=== PATIENT | female | born 1955 | race Caucasian/White ===

== ENCOUNTER 2020-06-27 08:40 | Outpatient (REF) | payer OTHER, SELFPAY ==
[2020-06-27 10:06] LABS: MANUAL DIFF FLAG NO
[2020-06-27 10:19] LABS: Basophils Percent Auto 0.7 % (0-2); Eosinophils Absolute Auto 0.1 X10*3/uL (0.0-0.4); Eosinophils Percent Auto 1.3 % (0-4); Hematocrit 42.9 % (37-47); Hemoglobin 13.5 g/dl (12.0-16.0); Imm Gran Abs Auto 0.01 X10*3/uL (0.00-0.03); Imm Gran Pct Auto 0.2 % (0.0-0.4); Lymphocytes Absolute Auto 1.6 X10*3/uL (1.2-4.9); Lymphocytes Percent Auto 28.9 % (20-40); Mean Corpuscular HGB Conc 31.5 g/dl (31.0-35.0); Mean Corpuscular Hemoglobin 28.2 pg (27.0-33.0); Mean Corpuscular Volume 89.6 fL (80-98); Mean Platelet Volume 11.3 fL (9.4-12.3); Monocytes Absolute Auto 0.5 X10*3/uL (0.1-1.2); Monocytes Percent Auto 8.6 % (2-11); Neutrophils Absolute Auto 3.2 X10*3/uL (2.0-8.3); Neutrophils Percent Auto 60.3 % (45-73); Platelet Count 282 X10*3/uL (160-400); Red Blood Count 4.79 X10*6/uL (4.20-5.50); Red Cell Distribution Width 13.3 % (11.0-16.0); White Blood Count 5.4 X10*3/uL (4.8-10.8)
[2020-06-27 11:03] LABS: Alanine Aminotransferase 21 U/L (0-31); Albumin Level 4.3 g/dL (3.5-5.0); Alkaline Phosphatase 86 U/L (39-117); Anion Gap 15 (12-20); Aspartate Amino Transferase 26 U/L (5-31); Bilirubin Total 0.5 mg/dL (0.0-1.0); Blood Urea Nitrogen 17 mg/dL (9-16); Calcium 8.8 mg/dL (8.4-10.2); Carbon Dioxide 27 mmol/L (22-29); Chloride 105 mmol/L (96-108); Cholesterol 196 mg/dL; Estimated Glomerular Filt Rate > 60; Glucose Fasting 89 mg/dL (60-99); HDL Cholesterol 81 mg/dL; LDL Cholesterol Calculated 103 mg/dl; Potassium 4.6 mmol/l (3.3-5.1); Sodium 142 mmol/L (135-145); Total Protein 6.6 g/dL (6.5-8.0); Triglycerides 62 mg/dL
[2020-06-27 11:07] LABS: ~HepC Num1 0.07 S/CO (0.00-0.79); ~Hepatitis C Antibody Nonreactive (Nonreactive)
[2020-06-27 11:12] LABS: Vitamin D 25-OH Total 76.7 ng/mL (>30)
== END 2020-06-27 08:41 | disposition home or self-care (01) ==
LOC: HO.10HDL 08:40
PROVIDERS: PCP Internal Medicine; Visit Provider Internal Medicine
DX: Z00.00 Encounter for general adult medical examination without abnormal findings (principal); M06.9 Rheumatoid arthritis, unspecified
CPT/HCPCS: 36415; 80053; 80061; 82306; 85025; 86140; 86803

== ENCOUNTER 2020-12-23 10:10 | Inpatient (IN) | payer OTHER, SELFPAY ==
[2020-12-23] VITALS (8 sets, daily range): BP systolic 111–156; BP diastolic 63–81; PULSE 68–84; RESP 15–20; TEMP 36.1–36.9; O2SAT 95–98; BMI 36.6
--- NOTE | ~2020-12-23 | CT_ITS ---
EXAMINATION: CT ABDOMEN AND PELVIS WITH CONTRAST CLINICAL INFORMATION: Epigastric and right upper quadrant pain. COMPARISON: None TECHNIQUE: Multidetector volumetric images were obtained from the superior aspect of the liver through the pubic symphysis following administration 85 mL of Omnipaque 350 intravenous contrast. Sagittal and coronal reformatted images were obtained on the technologist's workstation. Oral contrast: Yes This CT examination was performed using dose optimization techniques as appropriate, variously including the following: *Automated exposure control *Adjustment of mA and/or kV according to patient size (this includes techniques or standardized protocols for targeted exams where dose is matched to indication/reason for exam; i.e. extremities or head) *Use of iterative reconstruction technique DLP: 841 mGy-cm FINDINGS: LUNG BASES: The visualized lung bases are unremarkable. LIVER, GALLBLADDER, AND BILIARY TREE: The liver is normal in size, shape, and attenuation. No focal hepatic lesion or biliary ductal dilatation is present. There is a gallstone in the gallbladder. The gallbladder is normal in size. No gallbladder wall thickening or pericholecystic fluid is seen. PANCREAS: There is a small 8 mm cyst exophytic to the inferior tail of the pancreas (axial image 28, series 15 and coronal reconstructed image 36). There is fatty infiltration of the head of the pancreas. The pancreas is otherwise unremarkable. SPLEEN: Unremarkable. ADRENAL GLANDS: Unremarkable. KIDNEYS AND URETERS: Evaluation for a small stone is limited due to excreted contrast in the collecting systems. No stone is seen. There are bilateral peripelvic cysts. No renal mass or hydronephrosis is seen. BLADDER: Not well evaluated due to artifact from bilateral hip replacements. GASTROINTESTINAL TRACT: The small and large bowel is unremarkable. The appendix is not seen. The stomach is unremarkable. ABDOMINAL WALL: No significant hernia is appreciated. LYMPH NODES: Normal. VASCULAR: Unremarkable. PELVIC VISCERA: There is a small amount of ascites in the pelvis. The uterus and adnexa are unremarkable. OSSEOUS STRUCTURES: There are bilateral hip replacements. There are degenerative changes of the spine. CT/CT abdomen pelvis w con IMPRESSION: Gallstone. 8 mm cyst exophytic to the tail of pancreas. Follow up MR of the pancreas with MRCP should be considered. Bilateral renal peripelvic cysts.
--- NOTE | ~2020-12-23 | CT_ITS ---
EXAMINATION: CT ANGIOGRAM OF THE CHEST WITH AND WITHOUT CONTRAST (CT PULMONARY ANGIOGRAM FOR PE) CLINICAL INFORMATION: Reason for Exam elevated ddimer pleuritic pain r/o PE COMPARISON: None TECHNIQUE: Prior to contrast administration, noncontrast localization images were obtained. Subsequently, multidetector volumetric imaging was performed from the thoracic inlet to below the diaphragms following the administration of 85 mL Omnipaque 350 intravenous contrast. No contrast reaction reported Sagittal, coronal, and MIP oblique sagittal reformatted images were obtained on the CT workstation, uploaded to PACS, and reviewed. This CT examination was performed using dose optimization techniques as appropriate, variously including the following: *Automated exposure control *Adjustment of mA and/or kV according to patient size (this includes techniques or standardized protocols for targeted exams where dose is matched to indication/reason for exam; i.e. extremities or head) *Use of iterative reconstruction technique Total exam dose-length product 423 mGy-cm FINDINGS: QUALITY OF STUDY/CONTRAST BOLUS: Satisfactory. PULMONARY ARTERIES: No central or segmental pulmonary emboli. THORACIC AORTA: No aneurysm or dissection. LUNG: No focal consolidation, nodules or masses. PLEURA: No pleural effusion or pneumothorax. MEDIASTINUM: Upper normal heart size. No pericardial effusion. No hilar or mediastinal lymphadenopathy. No evidence of septal bowing or right heart strain. CHEST WALL/AXILLA: No axillary or internal mammary lymphadenopathy. OSSEOUS STRUCTURES: No acute or suspicious osseous abnormality. There are degenerative changes of the spine and mild scoliosis. There are degenerative changes at the shoulder joints. UPPER ABDOMEN: Unremarkable. No reflux of contrast into the hepatic veins to suggest elevated right heart pressures. CT/CT angio chest PE protocol IMPRESSION: No evidence of pulmonary embolism. VTE: negative
--- NOTE | 2020-12-23 11:16 | ED_ITS ---
HPI - Abdominal Pain General Chief Complaint: Abdominal Pain Stated Complaint: UPPER GASTIC PAIN Time Seen by Provider: 12/23/20 11:16 Source: patient Mode of arrival: ambulatory Limitations: no limitations History of Present Illness MD elicited complaint: abdominal pain Pertinent past history: none Onset (ago): day(s) (yesterday at noon) Pain Consistency: constant Location: chest, epigastric, LUQ and RUQ Severity: moderate Quality: sharp Radiation: chest Migration to: no migration Exacerbating factors: other (inspiration) Relieving factors: nothing Associated symptoms: nausea and other (shortness of breath) Related Data Allergies Allergy/AdvReac Type Severity Reaction Status Date / Time No Known Allergies Allergy Verified 12/23/20 11:07 Review of Systems Review of Systems Constitutional : No Weight loss, No Fever, No Chills ENT/Mouth : No sore throat, No Rhinorrhea Eyes: No Eye Pain, No Swelling Cardiovascular : pos Chest Pain, pos SOB, no Dyspnea on Exertion, No Orthopnea, No Edema, No Palpitations Respiratory : No Cough, No Sputum Gastrointestinal : pos Nausea, No Vomiting, No Diarrhea, pos abdominal Pain, No Hematochezia, No Melena Genitourinary : No Dysuria, No Urinary Frequency Musculoskeletal : No joint pain, No Myalgias, No Joint Swelling Skin : No Skin Lesions, No rash Neuro : No Weakness, No Numbness, No Dizziness, No Headache Psych : No Anxiety/Panic, No Depression Heme/Lymph: No Bruising, No Lymphadenopathy Endocrine : No Polyuria, No Polydipsia All other systems reviewed and are negative Physical Exam Vital Signs: Vital Signs: Last Vital Signs Temp 98.5 F 12/23/20 16:00 Pulse 71 12/23/20 16:00 Resp 18 12/23/20 16:00 BP 128/70 12/23/20 16:00 Pulse Ox 95 12/23/20 16:00 Body Mass Index 36.6 Appearance: Alert. Oriented X3. No acute distress. Eyes: Pupils equal, round and reactive to light. ENT: Pharynx normal. Neck: Normal inspection. Neck supple. CVS: Normal heart rate and rhythm. Pulses normal. Respiratory: No respiratory distress. Breath sounds normal. Abdomen: Soft and moderate ttp in epigastric area with + damon's sign Skin: Skin warm and dry. Normal skin color. Normal skin turgor. Extremities: No lower extremity edema. No calf ttp Neuro: Oriented X 3. No motor deficit. No sensory deficit. Course Course Course Narrative: elevated ddimer CTA PE ordered at this time message sent to Dr. Florentino given peristent pain but some GB wall thickening ?fluid and stone seen on CT abdomen MDM - Abdominal Pain MDM Narrative Medical decision making narrative: 65 yo female with HTN, RA here with epigastric pain RUQ pain pleuritic chest pain started at noon yesterday, will need labs, CT scan for pancreas/GB, EKG, troponin, ddimer, IV morphine for pain dispo per results and findings. Differential Diagnosis Differential diagnosis: Likely abdominal pain and peptic ulcer disease Lab Data Result diagrams: 12/23/20 12:07 12/23/20 12:07 Labs: Lab Results 12/23/20 12/23/20 12/23/20 Range/Units 12:07 12:07 12:07 WBC 7.9 (4.8-10.8) X10*3/uL RBC 4.72 (4.20-5.50) X10*6/uL Hgb 13.3 (12.0-16.0) g/dl Hct 42.2 (37-47) % MCV 89.4 (80-98) fL MCH 28.2 (27.0-33.0) pg MCHC 31.5 (31.0-35.0) g/dl RDW 13.6 (11.0-16.0) % Plt Count 248 (160-400) X10*3/uL MPV 10.3 (9.4-12.3) fL Immature Gran % (Auto) 0.5 H (0.0-0.4) % Neut % (Auto) 69.9 (45-73) % Lymph % (Auto) 17.6 L (20-40) % [place] % (Auto) 10.6 (2-11) % Eos % (Auto) 1.0 (0-4) % Baso % (Auto) 0.4 (0-2) % Lymph # (Auto) 1.4 (1.2-4.9) X10*3/uL [place] # (Auto) 0.8 (0.1-1.2) X10*3/uL Eos # (Auto) 0.1 (0.0-0.4) X10*3/uL Baso # (Auto) 0.0 (0.0-0.2) X10*3/uL Abs Immat Gran (auto) 0.04 H (0.00-0.03) X10*3/uL Absolute Neuts (auto) 5.5 (2.0-8.3) X10*3/uL Absolute Nucleated RBC 0.000 (0.0-0.012) X10*3/uL Nucleated RBC % (auto) 0.0 (0.0-0.2) /100WBC D-Dimer 1550 NG/ML Sodium 143 (135-145) mmol/L Potassium 4.9 (3.3-5.1) mmol/L Chloride 105 (96-108) mmol/L Carbon Dioxide 31 H (22-29) mmol/L Anion Gap 12 (12-20) BUN 14 (9-16) mg/dL Creatinine 0.87 (0.5-1.4) mg/dL Estim Creat Clear Calc 77.4 Estimated GFR > 60 Random Glucose 88 (60-115) mg/dL Calcium 9.2 (8.4-10.2) mg/dL Magnesium 2.0 (1.6-2.6) mg/dL Total Bilirubin 0.4 (0.0-1.0) mg/dL Direct Bilirubin 0.2 (0.0-0.5) mg/dL AST 27 (5-31) U/L ALT 15 (0-31) U/L Alkaline Phosphatase 96 (39-117) U/L Troponin I High Sens (<3.5-17.0) ng/L Total Protein 6.6 (6.5-8.0) g/dL Albumin 4.1 (3.5-5.0) g/dL Lipase 36 (8-78) U/L COVID-19 (GENET) (Negative) COVID-19 Clin Com 12/23/20 12/23/20 Range/Units 12:07 14:56 WBC (4.8-10.8) X10*3/uL RBC (4.20-5.50) X10*6/uL Hgb (12.0-16.0) g/dl Hct (37-47) % MCV (80-98) fL MCH (27.0-33.0) pg MCHC (31.0-35.0) g/dl RDW (11.0-16.0) % Plt Count (160-400) X10*3/uL MPV (9.4-12.3) fL Immature Gran % (Auto) (0.0-0.4) % Neut % (Auto) (45-73) % Lymph % (Auto) (20-40) % [place] % (Auto) (2-11) % Eos % (Auto) (0-4) % Baso % (Auto) (0-2) % Lymph # (Auto) (1.2-4.9) X10*3/uL [place] # (Auto) (0.1-1.2) X10*3/uL Eos # (Auto) (0.0-0.4) X10*3/uL Baso # (Auto) (0.0-0.2) X10*3/uL Abs Immat Gran (auto) (0.00-0.03) X10*3/uL Absolute Neuts (auto) (2.0-8.3) X10*3/uL Absolute Nucleated RBC (0.0-0.012) X10*3/uL Nucleated RBC % (auto) (0.0-0.2) /100WBC D-Dimer NG/ML Sodium (135-145) mmol/L Potassium (3.3-5.1) mmol/L Chloride (96-108) mmol/L Carbon Dioxide (22-29) mmol/L Anion Gap (12-20) BUN (9-16) mg/dL Creatinine (0.5-1.4) mg/dL Estim Creat Clear Calc Estimated GFR Random Glucose (60-115) mg/dL Calcium (8.4-10.2) mg/dL Magnesium (1.6-2.6) mg/dL Total Bilirubin (0.0-1.0) mg/dL Direct Bilirubin (0.0-0.5) mg/dL AST (5-31) U/L ALT (0-31) U/L Alkaline Phosphatase (39-117) U/L Troponin I High Sens < 3.5 (<3.5-17.0) ng/L Total Protein (6.5-8.0) g/dL Albumin (3.5-5.0) g/dL Lipase (8-78) U/L COVID-19 (GENET) Negative (Negative) COVID-19 Clin Com See Note ECG Data Attestation: I personally reviewed and interpreted this ECG as follows: ECG interpretation date: 12/23/20 ECG interpretation time: 11:51 Interpretation: Rate: 77 Rhythm: NSR with 1st degree AVB [place]: normal Normal P waves. Normal JULIANE. Normal QRS complex. ST T wave : inverted III t wave, no TRENA qTC: normal prior studies: no acute ischemia The study has been interpreted contemporaneously by me. . Discharge Plan Discharge Clinical Impression: Abdominal pain, Biliary colic [facility] Past Medical History Attestation statement: The following information was validated with the patient. Medical History (Updated 12/23/20 @ 16:25 by Esther Alva DO) HTN (hypertension) Rheumatoid arthritis Social History Social History (Updated 12/23/20 @ 11:36 by Esther Alva DO) Alcohol intake: never Patient Tobacco Use Status: Never used Tobacco Advance Directives: No Advance Directives Information Provided: Yes
--- NOTE | 2020-12-23 11:26 | ECG_ITS ---
Test Reason : ABD PAIN Blood Pressure : / mmHG Vent. Rate : 077 BPM Atrial Rate : 077 BPM P-R Int : 220 ms QRS Dur : 082 ms QT Int : 394 ms P-R-T Axes : 047 034 032 degrees QTc Int : 445 ms Sinus rhythm with 1st degree A-V block Low voltage QRS Borderline ECG When compared with ECG of 13-NOV-2002 12:14, DC interval has increased Referred By: Esther Alva Electronically Signed By:GRUPO BRADLEY MD
[2020-12-23] MEDS: 0.9 % Sodium Chloride 1,000 ML 999 ML IVCONT (12:19)
[2020-12-23] MEDS: Morphine Sulfate 4 MG/ML CARTRIDGE IVPUSH (12:19)
[2020-12-23] MEDS: ondansetron HCL 4 MG/2 ML VIAL IVPUSH (12:19)
[2020-12-23 12:24] LABS: MANUAL DIFF FLAG NO
[2020-12-23 12:29] LABS: Basophils Percent Auto 0.4 % (0-2); Eosinophils Absolute Auto 0.1 X10*3/uL (0.0-0.4); Hematocrit 42.2 % (37-47); Hemoglobin 13.3 g/dl (12.0-16.0); Imm Gran Abs Auto 0.04 X10*3/uL (0.00-0.03); Imm Gran Pct Auto 0.5 % (0.0-0.4); Lymphocytes Absolute Auto 1.4 X10*3/uL (1.2-4.9); Lymphocytes Percent Auto 17.6 % (20-40); Mean Corpuscular HGB Conc 31.5 g/dl (31.0-35.0); Mean Corpuscular Hemoglobin 28.2 pg (27.0-33.0); Mean Corpuscular Volume 89.4 fL (80-98); Mean Platelet Volume 10.3 fL (9.4-12.3); Monocytes Absolute Auto 0.8 X10*3/uL (0.1-1.2); Monocytes Percent Auto 10.6 % (2-11); Neutrophils Absolute Auto 5.5 X10*3/uL (2.0-8.3); Neutrophils Percent Auto 69.9 % (45-73); Platelet Count 248 X10*3/uL (160-400); Red Blood Count 4.72 X10*6/uL (4.20-5.50); Red Cell Distribution Width 13.6 % (11.0-16.0); White Blood Count 7.9 X10*3/uL (4.8-10.8)
[2020-12-23 12:47] LABS: D Dimer 1550 NG/ML
[2020-12-23 12:55] LABS: Troponin-I High Sensitivity < 3.5 ng/L (<3.5-17.0)
[2020-12-23 12:57] LABS: Alanine Aminotransferase 15 U/L (0-31); Albumin Level 4.1 g/dL (3.5-5.0); Alkaline Phosphatase 96 U/L (39-117); Anion Gap 12 (12-20); Aspartate Amino Transferase 27 U/L (5-31); Bilirubin Direct 0.2 mg/dL (0.0-0.5); Bilirubin Total 0.4 mg/dL (0.0-1.0); Blood Urea Nitrogen 14 mg/dL (9-16); Calcium 9.2 mg/dL (8.4-10.2); Carbon Dioxide 31 mmol/L (22-29); Chloride 105 mmol/L (96-108); Creatinine Clr Calc Pharmacy 77.4; Estimated Glomerular Filt Rate > 60; Glucose Random 88 mg/dL (60-115); Lipase 36 U/L (8-78); Potassium 4.9 mmol/L (3.3-5.1); Sodium 143 mmol/L (135-145); Total Protein 6.6 g/dL (6.5-8.0)
[2020-12-23] MEDS: HYDROmorphone HCl 1 MG/ML SYRINGE IVPUSH (14:31)
[2020-12-23 15:19] LABS: COVID-19 Test Negative (Negative)
--- NOTE | 2020-12-23 16:31 | PC.NURSE ---
Late entry: 1545-Md contreras at bedside for eval
--- NOTE | 2020-12-23 16:44 | PM.HPGS ---
History of Present Illness History of Present Illness Date of Service: 12/23/20 Chief complaint: UPPER GASTIC PAIN Narrative: Olivia Whipple is a 65 year old female had acute onset of epigastric pain radiating into the substernal area around mid day yesterday. The pain was persistent and was more severe when she awoke this morning, about 7/10. She did not experience nausea, vomiting, fever or chills. She reports that she had an episode loose stool yesterday. Stools were soft but formed today. She has not had similar pain in the past. In the emergency department, pain was not relieved by morphine. She had improvement with Dilaudid, but reports significant persistent tenderness. Laboratory studies did not reveal any significant abnormalities except for an elevation of D-dimer. She also reported some mild shortness of breath. CT a was performed and did not reveal any evidence of pulmonary embolus. CT scan of the abdomen and pelvis revealed a gallstone without evidence of thickening of the gallbladder wall or pericholecystic fluid. A cyst was noted in the tail of her pancreas. Follow-up MRI was recommended. Review of Systems Constitutional: Constitutional: Denies chills, Denies fatigue and Denies fever(s) ENT: Denies vertigo and Denies dizziness Cardiovascular: Cardiovascular: Reports chest pain (Substernal, Associated with the current epigastric pain), Reports Epigastric Pain and Reports dyspnea (Mild) Respiratory: Respiratory: Denies cough, Reports dyspnea (Mild) and Denies wheezing Gastrointestinal: Gastrointestinal: Reports as per HPI Genitourinary: Genitourinary: Reports no additional female genitourinary complaints Musculoskeletal: Musculoskeletal: Reports arthralgias Neurologic: Denies vertigo and Denies dizziness Endocrine: Endocrine: Denies fatigue Allergic/Immunologic: Allergic/Immunologic: Denies wheezing [facility] Past Medical History Medical History (Updated 12/23/20 @ 17:04 by Geneva Florentino MD) HTN (hypertension) Hypercholesterolemia Rheumatoid arthritis Family History Family History (Updated 12/23/20 @ 16:57 by Geneva Florentino MD) Father History of partial gastrectomy Mother Heart disease Surgical History Surgical History History of appendectomy History of bunionectomy Status post total hip replacement, bilateral Total knee replacement status Social History Social History Alcohol intake: never Patient Tobacco Use Status: Never used Tobacco Use of substances other than those prescribed or required for medical reasons: No Advance Directives: No Advance Directives Information Provided: Yes Meds Allergies Allergy/AdvReac Type Severity Reaction Status Date / Time No Known Allergies Allergy Verified 12/23/20 11:07 Active Medications: Current Medications Generic Name Dose Route Start Last Admin Trade Name Freq PRN Reason Stop Dose Admin Pharmacy Consult 1 each 12/23/20 16:36 Consult Rx Perform Med Rec MISCELLANE ONCE PRN Consult order Home Medications Medication Instructions Recorded Confirmed Last Taken Type amlodipine 1 tab PO DAILY@18 12/23/20 12/23/20 12/22/20 History cetirizine [Zyrtec] 10 mg PO DAILY PRN 12/23/20 12/23/20 Unknown History cholecalciferol (vitamin D3) 25 mcg PO DAILY 12/23/20 12/23/20 12/23/20 History estradiol 1 tab VAGINAL TUTH@12/23/20 12/23/20 12/22/20 History lisinopril 1 tab PO DAILY 12/23/20 12/23/20 12/23/20 History multivitamin 1 tab PO DAILY 12/23/20 12/23/20 12/23/20 History sulfasalazine 1 tab PO QPM 12/23/20 12/23/20 12/22/20 History sulfasalazine 2 tab PO DAILY 12/23/20 12/23/20 12/23/20 History Physical Exam Vital Signs: Vital Signs: Last Vital Signs Temp 98.5 F 12/23/20 16:00 Pulse 71 12/23/20 16:00 Resp 18 12/23/20 16:00 BP 128/70 12/23/20 16:00 Pulse Ox 95 12/23/20 16:00 Body Mass Index 36.6 Const: General: cooperative, no acute distress and anxious HENMT: Head: Yes normocephalic and Yes atraumatic Eyes: EOM: EOMs intact bilaterally Neck: Neck: Yes trachea midline Resp: Effort & Inspection: normal respiratory effort Auscultation: clear to auscultation bilaterally Cardio: Rate: regular rate Rhythm: regular rhythm Peripheral pulses: dorsalis pedis present (2+ bilaterally) GI: Other: Soft, nondistended, no palpable masses, moderate epigastric tenderness, negative Sullivan sign, well-healed right lower quadrant and low transverse scars Skin: Other: Normal color, warm and dry Extrem: Other: No edema Results Results Labs: Short CBC 12/23/20 Range/Units 12:07 WBC 7.9 (4.8-10.8) X10*3/uL Hgb 13.3 (12.0-16.0) g/dl Hct 42.2 (37-47) % Plt Count 248 (160-400) X10*3/uL BMP 12/23/20 12:07 Sodium 143 Potassium 4.9 Chloride 105 Carbon Dioxide 31 H BUN 14 Creatinine 0.87 Calcium 9.2 Liver Function 12/23/20 Range/Units 12:07 Total Bilirubin 0.4 (0.0-1.0) mg/dL Direct Bilirubin 0.2 (0.0-0.5) mg/dL AST 27 (5-31) U/L ALT 15 (0-31) U/L Alkaline Phosphatase 96 (39-117) U/L Albumin 4.1 (3.5-5.0) g/dL Assessment and Plan (1) Abdominal pain: Qualifiers: Abdominal location: right upper quadrant Qualified Code(s): R10.11 - Right upper quadrant pain Status: Acute (2) Biliary colic: Status: Acute 65-year-old female with acute onset of epigastric pain and persistent tenderness, CT findings of cholelithiasis without clear evidence of acute cholecystitis; however, the possibility of early acute cholecystitis cannot be completely ruled out. Treatment options reviewed including discharge home with office follow-up and elective scheduling and admission for observation and cholecystectomy. She prefers admission. We reviewed the technique of laparoscopic cholecystectomy and potential need for open cholecystectomy. We discussed risks including but not limited to infection, bleeding, DVT and PE, chronic diarrhea, injuries to adjacent structures including bile ducts, bile leak, retained stones. Surgery will be scheduled for tomorrow. We have reviewed the anticipated postoperative course following both laparoscopic and open cholecystectomy. Note is made of pancreatic cyst. Further workup can be pursued on an outpatient basis. (3) Pancreatic cyst: Status: Acute Procedures Date of Service Date of Service: 12/23/20
--- NOTE | 2020-12-23 17:03 | PHA.MEDREC ---
Pharmacy Consult ? Medication Reconciliation Pharmacy has completed the medication reconciliation.
[2020-12-23] MEDS: Dextrose 5 % and Lactated Ring 1,000 ML 100 ML IVCONT (18:00)
--- NOTE | 2020-12-23 18:16 | PC.NURSE ---
per md contreras, hold antibitoic until tomorrow. NPO at this time except for clear liquids.
--- NOTE | 2020-12-23 18:49 | PC.NURSE ---
attempted to give report. Oncoming shift rn-blake to take report.
[2020-12-23] MEDS: amLODIPine Besylate 2.5 MG TABLET PO (19:36)
[2020-12-23] MEDS: HYDROmorphone HCl 0.5 MG/0.5 ML SYRINGE IV ×2 (19:37→23:29)
[2020-12-24] VITALS (22 sets, daily range): BP systolic 92–156; BP diastolic 45–78; PULSE 54–71; RESP 13–20; TEMP 36.1–36.9; O2SAT 94–99
[2020-12-24] MEDS: Acetaminophen 325 MG TABLET 650 MG PO ×3 (03:39→19:48)
[2020-12-24] MEDS: Dextrose 5 % and Lactated Ring 1,000 ML 100 ML IVCONT ×2 (03:41→19:38)
[2020-12-24 07:02] LABS: Hematocrit 39.5 % (37-47); Hemoglobin 12.5 g/dl (12.0-16.0); Mean Corpuscular HGB Conc 31.6 g/dl (31.0-35.0); Mean Corpuscular Hemoglobin 28.5 pg (27.0-33.0); Mean Platelet Volume 10.7 fL (9.4-12.3); Platelet Count 225 X10*3/uL (160-400); Red Blood Count 4.39 X10*6/uL (4.20-5.50); Red Cell Distribution Width 13.5 % (11.0-16.0); White Blood Count 6.9 X10*3/uL (4.8-10.8)
[2020-12-24] MEDS: HYDROmorphone HCl 0.5 MG/0.5 ML SYRINGE IV ×2 (07:23→22:33)
[2020-12-24 07:29] LABS: Alanine Aminotransferase 17 U/L (0-31); Albumin Level 3.8 g/dL (3.5-5.0); Alkaline Phosphatase 81 U/L (39-117); Anion Gap 13 (12-20); Aspartate Amino Transferase 20 U/L (5-31); Bilirubin Direct 0.3 mg/dL (0.0-0.5); Bilirubin Total 0.5 mg/dL (0.0-1.0); Blood Urea Nitrogen 10 mg/dL (9-16); Calcium 8.9 mg/dL (8.4-10.2); Carbon Dioxide 28 mmol/L (22-29); Chloride 103 mmol/L (96-108); Creatinine Clr Calc Pharmacy 86.4; Estimated Glomerular Filt Rate > 60; Glucose Fasting 117 mg/dL (60-99); Potassium 4.2 mmol/L (3.3-5.1); Sodium 140 mmol/L (135-145)
[2020-12-24] MEDS: lisinopriL 10 MG TABLET PO (08:41)
--- NOTE | 2020-12-24 09:25 | MHC.CM.PN ---
PATIENT IS INDEPENDENT WITH HER ADLS. SHE IS CURRENTLY DISCUSSING SURGICAL PROCEDURE WITH SURGEON. CASE MANAGEMENT NAMES ON WHITE BOARD. PCP VERIFIED. CASE MANAGEMENT FOLLOWING FOR ANY DISCHARGE PLANS
--- NOTE | 2020-12-24 09:30 | MHC.CM.PN ---
Addendum entered by Angelic Waldrop 12/24/20 10:18: CORRECTION; PLAN IS GALLBLADDER REMOVAL TODAY (12/24/20). Original Note: PER REVIEW OF NOTES, SURGICAL INTERVENTION SCHEDULED FOR Saturday12/25/20
--- NOTE | 2020-12-24 10:19 | MHC.CM.PN ---
PATIENT'S SPOUSE, ANNMARIE, IS HCP AND A COPY IS REQUESTED TO BE BROUGHT IN FOR MEDICAL CHART
--- NOTE | 2020-12-24 15:21 | MHC.SHP ---
Pre-Procedural Eval Section A The patient is an INPATIENT: Yes The History & Physical has been completed within 30 days and I have reviewed it.: Yes Section B Chief Complaint: UPPER GASTIC PAIN Allergies: Allergies Allergy/AdvReac Type Severity Reaction Status Date / Time No Known Allergies Allergy Verified 12/23/20 11:07 Plan Diagnosis/Plan: Unchanged I have reviewed the history and physical and performed a pertinent physical examination on my patient. No changes have occurred unless specified.
--- NOTE | 2020-12-24 15:23 | HO.ANESPROP2 ---
[facility] Active Problems Active Problems: All Active Problems (Updated 12/24/20 @ 06:55 by Geneva Florentino MD) Pancreatic cyst (Acute) Abdominal pain (Acute) Biliary colic (Acute) Past Medical History Medical History (Updated 12/24/20 @ 06:55 by Geneva Florentino MD) HTN (hypertension) Hypercholesterolemia Rheumatoid arthritis Sleep apnea Family History Family History (Updated 12/23/20 @ 16:58 by Geneva Florentino MD) Father History of partial gastrectomy Mother Heart disease Surgical History Surgical History (Updated 12/24/20 @ 14:49 by Geneva Florentino MD) History of appendectomy History of bunionectomy History of carpal tunnel release of both wrists History of pelvic surgery Status post total hip replacement, bilateral Total knee replacement status Social History Social History Household Members: Spouse Housing: House Do you presently have visiting nurse or other home services: No Alcohol intake: never Patient Tobacco Use Status: Never used Tobacco Use of substances other than those prescribed or required for medical reasons: No Currently Displaying Signs/Symptoms of Drug Intoxication Withdrawal: No Have you been hit, kicked, punched, or otherwise hurt by someone within the past year? If so, by whom?: No Do you feel safe in your current relationship?: Yes Is there a partner from a previous relationship who is making you feel unsafe now?: No Are you made to feel afraid or neglected: No Are you DNR?: No Advance Directives: No Advance Directives Information Provided: Yes Do you have thoughts of harming others: None Do you have a plan to hurt others: No Plan Recently lost weight without trying: No Nutrition Risks: No Nutritional Risk Patient : No service: No Current occupational status: employed Meds Allergies Allergy/AdvReac Type Severity Reaction Status Date / Time No Known Allergies Allergy Verified 12/23/20 11:07 Active Medications: Current Medications Generic Name Dose Route Start Last Admin Trade Name Freq PRN Reason Stop Dose Admin Acetaminophen 650 mg 12/23/20 17:50 12/24/20 12:18 Acetaminophen 325 Mg Tablet PO 650 mg Q6H PRN Administration Fever Amlodipine Besylate 2.5 mg 12/23/20 18:00 12/23/20 19:36 Amlodipine Besylate 2.5 Mg Tablet PO 2.5 mg DAILY@1800 [facility] Administration Protocol Hydromorphone HCl 0.5 mg 12/23/20 17:12 12/24/20 07:23 Hydromorphone Hcl 0.5 Mg/0.5 Ml Syringe IV 0.5 mg Q3H PRN Administration Pain, Severe (Pain Scale 7-10) Dextrose/Lactated Ringer's 1,000 mls @ 100 mls/hr 12/23/20 17:50 12/24/20 14:37 D5lr IVCONT Infused .Q10H PAN Infusion Lisinopril 10 mg 12/24/20 09:00 12/24/20 08:41 Lisinopril 10 Mg Tablet PO 10 mg DAILY [facility] Administration Protocol Loratadine 10 mg 12/23/20 17:50 Loratadine 10 Mg Tablet PO DAILY PRN Allergy Symptoms Ondansetron HCl 4 mg 12/23/20 17:50 Ondansetron Hcl 4 Mg/2 Ml Vial IVPUSH Q8H PRN Nausea Pharmacy Consult 1 each 12/23/20 16:36 Consult Rx Perform Med Rec MISCELLANE ONCE PRN Consult order Home Medications Medication Instructions Recorded Confirmed Last Taken Type amlodipine 1 tab PO DAILY@18 12/23/20 12/23/20 12/22/20 History cetirizine [Zyrtec] 10 mg PO DAILY PRN 12/23/20 12/23/20 Unknown History cholecalciferol (vitamin D3) 25 mcg PO DAILY 12/23/20 12/23/20 12/23/20 History estradiol 1 tab VAGINAL TUTH@21 12/23/20 12/23/20 12/22/20 History lisinopril 1 tab PO DAILY 12/23/20 12/23/20 12/23/20 History multivitamin 1 tab PO DAILY 12/23/20 12/23/20 12/23/20 History sulfasalazine 1 tab PO QPM 12/23/20 12/23/20 12/22/20 History sulfasalazine 2 tab PO DAILY 12/23/20 12/23/20 12/23/20 History Exam Exam Date and Time: December 24, 2020 1523 Height,Weight and Vital Signs: Height 5 ft 5 in Weight 99.79 kg Last Vital Signs Temp 98.1 F 12/24/20 14:39 Pulse 68 12/24/20 14:39 Resp 18 12/24/20 14:39 BP 156/75 H 12/24/20 14:39 Pulse Ox 97 12/24/20 14:39 Pertinent Lab Results Pertinent Lab Results: Laboratory Tests 12/23/20 12/23/20 12/23/20 12:07 12:07 12:07 WBC 7.9 RBC 4.72 Hgb 13.3 Hct 42.2 MCV 89.4 MCH 28.2 MCHC 31.5 RDW 13.6 Plt Count 248 MPV 10.3 Immature Gran % (Auto) 0.5 H Neut % (Auto) 69.9 Lymph % (Auto) 17.6 L Lucas % (Auto) 10.6 Eos % (Auto) 1.0 Baso % (Auto) 0.4 Lymph # (Auto) 1.4 Lucas # (Auto) 0.8 Eos # (Auto) 0.1 Baso # (Auto) 0.0 Abs Immat Gran (auto) 0.04 H Absolute Neuts (auto) 5.5 Absolute Nucleated RBC 0.000 Nucleated RBC % (auto) 0.0 D-Dimer 1550 Sodium 143 Potassium 4.9 Chloride 105 Carbon Dioxide 31 H Anion Gap 12 BUN 14 Creatinine 0.87 Estim Creat Clear Calc 77.4 Estimated GFR > 60 Random Glucose 88 Fasting Glucose Calcium 9.2 Magnesium 2.0 Total Bilirubin 0.4 Direct Bilirubin 0.2 AST 27 ALT 15 Alkaline Phosphatase 96 Troponin I High Sens Total Protein 6.6 Albumin 4.1 Lipase 36 COVID-19 (GENET) COVID-19 Clin [facility] 12/23/20 12/23/20 12/24/20 12:07 14:56 06:17 WBC 6.9 RBC 4.39 Hgb 12.5 Hct 39.5 MCV 90.0 MCH 28.5 MCHC 31.6 RDW 13.5 Plt Count 225 MPV 10.7 Immature Gran % (Auto) Neut % (Auto) Lymph % (Auto) Lucas % (Auto) Eos % (Auto) Baso % (Auto) Lymph # (Auto) Lucas # (Auto) Eos # (Auto) Baso # (Auto) Abs Immat Gran (auto) Absolute Neuts (auto) Absolute Nucleated RBC 0.000 Nucleated RBC % (auto) 0.0 D-Dimer Sodium Potassium Chloride Carbon Dioxide Anion Gap BUN Creatinine Estim Creat Clear Calc Estimated GFR Random Glucose Fasting Glucose Calcium Magnesium Total Bilirubin Direct Bilirubin AST ALT Alkaline Phosphatase Troponin I High Sens < 3.5 Total Protein Albumin Lipase COVID-19 (GENET) Negative COVID-19 Clin Com See Note 12/24/20 06:17 WBC RBC Hgb Hct MCV MCH MCHC RDW Plt Count MPV Immature Gran % (Auto) Neut % (Auto) Lymph % (Auto) Lucas % (Auto) Eos % (Auto) Baso % (Auto) Lymph # (Auto) Lucas # (Auto) Eos # (Auto) Baso # (Auto) Abs Immat Gran (auto) Absolute Neuts (auto) Absolute Nucleated RBC Nucleated RBC % (auto) D-Dimer Sodium 140 Potassium 4.2 Chloride 103 Carbon Dioxide 28 Anion Gap 13 BUN 10 Creatinine 0.78 Estim Creat Clear Calc 86.4 Estimated GFR > 60 Random Glucose Fasting Glucose 117 H Calcium 8.9 Magnesium Total Bilirubin 0.5 Direct Bilirubin 0.3 AST 20 ALT 17 Alkaline Phosphatase 81 Troponin I High Sens Total Protein 6.0 L Albumin 3.8 Lipase COVID-19 (GENET) COVID-19 Clin Com Airway Mallampati Class: II TM Dist: >3cm Neck ROM: Full Loose/Missing/Broken Teeth: No Heart: RRR Lungs: CTA Assessment and Plan Assessment Anesthesia Assessment: Anesthesia Plan Discussed and Chart Reviewed Final Anesthetic Review NPO: Yes ASA Class: III and Emergency Final Preanesthetic Review: No Changes in Pt Med Stat, Meds/Allgs Chart Reviewed, Consent Obtained/Reviewed and Anes Risks/Benef Reviewed Patient Risk: Intermediate Procedure Risk: Intermediate Anesthetic Plan Anesthetic Plan: GA Disposition: Standard PACU
[2020-12-24] MEDS: ondansetron HCL 4 MG/2 ML VIAL IVPUSH (17:29)
--- NOTE | 2020-12-24 17:35 | P.OP_ITS ---
Operative Note Operative Note Date of Service: 12/24/20 Narrative: Preoperative diagnosis: Cholelithiasis and cholecystitis Postoperative diagnosis: Same Operative procedure: Laparoscopic cholecystectomy Senior Business Development Manager: None Anesthesia: General endotracheal Specimen: Gallbladder Estimated blood loss: 10 cc Immediate complications: None Urine output: None Indications: This is a 65-year-old female who presented to the emergency department yesterday with a 1 day history of persistent severe epigastric pain. Workup revealed a gallstone in the neck of the gallbladder. She had persistent pain and tenderness. Laparoscopic cholecystectomy was planned. Procedure in detail: With the patient in the supine position following induction of adequate general anesthesia, time-out procedure was performed. The abdomen was prepped with ChloraPrep and was draped sterilely. Each trocar site was infiltrated with local anesthetic prior to making incisions. 2 g of cefotetan were infused for antibiotic prophylaxis. An infraumbilical incision was made and was carried down to level of fascia. The fascia was elevated in the midline with Laverne clamp and holding sutures of 0 Polysorb were placed on either side. The fascia was released and was then incised in the midline. The peritoneal cavity was entered. The Villeda trocar was inserted and stabilized with the fascial sutures. The abdomen was then insufflated with carbon dioxide to a pressure of 15 mm of mercury and the 0 degree 30 mm laparoscoped was inserted. The peritoneal cavity was visualized. No acute abnormalities were identified. The gallbladder appeared thickened but not acutely inflamed. Patient was placed in reverse Trendelenburg position and rotated left side down. 5 mm trocars were inserted just to the right of the midline about a quarter of the way between the xiphoid and umbilicus, in the midclavicular line just below the costal margin and in approximately the anterior axillary line below the costal margin. Blunt graspers were inserted and the gallbladder was grasped along the fundus at the anterior liver margin was retracted cephalad. Adhesions were present between the gallbladder and omentum. These were taken down using careful blunt dissection. Minimal bleeding was encountered. The gallbladder was then grasped along the infundibulum and was retracted laterally. Dissection was then initiated along the infundibulum and was carried medially to expose the cystic duct gallbladder junction. This was dissected free circumferentially. Dissection was then carried along the superomedial aspect of the gallbladder to identify the cystic artery. This structure also was dissected free circumferentially and dissection continued along the gallbladder liver margin to obtain the critical view. The cystic artery was noted to be branching just medial to junction with the gallbladder to provide anterior and posterior branches. The cystic duct was doubly clipped just proximal to the junction with the gallbladder, singly clipped at the junction with the gallbladder and divided . The anterior and posterior branches of the cystic artery were then doubly clipped along the patient's side and singly clipped along the gallbladder side and divided. The gallbladder was then dissected free from the liver bed using the cautery hook. An additional vascular structure was divided between clips along the fundus. Once the gallbladder was completely dissected free, the laparoscopic was removed and reinserted through the upper medial trocar site. The specimen pouch was inserted through the Johnnie trocar. The gallbladder was placed into the pouch and the pouch was closed and withdrawn along with the son. The Johnnie was then reinserted and the laparoscopic was placed back through it. The operative field was visualized. Clips were noted to be intact on the cystic duct and cystic artery stumps. No bleeding was present. The right upper quadrant was irrigated with saline solution and again inspected. Clips remained intact. Upper abdominal trocars were then removed under direct vision. There was no bleeding from trocar sites. Insufflation was discontinued and gas was let is given the peritoneal cavity. The laparoscopic open and has on were then removed. Fascia at the Johnnie site was closed with [id number] suture of 0 Polysorb and holding sutures were tied to 1 another. Additional local anesthetic infiltration was carried out into the fascia at the Johnnie site. Skin incisions were closed with subcuticular sutures of 4-0 Polysorb. Steri-Strips and adhesive dressings were applied. She tolerated the procedure well and was transported to the recovery room in stable condition. There were no immediate complications.
[2020-12-24] MEDS: fentaNYL citrate/PF 100 MCG/2 ML VIAL 50 MCG IVPUSH ×2 (18:20→18:39)
[2020-12-24] MEDS: amLODIPine Besylate 2.5 MG TABLET PO (19:48)
[2020-12-25 00:18] VITALS: BP 115/63; PULSE 67; RESP 18; TEMP 36.9; O2SAT 95
[2020-12-25] MEDS: Acetaminophen 325 MG TABLET 650 MG PO ×2 (02:32→08:48)
[2020-12-25 03:13] VITALS: BP 121/67; PULSE 67; RESP 18; TEMP 36.5; O2SAT 95
[2020-12-25] MEDS: Dextrose 5 % and Lactated Ring 1,000 ML 100 ML IVCONT (04:31)
--- NOTE | 2020-12-25 07:27 | HO.POSTANES ---
Post Anesthesia Evaluation Post Anesthesia Evaluation Vital Signs: Vital Signs Temp Pulse Resp BP Pulse Ox 12/25/20 03:13 97.7 F 67 18 121/67 95 12/25/20 00:18 98.4 F 67 18 115/63 95 12/24/20 20:18 97.7 F 63 14 132/73 97 12/24/20 19:48 63 132/73 Anesthesia: General Endotracheal-GETA Mental Status: Awake Pain Control: Satisfactory Nausea/Vomiting: None Hydration: Adequate Anesthesia-Related Issues: No Anes. Related Issues
[2020-12-25 08:00] VITALS: BP 135/62; PULSE 58; RESP 17; TEMP 36.6; O2SAT 96
[2020-12-25] MEDS: lisinopriL 10 MG TABLET PO (08:49)
[2020-12-25] MEDS: oxyCODONE HCl Immed Release 5 MG TABLET PO (08:52)
--- NOTE | 2020-12-25 09:08 | MHC.CM.PN ---
PATIENT IS DISCHARGED HOME - SELF CARE. SPOUSE/HCP TO PROVIDE TRANSPORTATION. RN AWARE OF PLAN.
--- NOTE | 2020-12-25 12:24 | PM.PNGS ---
Subjective Subjective Date of Service: 12/25/20 Interval history: Feels much better this morning. No epigastric pain. Some discomfort around umbilical incision. Tolerating regular diet. Physical Exam Vital Signs: Vital Signs: Last Vital Signs Temp 97.8 F 12/25/20 08:00 Pulse 58 12/25/20 08:00 Resp 17 12/25/20 08:00 BP 135/62 12/25/20 08:00 Pulse Ox 96 12/25/20 08:00 Body Mass Index 36.6 Const: Other: Alert, appears comfortable Resp: Effort & Inspection: normal respiratory effort Auscultation: clear to auscultation bilaterally Cardio: Rate: regular rate Rhythm: regular rhythm GI: Other: Soft, nondistended, normal bowel sounds, no significant tenderness, dressings clean dry and intact Progress Note: A&P Assessment and plan (1) Pancreatic cyst: Status: Acute (2) Abdominal pain: Status: Acute (3) Biliary colic: Status: Acute Assessment and Plan: 65-year-old female admitted with cholelithiasis and cholecystitis. Laparoscopic cholecystectomy performed yesterday. She is doing well and is ready for discharge home today. A 1 cm cyst was noted in the tail of her pancreas on CT scan. Further evaluation with MRI was recommended. This can be done as an outpatient. She will follow up with Dr. Baugh. Time Spent With Patient Time: Total time spent is greater than 50% in coordination of care (as documented) at patient's floor/unit and/or counseling patient: Time with patient: less than 15 minutes Procedures Date of Service Date of Service: 12/25/20
--- NOTE | 2020-12-25 12:27 | PM.DS ---
DS: Providers Provider Date of Service: 12/25/20 Date of admission: 12/23/20 17:10 Primary care physician: Tray Baugh MD Consults: 12/23/20 19:55 Consult Respiratory Therapy Routine Reason for consultation: sleep apnea DS: Diagnosis Discharge Diagnosis (1) Pancreatic cyst: Status: Acute (2) Abdominal pain: Status: Acute (3) Biliary colic: Status: Acute DS: Medications Discharge Medications Home Medications: Home Medications Medication Instructions Recorded Confirmed amlodipine 1 tab PO DAILY@18 12/23/20 12/23/20 cetirizine [Zyrtec] 10 mg PO DAILY PRN 12/23/20 12/23/20 cholecalciferol (vitamin D3) 25 mcg PO DAILY 12/23/20 12/23/20 estradiol 1 tab VAGINAL TUTH@21 12/23/20 12/23/20 lisinopril 1 tab PO DAILY 12/23/20 12/23/20 multivitamin 1 tab PO DAILY 12/23/20 12/23/20 sulfasalazine 1 tab PO QPM 12/23/20 12/23/20 sulfasalazine 2 tab PO DAILY 12/23/20 12/23/20 Previous Rx's Medication Instructions Recorded oxycodone 5 mg PO Q4H PRN #10 tab 12/25/20 DS: Summary Hospital Course Hospital Course: This is a 65-year-old female who presented to the emergency department on the day of admission for evaluation of severe epigastric pain that began the day prior to admission. She did not identify any aggravating or relieving factors. She did not describe nausea or vomiting. Laboratory studies were unremarkable in the emergency department. CT scan of the abdomen and pelvis revealed a stone in her proximal gallbladder. There is no evidence of gallbladder wall thickening or pericholecystic fluid. Past history was significant for rheumatoid arthritis, obstructive sleep apnea, hypertension and hypercholesterolemia On examination, she was alert and in no acute distress. Lungs- Clear to auscultation Heart - regular rate and rhythm Abdomen-soft, nondistended, no palpable masses, no organomegaly, moderate epigastric tenderness exam findings were consistent with cholecystitis, possibly early acute. Options for observation and surgery were reviewed. She elected to proceed with surgical therapy. On the day following admission, she was taken to the operating room where laparoscopic cholecystectomy was performed. She tolerated this well and was ready for discharge on the following day. Time Spent with Patient Time attestation: Total time spent providing and/or coordinating discharge services: Discharge coordination time: Less than 30 minutes Quality: Stroke Does the patient have a stroke diagnosis?: No Physical Exam Vital Signs: Vital Signs: Last Vital Signs Temp 97.8 F 12/25/20 08:00 Pulse 58 12/25/20 08:00 Resp 17 12/25/20 08:00 BP 135/62 12/25/20 08:00 Pulse Ox 96 12/25/20 08:00 Body Mass Index 36.6 Const: General: cooperative, comfortable and alert Resp: Effort & Inspection: normal respiratory effort Auscultation: clear to auscultation bilaterally Cardio: Rate: regular rate Rhythm: regular rhythm GI: Other: Soft, nondistended, no significant tenderness, dressings clean dry and intact DS: Data Data Completed and Pending Pending studies at discharge: Pending at discharge 12/24/20 16:49 Surgical [PTH] Routine Discharge Plan Discharge Patient Disposition: Home, Self-Care Discharge Diagnosis: cholecystitis, cholelithiasis, pancreatic cyst Referrals: Tray Baugh MD [Primary Care Provider] - 2 Weeks (incidental finding of pancreatic cyst on CT scan) Jerrod Hennessy MD [Physician] - 2 Weeks Discharge Medications: New oxycodone 5 mg tablet 5 mg PO Q4H PRN (Reason: pain) Qty: 10 RF: 0 Continued multivitamin Tablet 1 tab PO DAILY RF: 0 cetirizine [Zyrtec] 10 mg Tablet 10 mg PO DAILY PRN (Reason: Allergy Symptoms) RF: 0 sulfasalazine 500 mg tablet,delayed release (DR/EC) 2 tab PO DAILY RF: 0 sulfasalazine 500 mg tablet,delayed release (DR/EC) 1 tab PO QPM RF: 0 amlodipine 2.5 mg tablet 1 tab PO DAILY@18 RF: 0 lisinopril 10 mg tablet 1 tab PO DAILY RF: 0 cholecalciferol (vitamin D3) 25 mcg (1,000 unit) Tablet 25 mcg PO DAILY RF: 0 estradiol 10 mcg tablet 1 tab vaginal TUTH@21 RF: 0 Discharge Orders: Discharge Order (Routine); Ordered 12/25/20 Ordered By: Geneva Florentino Diet: advance to usual diet Activity on Discharge: No heavy lifting Stand Alone Forms: Patient Portal Discharge page Activity Restrictions/Additional Instructions: Avoid lifting over 10-15 lb for 2 weeks. Avoid strenuous activity for 2 weeks. You may remove your bandages on 12/25/2020. Try to leave the small white tapes on the incisions but do not be concerned if they fall off. There are dissolving stitches in place under the skin. You may shower after removing her bandages. Pat the incision areas dry. Take acetaminophen 650 mg every 6 hours for the 1st 2 days after discharge, then take it as needed for pain. Care Plan Goals: Return to usual activities and work Health Concerns: Recovery following laparoscopic cholecystectomy. Rheumatoid arthritis. Further evaluation of pancreatic cyst noted on CT scan. Plan of Treatment: Follow-up with Dr. Baugh to arrange evaluation of pancreatic cyst. Resume usual activities gradually. Resume usual medications. Assessment: Recovering following laparoscopic cholecystectomy. Follow-up for newly identified pancreatic cyst needed. Discharge Date/Time: 12/25/20 10:15
== END 2020-12-25 10:15 | disposition home or self-care (01) ==
LOC: HO.ED 16:35 → HO.EDOVER 17:36 → HO.S3 18:33
PROVIDERS: Admitting Provider Surgery; Emergency Provider Emergency Medicine; PCP Internal Medicine; Visit Provider Surgery
PROC: 0FT44ZZ Resection of Gallbladder, Percutaneous Endoscopic Approach (ICD-10-PCS; CPT 47562; principal; 2020-12-24 13:30)
DX: K80.00 Calculus of gallbladder with acute cholecystitis without obstruction (principal); K86.2 Cyst of pancreas; I10 Essential (primary) hypertension; M06.9 Rheumatoid arthritis, unspecified; Z20.822 Contact with and (suspected) exposure to COVID-19; Z79.899 Other long term (current) drug therapy
CPT/HCPCS: 47562; 36415; 71275; 74177; 80048; 80076; 83690; 83735; 84484; 85025; 85027; 85379; 87635; 88304; 93005; 99024; 99285; J1100; J1170; J2270; J2370; J2405; J2550; J3010

== ENCOUNTER → 2021-01-05 11:10 | Outpatient (BNVA) | payer OTHER, SELFPAY | PROVIDERS: PCP Internal Medicine; Visit Provider Surgery ==

== ENCOUNTER 2021-06-23 10:52 | Outpatient (REF) | payer OTHER, SELFPAY ==
[2021-06-23 13:53] LABS: MANUAL DIFF FLAG NO
[2021-06-23 14:01] LABS: Basophils Absolute Auto 0.1 X10*3/uL (0.0-0.2); Basophils Percent Auto 1.1 % (0-2); Eosinophils Absolute Auto 0.1 X10*3/uL (0.0-0.4); Eosinophils Percent Auto 1.7 % (0-4); Hematocrit 42.2 % (37.0-47.0); Hemoglobin 13.4 g/dl (12.0-16.0); Imm Gran Abs Auto 0.02 X10*3/uL (0.00-0.03); Imm Gran Pct Auto 0.4 % (0.0-0.4); Lymphocytes Absolute Auto 1.8 X10*3/uL (1.2-4.9); Lymphocytes Percent Auto 32.7 % (20-40); Mean Corpuscular HGB Conc 31.8 g/dl (31.0-35.0); Mean Corpuscular Hemoglobin 28.3 pg (27.0-33.0); Mean Platelet Volume 11.7 fL (9.4-12.3); Monocytes Absolute Auto 0.5 X10*3/uL (0.1-1.2); Monocytes Percent Auto 9.2 % (2-11); Neutrophils Percent Auto 54.9 % (45-73); Platelet Count 273 X10*3/uL (160-400); Red Blood Count 4.74 X10*6/uL (4.20-5.50); Red Cell Distribution Width 14.2 % (11.0-16.0); White Blood Count 5.4 X10*3/uL (4.8-10.8)
[2021-06-23 14:17] LABS: Alanine Aminotransferase 21 U/L (0-31); Albumin Level 4.3 g/dL (3.5-5.0); Alkaline Phosphatase 111 U/L (39-117); Anion Gap 12 (12-20); Aspartate Amino Transferase 26 U/L (5-31); Bilirubin Total 0.4 mg/dL (0.0-1.0); Blood Urea Nitrogen 15 mg/dL (9-16); Calcium 9.7 mg/dL (8.4-10.2); Carbon Dioxide 30 mmol/L (22-29); Chloride 105 mmol/L (96-108); Estimated Glomerular Filt Rate > 60; Glucose Random 79 mg/dL (60-115); Lipase 44 U/L (8-78); Potassium 4.6 mmol/L (3.3-5.1); Sodium 142 mmol/L (135-145); Total Protein 6.8 g/dL (6.5-8.0)
== END 2021-06-23 10:53 | disposition home or self-care (01) ==
LOC: HO.10HDL 10:52
PROVIDERS: Visit Provider Internal Medicine
DX: I10 Essential (primary) hypertension (principal); K86.2 Cyst of pancreas
CPT/HCPCS: 36415; 80053; 83690; 85025

== ENCOUNTER 2022-03-15 14:16 | Outpatient (REF) | payer MEDICARE, OTHER, SELFPAY ==
[2022-03-15 15:39] LABS: Alanine Aminotransferase 22 U/L (0-31); Albumin Level 4.4 g/dL (3.5-5.0); Alkaline Phosphatase 99 U/L (39-117); Amylase 81 U/L (28-100); Aspartate Amino Transferase 27 U/L (5-31); Bilirubin Direct 0.2 mg/dL (0.0-0.5); Bilirubin Total 0.2 mg/dL (0.0-1.0); Blood Urea Nitrogen 21 mg/dL (9-16); Estimated Glomerular Filt Rate > 60; Lipase 45 U/L (8-78)
[2022-03-17 08:56] LABS: Carbohydrate Antigen 19-9 13 U/mL (<34)
== END 2022-03-15 14:17 | disposition home or self-care (01) ==
LOC: HO.LAB 14:16
PROVIDERS: PCP Internal Medicine; Visit Provider Internal Medicine
DX: D49.0 Neoplasm of unspecified behavior of digestive system (principal)
CPT/HCPCS: 36415; 80076; 82150; 82565; 83690; 84520; 86301

== ENCOUNTER 2023-02-18 08:10 | Outpatient (REF) | payer MEDICARE, OTHER, SELFPAY ==
[2023-02-18 10:33] LABS: MANUAL DIFF FLAG NO
[2023-02-18 10:36] LABS: Basophils Percent Auto 0.7 % (0-2); Eosinophils Absolute Auto 0.1 X10*3/uL (0.0-0.4); Eosinophils Percent Auto 1.5 % (0-4); Hematocrit 39.2 % (37.0-47.0); Hemoglobin 12.5 g/dl (12.0-16.0); Imm Gran Abs Auto 0.03 X10*3/uL (0.00-0.03); Imm Gran Pct Auto 0.5 % (0.0-0.4); Lymphocytes Absolute Auto 1.7 X10*3/uL (1.2-4.9); Lymphocytes Percent Auto 27.8 % (20-40); Mean Corpuscular HGB Conc 31.9 g/dl (31.0-35.0); Mean Corpuscular Hemoglobin 28.3 pg (27.0-33.0); Mean Corpuscular Volume 88.7 fL (80.0-98.0); Mean Platelet Volume 10.9 fL (9.4-12.3); Monocytes Absolute Auto 0.5 X10*3/uL (0.1-1.2); Monocytes Percent Auto 8.2 % (2-11); Neutrophils Absolute Auto 3.7 x10*3/uL (2.0-8.3); Neutrophils Percent Auto 61.3 % (45-73); Platelet Count 236 X10*3/uL (160-400); Red Blood Count 4.42 X10*6/uL (4.20-5.50); Red Cell Distribution Width 13.7 % (11.0-16.0); White Blood Count 6.1 X10*3/uL (4.8-10.8)
[2023-02-18 11:11] LABS: Alanine Aminotransferase 21 U/L (0-31); Alkaline Phosphatase 84 U/L (39-117); Anion Gap 12 (12-20); Aspartate Amino Transferase 24 U/L (5-31); Bilirubin Total 0.5 mg/dL (0.0-1.0); Blood Urea Nitrogen 15 mg/dL (9-16); Calcium 9.3 mg/dL (8.4-10.2); Carbon Dioxide 26 mmol/L (22-29); Chloride 107 mmol/L (96-108); Cholesterol 186 mg/dL; Estimated Glomerular Filt Rate > 60; Glucose Fasting 109 mg/dL (60-99); HDL Cholesterol 67 mg/dL; LDL Cholesterol Calculated 105 mg/dl; Potassium 4.3 mmol/L (3.3-5.1); Sodium 141 mmol/L (135-145); Total Protein 6.7 g/dL (6.5-8.0); Triglycerides 71 mg/dL
== END 2023-02-18 08:11 | disposition home or self-care (01) ==
LOC: HO.10HDL 08:10
PROVIDERS: Visit Provider Internal Medicine
DX: Z00.00 Encounter for general adult medical examination without abnormal findings (principal)
CPT/HCPCS: 36415; 80053; 80061; 85025

== ENCOUNTER 2024-01-03 09:04 | Outpatient (REF) | payer MEDICARE, OTHER, SELFPAY ==
[2024-01-03 11:07] LABS: Anion Gap 11 (12-20); Blood Urea Nitrogen 15 mg/dL (9-16); C Reactive Protein 0.67 mg/dL (< or = 0.50); Calcium 9.7 mg/dL (8.4-10.2); Carbon Dioxide 30 mmol/L (22-29); Chloride 106 mmol/L (96-108); Estimated Glomerular Filt Rate > 60; Glucose Fasting 105 mg/dL (60-99); Potassium 4.4 mmol/L (3.3-5.1); Sodium 143 mmol/L (135-145)
[2024-01-03 11:29] LABS: Vitamin B12 1340 pg/mL (200-900)
== END 2024-01-03 09:05 | disposition home or self-care (01) ==
LOC: HO.10HDL 09:04
PROVIDERS: Visit Provider Internal Medicine
DX: R25.2 Cramp and spasm (principal); L40.9 Psoriasis, unspecified; M06.9 Rheumatoid arthritis, unspecified
CPT/HCPCS: 36415; 80048; 82550; 82607; 86140

== ENCOUNTER 2024-04-06 09:19 | Outpatient (REF) | payer MEDICARE, OTHER, SELFPAY ==
[2024-04-06 10:34] LABS: MANUAL DIFF FLAG NO
[2024-04-06 10:42] LABS: Basophils Absolute Auto 0.1 X10*3/uL (0.0-0.2); Basophils Percent Auto 0.9 % (0-2); Eosinophils Absolute Auto 0.1 X10*3/uL (0.0-0.4); Eosinophils Percent Auto 1.6 % (0-4); Hematocrit 41.5 % (37.0-47.0); Hemoglobin 13.4 g/dl (12.0-16.0); Imm Gran Abs Auto 0.03 X10*3/uL (0.00-0.03); Imm Gran Pct Auto 0.5 % (0.0-0.4); Lymphocytes Absolute Auto 1.6 X10*3/uL (1.2-4.9); Lymphocytes Percent Auto 26.9 % (20-40); Mean Corpuscular HGB Conc 32.3 g/dl (31.0-35.0); Mean Corpuscular Hemoglobin 28.6 pg (27.0-33.0); Mean Corpuscular Volume 88.7 fL (80.0-98.0); Mean Platelet Volume 10.9 fL (9.4-12.3); Monocytes Absolute Auto 0.5 X10*3/uL (0.1-1.2); Monocytes Percent Auto 8.1 % (2-11); Neutrophils Absolute Auto 3.6 x10*3/uL (2.0-8.3); Platelet Count 228 X10*3/uL (160-400); Red Blood Count 4.68 X10*6/uL (4.20-5.50); Red Cell Distribution Width 13.1 % (11.0-16.0); White Blood Count 5.8 X10*3/uL (4.8-10.8)
[2024-04-06 11:36] LABS: Alanine Aminotransferase 20 U/L (0-31); Albumin Level 4.2 g/dL (3.5-5.0); Alkaline Phosphatase 93 U/L (39-117); Anion Gap 12 (12-20); Aspartate Amino Transferase 23 U/L (5-31); Bilirubin Total 0.6 mg/dL (0.0-1.0); Blood Urea Nitrogen 13 mg/dL (9-16); Calcium 9.6 mg/dL (8.4-10.2); Carbon Dioxide 27 mmol/L (22-29); Chloride 109 mmol/L (96-108); Cholesterol 173 mg/dL (<200); Estimated Glomerular Filt Rate > 60; Glucose Fasting 98 mg/dL (60-99); HDL Cholesterol 74 mg/dL (>40); LDL Cholesterol Calculated 90 mg/dL (<100); Potassium 4.2 mmol/L (3.3-5.1); Sodium 144 mmol/L (135-145); Total Protein 6.9 g/dL (6.5-8.0); Triglycerides 48 mg/dL (<150); Vitamin D 25-OH Total 72.5 ng/mL (>30)
[2024-04-10 09:04] LABS: Carbohydrate Antigen 19-9 21 U/mL (<34)
== END 2024-04-06 09:20 | disposition home or self-care (01) ==
LOC: HO.10HDL 09:19
PROVIDERS: Referring Provider Internal Medicine; Visit Provider Internal Medicine
DX: E78.00 Pure hypercholesterolemia, unspecified (principal); G47.33 Obstructive sleep apnea (adult) (pediatric); I10 Essential (primary) hypertension; M06.9 Rheumatoid arthritis, unspecified; L40.9 Psoriasis, unspecified
CPT/HCPCS: 36415; 80053; 80061; 82306; 85025; 86301

== ENCOUNTER 2024-04-10 17:34 | Emergency (ER) | payer MEDICARE, OTHER, SELFPAY ==
--- NOTE | 2024-04-10 17:44 | ED.HA ---
HPI - Headache General Chief Complaint: Headache Stated Complaint: headaches - sent from Urgent Care Related Data Home Medications ?Medication ?Instructions ?Recorded ?Confirmed amlodipine 2.5 mg tablet 1 tab PO DAILY@18 12/23/20 04/23/24 cholecalciferol (vitamin D3) 25 25 mcg PO DAILY 12/23/20 04/23/24 mcg (1,000 unit) tablet lisinopril 10 mg tablet 1 tab PO DAILY 12/23/20 04/23/24 multivitamin 1 tab PO DAILY 12/23/20 04/23/24 sulfasalazine 500 mg 2 tab PO DAILY 12/23/20 04/23/24 tablet,delayed release estradiol 0.01% (0.1 mg/gram) vaginal 04/23/24 04/23/24 vaginal cream gabapentin 800 mg tablet 800 mg PO BEDTIME 04/23/24 04/23/24 trazodone 150 mg tablet 150 mg PO DAILY 04/23/24 04/23/24 Allergies Allergy/AdvReac Type Severity Reaction Status Date / Time No Known Allergies Allergy Verified 04/23/24 15:37 [facility] Past Medical History Medical History (Updated 04/27/24 @ 16:35 by EMANI Farias) Sleep apnea Rheumatoid arthritis HTN (hypertension) Surgical History History of carpal tunnel release of both wrists History of pelvic surgery History of appendectomy History of bunionectomy Total knee replacement status Status post total hip replacement, bilateral Family History Family History Father History of partial gastrectomy Mother Heart disease Social History Social History Household Members: Spouse Housing: House Do you presently have visiting nurse or other home services: No Alcohol intake: never Patient Tobacco Use Status: Never used Tobacco service: No Current occupational status: employed Cognitive needs: No Hearing needs: No Vision needs: No Physical Exam Vital Signs: Vital Signs: Last Vital Signs Temp 98.3 F 04/10/24 17:45 Pulse 64 04/10/24 17:45 Resp 20 04/10/24 17:45 BP 179/81 H 04/10/24 17:45 Pulse Ox 98 04/10/24 17:45 O2 Del Method Room Air 04/10/24 17:45 BMI result Body Mass Index 38.2 Course Course Course Narrative: This is a Rapid Medical Exam performed in triage by Essie Vaz PA-C. Full HPI, ROS and PE to be performed by primary ED provider. 69 yo F w/PMHx sleep apnea, HLD, HTN, RA presenting to the ED c/o JUAREZ x3 days > right side. reports R side of face is sensitive w/mild R ear pain. Admits to slight dizziness. denies visual changes, N/V. denies AC use. Took Tylenol w/o relief. PE: PERRLA, no focal deficits, TMs WNL, mastoid WNL, +ttp to R temporal region Plan: ?early Zoster, Labs, Viral testing Medical Decision Making Lab Data 04/10/24 18:01 04/10/24 18:01 Labs: Lab Results 04/10/24 Range/Units 18:01 WBC 7.4 (4.8-10.8) X10*3/uL RBC 4.66 (4.20-5.50) X10*6/uL Hgb 13.4 (12.0-16.0) g/dl Hct 41.0 (37.0-47.0) % MCV 88.0 (80.0-98.0) fL MCH 28.8 (27.0-33.0) pg MCHC 32.7 (31.0-35.0) g/dl RDW 13.1 (11.0-16.0) % Plt Count 248 (160-400) X10*3/uL MPV 10.3 (9.4-12.3) fL Immature Gran % (Auto) 0.3 (0.0-0.4) % Neut % (Auto) 62.2 (45-73) % Lymph % (Auto) 26.5 (20-40) % [place] % (Auto) 9.2 (2-11) % Eos % (Auto) 1.1 (0-4) % Baso % (Auto) 0.7 (0-2) % Lymph # (Auto) 2.0 (1.2-4.9) X10*3/uL [place] # (Auto) 0.7 (0.1-1.2) X10*3/uL Eos # (Auto) 0.1 (0.0-0.4) X10*3/uL Baso # (Auto) 0.1 (0.0-0.2) X10*3/uL Abs Immat Gran (auto) 0.02 (0.00-0.03) X10*3/uL Absolute Neuts (auto) 4.6 (2.0-8.3) x10*3/uL Absolute Nucleated RBC 0.000 (0.0-0.012) X10*3/uL Nucleated RBC % (auto) 0.0 (0.0-0.2) /100WBC ESR 7 (0-20) MM/HR Sodium 142 (135-145) mmol/L Potassium 4.2 (3.3-5.1) mmol/L Chloride 105 (96-108) mmol/L Carbon Dioxide 30 H (22-29) mmol/L Anion Gap 11 L (12-20) BUN 16 (9-16) mg/dL Creatinine 0.82 (0.5-1.4) mg/dL Estim Creat Clear Calc 76.8 Estimated GFR > 60 Random Glucose 100 (60-115) mg/dL Calcium 9.9 (8.4-10.2) mg/dL C-Reactive Protein 0.72 H (< or = 0.50) mg/dL Discharge Plan Discharge Clinical Impression: Headache Patient Disposition: Left W/O Completing Treatment Prescriptions: No Action multivitamin Tablet 1 tab PO DAILY sulfasalazine 500 mg tablet,delayed release (DR/EC) 2 tab PO DAILY amlodipine 2.5 mg tablet 1 tab PO DAILY@18 lisinopril 10 mg tablet 1 tab PO DAILY cholecalciferol (vitamin D3) 25 mcg (1,000 unit) Tablet 25 mcg PO DAILY gabapentin 800 mg tablet 800 mg PO BEDTIME trazodone 150 mg tablet 150 mg PO DAILY estradiol 0.01 % (0.1 mg/gram) cream vaginal Discharge Date/Time: 04/10/24 22:53
[2024-04-10 17:45] VITALS: BP 179/81; PULSE 64; RESP 20; TEMP 36.8; O2SAT 98; BMI 38.2
[2024-04-10 18:07] LABS: MANUAL DIFF FLAG NO
[2024-04-10 18:22] LABS: Anion Gap 11 (12-20); Basophils Absolute Auto 0.1 X10*3/uL (0.0-0.2); Basophils Percent Auto 0.7 % (0-2); Blood Urea Nitrogen 16 mg/dL (9-16); C Reactive Protein 0.72 mg/dL (< or = 0.50); Calcium 9.9 mg/dL (8.4-10.2); Carbon Dioxide 30 mmol/L (22-29); Chloride 105 mmol/L (96-108); Creatinine Clr Calc Pharmacy 76.8; Eosinophils Absolute Auto 0.1 X10*3/uL (0.0-0.4); Eosinophils Percent Auto 1.1 % (0-4); Estimated Glomerular Filt Rate > 60; Glucose Random 100 mg/dL (60-115); Hemoglobin 13.4 g/dl (12.0-16.0); Imm Gran Abs Auto 0.02 X10*3/uL (0.00-0.03); Imm Gran Pct Auto 0.3 % (0.0-0.4); Lymphocytes Percent Auto 26.5 % (20-40); Mean Corpuscular HGB Conc 32.7 g/dl (31.0-35.0); Mean Corpuscular Hemoglobin 28.8 pg (27.0-33.0); Mean Platelet Volume 10.3 fL (9.4-12.3); Monocytes Absolute Auto 0.7 X10*3/uL (0.1-1.2); Monocytes Percent Auto 9.2 % (2-11); Neutrophils Absolute Auto 4.6 x10*3/uL (2.0-8.3); Neutrophils Percent Auto 62.2 % (45-73); Platelet Count 248 X10*3/uL (160-400); Potassium 4.2 mmol/L (3.3-5.1); Red Blood Count 4.66 X10*6/uL (4.20-5.50); Red Cell Distribution Width 13.1 % (11.0-16.0); Sodium 142 mmol/L (135-145); White Blood Count 7.4 X10*3/uL (4.8-10.8)
[2024-04-10 19:01] LABS: Erythrocyte Sedimentation Rate 7 MM/HR (0-20)
--- OUTSIDE RECORDS SUMMARY | 2024-04-10 22:52 | XMS_ITS ---
Author Organization [facility] Address [address] [place] [address] Care Team Providers Care Senior Hadoop Developer Name Role Phone Tray Baugh MD Primary Care Provider Ubaldo Castelan [phone] REASON FOR VISIT Claustrophobic MEDICATIONS Medication SIG (Take, Route, Frequency, Duration) Notes Start Date End Date Status Ativan 0.5 MG Take 1 tablet 30 to 60 minutes before the MRI as needed for anxiety, and then repeat the one tablet right before the MRI as needed for anxiety Orally Once a day for 1 days 03/31/2024 Act ann-marie Encounters Encounter Location Date Provider Diagnosis [facility] [address] [place] [phone] 03/27/2024 Ubaldo Alcantara PLAN OF TREATMENT Medication Medication Name Sig Start Date Stop Date Notes Ativan 0.5 MG Take 1 tablet 30 to 60 minutes before the MRI as needed for anxiety, and then repeat the one tablet right before the MRI as needed for anxiety Orally Once a day for 1 days 03/31/2024 Next Appt Details Provider Name:Ubaldo Alcantara , 07/27/2024 09:20:00 AM, [address] [place] [address] , [place], [place], [phone],
--- OUTSIDE RECORDS SUMMARY | 2024-04-10 22:52 | XMS_ITS ---
Author Organization [facility] Address [address] [place] [address] Care Team Providers Care Manager Hi Name Role Phone Tray Baugh MD Primary Care Provider Ubaldo Castelan [phone] ALLERGIES Allergen (clinical drug ingredient) Drug/Non Drug Allergy documented on EMR Reaction Allergy Type Onset Date Status surgical tape (uncoded) rash Allergy Active REASON FOR VISIT Patient presents today for IPMN MEDICATIONS Medication SIG (Take, Route, Frequency, Duration) Notes Start Date End Date Status amLODIPine Besy-Benazepril HCl 2.5-10 MG as directed Orally Active Lisinopril 10 MG 1 tablet Orally Once a day Active sulfaSALAzine 500 MG as directed Orally BID Active Vitamin D-3 2000units 1 capsule Orally O nce a day Active Multivitamin - 1 tablet Orally Once a day for 30 day(s) Active VITAL SIGNS BMI 38.20 kg/m2 03/27/2024 Blood pressure systolic 000 mm Hg 03/27/20 24 Blood pressure diastolic 00 mm Hg 024 Height 63.5 in 03/27/2024 Temperature 98.7 degrees Fahrenheit 03/27/20 24 Weight 219 lb 2 oz lbs 03/27/2024 Encounters Encounter Location Date Provider Diagnosis [facility] [address] [place] [address] 03/27/2024 Ubaldo Alcantara History of adenomato us polyp of colon Z86.010 ; Encounter for screening for malignant neoplasm of colon Z12.11 and IPMN (intraductal papillary mucinous neoplasm) D49.0 ASSESSMENTS Encounter Date Diagnosis Assessment Notes Treatment Notes Treatment Clinical Notes 03/27/2024 History of adenomatous polyp of colon (ICD-10 - Z86.010) 03/27/2024 Encounter for screening for malignant neoplasm of colon (ICD-10 - Z12.11) 03/27/2024 IPMN (intraductal papillary mucinous neoplasm) (ICD-10 - D49.0) PLAN OF TREATMENT Pending Test Test Name Order Date BUN 03/27/2024 CA 19-9 03/27/2024 MRI ABD W&WO CONTRAST 03/27/2024 Creatinine 03/27/2024 Future Test Test Name Order Date COLONOSCOPY 03/27/2024 Next Appt Details Provider Name:Ubaldo Alcantara , 07/27/2024 09:20:00 AM, [address] [place] [address] , [place], [place], [phone], Progress Notes * Examination Category Sub-Category Detail Notes General Examination GENERAL APPEARANCE: pleasant , well nourished, well developed, in no acute distress EYES: sclera non-icteric NECK/THYROID: no cervical lymphade nopathy, neck supple HEART: S1, S2 normal LUNGS: clear to auscultatio n bilaterally ABDOMEN: normal bowel sounds, no guarding or rigidity, no hepatosplenomegaly, no masses palpable, soft, nontender, nondistended. NEUROLOGIC: alert and oriented SKIN: nonjaundiced, no spi mike angiomata. EXTREMITIES: no edema ORAL CAVITY: mucosa moist
--- OUTSIDE RECORDS SUMMARY | 2024-04-10 22:53 | XMS_ITS | Patient Health Record ---
Author Organization [facility] Address [address] [place] [address] Care Team Providers Care Milk Truck Driver Name Role Phone Tray Baugh MD Primary Care Provider Ubaldo Castelan [phone] ALLERGIES Allergen (clinical drug ingredient) Drug/Non Drug Allergy documented on EMR Reaction Allergy Type Onset Date Status surgical tape (uncoded) rash Allergy Active RESULTS Component Value Reference Range Notes Carbohydrate Antigen 19-9 (N ot yet reviewed by provider) Interpretation: Performing Lab:[facility], [address] [place] [phone] Notes/Report: Carbohydrate Antigen 19-9 21 <34 U/mL This test was performed using the Siemens chemiluminescent method. Values obtained from different assay methods cannot be used interchangeably. CA 19-9 levels, regardless of value, should not be interpreted as absolute evidence of the presence or absence of disease. THIS TEST WAS PERFORMED AT: [facility] [address] [place] [phone] DHARA COATS MD Complete Blood Count Auto Di ff Reviewed date:04/06/2024 11:26:27 PM Interpretation: Performing Lab:[facility], [address] [place] [phone] Notes/Report: White Blood Count 5.8 4.8-10.8 X10*3/uL Red Blood Count 4.68 4.20-5.50 X10*6/uL Hemoglobin 13.4 12.0-16.0 g/dl Hematocrit 41.5 37.0-47.0 % Mean Corpuscular Volume 88.7 80.0-98.0 fL Mean Corpuscular Hemoglobin 28.6 27.0-33.0 pg Mean Corpuscular HGB Conc 32.3 31.0-35.0 g/dl Red Cell Distribution Width 13.1 11.0-16.0 % Platelet Count 228 160-400 X10*3/uL Mean Platelet Volume 10.9 9.4-12.3 fL Neutrophils Percent Auto 62.0 45-73 % Imm Gran Pct Auto 0.5 0.0-0.4 % Lymphocytes Percent Auto 26.9 20-40 % Monocytes Percent Auto 8.1 2-11 % Eosinophils Percent Auto 1.6 0-4 % Basophils Percent Auto 0.9 0-2 % NRBC Pct Auto 0.0 0.0-0.2 /100WBC Neutrophils Absolute Auto 3.6 2.0-8.3 x10*3/u L Imm Gran Abs Auto 0.03 0.00-0.03 X10*3/uL Lymphocytes Absolute Auto 1.6 1.2-4.9 X10*3/u L Monocytes Absolute Auto 0.5 0.1-1.2 X10*3/uL Eosinophils Absolute Auto 0.1 0.0-0.4 X10*3/u L Basophils Absolute Auto 0.1 0.0-0.2 X10*3/uL NRBC Abs Auto 0.000 0.0-0.012 X10*3/uL Comprehensive [place]. Panel Fa st Reviewed date:04/06/2024 11:19:37 PM Interpretation: Performing Lab:[facility], [address] [place] [phone] Notes/Report: Sodium 144 135-145 mmol/L Potassium 4.2 3.3-5.1 mmol/L Chloride 109 96-108 mmol/L Carbon Dioxide 27 22-29 mmol/L Anion Gap 12 12-20 Blood Urea Nitrogen 13 9-16 mg/dL Creatinine 0.79 0.5-1.4 mg/dL Estimated Glomerular Filt Rate > 60 NOTE: For -[place] individuals, multiply the result by 1.210. Chronic Kidney Disease: Estimated GFR < 60 mL/min/1.73m2 Severe Kidney Disease: Estimated GFR < 15 mL/min/1.73m2 Glucose Fasting 98 60-99 mg/dL Calcium 9.6 8.4-10.2 mg/dL Bilirubin Total 0.6 0.0-1.0 mg/dL Aspartate Amino Transferase 23 5-31 U/L Alanine Aminotransferase 20 0-31 U/L Total Protein 6.9 6.5-8.0 g/dL Albumin Level 4.2 3.5-5.0 g/dL Alkaline Phosphatase 93 39-117 U/L Lipid Panel Reviewed date:04/06/2024 11:19:50 PM Interpretation: Performing Lab:[address] [phone] Notes/Report: Triglycerides 48 <150 mg/dL Desirable Triglyceride: less than 150 mg/dL Borderline High Triglyceride 150-199 mg/dL High Triglyceride: 200-499 mg/dL Very High Triglyceride: greater than or equal to 5OO mg/dL Cholesterol 173 <200 mg/dL Desirable Cholesterol: less than 200 mg/dL Borderline High Cholesterol: 200-239 mg/dL High Cholesterol: greater than 239 mg/dL LDL Cholesterol Calculated 90 <100 mg/dL Desirable LDL: less than 100 mg/dL Near Optimal/Above Optimal LDL: 110-129 mg/dL Borderline High LDL: 130-159 mg/dL High LDL: 160-189 mg/dL Very High LDL: greater than or equal to 190 mg/dL HDL Cholesterol 74 >40 mg/dL Desirable HDL: greater than 40 mg/dL Note: This HDL assay may give artificially low results in patients with liver disease. Vitamin D 25-OH Total Reviewed date:04/06/2024 11:19:59 PM Interpretation: Performing Lab:[address] [phone] Notes/Report: Vitamin D 25-OH Total 72.5 >30 ng/mL Health Based Reference Values* < 20 ng/mL Deficient 20-30 ng/mL Insufficient > 30 ng/mL Sufficient *Sawyer JAIN. N Engl J Med. 2007;357:266-280 Care must be taken in interpreting Vitamin D results from different laboratories and methodologies. Published data demonstrated that results from patients undergoing hemodialysis may show a negative bias when tested with various automated 25-OH vitamin D assays when compared to LC-MS/MS. When testing samples from patients whose predominant form of Vitamin D is Vitamin D2, such as patients receiving Vitamin D2 supplementation, results that are subtherapeutic should be confirmed with another method such as LC-MS/MS. REASON FOR REFERRAL No Information MEDICATIONS Medication SIG (Take, Route, Frequency, Duration) Notes Start Date End Date Status Ativan 0.5 MG Take 1 tablet 30 to 60 minutes before the MRI as needed for anxiety, and then repeat the one tablet right before the MRI as needed for anxiety Orally Once a day for 1 days 03/31/2024 Active Multivitamin - 1 tablet Orally Once a day for 30 day(s) Active amLODIPine Besy-Benazepril HCl 2.5-10 MG as directed Orally Active Lisinopril 10 MG 1 tablet Orally Once a day Active sulfaSALAzine 500 MG as directed Orally BID Active Vitamin D-3 2000units 1 capsule Orally O nce a day Active IMMUNIZATIONS Vaccine Route Administration Date Status Comme nts Influenza Unknown 03/19/2018 Administered Influenza Unknown 06/06/2021 Administered Influenza Unknown 05/01/2022 Administered Influenza Unknown 06/04/2023 Administered SOCIAL HISTORY Sex Assigned At : Social History Observation Description Sex Assigned At Unknown PROBLEMS Problem Type ICD Code Onset Dates Problem Status W/U Status Risk SNOMED Code Notes Problem Encounter for screening for malignant neoplasm of colon (Z12.11) Active confirmed 485076858 Problem History of adenomatous polyp of colon (Z86.010) Active confirmed 703706484 Problem Preprocedural examination (Z01.818) Active confirmed [id number] Problem IPMN (intraductal papillary mucinous neoplasm) (D49.0) Active confirmed Neoplasm of digestive system (205896318) VITAL SIGNS Temperature 98.7 degrees Fahrenheit 03/27/2024 Blood pressure diastolic 00 mm Hg 03/27/2024 Height 63.5 in 03/27/2024 Blood pressure systolic 000 mm Hg 03/27/2024 Weight 219 lb 2 oz lbs 03/27/2024 BMI 38.20 kg/m2 03/27/2024 Encounters Encounter Location Date Provider Diagnosis [facility] [address] [place] [address] 03/27/2024 Ubaldo Alcantara History of adenomato us polyp of colon Z86.010 ; Encounter for screening for malignant neoplasm of colon Z12.11 and IPMN (intraductal papillary mucinous neoplasm) D49.0 [facility] [address] [place] [address] 04/14/2023 Ubaldo Alcantara [facility] [address] [place] [address] 03/27/2024 Ubaldo Alcantara ASSESSMENTS Encounter Date Diagnosis Assessment Notes Treatment Notes Treatment Clinical Notes 03/27/2024 History of adenomatous polyp of colon (ICD-10 - Z86.010) 03/27/2024 Encounter for screening for malignant neoplasm of colon (ICD-10 - Z12.11) 03/27/2024 IPMN (intraductal papillary mucinous neoplasm) (ICD-10 - D49.0) PLAN OF TREATMENT Pending Test Test Name Order Date BUN 03/15/2022 BUN 03/27/2024 BUN 03/22/2023 CREATININE 03/15/2022 LIVER PROFILE 03/15/2022 AMYLASE 03/15/2022 LIPASE 03/15/2022 CA 19-9 03/27/2024 CA 19-9 03/22/2023 CA 19-9 03/15/2022 MRI ABD NO CONTRAST (MRCP) 03/22/2023 MRI ABD W&WO CONTRAST 03/27/2024 MRI ABD W&WO CONTRAST 03/22/2023 MRI ABD W&WO CONTRAST 03/15/2022 Creatinine 03/27/2024 Creatinine 03/22/2023 Carbohydrate Antigen 19-9 04/06/2024 Future Test Test Name Order Date COLONOSCOPY 09/16/2013 COLONOSCOPY 03/05/2019 COLONOSCOPY 03/27/2024 Next Appt Details Provider Name:Ubaldo Alcantara , 07/27/2024 09:20:00 AM, [address] [facility] , [place], [place], [phone], Insurance Providers Payer Name Payer Address Payer Phone Subscriber Number Group Number Insured Name Patient Relationship to Insured Coverage Start Date Coverage End Date MEDICARE OF [place] [address] [place] [address] [id number] CATHERINE LARA Self - patient is the insured [facility] [address] [place] [phone] [id number] CATHERINE LARA Self - patient is the insured MEDICAL (GENERAL) HISTORY Medical History History ICD Code Colonoscopy 06-21-2008- smal l tubular adenoma removed--diverticulosis, internal hemorrhoids; F/U colonoscopy 11/2013 with a small tubular adenoma HTN Rheumatoid arthritis Sleep apnea--uses a CPAP Denies MN,DM,CVA,Lung disease,renal dise ase Nerve pain in right foor from surgery--t akes Gabapentin Negative colonoscopy in 05/2019 IPMN seen on 12/2020 CT and 07/2021 MRI--M RI in 03/2022 was unchanged Surgical History Surgery Date(Month/Year) Right hip replacement in 2006 x 2 Appendectomy Tonsillectomy Carpal tunnel on right Left knee replacement 2008 Right knee replacement in 2010 Foot surgery Left hip replacement 2015 [facility] 12/2020 Dr. Florentino Cataract surgery bilaterally
--- OUTSIDE RECORDS SUMMARY | 2024-04-10 22:53 | XMS_ITS | Continuity of Care Document ---
Author Organization [facility] Address [address] [place] [address] Care Team Providers Care Landing Man Name Role Phone Tray Baugh MD Primary Care Physician Encounter [facility] [place] Date(s): 08/19/19 - 08/19/[address] [address]- [facility] Attending Physician: Rhonda Escudero MD Allergies, Adverse Reactions, Alerts Substance Reaction Severity Status Adhesive Bandage Active Medications Black Cohosh = 544 mg, By Mouth, 2 times a day, 0 Refills, Maintenance, 11/13/16 14:36:07 Start Date: 11/13/16 Status: Ordered Evening [place] = 1,300 mg, By Mouth, 2 times a day, 0 Refills, Maintenance, 11/13/16 14:36:33 Start Date: 11/13/16 Status: Ordered lisinopril 2.5 mg oral tablet 1 tablet = 2.5 mg, By Mouth, Daily, 0 Refills, Maintenance, 03/14/15 1:08:49 Start Date: 03/14/15 Status: Ordered multivitamin Multiple Vitamins oral tablet 1 tablet, By Mouth, Daily, # 30 tablet, 0 Refills, Maintenance, 11/13/16 14:37:56, Tablet Start Date: 11/13/16 Status: Ordered [place]-3 oral capsule = 200 mg, By Mouth, Daily, 0 Refills, Maintenance, 11/13/16 14:37:14 Start Date: 11/13/16 Status: Ordered Sulfazine 500 mg oral tablet 1 tablet = 500 mg, By Mouth, 2 times a day, 0 Refills, Maintenance, 03/14/15 1:07:35 Start Date: 03/14/15 Status: Ordered Vitamin D3 1000 intl units oral capsule 1, By Mouth, 0 Refills, Maintenance Start Date: 02/19/11 Status: Ordered Problem List Condition Effective Dates Status Health Status Inform ant H/O rheumatoid arthritis(Confirmed) Active Chronic hypertension(Confirmed) Active Iliopsoas bursitis(Confirmed) Active Social History Social History Type Response Smoking Status Never smoker entered on: 03/14/15 Sex
--- OUTSIDE RECORDS SUMMARY | 2024-04-10 22:53 | XMS_ITS ---
Author Organization [facility] Address [address] [place] [address] Care Team Providers Care Cnc Applications Engineer Name Role Phone Tray Baugh MD Primary Care Provider Ubaldo Castelan [phone] Encounters Encounter Location Date Provider Diagnosis [facility] [address] [place] [address] 04/14/2023 Ubaldo Alcantara PLAN OF TREATMENT Next Appt Details Provider Name:Ubaldo Alcantara , 07/27/2024 09:20:00 AM, [address] [place] [address] , [place], [place], [phone],
== END 2024-04-10 22:53 | disposition left against medical advice (07) ==
LOC: HO.ED 22:51
PROVIDERS: Physician Assistant; Emergency Provider Emergency Medicine; PCP Internal Medicine
DX: R51.9 Headache, unspecified (principal); I10 Essential (primary) hypertension; E78.00 Pure hypercholesterolemia, unspecified; Z79.899 Other long term (current) drug therapy
CPT/HCPCS: 36415; 80048; 85025; 85652; 86140; 99281

== ENCOUNTER 2024-04-23 15:12 | Outpatient (AMB) | payer MEDICARE, OTHER, SELFPAY ==
[2024-04-23 15:15] VITALS: BP 158/74; PULSE 63; O2SAT 97; BMI 37.9
--- NOTE | 2024-04-23 15:15 | A.OFFPC_ITS ---
Vital Signs 04/23/24 15:15 Height 5 ft 4 in Weight 221 lb BMI 37.9 BP 158/74 H Blood Pressure Location Lt brachial Position Sitting Pulse 63 Pulse Source Pulse Oximeter Pulse Oximetry (%) 97 Oxygen Delivery Method Room Air Intake Visit Reasons: establish care/ Arthritis condition Director State Pharmacy Required: No Allergies No Known Allergies Allergy (Verified 04/23/24 15:37) Medication List - Last Reconciled 04/23/24 by Alva Whiting PA-C amlodipine 1 tab PO DAILY@18 cholecalciferol (vitamin D3) 25 mcg PO DAILY estradiol 0.01%(0.1mg/gram) vaginal gabapentin 800 mg PO BEDTIME lisinopril 1 tab PO DAILY multivitamin 1 tab PO DAILY sulfasalazine 2 tabs PO DAILY trazodone 150 mg PO DAILY Tobacco use date assessed: 04/23/24 Fall risk assessment: No Falls in past year Last assessed Fall Risk: 04/23/24 Dental Screening Dental Screen Date: 04/23/24 Did you have a dental visit in the last 12 months?: Yes Did you have a dental problem in the last 6 months where you did not have access to dental care?: No Was dental information given to patient?: Patient has dentist HPI establish care/ Arthritis condition HPI Details 69-year-old female with past medical his tory of sleep apnea, hyperchole sterolemia, hypertension, rheumatoid arthritis coming to the office for the 1st time. In review of the notes, patient was seen in [facility] 04/10/2024 for headache. Patient was previously being seen by Dr. Baugh has colonoscopy due 08/03/2024, up-to-date on mammogram and sees Gynecology regularly. She has a history of sleep apnea and is being seen by sleep medicine and [place] and regularly uses a CPAP. She does have 1 concern frequent headaches and has seen many eye doctors for this concern. One eye doctor believed it to be related to her cataracts and is seeing the surgeon tomorrow. Also mentioned she is having eyelid surgery May 22. [facility] Medical History (Updated 04/24/24 @ 07:50 by Alva Whiting PA-C) Sleep apnea Rheumatoid arthritis HTN (hypertension) Surgical History History of carpal tunnel release of both wrists History of pelvic surgery History of appendectomy History of bunionectomy Total knee replacement status Status post total hip replacement, bilateral Family History Father History of partial gastrectomy Mother Heart disease Social History Household Members: Spouse Housing: House Do you presently have visiting nurse or other home services: No Alcohol intake: never Patient Tobacco Use Status: Never used Tobacco service: No Current occupational status: employed Cognitive needs: No Hearing needs: No Vision needs: No Questionnaire PHQ-9 Over the last 2 weeks, how often have you been bothered by any of the following problems? 1. Little interest or pleasure in doing things: not at all 2. Feeling down, depressed, or hopeless: not at all 3. Trouble falling or staying asleep, or sleeping too much: not at all 4. Feeling tired or having little energy: not at all 5. Poor appetite or overeating: not at all 6. Feeling bad about yourself - or that you are a failure or have let yourself or your family down: not at all 7. Trouble concentrating on things, such as reading the newspaper or watching television: not at all 8. Moving or speaking so slowly that other people could have noticed. Or the opposite - being so fidgety or restless that you have been moving around a lot more than usual: not at all 9. Thoughts that you would be better off or of hurting yourself in some way: not at all Total score: 0 Depression Screening Interpretation: Negative Depression Screening Done: Yes 16998 - PHQ-9 Billing: Yes Source: Developed by Drs. Ubaldo Goldstein, Tami Monae, David Bradshaw and colleagues, with an educational karen from [employer]. Thrive Questionnaire Date Thrive assessed: 04/17/24 I am a: Patient What is your living situation today?: I have a steady place to live Within the past 12 months, did the food you bought not last and you didn't have the money to get more?: Never true Within the past 12 months, did you worry whether your food would run out before you got money to buy more?: Never true Do you have trouble paying for medicines?: No Do you have trouble getting transportation to medical appointments?: No Do you have trouble paying your heating and electricity bill?: No Do you have trouble taking care of your child, family member or friend?: No Do you have trouble with day-to-day activities such as bathing, preparing meals, shopping, managing finances, etc.?: No Are you currently unemployed and looking for a job?: No Are you interested in more education?: No Please select the resources that you would like help with: None Currently or been in a relationship where the following occur: No concerns reported THRIVE Score: 0 AUDIT C Alcohol Use Questionnaire (AUDIT-C) 1. How often do you have a drink containing alcohol?: Never 2. How many drinks containing alcohol do you have on a typical day when you are drinking?: 1 or 2 3. How often do you have six or more drinks on one occasion?: Never Total Score: 0 NAYAN-7 AMB Questionnaire NAYAN-7 Date NAYAN - 7 assessed: 04/23/24 Feeling nervous, anxious, or on edge: 0 = Not at all Not being able to stop or control worryin = Not at all Worrying too much about different things: 0 = Not at all Trouble relaxin = Not at all Being so restless that it is hard to sit still: 0 = Not at all Becoming easily annoyed or irritable: 0 = Not at all Feeling afraid as if something awful might happen: 0 = Not at all Total NAYAN-7 score (0-4 normal; 5-9 mild; 10-14 moderate; 15-21 severe): 0 Source: Developed by Drs. Ubaldo Goldstein, Tami Monae, David Bradshaw and colleagues, with an educational karen from [employer]. Review of Systems Const Denies body aches, Denies fatigue, Denies fever(s), Denies frequent falls, Reports headache(s) and Denies weakness Eyes Reports no additional complaints and Denies change in vision ENT Denies dizziness, Denies facial pain, Reports headache(s) and Denies nasal congestion Card Denies chest pain, Denies syncope, Denies leg edema, Denies lightheadedness and Denies dyspnea Resp Denies dyspnea GI Denies constipation, Denies dyspepsia, Denies diarrhea, Denies nausea and Denies vomiting Denies urinary frequency and Denies dysuria Musc Denies back pain and Denies myalgias Skin/Breast Reports system reviewed and no additional complaints, except as documented Neuro Denies dizziness, Denies syncope, Denies frequent falls, Reports headache(s) and Denies weakness Psych Reports no additional complaints Endo Denies fatigue Physical exam (Primary Care) Vital Signs: Last Vital Signs Pulse 63 04/23/24 15:15 BP 158/74 H 04/23/24 15:15 Pulse Ox 97 04/23/24 15:15 Oxygen Delivery Method Room Air 04/23/24 15:15 BMI result Body Mass Index 37.9 Tobacco/Smoking Status: Tobacco use Status Tobacco use date assessed 04/23/24 04/23/24 15:16 Patient Tobacco Use Status Never used Tobacco 04/23/24 15:16 PHQ-9: PHQ-9 Score PHQ-9: Total score 0 04/23/24 15:31 Depression Screening Interpretation: Negative Thrive Assessment: Date of Thrive Assessment Date Thrive assessed 04/17/24 04/23/24 15:16 Currently or been in a relationship where the following occur: No concerns reported Const General: cooperative, healthy appearing, comfortable and no acute distress Orientation/consciousness: patient oriented x3 HENMT Head: Yes normocephalic Ears: hearing grossly normal bilaterally General nose exam: Normal external nose present Eyes General: appearance normal, both eyes and all related structures Conjunctivae: conjunctivae normal Neck Neck: Yes full ROM and Yes no lymphadenopathy Resp Effort & Inspection: normal respiratory effort Auscultation: clear to auscultation bilaterally, no crackles, no rales, no rhonchi and no wheezes Cardio Rate: regular rate Rhythm: regular rhythm Skin General skin exam: no rashes or lesions noted Neuro General: patient oriented x3 Gait exam (Neuro): Normal gait present Extrem General: Yes normal to inspection, Yes full ROM and No edema Psych Affect: normal affect Attitude: cooperative Insight: Good insight present (Psych) Judgement: Good judgement present (Psych) Coding Level of Care Code New Pt Level 4 (05697) Diagnoses HTN (hypertension) I10 Rheumatoid arthritis M06.9 Sleep apnea G47.30 Headache R51.9 Assessment & Plan Assessment & Plan (1) HTN (hypertension): Code(s): I10 - Essential (primary) hypertension Category: Medical Plan: Blood pressure elevated on today's exam 150/74. Patient states she has never had a problem with elevated blood pressure on her current medication regimen. Advised to take blood pressures at home and follow up in 2 months for annual exam and follow up on blood pressure. Continue on lisinopril and amlodipine. (2) Rheumatoid arthritis: Comment: Dr. Tye PURVIS Rheum Code(s): M06.9 - Rheumatoid arthritis, unspecified Category: Medical Plan: Follows with [place] [facility]. (3) Sleep apnea: Code(s): G47.30 - Sleep apnea, unspecified Category: Medical Plan: Uses CPAP faithfully at least 4 hours a night and benefits from this therapy. Uses gabapentin and trazodone for sleep prescribed by sleep medicine. (4) Headache: Code(s): R51.9 - Headache, unspecified Category: Medical Plan: Patient has been having frequent headaches with no known trigger was seen in urgent care and given Fioricet for her headaches which she has not tried yet. Advised she can also use [id number] pain relievers as needed for the headache. Evaluated by several eye doctors and believed to be related to her cataract and has follow up with surgeon tomorrow. Advised patient to keep headache journal and follow up at next appointment. Plan This note was constructed using voice recognition software. While every effort has been made to ensure accuracy and power shovel engineer, still areas may have been included sometimes these areas may affect the content or meeting of the given symptoms. Total time spent caring for the patient today was 30 minutes. This includes time spent before the visit reviewing the chart, time spent during the visit, and time spent after the visit and documentation. Orders: Orders XR DEXA axial skeleton 04/23/24 Z78.0 - Asymptomatic menopausal state
== END 2024-04-23 16:07 | disposition home or self-care (01) ==
PROVIDERS: PCP Internal Medicine
DX: I10 Essential (primary) hypertension (principal); M06.9 Rheumatoid arthritis, unspecified; G47.30 Sleep apnea, unspecified; R51.9 Headache, unspecified

== ENCOUNTER → 2024-04-23 15:12 | Outpatient (BNVA) | payer MEDICARE, OTHER, SELFPAY | PROVIDERS: PCP Internal Medicine | DX: I10 Essential (primary) hypertension (principal); M06.9 Rheumatoid arthritis, unspecified; R51.9 Headache, unspecified; G47.30 Sleep apnea, unspecified | CPT/HCPCS: 99202 ==

== ENCOUNTER 2024-05-13 13:46 | Outpatient (AMB) | payer MEDICARE, OTHER, SELFPAY ==
[2024-05-13 13:20] VITALS: BP 136/78; PULSE 73; O2SAT 98; BMI 38.1
--- NOTE | 2024-05-13 13:20 | MHC.PC.OV ---
Vital Signs 05/13/24 13:20 05/13/24 14:24 Height 5 ft 4 in Weight 222 lb BMI 38.1 BP 136/78 130/78 Blood Pressure Location Lt brachial Lt brachial Position Sitting Sitting Pulse 73 Pulse Source Pulse Oximeter Pulse Oximetry (%) 98 Oxygen Delivery Method Room Air Intake Visit Reasons: 05/22 bilateral eyelid surgery-see com Intake Note: Patient is here for a Pre-op for BL eyelid surgery scheduled with Dr. Esdras Hood on 05/22/24 Electricians Top Helper Required: No Allergies No Known Allergies Allergy (Verified 05/13/24 14:17) Medication List - Last Reconciled 05/13/24 by Alva Whiting PA-C amlodipine 1 tab PO DAILY@18 amlodipine 5 mg PO DAILY cholecalciferol (vitamin D3) 25 mcg PO DAILY estradiol 0.01%(0.1mg/gram) vaginal lisinopril 1 tab PO DAILY multivitamin 1 tab PO DAILY pregabalin mg PO sulfasalazine 2 tabs PO DAILY trazodone 150 mg PO DAILY Tobacco use date assessed: 04/23/24 Fall risk assessment: No Falls in past year Last assessed Fall Risk: 05/13/24 Dental Screening Dental Screen Date: 04/23/24 HPI 05/22 bilateral eyelid surgery-see com HPI Details 69-year-old female with past medical history of sleep apnea, hypercholesterolemia, hypertension, rheumatoid arthritis last seen April 2024 coming in her preoperative visit. Patient is scheduled to have eyelid surgery 05/22/2024 with [facility]. Hypertension: blood pressure at goal in the office presently on lisinopril and amlodipine. No history of CVA, PA, CHF or diabetes mellitus. Has has surgery in the past without complication. [facility] Medical History Sleep apnea Rheumatoid arthritis HTN (hypertension) Surgical History History of carpal tunnel release of both wrists History of pelvic surgery History of appendectomy History of bunionectomy Total knee replacement status Status post total hip replacement, bilateral Family History Father History of partial gastrectomy Mother Heart disease Social History Household Members: Spouse Housing: House Do you presently have visiting nurse or other home services: No Alcohol intake: never Patient Tobacco Use Status: Never used Tobacco service: No Current occupational status: employed Cognitive needs: No Hearing needs: No Vision needs: No Questionnaire Thrive Questionnaire Date Thrive assessed: 04/17/24 I am a: Patient What is your living situation today?: I have a steady place to live Within the past 12 months, did the food you bought not last and you didn't have the money to get more?: Never true Within the past 12 months, did you worry whether your food would run out before you got money to buy more?: Never true Do you have trouble paying for medicines?: No Do you have trouble getting transportation to medical appointments?: No Do you have trouble paying your heating and electricity bill?: No Do you have trouble taking care of your child, family member or friend?: No Do you have trouble with day-to-day activities such as bathing, preparing meals, shopping, managing finances, etc.?: No Are you currently unemployed and looking for a job?: No Are you interested in more education?: No Please select the resources that you would like help with: None Currently or been in a relationship where the following occur: No concerns reported THRIVE Score: 0 AUDIT C Alcohol Use Questionnaire (AUDIT-C) 1. How often do you have a drink containing alcohol?: Never 2. How many drinks containing alcohol do you have on a typical day when you are drinking?: 1 or 2 3. How often do you have six or more drinks on one occasion?: Never Total Score: 0 NAYAN-7 AMB Questionnaire NAYAN-7 Date NAYAN - 7 assessed: 04/23/24 Source: Developed by Drs. Ubaldo Goldstein, Tami Monae, David Bradshaw and colleagues, with an educational karen from [employer]. Review of Systems Const Denies body aches, Denies fatigue, Denies fever(s), Denies frequent falls, Denies headache(s) and Denies weakness Eyes Reports no additional complaints and Denies change in vision ENT Denies dizziness, Denies facial pain, Denies headache(s) and Denies nasal congestion Card Denies chest pain, Denies syncope, Denies irregular heart rhythm, Denies leg edema, Denies lightheadedness and Denies dyspnea Resp Denies cough and Denies dyspnea GI Denies abdominal pain, Denies constipation, Denies dyspepsia, Denies diarrhea, Denies nausea and Denies vomiting Denies urinary frequency, Denies dysuria, Denies urinary hesitancy and Denies urinary urgency Musc Details: left knee pain Denies back pain and Denies myalgias Skin/Breast Reports system reviewed and no additional complaints, except as documented Neuro Denies dizziness, Denies syncope, Denies frequent falls, Denies headache(s) and Denies weakness Psych Reports no additional complaints Endo Denies fatigue Physical exam (Primary Care) Vital Signs: Last Vital Signs Pulse 73 05/13/24 13:20 BP 130/78 05/13/24 14:24 Pulse Ox 98 05/13/24 13:20 Oxygen Delivery Method Room Air 05/13/24 13:20 BMI result Body Mass Index 38.1 Tobacco/Smoking Status: Tobacco use Status Tobacco use date assessed 04/23/24 05/13/24 13:21 Patient Tobacco Use Status Never used Tobacco 05/13/24 13:21 Thrive Assessment: Date of Thrive Assessment Date Thrive assessed 04/17/24 05/13/24 13:21 Currently or been in a relationship where the following occur: No concerns reported Const General: cooperative, healthy appearing, comfortable and no acute distress Orientation/consciousness: patient oriented x3 [facility] Head: Yes normocephalic Ears: hearing grossly normal bilaterally General nose exam: Normal external nose present Eyes General: appearance normal, both eyes and all related structures Conjunctivae: conjunctivae normal Neck Neck: Yes full ROM and Yes no lymphadenopathy Resp Effort & Inspection: normal respiratory effort Auscultation: clear to auscultation bilaterally, no crackles, no rales, no rhonchi and no wheezes Cardio Rate: regular rate Rhythm: regular rhythm Skin General skin exam: no rashes or lesions noted Neuro General: patient oriented x3 Gait exam (Neuro): Normal gait present Extrem General: Yes normal to inspection, Yes full ROM and No edema Psych Affect: normal affect Attitude: cooperative Insight: Good insight present (Psych) Judgement: Good judgement present (Psych) Coding Level of Care Code Est Pt Level 4 (18297) Diagnoses Pre-op exam Z01.818 Assessment & Plan Assessment & Plan (1) Pre-op exam: Code(s): Z01.818 - Encounter for other preprocedural examination Category: Medical Plan: Regarding preop clearance, the patient is at moderate risk for proposed surgery due to age however comorbidities are well managed at this time. Reviewed with the patient that no surgery is completely free of risk and that this examination is to assist the surgeon in reviewing informed consent. Advised patient to avoid the use of NSAIDs one week prior to surgery. All medications may be taken up until the day prior to surgery. The morning of the procedure blood pressure medications should be taken. As always please follow the surgeon's guidelines for pre-operative planning. EKG and blood work ordered once reviewed addendum will be added regarding clearance. Plan This note was constructed using voice recognition software. While every effort has been made to ensure accuracy and senior software project manager, still areas may have been included sometimes these areas may affect the content or meeting of the given symptoms. Total time spent caring for the patient today was 30 minutes. This includes time spent before the visit reviewing the chart, time spent during the visit, and time spent after the visit and documentation. Orders: Orders ECG 12 lead EKG Today I10 - Essential (primary) hypertension, Z01.818 - Encounter for other preprocedural examination Comprehensive Met. Panel Today Z00.00 - Encounter for general adult medical examination without abnormal findings Complete Blood Count Auto Diff Today Z00.00 - Encounter for general adult medical examination without abnormal findings
[2024-05-13 14:24] VITALS: BP 130/78
== END 2024-05-13 14:37 | disposition home or self-care (01) ==
LOC: HO.HMCH 13:47
DX: Z01.818 Encounter for other preprocedural examination (principal)

== ENCOUNTER → 2024-05-13 13:46 | Outpatient (REF) | payer MEDICARE, OTHER, SELFPAY ==
--- NOTE | 2024-05-13 14:54 | ECG_ITS ---
Test Reason : HTN Blood Pressure : / mmHG Vent. Rate : 061 BPM Atrial Rate : 061 BPM P-R Int : 210 ms QRS Dur : 084 ms QT Int : 434 ms P-R-T Axes : 050 027 038 degrees QTc Int : 436 ms Sinus rhythm with 1st degree A-V block Otherwise normal ECG When compared with ECG of 23-DEC-2020 11:46, No significant change was found Referred By: Alva Whiting Electronically Signed By:JUAN SALINAS
[2024-05-13 15:06] LABS: MANUAL DIFF FLAG NO
[2024-05-13 15:35] LABS: Basophils Absolute Auto 0.1 X10*3/uL (0.0-0.2); Basophils Percent Auto 0.9 % (0-2); Eosinophils Absolute Auto 0.1 X10*3/uL (0.0-0.4); Eosinophils Percent Auto 1.8 % (0-4); Hematocrit 40.2 % (37.0-47.0); Imm Gran Abs Auto 0.02 X10*3/uL (0.00-0.03); Imm Gran Pct Auto 0.3 % (0.0-0.4); Lymphocytes Absolute Auto 1.9 X10*3/uL (1.2-4.9); Lymphocytes Percent Auto 27.7 % (20-40); Mean Corpuscular HGB Conc 32.3 g/dl (31.0-35.0); Mean Corpuscular Hemoglobin 28.7 pg (27.0-33.0); Mean Corpuscular Volume 88.7 fL (80.0-98.0); Mean Platelet Volume 10.4 fL (9.4-12.3); Monocytes Absolute Auto 0.7 X10*3/uL (0.1-1.2); Monocytes Percent Auto 10.7 % (2-11); Neutrophils Absolute Auto 3.9 x10*3/uL (2.0-8.3); Neutrophils Percent Auto 58.6 % (45-73); Platelet Count 263 X10*3/uL (160-400); Red Blood Count 4.53 X10*6/uL (4.20-5.50); Red Cell Distribution Width 13.5 % (11.0-16.0); White Blood Count 6.7 X10*3/uL (4.8-10.8)
[2024-05-13 16:55] LABS: Alanine Aminotransferase 29 U/L (0-31); Albumin Level 4.3 g/dL (3.5-5.0); Alkaline Phosphatase 105 U/L (39-117); Anion Gap 13 (12-20); Aspartate Amino Transferase 34 U/L (5-31); Bilirubin Total 0.4 mg/dL (0.0-1.0); Blood Urea Nitrogen 15 mg/dL (9-16); Calcium 9.1 mg/dL (8.4-10.2); Carbon Dioxide 29 mmol/L (22-29); Chloride 104 mmol/L (96-108); Estimated Glomerular Filt Rate > 60; Glucose Random 90 mg/dL (60-115); Potassium 4.3 mmol/L (3.3-5.1); Sodium 142 mmol/L (135-145); Total Protein 7.1 g/dL (6.5-8.0)
== END ==
LOC: HO.CARD 13:46
DX: Z01.818 Encounter for other preprocedural examination (principal); I10 Essential (primary) hypertension
CPT/HCPCS: 36415; 80053; 85025; 93005; 99212

== ENCOUNTER → 2024-05-13 14:54 | Outpatient (BNV) | payer MEDICARE, OTHER, SELFPAY | PROVIDERS: Visit Provider Internal Medicine | DX: I10 Essential (primary) hypertension (principal) | CPT/HCPCS: 93010 ==

== ENCOUNTER 2024-06-29 11:34 | Outpatient (AMB) | payer MEDICARE, OTHER, SELFPAY ==
--- OUTSIDE RECORDS SUMMARY | 2024-06-29 11:36 | XMS_ITS | Patient Health Record ---
Author Organization [facility] Address [address] [place] [address] Care Team Providers Care Criminal Intelligence Analyst Name Role Phone Tray Baugh MD Primary Care Provider Ubaldo Castelan [phone] ALLERGIES Allergen (clinical drug ingredient) Drug/Non Drug Allergy documented on EMR Reaction Allergy Type Onset Date Status surgical tape (uncoded) rash Allergy Active RESULTS Component Value Reference Range Notes Complete Blood Count Auto Di ff Reviewed date:04/06/2024 11:26:27 PM Interpretation: Performing Lab:[facility], [address] [place] [phone] Notes/Report: White Blood Count 5.8 4.8-10.8 X10*3/uL [...] NRBC Abs Auto 0.000 0.0-0.012 X10*3/uL Comprehensive [place]. Panel Fa Reviewed date:04/06/2024 11:19:37 PM Interpretation: Performing Lab:[facility], [address] [place] [phone] Notes/Report: Sodium 144 135-145 mmol/L Potassium 4.2 3.3-5.1 mmol/L Chloride 109 96-108 mmol/L Carbon Dioxide 27 22-29 mmol/L Anion Gap 12 12-20 Blood Urea Nitrogen 13 9-16 mg/dL Creatinine 0.79 0.5-1.4 mg/dL Estimated Glomerular Filt Rate > 60 NOTE: For -German individuals, multiply the result by 1.210. Chronic [...] Panel Reviewed date:04/06/2024 11:19:50 PM Interpretation: Performing Lab:[facility], [address] [place] [phone] Notes/Report: Triglycerides 48 <150 mg/dL Desirable Triglyceride: [...] Total Reviewed date:04/06/2024 11:19:59 PM Interpretation: Performing Lab:[facility], [address] [place] [phone] Notes/Report: Vitamin D 25-OH Total 72.5 >30 [...] confirmed with another method such as LC-MS/MS. Carbohydrate Antigen 19-9 Reviewed date:04/11/2024 08:17:41 PM Interpretation: Performing Lab:[facility], [address] [place] [phone] Notes/Report: Carbohydrate Antigen 19-9 21 <34 U/mL This test was performed using the Siemens chemiluminescent method. Values obtained from different assay methods cannot be used interchangeably. CA 19-9 levels, regardless of value, should not be interpreted as absolute evidence of the presence or absence of disease. THIS TEST WAS PERFORMED AT: [facility] [address] [place] [phone] DHARA COATS MD REASON FOR REFERRAL No Information MEDICATIONS Medication [...] malignant neoplasm of colon (Z12.11) Active confirmed [id number] Problem History of adenomatous polyp of colon (Z86.010) Active confirmed [id number] Problem Preprocedural examination (Z01.818) Active confirmed [id number] Problem IPMN (intraductal papillary mucinous neoplasm) (D49.0) Active confirmed Neoplasm of digestive system (066479988) VITAL SIGNS Temperature 98.7 degrees Fahrenheit 03/27/2024 Blood pressure diastolic 00 mm Hg 03/27/2024 Height 63.5 in 03/27/2024 Blood pressure systolic 000 mm Hg 03/27/2024 Weight 219 lb 2 oz lbs 03/27/2024 BMI 38.20 kg/m2 03/27/2024 Encounters Encounter Location Date Provider Diagnosis [facility] [address] [place] [phone] 03/27/2024 Ubaldo Alcantara History of adenomato us polyp of colon Z86.010 ; IPMN (intraductal papillary mucinous neoplasm) D49.0 and Encounter for screening for malignant neoplasm of colon Z12.11 [facility] [address] [place] [phone] 03/27/2024 Ubaldo Alcantara ASSESSMENTS Encounter Date Diagnosis Assessment Notes Treatment Notes Treatment Clinical Notes 03/27/2024 History of adenomatous polyp of colon (ICD-10 - Z86.010) 03/27/2024 IPMN (intraductal papillary mucinous neoplasm) (ICD-10 - D49.0) 03/27/2024 Encounter for screening for malignant neoplasm of colon (ICD-10 - Z12.11) PLAN OF TREATMENT Pending Test Test Name Order Date BUN 03/15/2022 BUN 03/27/2024 BUN 03/22/2023 CREATININE 03/15/2022 LIVER PROFILE 03/15/2022 AMYLASE 03/15/2022 LIPASE 03/15/2022 CA 19-9 03/15/2022 CA 19-9 03/27/2024 CA 19-9 03/22/2023 MRI ABD NO CONTRAST (MRCP) 03/22/2023 MRI ABD W&WO CONTRAST 03/27/2024 MRI ABD W&WO CONTRAST 03/22/2023 MRI ABD W&WO CONTRAST 03/15/2022 Creatinine 03/27/2024 Creatinine 03/22/2023 Future Test Test Name Order Date COLONOSCOPY 09/16/2013 COLONOSCOPY 03/05/2019 COLONOSCOPY 03/27/2024 Next Appt Details Provider Name:Ubaldo Alcantara , 07/27/2024 08:30:00 AM, [address] , [place], [id number], Provider Name:Ubaldo Alcantara , 03/26/2025 01:00:00 PM, [address] [place] [address], [address], [place], [phone], Insurance Providers Payer Name Payer Address Payer Phone Subscriber Number Group Number Insured Name Patient Relationship to Insured Coverage Start Date Coverage End Date MEDICARE OF [employer] [address] [place] [id number] [phone] [id number] CATHERINE LARA Self - patient is the insured [facility] [address] [place] [phone] [id number] CATHERINE LARA Self - patient is the insured MEDICAL (GENERAL) HISTORY Medical History History ICD Code Colonoscopy 06-21-2008 smal l tubular adenoma removed--diverticulosis, internal hemorrhoids; F/U colonoscopy 11/2013 with a small tubular adenoma HTN Rheumatoid arthritis Sleep apnea--uses a CPAP Denies VT,DM,CVA,Lung disease,renal dise ase Nerve pain in right [...]
--- OUTSIDE RECORDS SUMMARY | 2024-06-29 11:36 | XMS_ITS ---
Author Organization [facility] Address [address] [place] [address] Care Team Providers Care Mandrel Press Hand Name Role Phone Tray Baugh MD Primary Care Provider Ubaldo Castelan [phone] Encounters Encounter Location Date Provider Diagnosis [facility] [address] [place] [address] 04/14/2023 Ubaldo Alcantara PLAN OF TREATMENT Next Appt Details Provider Name:Ubaldo Alcantara , 07/27/2024 08:30:00 AM, [address] [place] [address] , [place], [place], [phone], Provider Name:Ubaldo Alcantara , 03/26/2025 01:00:00 PM, [address] [facility], [address], [place], [address],
--- OUTSIDE RECORDS SUMMARY | 2024-06-29 11:36 | XMS_ITS ---
Author Organization [facility] Address [address] [place] [address] Care Team Providers Care Generator Repairer Name Role Phone Tray Baugh MD Primary Care Provider Ubaldo Castelan [phone] REASON FOR VISIT Claustrophobic MEDICATIONS Medication SIG [...] ann-marie Encounters Encounter Location Date Provider Diagnosis [facility] [address] [place] [address] 03/27/2024 Ubaldo Alcantara PLAN OF TREATMENT Medication [...] Provider Name:Ubaldo Alcantara , 07/27/2024 08:30:00 AM, [address] [place] [address] , [place], [place], [phone], Provider Name:Ubaldo Alcantara , 03/26/2025 01:00:00 PM, [address] [place] [address], [address], [place], [address],
--- OUTSIDE RECORDS SUMMARY | 2024-06-29 11:36 | XMS_ITS ---
Author Organization [facility] Address [address] [place] [address] Care Team Providers Care Speed Operator Name Role Phone Tray Baugh MD Primary Care Provider Ubaldo Castelan [phone] ALLERGIES Allergen (clinical drug ingredient) Drug/Non Drug [...] 03/27/2024 Encounters Encounter Location Date Provider Diagnosis [facility] [address] [place] [address] 03/27/2024 Ubaldo Alcantara History of adenomato us polyp of colon Z86.010 ; IPMN (intraductal papillary mucinous neoplasm) D49.0 and Encounter for screening for malignant neoplasm of colon Z12.11 ASSESSMENTS Encounter Date Diagnosis Assessment Notes Treatment [...] Order Date COLONOSCOPY 03/27/2024 Next Appt Details Follow Up: prn, Reason: Provider Name:Ubaldo Alcantara , 07/27/2024 08:30:00 AM, [address] [place] [address], [phone], Provider Name:Ubaldo Alcantara , 03/26/2025 01:00:00 PM, [address] [facility], [address], [place], [address], Progress Notes * Examination Category Sub-Category Detail [...]
--- NOTE | 2024-06-29 11:37 | MHC.PC.OV ---
Vital Signs 06/29/24 11:38 06/29/24 11:59 Height 5 ft 4 in Weight 222 lb 6 oz BMI 38.2 BP 140/76 H 150/80 H Blood Pressure Location Lt brachial Lt brachial Position Sitting Sitting Pulse 74 Pulse Source Pulse Oximeter Pulse Oximetry (%) 98 Oxygen Delivery Method Room Air Intake Visit Reasons: 2 month f/u Intake Note: Patient is here to follow up on HTN, RA, Sleep [place]. People Manager Required: No Outreach Representative: Not Required per policy Accompanied by: Self / Same As Patient Allergies No Known Allergies Allergy (Verified 06/29/24 11:38) Medication List - Last Reconciled 06/29/24 by Alva Whiting PA-C amlodipine 5 mg PO DAILY cholecalciferol (vitamin D3) 25 mcg PO DAILY estradiol 0.01%(0.1mg/gram) vaginal lisinopril 1 tab PO DAILY multivitamin 1 tab PO DAILY pregabalin mg PO sulfasalazine 2 tabs PO DAILY Tobacco use date assessed: 06/29/24 Fall risk assessment: No Falls in past year Last assessed Fall Risk: 06/29/24 Dental Screening Dental Screen Date: 04/23/24 HPI 2 month f/u HPI Details 69-year-old female with past medical history of sleep apnea, hypercholesterolemia, hypertension, rheumatoid arthritis last seen April 2024 coming in for follow up. At her last visit was advised to take blood pressures at home and follow up in 2 months for recheck. Blood pressures at home have been in the higher ranges typically in the 150s systolic and 80-90 diastolic. She continue to have facial pain around the right eye and right side of the maxilla. She was seen by her dentist and referred to her athletic field custodian. 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, bilateral Family History (Updated 06/29/24 @ 11:37 by KIMBERLY Han) Father History of partial gastrectomy Mother Heart disease Social History Household Members: Spouse Housing: House Do you presently have visiting nurse or other home services: No Alcohol intake: never Patient Tobacco Use Status: Never used Tobacco e-Cigarette/Vaping Use: Never Used Second Hand Smoke Exposure: No service: No Current occupational status: employed Cognitive needs: No Hearing needs: No Vision needs: No Questionnaire Thrive Questionnaire Date Thrive assessed: 04/17/24 I am a: Patient What is your living situation today?: I have a steady place to live Within the past 12 months, did the food you bought not last and you didn't have the money to get more?: Never true Within the past 12 months, did you worry whether your food would run out before you got money to buy more?: Never true Do you have trouble paying for medicines?: No Do you have trouble getting transportation to medical appointments?: No Do you have trouble paying your heating and electricity bill?: No Do you have trouble taking care of your child, family member or friend?: No Do you have trouble with day-to-day activities such as bathing, preparing meals, shopping, managing finances, etc.?: No Are you currently unemployed and looking for a job?: No Are you interested in more education?: No Please select the resources that you would like help with: None Currently or been in a relationship where the following occur: No concerns reported THRIVE Score: 0 NAYAN-7 AMB Questionnaire NAYAN-7 Date NAYAN - 7 assessed: 04/23/24 Source: Developed by Drs. Ubaldo Goldstein, Tami Monae, David Bradshaw and colleagues, with an educational karen from [employer]. Review of Systems Const Denies body aches, Denies chills, Denies fever(s), Denies headache(s) and Denies poor appetite Eyes Reports no additional complaints ENT Denies dizziness and Denies headache(s) Card Denies chest pain, Denies syncope, Denies lightheadedness and Denies dyspnea Resp Denies cough and Denies dyspnea GI Denies abdominal pain, Denies constipation, Denies diarrhea, Denies nausea and Denies vomiting Reports no additional complaints Musc Reports no additional complaints and Denies abnormal gait Skin/Breast Reports system reviewed and no additional complaints, except as documented Neuro Denies abnormal gait, Denies dizziness, Denies syncope and Denies headache(s) Psych Reports no additional complaints Physical exam (Primary Care) Vital Signs: Last Vital Signs Pulse 74 06/29/24 11:38 BP 150/80 H 06/29/24 11:59 Pulse Ox 98 06/29/24 11:38 Oxygen Delivery Method Room Air 06/29/24 11:38 BMI result Body Mass Index 38.2 Tobacco/Smoking Status: Tobacco use Status Tobacco use date assessed 06/29/24 06/29/24 11:46 Patient Tobacco Use Status Never used Tobacco 06/29/24 11:46 e-Cigarette/Vaping Use Never Used 06/29/24 11:46 Thrive Assessment: Date of Thrive Assessment Date Thrive assessed 04/17/24 06/29/24 11:46 Currently or been in a relationship where the following occur: No concerns reported Const General: cooperative, healthy appearing, comfortable and no acute distress Orientation/consciousness: patient oriented x3 HENMT Head: Yes normocephalic Ears: hearing grossly normal bilaterally General nose exam: Normal external nose present Eyes General: appearance normal, both eyes and all related structures Conjunctivae: conjunctivae normal Neck Neck: Yes full ROM and Yes no lymphadenopathy Resp Effort & Inspection: normal respiratory effort Auscultation: clear to auscultation bilaterally, no crackles, no rales, no rhonchi and no wheezes Cardio Rate: regular rate Rhythm: regular rhythm Skin General skin exam: no rashes or lesions noted Neuro General: patient oriented x3 Gait exam (Neuro): Normal gait present Extrem General: Yes normal to inspection, Yes full ROM and No edema Psych Affect: normal affect Attitude: cooperative Insight: Good insight present (Psych) Judgement: Good judgement present (Psych) Immunizations pneumoc 20-magdalena conj-dip cr(PF) 0.5 mL IM syringe Performing Provider: Alva Whiting PA-C [facility] Administered by: KIMBERLY Kennedy on 06/29/24 12:10 Dose Route Admin Location Dispensed Lot Number Expiration Date [facility] Director Of Financial Planning 0.5 mL IM Left Deltoid 0.5 mL [id number] 10/13/25 5537-2754-77 Boundary/Flexion VIS Given Date VIS Provided VIS Publication Date 06/29/24 Single Vaccine 21 Eligibility Eligibility Date Funding Source Not [facility] Eligible 06/29/24 Private Coding Level of Care Code Est Pt Level 4 (15104) Diagnoses Headache R51.9 HTN (hypertension) I10 Assessment & Plan Assessment & Plan (1) Headache: Code(s): R51.9 - Headache, unspecified Category: Medical Plan: Patient complaining of headache around the right eye eas referred to see her athletic field custodian after seeing her Dentist. She has seen the eye doctor for this concern and pain was deemed unrelated to eye pain. Continue to monitor symptoms. (2) HTN (hypertension): Code(s): I10 - Essential (primary) hypertension Category: Medical Plan: Continue on current blood pressure medication. Avoid salt intake and encourage healthy diet and regular exercise. Blood pressure elevated today in the office and has been elevated at home. Will increase Lisinopril to 20 mg and continue on Amlodipine 10mg. Continue to monitor blood pressures at home and follow up in 2 months. Plan This note was constructed using voice recognition software. While every effort has been made to ensure accuracy and admission nurse, still areas may have been included sometimes these areas may affect the content or meeting of the given symptoms. Total time spent caring for the patient today was 20 minutes. This includes time spent before the visit reviewing the chart, time spent during the visit, and time spent after the visit and documentation. Orders: Orders Pneumococcal 20 Immunization Today Z23 - Encounter for immunization Medications: New lisinopril 20 mg PO DAILY 90 tabs 3RF
[2024-06-29 11:38] VITALS: BP 140/76; PULSE 74; O2SAT 98; BMI 38.2
[2024-06-29 11:59] VITALS: BP 150/80
== END 2024-06-29 12:10 | disposition home or self-care (01) ==
PROVIDERS: PCP Internal Medicine
DX: R51.9 Headache, unspecified (principal); I10 Essential (primary) hypertension; Z23 Encounter for immunization

== ENCOUNTER → 2024-06-29 11:34 | Outpatient (BNVA) | payer MEDICARE, OTHER, SELFPAY | PROVIDERS: PCP Internal Medicine | DX: Z23 Encounter for immunization (principal); R51.9 Headache, unspecified; I10 Essential (primary) hypertension | CPT/HCPCS: 90471; 90677; 99212 ==

== ENCOUNTER 2024-07-20 09:31 | Outpatient (REF) | payer MEDICARE, OTHER, SELFPAY ==
--- NOTE | ~2024-07-20 | XR_ITS ---
EXAMINATION: XR SINUSES CLINICAL INFORMATION: I10 - Essential (primary) hypertension COMPARISON: None available. TECHNIQUE: 3 views of the sinuses were obtained. FINDINGS: Paranasal sinuses appear clear without air-fluid levels. No fractures are identified. No radiodense foreign bodies. XR/XR sinus min 3V IMPRESSION: Unremarkable sinus examination. Electronically signed by: Mj Martin MD 07/20/2024 10:33 AM FELIC[facility]AS
--- OUTSIDE RECORDS SUMMARY | 2024-07-20 09:59 | XMS_ITS ---
Author Organization [facility] Address [address] [place] [address] Care Team Providers Care Machinist Supervisor Name Role Phone Tray Baugh MD Primary Care Provider Ubaldo Castelan [phone] ALLERGIES Allergen (clinical drug ingredient) Drug/Non Drug [...] 03/27/2024 Encounters Encounter Location Date Provider Diagnosis [facility] [address] [place] [address] 03/27/2024 Ubaldo Alcantara History of adenomato us [...] Provider Name:Ubaldo Alcantara , 07/27/2024 08:30:00 AM, [address] [place] [address], [phone], Provider Name:Ubaldo Alcantara , 03/26/2025 01:00:00 PM, [address] [facility], [address], [place], [address], Progress Notes * Examination Category Sub-Category Detail [...]
--- OUTSIDE RECORDS SUMMARY | 2024-07-20 09:59 | XMS_ITS ---
Author Organization [facility] Address [address] [place] [address] Care Team Providers Care Third Steel Pourer Name Role Phone Tray Baugh MD Primary Care Provider Ubaldo Castelan [phone] REASON FOR VISIT Claustrophobic MEDICATIONS Medication SIG [...] ann-marie Encounters Encounter Location Date Provider Diagnosis [facility] [address] [place] [address] 03/27/2024 Ubaldo Alcantara PLAN OF TREATMENT Medication [...] Provider Name:Ubaldo Alcantara , 07/27/2024 08:30:00 AM, [address] [place] [address] , [place], [place], [phone], Provider Name:Ubaldo Alcantara , 03/26/2025 01:00:00 PM, [address] [place] [address], [address], [place], [address],
--- OUTSIDE RECORDS SUMMARY | 2024-07-20 10:00 | XMS_ITS ---
Author Organization [facility] Address [address] [place] [address] Care Team Providers Care Saturation Equipment Operator Name Role Phone Tary Baugh MD Primary Care Provider Ubaldo Castelan [phone] Encounters Encounter Location Date Provider Diagnosis [facility] [address] [place] [address] 04/14/2023 Ubaldo Alcantara PLAN OF TREATMENT Next Appt Details Provider Name:Ubaldo Alcantara , 07/27/2024 08:30:00 AM, [address] [place] [address] , [place], [place], [phone], Provider Name:Ubaldo Alcantara , 03/26/2025 01:00:00 PM, [address] [facility], [address], [place], [address],
--- OUTSIDE RECORDS SUMMARY | 2024-07-20 10:00 | XMS_ITS | Patient Health Record ---
Author Organization [facility] Address [address] [place] [address] Care Team Providers Care Degreasing Solution Reclaimer Name Role Phone Tray Baugh MD Primary Care Provider Ubaldo Castelan [phone] ALLERGIES Allergen (clinical drug ingredient) Drug/Non Drug Allergy documented on EMR Reaction Allergy Type Onset Date Status surgical tape (uncoded) rash Allergy Active RESULTS Component Value Reference Range Notes Complete Blood Count Auto Di ff Reviewed date:04/06/2024 11:26:27 PM Interpretation: Performing Lab:[facility], [address] [place] [phone] Notes/Report: White Blood Count 5.8 4.8-10.8 X10*3/uL [...] NRBC Abs Auto 0.000 0.0-0.012 X10*3/uL Comprehensive [place]. Panel Fa Reviewed date:04/06/2024 11:19:37 PM Interpretation: Performing Lab:[facility], [address] [place] [phone] Notes/Report: Sodium 144 135-145 mmol/L Potassium 4.2 3.3-5.1 mmol/L Chloride 109 96-108 mmol/L Carbon Dioxide 27 22-29 mmol/L Anion Gap 12 12-20 Blood Urea Nitrogen 13 9-16 mg/dL Creatinine 0.79 0.5-1.4 mg/dL Estimated Glomerular Filt Rate > 60 NOTE: For -Iranian individuals, multiply the result by 1.210. Chronic [...] Panel Reviewed date:04/06/2024 11:19:50 PM Interpretation: Performing Lab:[facility], [address] [place] [phone] Notes/Report: Triglycerides 48 <150 mg/dL Desirable Triglyceride: [...] Total Reviewed date:04/06/2024 11:19:59 PM Interpretation: Performing Lab:[facility], [address] [place] [id number] Notes/Report: Vitamin D 25-OH Total 72.5 >30 [...] 19-9 Reviewed date:04/11/2024 08:17:41 PM Interpretation: Performing Lab:[facility], [address] [place] [phone] Notes/Report: Carbohydrate Antigen 19-9 21 <34 U/mL This test was performed using the Siemens chemiluminescent method. Values obtained from different assay methods cannot be used interchangeably. CA 19-9 levels, regardless of value, should not be interpreted as absolute evidence of the presence or absence of disease. THIS TEST WAS PERFORMED AT: [facility] [address] [place] [phone] DHARA COATS MD REASON FOR REFERRAL No [...] malignant neoplasm of colon (Z12.11) Active confirmed 124758500 Problem History of adenomatous polyp of colon (Z86.010) Active confirmed 902787091 Problem Preprocedural examination (Z01.818) Active confirmed [id number] Problem IPMN (intraductal papillary mucinous neoplasm) (D49.0) Active confirmed Neoplasm of digestive system (391785253) VITAL SIGNS Temperature 98.7 degrees Fahrenheit 03/27/2024 Blood pressure diastolic 00 mm Hg 03/27/2024 Height 63.5 in 03/27/2024 Blood pressure systolic 000 mm Hg 03/27/2024 Weight 219 lb 2 oz lbs 03/27/2024 BMI 38.20 kg/m2 03/27/2024 Encounters Encounter Location Date Provider Diagnosis [facility] [address] [place] [phone] 03/27/2024 Ubaldo Alcantara History of adenomato us polyp of colon Z86.010 ; IPMN (intraductal papillary mucinous neoplasm) D49.0 and Encounter for screening for malignant neoplasm of colon Z12.11 [facility] [address] [place] [phone] 03/27/2024 Ubaldo Alcantara ASSESSMENTS Encounter Date Diagnosis [...] Name:Ubaldo Alcantara , 07/27/2024 08:30:00 AM, [address] [facility] , [place], [place], [id number], Provider Name:Ubaldo Alcantara , 03/26/2025 01:00:00 PM, [address] [place] [address], [address], [place], [address], Insurance Providers Payer Name Payer Address Payer Phone Subscriber Number Group Number Insured Name Patient Relationship to Insured Coverage Start Date Coverage End Date [employer] [address] [place] [phone] [id number] CATHERINE LARA Self - patient is the insured [facility] [address] [place] [phone] [id number] CATHERINE LARA Self - patient is the insured MEDICAL (GENERAL) HISTORY Medical History History ICD Code Colonoscopy 06-21-2008 smal l tubular adenoma removed--diverticulosis, internal hemorrhoids; F/U colonoscopy 11/2013 with a small tubular adenoma HTN Rheumatoid arthritis Sleep apnea--uses a CPAP Denies UT,DM,CVA,Lung disease,renal dise ase Nerve pain in right [...]
== END 2024-07-20 09:32 | disposition home or self-care (01) ==
LOC: HO.XRAY 09:31
DX: J34.89 Other specified disorders of nose and nasal sinuses (principal); I10 Essential (primary) hypertension
CPT/HCPCS: 70220

== ENCOUNTER → 2024-07-20 09:39 | Outpatient (BNV) | payer MEDICARE, OTHER, SELFPAY | PROVIDERS: Visit Provider Radiology Diagnostic Radiology | DX: I10 Essential (primary) hypertension (principal) | CPT/HCPCS: 70220 ==

== ENCOUNTER 2024-07-27 07:13 | Day surgery (SDC) | payer MEDICARE, OTHER, SELFPAY ==
--- OUTSIDE RECORDS SUMMARY | 2024-07-13 10:50 | XMS_ITS ---
Author Organization [facility] Address [address] [place] [address] Care Team Providers Care Lavender Farm Worker Name Role Phone Tray Baugh MD Primary Care Provider Ubaldo Castelan [phone] ALLERGIES Allergen (clinical drug ingredient) Drug/Non Drug [...] 03/27/2024 Encounters Encounter Location Date Provider Diagnosis [facility] [address] [place] [address] 03/27/2024 Ubaldo Alcantara History of adenomato us [...] Provider Name:Ubaldo Alcantara , 07/27/2024 08:30:00 AM, [address] [place] [address], [phone], Provider Name:Ubaldo Alcantara , 03/26/2025 01:00:00 PM, [address] [facility], [address], [place], [address], Progress Notes * Examination Category Sub-Category Detail [...]
--- OUTSIDE RECORDS SUMMARY | 2024-07-13 10:50 | XMS_ITS | Patient Health Record ---
Author Organization [facility] Address [address] [place] [address] Care Team Providers Care Pegger Name Role Phone Tray Baugh MD Primary Care Provider Ubaldo Castelan [phone] ALLERGIES Allergen (clinical drug ingredient) Drug/Non Drug Allergy documented on EMR Reaction Allergy Type Onset Date Status surgical tape (uncoded) rash Allergy Active RESULTS Component Value Reference Range Notes Complete Blood Count Auto Di ff Reviewed date:04/06/2024 11:26:27 PM Interpretation: Performing Lab:[facility], [address] [place] [phone] Notes/Report: White Blood Count 5.8 4.8-10.8 X10*3/uL [...] NRBC Abs Auto 0.000 0.0-0.012 X10*3/uL Comprehensive Beverly. Panel Fa Reviewed date:04/06/2024 11:19:37 PM Interpretation: Performing Lab:[facility], [address] [place] [phone] Notes/Report: Sodium 144 135-145 mmol/L Potassium 4.2 3.3-5.1 mmol/L Chloride 109 96-108 mmol/L Carbon Dioxide 27 22-29 mmol/L Anion Gap 12 12-20 Blood Urea Nitrogen 13 9-16 mg/dL Creatinine 0.79 0.5-1.4 mg/dL Estimated Glomerular Filt Rate > 60 NOTE: For -[place] individuals, multiply the result by 1.210. Chronic [...] Panel Reviewed date:04/06/2024 11:19:50 PM Interpretation: Performing Lab:[facility], [address] [place] [phone] Notes/Report: Triglycerides 48 <150 mg/dL Desirable Triglyceride: [...] Total Reviewed date:04/06/2024 11:19:59 PM Interpretation: Performing Lab:[facility], [address] [place] [phone] Notes/Report: Vitamin D 25-OH Total 72.5 >30 [...] 19-9 Reviewed date:04/11/2024 08:17:41 PM Interpretation: Performing Lab:[facility], [address] [place] [phone] Notes/Report: Carbohydrate Antigen 19-9 21 <34 U/mL This test was performed using the Siemens chemiluminescent method. Values obtained from different assay methods cannot be used interchangeably. CA 19-9 levels, regardless of value, should not be interpreted as absolute evidence of the presence or absence of disease. THIS TEST WAS PERFORMED AT: [facility] [address] [place] [phone] DHARA COATS MD REASON FOR REFERRAL No [...] malignant neoplasm of colon (Z12.11) Active confirmed 875116655 Problem History of adenomatous polyp of colon (Z86.010) Active confirmed 292398559 Problem Preprocedural examination (Z01.818) Active confirmed [id number] Problem IPMN (intraductal papillary mucinous neoplasm) (D49.0) Active confirmed Neoplasm of digestive system (247455506) VITAL SIGNS Temperature 98.7 degrees Fahrenheit 03/27/2024 Blood pressure diastolic 00 mm Hg 03/27/2024 Height 63.5 in 03/27/2024 Blood pressure systolic 000 mm Hg 03/27/2024 Weight 219 lb 2 oz lbs 03/27/2024 BMI 38.20 kg/m2 03/27/2024 Encounters Encounter Location Date Provider Diagnosis [facility] [address] [place] [address] 03/27/2024 Ubaldo Alcantara History of adenomato us polyp of colon Z86.010 ; IPMN (intraductal papillary mucinous neoplasm) D49.0 and Encounter for screening for malignant neoplasm of colon Z12.11 [facility] [address] [place] [address] 03/27/2024 Ubaldo Alcantara ASSESSMENTS Encounter Date Diagnosis [...] Name:Ubaldo Alcantara , 07/27/2024 08:30:00 AM, [address] [facility] , [place], [place], [phone], Provider Name:Ubaldo Alcantara , 03/26/2025 01:00:00 PM, [address] [place] [address], [address], [place], [address], Insurance Providers Payer Name Payer Address Payer Phone Subscriber Number Group Number Insured Name Patient Relationship to Insured Coverage Start Date Coverage End Date MEDICARE OF [employer] [address] [place] [id number] CATHERINE LARA Self - patient is the insured [facility] [address] [place] [phone] [id number] CATHERINE LARA Self - patient is the insured MEDICAL (GENERAL) HISTORY Medical History History ICD Code Colonoscopy 06-21-2008 smal l tubular adenoma removed--diverticulosis, internal hemorrhoids; F/U colonoscopy 11/2013 with a small tubular adenoma HTN Rheumatoid arthritis Sleep apnea--uses a CPAP Denies MO,DM,CVA,Lung disease,renal dise ase Nerve pain in right [...]
--- OUTSIDE RECORDS SUMMARY | 2024-07-13 10:50 | XMS_ITS ---
Author Organization [facility] Address [address] [place] [address] Care Team Providers Care Cook Fishing Vessel Name Role Phone Tray Baugh MD Primary Care Provider Ubaldo Castelan [phone] REASON FOR VISIT Claustrophobic MEDICATIONS Medication SIG [...] ann-marie Encounters Encounter Location Date Provider Diagnosis [facility] [address] [place] [address] 03/27/2024 Ubaldo Alcantara PLAN OF TREATMENT Medication [...] Provider Name:Ubaldo Alcantara , 07/27/2024 08:30:00 AM, [address] [place] [address] , [place], [place], [phone], Provider Name:Ubaldo Alcantara , 03/26/2025 01:00:00 PM, [address] [place] [address], [address], [place], [address],
--- OUTSIDE RECORDS SUMMARY | 2024-07-13 10:50 | XMS_ITS ---
Author Organization [facility] Address [address] [place] [address] Care Team Providers Care Mend Worker Name Role Phone Tray Baugh MD Primary Care Provider Ubaldo Castelan [phone] Encounters Encounter Location Date Provider Diagnosis [facility] [address] [place] [address] 04/14/2023 Ubaldo Alcantara PLAN OF TREATMENT Next Appt Details Provider Name:Ubaldo Alcantara , 07/27/2024 08:30:00 AM, [address] [place] [address] , [place], [place], [phone], Provider Name:Ubaldo Alcantara , 03/26/2025 01:00:00 PM, [address] [facility], [address], [place], [address],
[2024-07-23 13:05] VITALS: BMI 38.2
--- NOTE | 2024-07-24 09:50 | HO.ANESPROP2 ---
Documented by User: Brigitte Shipley NP 07/24/24 09:50 HPI - Anesthesia Eval Consult details Narrative: 69yo F for Colonoscopy PMFSH Active Problems Active Problems: All Active Problems Sinus pain (Acute) Pre-op exam (Acute) Headache (Acute) Pancreatic cyst (Acute) HTN (hypertension) (Acute) Rheumatoid arthritis (Acute) Sleep apnea (Acute) Past Medical History Medical History Right foot pain Sleep apnea Rheumatoid arthritis HTN (hypertension) Family History Family History Father History of partial gastrectomy Mother Heart disease Surgical History Surgical History Hx of bilateral cataract extraction History of tonsillectomy H/O colonoscopy History of cataract surgery History of eye surgery History of carpal tunnel release of both wrists History of pelvic surgery History of appendectomy History of bunionectomy Total knee replacement status Status post total hip replacement, bilateral Social History Social History Household Members: Spouse Housing: House Do you presently have visiting nurse or other home services: No Alcohol intake: never Patient Tobacco Use Status: Never used Tobacco e-Cigarette/Vaping Use: Never Used Second Hand Smoke Exposure: No Have you been hit, kicked, punched, or otherwise hurt by someone within the past year? If so, by whom?: No Are you DNR?: No Advance Directives: No Advance Directives Information Provided: Yes Nutrition Risks: No Nutritional Risk service: No Current occupational status: employed Cognitive needs: No Hearing needs: No Vision needs: No Meds Allergies Allergy/AdvReac Type Severity Reaction Status Date / Time No Known Allergies Allergy Verified 06/29/24 11:38 Home Medications ?Medication ?Instructions ?Recorded ?Confirmed ?Last Taken ?Type multivitamin 1 tab PO DAILY 12/23/20 07/23/24 12/23/20 History sulfasalazine 500 mg 1 tab PO BID 12/23/20 07/23/24 12/23/20 History tablet,delayed release estradiol 0.01% (0.1 mg/gram) vaginal 04/23/24 06/29/24 Unknown History vaginal cream amlodipine 2.5 mg-benazepril 10 mg 1 cap PO DAILY 07/23/24 07/23/24 Unknown History capsule cholecalciferol (vitamin D3) 50 50 mcg PO DAILY 07/23/24 07/23/24 Unknown History mcg (2,000 unit) capsule (Vitamin D3) lisinopril 10 mg tablet 10 mg PO DAILY 07/23/24 07/23/24 Unknown History Exam Height,Weight and Vital Signs: Height 5 ft 3.5 in Weight 99.337 kg Assessment and Plan Assessment Anesthesia Assessment: Chart Reviewed Documented by User: Lena Fraga MD 07/27/24 08:58 PMFSH Past Medical History Medical History Right foot pain Sleep apnea Rheumatoid arthritis HTN (hypertension) Family History Family History Father History of partial gastrectomy Mother Heart disease Surgical History Surgical History Hx of bilateral cataract extraction History of tonsillectomy H/O colonoscopy History of cataract surgery History of eye surgery History of carpal tunnel release of both wrists History of pelvic surgery History of appendectomy History of bunionectomy Total knee replacement status Status post total hip replacement, bilateral History of Problems with Anesthesia: No Social History Social History Household Members: Spouse Housing: House Do you presently have visiting nurse or other home services: No Alcohol intake: never Patient Tobacco Use Status: Never used Tobacco e-Cigarette/Vaping Use: Never Used Second Hand Smoke Exposure: No Have you been hit, kicked, punched, or otherwise hurt by someone within the past year? If so, by whom?: No Are you DNR?: No Advance Directives: No Advance Directives Information Provided: Yes Nutrition Risks: No Nutritional Risk service: No Current occupational status: employed Cognitive needs: No Hearing needs: No Vision needs: No Meds Allergies Allergy/AdvReac Type Severity Reaction Status Date / Time No Known Allergies Allergy Verified 06/29/24 11:38 Home Medications ?Medication ?Instructions ?Recorded ?Confirmed ?Last Taken ?Type multivitamin 1 tab PO DAILY 12/23/20 07/23/24 12/23/20 History sulfasalazine 500 mg 1 tab PO BID 12/23/20 07/23/24 12/23/20 History tablet,delayed release estradiol 0.01% (0.1 mg/gram) vaginal 04/23/24 06/29/24 Unknown History vaginal cream amlodipine 2.5 mg-benazepril 10 mg 1 cap PO DAILY 07/23/24 07/23/24 Unknown History capsule cholecalciferol (vitamin D3) 50 50 mcg PO DAILY 07/23/24 07/23/24 Unknown History mcg (2,000 unit) capsule (Vitamin D3) lisinopril 10 mg tablet 10 mg PO DAILY 07/23/24 07/23/24 Unknown History Exam Airway Mallampati Class: III TM Dist: >3cm Neck ROM: Full Loose/Missing/Broken Teeth: No Heart: RRR Lungs: CTA Assessment and Plan Assessment Anesthesia Assessment: Anesthesia Plan Discussed Final Anesthetic Review History of Problems with Anesthesia: No NPO: Yes ASA Class: III Final Preanesthetic Review: Meds/Allgs Chart Reviewed, Consent Obtained/Reviewed and Anes Risks/Benef Reviewed Patient Risk: Intermediate Procedure Risk: Low Anesthetic Plan Anesthetic Plan: MAC: Disposition: Standard PACU
[2024-07-27 07:45] VITALS: BP 168/78; PULSE 65; RESP 19; TEMP 36.1; O2SAT 98
[2024-07-27] MEDS: Lactated Ringers 1,000 ML 100 ML IVCONT (08:09)
[2024-07-27 09:41] VITALS: BP 95/63; PULSE 70; RESP 18; TEMP 36.2; O2SAT 97
--- NOTE | 2024-07-27 09:45 | P.BOP_ITS ---
Brief Operative Note Date of Service: 07/27/24 Pre-op diagnosis: Screening Post-op diagnosis: other (Diverticulosis) Procedure: Colonoscopy to the cecum and TI Surgeon: Ubaldo Alcantara MD Anesthesia: MAC Was an Environmental Monitoring Technician used for this Procedure?: No Estimated blood loss (mL): 0 Pathology: none sent Condition: stable Disposition: PACU
[2024-07-27 09:55] VITALS: BP 107/65; PULSE 67; RESP 16; TEMP 36.2; O2SAT 99
--- NOTE | 2024-07-27 09:56 | OP_ITS ---
DATE OF SERVICE: 07/27/2024 SURGEON: Ubaldo Alcantara MD INDICATIONS: The patient presents for evaluation of colorectal cancer screening. Full consent has been obtained from her for this, including risks of bleeding and perforation. PREOPERATIVE DIAGNOSIS: POSTOPERATIVE DIAGNOSIS: PROCEDURE PERFORMED: Colonoscopy to cecum and terminal ileum. ESTIMATED BLOOD LOSS: COMPLICATIONS: ANESTHESIA: Monitored anesthesia care. ASSISTANTS: SPECIMENS: PREOPERATIVE DIAGNOSES: Colorectal cancer screening and personal history of tubular adenoma of the colon. POSTOPERATIVE DIAGNOSES: Colorectal cancer screening, personal history of tubular adenoma of the colon, diverticulosis, and internal hemorrhoids. DESCRIPTION OF PROCEDURE: The patient was placed in the left lateral decubitus position. The digital rectal exam revealed no abnormalities. The Olympus video pediatric colonoscope was then entered into the rectum and advanced easily to the cecum. Once in the cecum, I did identify a normal-appearing cecal pouch with appendiceal orifice and a normal-appearing ileocecal valve. The terminal ileum was cannulated and appeared normal. Scope was withdrawn back in the colon. The entire cecum and ileocecal valve appeared normal. The scope was slowly withdrawn assessing all mucosal surfaces carefully. Preparation was excellent. I did not visualize any sign of polyps, colitis, nor angiodysplasias. There was a mild amount of sigmoid diverticulosis. In the rectum, scope was retroflexed, visualizing internal hemorrhoids, but no other pathology. The rectal mucosa appeared normal. The scope was straightened and withdrawn from the patient. She tolerated the procedure well and was returned to the recovery area in stable condition. IMPRESSION: 1. Diverticulosis. 2. Internal hemorrhoids. PLAN: Given her previous history of colon polyps and some family history of colon polyps and GI malignancy, I would recommend a repeat colonoscopy in 5 years for further screening. She will, otherwise, see me on a p.r.n. basis. She will see me in the fall for a followup visit in regard to her underlying history of pancreatic cysts. This has been discussed with her . MD JOSE Melgar/HENRIQUE / [id number]
== END 2024-07-27 10:21 | disposition home or self-care (01) ==
PROVIDERS: Visit Provider Internal Medicine
PROC: 0DJD8ZZ Inspection of Lower Intestinal Tract, Via Natural or Artificial Opening Endoscopic (ICD-10-PCS; CPT 45378; principal; 2024-07-27 08:30)
DX: Z12.11 Encounter for screening for malignant neoplasm of colon (principal); Z86.0101 Personal history of adenomatous and serrated colon polyps; K57.30 Diverticulosis of large intestine without perforation or abscess without bleeding; K64.8 Other hemorrhoids; D49.0 Neoplasm of unspecified behavior of digestive system; I10 Essential (primary) hypertension; M06.9 Rheumatoid arthritis, unspecified; G47.30 Sleep apnea, unspecified; Z99.89 Dependence on other enabling machines and devices; Z79.899 Other long term (current) drug therapy; Z98.890 Other specified postprocedural states
CPT/HCPCS: G0105; J2003; J2704

== ENCOUNTER 2024-08-31 10:10 | Outpatient (AMB) | payer MEDICARE, OTHER, SELFPAY ==
--- OUTSIDE RECORDS SUMMARY | 2024-08-31 10:13 | XMS_ITS | Continuity of Care Document ---
Author Organization [facility] [place] Address [address] [place] [address] Care Team Providers Care Aerial Advertiser Name Role Phone BRANDON JALLOH Primary Care Provider Assessment No assessment recorded. Plan of Treatment Reminders Order Date Submit Date Provider Last Modified By Organization Details Last Modified Time Details Appointments RECHEC K 15 2024 09:30A M Chandu Henao MD Not available Not available Not available Lab None record ed. Referral physic al therap ist referr al - Evalua te & RxLumb ar Stabil izatio n Progra m 2024 025 [facility] ([facility]uan Sarah), [address], [place], [address], 08/24/2024 12:43:18 Procedures None record ed. Surgeries None record ed. Imaging XR, lumbar spine, 2 view - uc room 1 lumbar spine 2024 025 [facility], [address], [facility] [address], [place], [address], 08/24/2024 10:58:37 Medication Orders Medrol (Chepe) 4 mg tablet s in a dose pack 2024 025 [id number], [address] [facility], [place], [address], 08/24/2024 11:04:44 Patient TargetsNo targets recorded. Patient InstructionsNo instructions recorded. Reason for Referral Physical Therapist Referral for Pain in lumbar spine Evaluate & RxLumbar Stabilization Program Referring Physician: Gigi Muñiz, Orthopedic Surgery, Encounter Date: 08/24/2024 Results Created Date Observation Date Name Description Value Unit Range Abnormal Flag Note LastModifiedBy Organization Detail LastModifiedTime 08/24/19 25 08/24/2024 XR, lumba r spine , 2 view [email or web address] ?Encry pted=s hAaTro YD8dLq bEUv6g %2BXZw aYqtaq 0bqfl% 2Fg9IQ a4ajBk vP9nXo QUaueC m3YtLR FvZlgJ JJ8mAn HZtai3 [id number] AC0Kqb HuAVqa jKiQtr MwF INTERFACE [facility] [address], [place], [address], 08/24/2024 10:58:37 08/24/19 25 08/24/2024 XR, lumba r spine , 2 view [email or web address] ?Encry pted=s hAaTro YD8dLq bEUv6g %2BXZw aYqtaq 0bqfl% 2Fg9IQ a4ajBk vP9nXo QUaueC m3YtLR FvZlgJ JJ8mAn HZtai3 [id number] AC0Kqb HuAVqa jKiQtr MwF INTERFACE [facility] [address] [facility] [address], [place], [address], 08/24/2024 10:58:39 Result Notes None recorded. Problems Name Problem SNOMED Code Status Onset Date Resolution Date Notes Provider Name and Address Organization Details Recorded Time Pain in lumbar spine 761436727 Active 2024 Gigi Muñiz PA-C [address], [facility] [place], [address] , [facility] 10:50:39 Trigger thumb of left hand 119978104087 107 Active 2018 Problem Code: M65.312; Problem Code Type: ICD-10; Status: 'A'; Not Available [facility] 4 10:58:15 Carpal tunnel syndrome of left wrist 359444278363 102 Active 2018 Problem Code: G56.02; Problem Code Type: ICD-10; Status: 'A'; Not Available [facility] 4 10:58:15 Hip joint prosthesi s present 957199988 Active 2014 Problem Code: Z96.642; Problem Code Type: ICD-10; Status: 'A'; Not Available [facility] 4 10:58:15 Lumbar spondylol isthesis 671984174037 102 Active 2023 Chandu Henao MD [address], [place], [address] , [facility] 4 13:44:40 Low back pain 527439322 Active 2023 Chandu Henao MD [address], [place], [address] , [facility] 4 13:45:08 Problem Notes None recorded. Medical Equipment None Reported. Allergies Allergen ID Allergen Name Allergen Category Reaction Reaction Severity Criticality Documentation Date Start Date Code Code System Note Provider Name and Address Organization Details Recorded Time 68904 adhesive tape environme nt,medica tion Not available Not available Not available 09/16/20232010 17831 UNK Not Available [facility] 4 11:24:31 Medications Name Sig Start Date Stop Date Status Note LastModified by Organization Details LastModified Time celecoxib 200 mg capsule TAKE ONE CAPSULE BY MOUTH EVERY DAY active Not Available Not Available No t Available cyclobenzap rine 10 mg tablet PLEASE SEE ATTACHED FOR DETAILED DIRECTION S active Not Available Not Available No t Available amoxicillin 500 mg capsule TAKE 1 CAPSULE BY MOUTH EVERY 8 HOURS active Not Available Not Available No t Available neomycin-po lymyxin-hyd rocort 3.5 mg/mL-10,00 0 unit/mL-1 % ear solution TAKE 2 DROPS (OTIC (EAR)) 3 TIMES PER DAY FOR 10 DAYS active Not Available Not Available No t Available sulfasalazi ne 500 mg tablet TAKE TWO TABLETS BY MOUTH TWICE A DAY WITH FOOD active Not Available Not Available No t Available clindamycin HCl 300 mg capsule TAKE ONE CAPSULE BY MOUTH EVERY 12 HOURS UNTIL FINISHED active Not Available Not Available No t Available azithromyci n 250 mg tablet TAKE 2 TABLETS BY MOUTH ON THE FIRST DAY , THEN TAKE 1 TABLET DAILY FOR 4 DAYS active Not Available Not Available No t Available valacyclovi r 1 gram tablet TAKE ONE TABLET BY MOUTH THREE TIMES A DAY FOR 7 DAYS active Not Available Not Available No t Available hydrocodone 5 mg-acetamin ophen 325 mg tablet TAKE ONE TO TWO TABLETS BY MOUTH EVERY 4 TO 6 HOURS NEEDED FOR PAIN active Not Available Not Available No t Available lisinopril 20 mg tablet TAKE ONE TABLET BY MOUTH EVERY DAY active Not Available Not Available No t Available Medrol (Chepe) 4 mg tablets in a dose pack take as directed 2024 active Not Available Not Available Not Avai labdoris betamethaso ne, augmented 0.05 % topical cream APPLY ONE APPLICATI ON EXTERNAL TWICE A DAY TO SPOTS OF PSORIASIS ON THICK SKIN FOR UP TO 2 WEEKS ON, THEN 1 WEEK OFF active Not Available Not Available No t Available amlodipine 2.5 mg tablet TAKE ONE TABLET BY MOUTH EVERY DAY active Not Available Not Available No t Available amlodipine 5 mg tablet TAKE ONE TABLET BY MOUTH EVERY DAY active Not Available Not Available No t Available tramadol 50 mg tablet TAKE 1 TABLET BY MOUTH EVERY 6 HOURS NEEDED FOR PAIN active Not Available Not Available No t Available butalbital- acetaminoph en-caffeine 50 mg-325 mg-40 mg tablet TAKE ONE TABLET BY MOUTH TWO TIMES A DAY NEEDED FOR PAIN active Not Available Not Available No t Available amoxicillin 500 mg tablet TAKE ONE TABLET BY MOUTH EVERY 8 HOURS UNTIL GONE active Not Available Not Available No t Available ketorolac 0.5 % eye drops INSTILL ONE DROP IN THE RIGHT EYE FOUR TIMES A DAY active Not Available Not Available No t Available amoxicillin 875 mg tablet TAKE 1 TABLET BY MOUTH TWICE A DAY FOR 7 DAYS active Not Available Not Available No t Available prednisolon e acetate 1 % eye drops,suspe nsion INSTILL ONE DROP IN THE RIGHT EYE FOUR TIMES A DAY; SHAKE WELL BEFORE USING active Not Available Not Available No t Available lorazepam 0.5 mg tablet TAKE 1 TABLET BY MOUTH 30 TO 60 MINUTES BEFORE THE MRI NEEDED FOR ANXIETY, AND THEN REPEAT THE ONE TABLET RIGHT BEFORE THE MRI NEEDED active Not Available Not Available No t Available doxycycline monohydrate 50 mg tablet Doxycycli ne Monohydra te 100MG Capsule twice a day 2010 active Statu s: 'Curr ent'; Not Available Not Available Not Available IBU 600 mg tablet TAKE ONE TABLET BY MOUTH EVERY 8 HOURS NEEDED FOR PAIN active Not Available Not Available No t Available gabapentin 800 mg tablet TAKE ONE TABLET BY MOUTH AT BEDTIME 08/24 completed Not Available Not Available Not Available trazodone 100 mg tablet TAKE ONE-HALF TO ONE TABLET BY MOUTH AT BEDTIME active Not Available Not Available No t Available lorazepam 2 mg tablet TAKE 1 TABLET HALF HOUR PRIOR TO EXAM, MUST HAVE RIDE . DO NOT DRIVE WHILE TAKING THIS MEDICATIO N. 11/24 completed Not Available Not Available Not Available erythromyci n 5 mg/gram (0.5 %) eye ointment APPLY A SMALL AMOUNT TO INCISION SITE ON EYELID FOUR TIMES A DAY FOR 7 DAYS active Not Available Not Available No t Available trazodone 150 mg tablet TAKE ONE TABLET BY MOUTH EVERY EVENING AT BEDTIME active Not Available Not Available No t Available pseudoephed rine-guaife nesin ER 80-700 mg tablet,exte nded release twice a day 2020 active Statu s: 'Curr ent'; Not Available Not Available Not Available lisinopril 10 mg tablet TAKE 1 TABLET BY MOUTH DAILY active Not Available Not Available No t Available gabapentin 300 mg capsule TAKE 1-3 CAPSULES BY MOUTH DAILY AT BEDTIME active Not Available Not Available No t Available lorazepam 1 mg tablet TAKE 1 TABLET BY MOUTH AT BEDTIME NEEDED. 11/24 completed Not Available Not Available Not Available estradiol 0.01% (0.1 mg/gram) vaginal cream INSERT 1 GRAM VAGINALLY ONCE A WEEK AT BEDTIME active Not Available Not Available No t Available amoxicillin 875 mg-potassiu m clavulanate 125 mg tablet TAKE ONE TABLET BY MOUTH TWICE A DAY active Not Available Not Available No t Available tobramycin 0.3 %-dexametha sone 0.1 % eye drops,suspe nsion INSTILL ONE DROP IN THE RIGHT EYE FOUR TIMES A DAY active Not Available Not Available No t Available cyclobenzap rine 5 mg tablet TAKE ONE TABLET BY MOUTH THREE TIMES A DAY IF NEEDED FOR MUSCLE SPASM active Not Available Not Available No t Available moxifloxaci n 0.5 % eye drops INSTILL ONE DROP IN EACH EYE FOUR TIMES A DAY FOR 7 DAYS STARTING AFTER SURGERY active Not Available Not Available No t Available pregabalin 75 mg capsule TAKE TWO CAPSULES BY MOUTH EVERY MORNING AND TAKE ONE CAPSULE BY MOUTH DAILY AT BEDTIME active Not Available Not Available No t Available pregabalin 150 mg capsule TAKE ONE CAPSULE BY MOUTH TWICE A DAY active Not Available Not Available No t Available sulfasalazi ne sulfaSALA zine 500MG Tablet 2019 active Statu s: 'Curr ent'; Not Available Not Available Not Available Ativan Take 1 tablet half hour prior to exam. Must have ride.DO NOT DRIVE WHILE TAKING THIS MEDICATIO N 2023 active Statu s: 'Curr ent'; Not Available Not Available Not Available diclofenac 1 % topical gel APPLY 2 GRAMS TOPICALLY 4 TIMES A DAY FOR 10 DAYS active Not Available Not Available No t Available oxycodone HCl-oxycodo ne-ASA as directed 1 TABLET Q 4 HOURS PRN PAIN DO NOT DIRVE WHILE ON THIS MED 2020 active Statu s: 'Curr ent'; Not Available Not Available Not Available Vitals Date Recorded Body height Body mass index (BMI) Body weight Provider Name and Address Organization Details Last Updated DateTime 08/24/2024 162.56 cm 39.5 kg/m2 316334.25 g Gigi Muñiz PA-C [address] [place] [address] [address], [place], [address], [place] [facility] 08/24/2024 10:49:14 Social History None recorded. Functional Status None recorded. Mental Status None recorded. Family History Nothing Reported. Medical History Condition Response Allergies/Hayfever N Coronary Artery Disease N Anxiety/Depression N Emphysema N Thyroid Problems N COPD N Pacemaker N Anemia N Kidney/Bladder Problems N Vascular Disease N Heart Attack (MT) N Gastrointestinal Disease N Diabetes N Autoimmune disease N Bleeding Disorder N Orthotics N Arthritis Y Seizures/Epilepsy N Blood Clot N AIDS/HIV N Congestive Heart Failure (CHF) N Acid Reflux (GERD) N Cancer N Stroke N Asthma N Peripheral Vascular Disease N Sleep Apnea Y Hepatitis N Heart Disease N Rheumatoid Arthritis N Arrhythmia N Pulmonary Embolism N Fibromyalgia N Hypertension Y Osteoporosis N Gynecological HistoryNo gynecological history recorded. Obstetrics History GPAL:G 0 P 0 0 0 0 Past Encounters Encounter ID Performer Location Encounter Start Date Encounter Closed Date Diagnosis/Indication Diagnosis SNOMED-CT Code Diagnosis ICD10 Code Diagnosis Note [id number] Gigi Muñiz PA-C [facility] [place] [address] [place] [address] 08/24/2024 10:16:05 08/24/2024 11:08:55 Pain in lumbar spine 014544721 M54.50 Health Concerns Section Related Observation LastModified by Organization Detai ls LastModified Time None Recorded Concern Status LastModified by Organization Details LastModified Time None Recorded Payers Encounter Date Sequence Insurance Name Policy Number Policy Schmidt Covered Member ID Schmidt Member ID Guarantor Name 08/24/2024 1 [place]: [employer] Olivia Whipple [id number] Olivia Montalba 08/24/2024 2 [employer] [facility] - PLAN 1 (MEDICARE SUPPLEMENT) [id number] Olivia Whipple [id number] Olivia Montalba Notes Date Note Type Note Provider Name and Address Organization Details Recorded Time 08/24/2024 text/html I am seeing the patient today under the supervision of Dr. Lazo who was available but who did not see the patient for today's Urgent Care walk in visit. HPI: Patient is a 69-year-old female who presents today with exacerbation of her low back pain. She is an established treating patient of Dr. Henao, she was evaluated a year ago had x-rays MRI scans and has been referred to physical therapy but recently with the last 2 weeks seem to reexacerbate some of her low back symptoms. She went to local urgent care facility they gave her a muscle relaxant which has not helped her and she comes in today for orthopedic evaluation. She denies any radicular symptoms symptoms are predominantly in the lower back region denies any change in bowel or bladder habits. Past family, medical, social history and review of systems has been reviewed, updated and signed by me and is located in the patient? ? ?s chart. PHYSICAL EXAMINATION: The patient is well appearing and in no apparent distress. Alert and oriented x3. Gait is symmetric. Examination of the lumbar spine findings include restriction range of motion about 50% normal, positive straight leg raise test both left and right, sensation intact all dermatomes, normal strength involving quadriceps hamstring, normal plantarflexion dorsiflexion strength inversion eversion strength, EHL function 5/5. Peripheral, vascular, lymphatic examination, skin, neurological, coordination, reflexes, sensation are within normal limits. X-RAY REPORT: X-rays were ordered, obtained and independently reviewed today at [facility] 2 views of the lumbar spine show multilevel degenerative disc disease with mild grade 1 spondylosis at L4-5. IMPRESSION: Exacerbation of low back pain PLAN: After brief conversation ultimately decision was made to go forward with a course of conservative care, reinitiation of physical therapy, recommended a short 6-day Medrol Dosepak. In the would not dissipate need for surgical intervention in this setting and I would anticipate her symptoms to continue to improve over the next 6 weeks. If she is not noticing improvement then I would recommend follow-up with Dr. Henao. Gigi Muñiz PA-C [address] [facility] [address], [place], [address], [facility] 08/24/2024 11:08:52 OBGyn Episode No OBEpisode recorded.
--- OUTSIDE RECORDS SUMMARY | 2024-08-31 10:13 | XMS_ITS ---
Author Organization [facility] Address [address] [place] [address] Care Team Providers Care Cloth Shader Name Role Phone Tray Baugh MD Primary Care Provider Ubaldo Castelan [phone] ALLERGIES Allergen (clinical drug ingredient) Drug/Non Drug [...] 03/27/2024 Encounters Encounter Location Date Provider Diagnosis [facility] [address] [place] [address] 03/27/2024 Ubaldo Alcantara History of adenomato us [...] Up: prn, Reason: Provider Name:Ubaldo Alcantara , 04/23/2025 01:20:00 PM, [address], [address], [place], [address], Progress Notes * Examination Category Sub-Category Detail [...]
--- OUTSIDE RECORDS SUMMARY | 2024-08-31 10:13 | XMS_ITS ---
Author Organization [facility] Address [address] [place] [address] Care Team Providers Care Plastic Fabricator Name Role Phone Tray Baugh MD Primary Care Provider Ubaldo Castelan [phone] REASON FOR VISIT Claustrophobic MEDICATIONS Medication SIG [...] ann-marie Encounters Encounter Location Date Provider Diagnosis [facility] [address] [place] [address] [address] [place] [address] 03/27/2024 Ubaldo Alcantara PLAN OF TREATMENT Medication [...] Provider Name:Ubaldo Alcantara , 04/23/2025 01:20:00 PM, [address] [place] [address], [address], [place], [address],
--- OUTSIDE RECORDS SUMMARY | 2024-08-31 10:13 | XMS_ITS ---
Author Organization [facility] Address [address] [place] [address] Care Team Providers Care Mold Yard Worker Name Role Phone Tray Baugh MD Primary Care Provider Ubaldo Castelan [phone] REASON FOR VISIT screening,hx polyps PROBLEMS Problem Type ICD Code Onset Dates Problem Status W/U Status Risk SNOMED Code Notes Problem Diverticulosis of large intestine without perforation or abscess without bleeding (K57.30) Active confirmed Diverticul ar disease of colon (077854940) Encounters Encounter Location Date Provider Diagnosis [facility] Outpatient [address] [place] [phone] 07/27/2024 Ubaldo Alcantara Colon cancer scree ivana Z12.11 ; Family history of colon cancer Z80.0 ; Diverticulosis of large intestine without perforation or abscess without bleeding K57.30 and Other hemorrhoids K64.8 ASSESSMENTS Encounter Date Diagnosis Assessment Notes Treatment Notes Treatment Clinical Notes 07/27/2024 Colon cancer screening (ICD-10 - Z12.11) 07/27/2024 Family history of colon cancer (ICD-10 - Z80.0) 07/27/2024 Diverticulosis of large intestine without perforation or abscess without bleeding (ICD-10 - K57.30) 07/27/2024 Other hemorrhoids (ICD-10 - K64.8) PLAN OF TREATMENT Next Appt Details Provider Name:Ubaldo Alcantara , 04/23/2025 01:20:00 PM, [address], [address], [place], [address],
--- OUTSIDE RECORDS SUMMARY | 2024-08-31 10:13 | XMS_ITS | Patient Health Record ---
Author Organization [facility] Address [address] [place] [address] Care Team Providers Care Invasive Manager Name Role Phone Tray Baugh MD Primary Care Provider Ubaldo Castelan [phone] ALLERGIES Allergen (clinical drug ingredient) Drug/Non Drug Allergy documented on EMR Reaction Allergy Type Onset Date Status surgical tape (uncoded) rash Allergy Active RESULTS Component Value Reference Range Notes Complete Blood Count Auto Di ff Reviewed date:04/06/2024 11:26:27 PM Interpretation: Performing Lab:[facility], [address] [place] [phone] Notes/Report: White Blood Count 5.8 4.8-10.8 X10*3/uL [...] NRBC Abs Auto 0.000 0.0-0.012 X10*3/uL Comprehensive Maize. Panel Fa Reviewed date:04/06/2024 11:19:37 PM Interpretation: Performing Lab:[facility], [address] [place] [address] Notes/Report: Sodium 144 135-145 mmol/L Potassium 4.2 3.3-5.1 mmol/L Chloride 109 96-108 mmol/L Carbon Dioxide 27 22-29 mmol/L Anion Gap 12 12-20 Blood Urea Nitrogen 13 9-16 mg/dL Creatinine 0.79 0.5-1.4 mg/dL Estimated Glomerular Filt Rate > 60 NOTE: For -Tajik individuals, multiply the result by 1.210. Chronic [...] Panel Reviewed date:04/06/2024 11:19:50 PM Interpretation: Performing Lab:[facility], [address] [place] [phone] Notes/Report: Triglycerides 48 <150 mg/dL Desirable Triglyceride: [...] Total Reviewed date:04/06/2024 11:19:59 PM Interpretation: Performing Lab:[facility], [address] [place] [phone] Notes/Report: Vitamin D 25-OH Total 72.5 >30 [...] 19-9 Reviewed date:04/11/2024 08:17:41 PM Interpretation: Performing Lab:[facility], [address] [place] [phone] Notes/Report: Carbohydrate Antigen 19-9 21 <34 U/mL This test was performed using the Siemens chemiluminescent method. Values obtained from different assay methods cannot be used interchangeably. CA 19-9 levels, regardless of value, should not be interpreted as absolute evidence of the presence or absence of disease. THIS TEST WAS PERFORMED AT: [facility] [address] [place] [phone] DHARA COATS MD REASON FOR REFERRAL No [...] malignant neoplasm of colon (Z12.11) Active confirmed 433208056 Problem History of adenomatous polyp of colon (Z86.010) Active confirmed 995707641 Problem Diverticulosis of large intestine without perforation or abscess without bleeding (K57.30) Active confirmed Diverticul ar disease of colon (244743121) Problem Preprocedural examination (Z01.818) Active confirmed 531150535515140 Problem IPMN (intraductal papillary mucinous neoplasm) (D49.0) Active confirmed Neoplasm o f digestive system (242907372) VITAL SIGNS Temperature 98.7 degrees Fahrenheit 03/27/2024 Blood pressure diastolic 00 mm Hg 03/27/2024 Height 63.5 in 03/27/2024 Blood pressure systolic 000 mm Hg 03/27/2024 Weight 219 lb 2 oz lbs 03/27/2024 BMI 38.20 kg/m2 03/27/2024 Encounters Encounter Location Date Provider Diagnosis [facility] Outpatient [address] [place] [phone] 07/27/2024 Ubaldo Alcantara Colon cancer screeni ng Z12.11 ; Family history of colon cancer Z80.0 ; Diverticulosis of large intestine without perforation or abscess without bleeding K57.30 and Other hemorrhoids K64.8 [facility] [address] [place] [address] 03/27/2024 Ubaldo Alcantara History of adenomato us polyp of colon Z86.010 ; IPMN (intraductal papillary mucinous neoplasm) D49.0 and Encounter for screening for malignant neoplasm of colon Z12.11 [facility] [address] [place] [address] 03/27/2024 Ubaldo Alcantara ASSESSMENTS Encounter Date Diagnosis Assessment Notes Treatment Notes Treatment Clinical Notes 07/27/2024 Colon cancer screening (ICD-10 - Z12.11) 07/27/2024 Family history of colon cancer (ICD-10 - Z80.0) 03/27/2024 History of adenomatous polyp of colon (ICD-10 - Z86.010) 03/27/2024 IPMN (intraductal papillary mucinous neoplasm) (ICD-10 - D49.0) 07/27/2024 Diverticulosis of large intestine without perforation or abscess without bleeding (ICD-10 - K57.30) 03/27/2024 Encounter for screening for malignant neoplasm of colon (ICD-10 - Z12.11) 07/27/2024 Other hemorrhoids (ICD-10 - K64.8) PLAN OF TREATMENT Pending Test Test Name [...] Name:Ubaldo Alcantara , 04/23/2025 01:20:00 PM, [address], [address], [place], [address], Insurance Providers Payer Name Payer Address Payer Phone Subscriber Number Group Number Insured Name Patient Relationship to Insured Coverage Start Date Coverage End Date MEDICARE OF [employer] [address] [place] [address] [phone] [id number] JANE CATHERINE Self - patient is the insured [facility] [address] [facility] [phone] [id number] CATHERINE LARA Self - patient is the insured MEDICAL (GENERAL) HISTORY Medical History History ICD Code Colonoscopy 06-21-2008 smal l tubular adenoma removed--diverticulosis, internal hemorrhoids; F/U colonoscopy 11/2013 with a small tubular adenoma HTN Rheumatoid arthritis Sleep apnea--uses a CPAP Denies [place],DM,CVA,Lung disease,renal dise ase Nerve pain in right [...]
--- NOTE | 2024-08-31 10:19 | A.OFFPC_ITS ---
Vital Signs 08/31/24 10:26 Height 5 ft 3.5 in Weight 230 lb BMI 40.1 BP 136/82 Blood Pressure Location Lt brachial Position Sitting Pulse 70 Pulse Source Pulse Oximeter Pulse Oximetry (%) 97 Oxygen Delivery Method Room Air Intake Visit Reasons: 2 month f/u Intake Note: Patient here for a 2 month follow up Barrel Ribs Solderer Required: No Accompanied by: Self / Same As Patient Allergies No Known Allergies Allergy (Verified 08/31/24 10:20) Medication List - Last Reconciled 08/31/24 by Alva Whiting PA-C amlodipine-benazepril 2.5-10 mg 1 cap PO DAILY cholecalciferol (vitamin D3) (Vitamin D3) 50 mcg PO DAILY estradiol 0.01%(0.1mg/gram) vaginal lisinopril 10 mg PO DAILY multivitamin 1 tab PO DAILY pregabalin 150 mg PO BID sulfasalazine 1 tab PO BID Tobacco use date assessed: 08/31/24 Fall risk assessment: No Falls in past year Last assessed Fall Risk: 08/31/24 Dental Screening Dental Screen Date: 08/31/24 Did you have a dental visit in the last 12 months?: No Did you have a dental problem in the last 6 months where you did not have access to dental care?: No Was dental information given to patient?: Patient has dentist HPI 2 month f/u HPI Details 69-year-old female with past medical his tory of sleep apnea, hypercholesterolemia, hypertension, rheumatoid arthritis last seen 06/2024 coming in for follow up. At last visit her lisinopril was increased to 20 mg and continued on amlodipine 10 mg advised to monitor blood pressure at home. She was referred to an access service representative for her headache. Patient completed her colonoscopy 07/31/2024 advised to repeat in 5 years. Patient tells us today she continues to have intermittent headache despite being seen by the fuel tank sealer and tester, access service representative and dentist. She experiences this primarily behind the eye, with occasional unclear auditory sensations. Evaluations thus far, including a sinus scan, dental x-rays, and an eye examination, all returned normal findings. Concerns about medication confusion, particularly discrepancies involving amlodipine and lisinopril dosages. During a colonoscopy, her medication list was incorrectly reconciled, causing potential issues in her current treatment. She is uncertain if she is taking the appropriate doses of lisinopril (whether 10 mg or 20 mg) and amlodipine (5 mg or 10 mg). She believes at home she is taking lisinopril 20 mg and amlodipine 5 mg and her pharmacy requisition supports this. FORMERLY [facility] Medical History Right foot pain Sleep apnea Rheumatoid arthritis HTN (hypertension) Surgical History Hx of bilateral cataract extraction History of tonsillectomy H/O colonoscopy History of cataract surgery History of eye surgery History of carpal tunnel release of both wrists History of pelvic surgery History of appendectomy History of bunionectomy Total knee replacement status Status post total hip replacement, bilateral Family History Father History of partial gastrectomy Mother Heart disease Social History Household Members: Spouse Housing: House Do you presently have visiting nurse or other home services: No Alcohol intake: never Patient Tobacco Use Status: Never used Tobacco e-Cigarette/Vaping Use: Never Used Second Hand Smoke Exposure: No service: No Current occupational status: employed Cognitive needs: No Hearing needs: No Vision needs: No Questionnaire PHQ-9 Over the last 2 weeks, how often have you been bothered by any of the following problems? 1. Little interest or pleasure in doing things: not at all 2. Feeling down, depressed, or hopeless: not at all 3. Trouble falling or staying asleep, or sleeping too much: not at all 4. Feeling tired or having little energy: not at all 5. Poor appetite or overeating: not at all 6. Feeling bad about yourself - or that you are a failure or have let yourself or your family down: not at all 7. Trouble concentrating on things, such as reading the newspaper or watching television: not at all 8. Moving or speaking so slowly that other people could have noticed. Or the opposite - being so fidgety or restless that you have been moving around a lot more than usual: not at all 9. Thoughts that you would be better off or of hurting yourself in some way: not at all Total score: 0 Depression Screening Interpretation: Negative Depression Screening Done: Yes Source: Developed by Drs. Ubaldo Goldstein, David Smith and colleagues, with an educational karen from [employer]. Thrive Questionnaire Date Thrive assessed: 08/31/24 I am a: Patient What is your living situation today?: I have a steady place to live Within the past 12 months, did the food you bought not last and you didn't have the money to get more?: Never true Within the past 12 months, did you worry whether your food would run out before you got money to buy more?: Never true Do you have trouble paying for medicines?: No Do you have trouble getting transportation to medical appointments?: No Do you have trouble paying your heating and electricity bill?: No Do you have trouble taking care of your child, family member or friend?: No Do you have trouble with day-to-day activities such as bathing, preparing meals, shopping, managing finances, etc.?: No Are you currently unemployed and looking for a job?: No Are you interested in more education?: No Please select the resources that you would like help with: None Currently or been in a relationship where the following occur: No concerns reported THRIVE Score: 0 AUDIT C Alcohol Use Questionnaire (AUDIT-C) 1. How often do you have a drink containing alcohol?: Never Total Score: 0 NAYAN-7 AMB Questionnaire NAYAN-7 Date NAYAN - 7 assessed: 08/31/24 Feeling nervous, anxious, or on edge: 0 = Not at all Not being able to stop or control worryin = Not at all Worrying too much about different things: 0 = Not at all Trouble relaxin = Not at all Being so restless that it is hard to sit still: 0 = Not at all Becoming easily annoyed or irritable: 0 = Not at all Feeling afraid as if something awful might happen: 0 = Not at all Total NAYAN-7 score (0-4 normal; 5-9 mild; 10-14 moderate; 15-21 severe): 0 Source: Developed by Tami Kinsey Kurt Kroenke and colleagues, with an educational karen from [employer]. Review of Systems Const Denies body aches, Denies chills, Denies fever(s), Denies headache(s) and Denies poor appetite Eyes Reports no additional complaints ENT Denies dysphagia, Denies dizziness, Denies headache(s) and Denies odynophagia Card Denies chest pain, Denies syncope, Denies edema, Denies irregular heart rhythm, Denies lightheadedness and Denies dyspnea Resp Denies cough and Denies dyspnea GI Denies abdominal pain, Denies constipation, Denies dysphagia, Denies diarrhea, Denies nausea, Denies odynophagia and Denies vomiting Reports no additional complaints Musc Reports no additional complaints and Denies abnormal gait Skin/Breast Reports system reviewed and no additional complaints, except as documented Neuro Denies abnormal gait, Denies dizziness, Denies syncope and Denies headache(s) Psych Reports no additional complaints Physical exam (Primary Care) Vital Signs: Last Vital Signs Pulse 70 08/31/24 10:26 BP 136/82 08/31/24 10:26 Pulse Ox 97 08/31/24 10:26 Oxygen Delivery Method Room Air 08/31/24 10:26 BMI result Body Mass Index 40.1 Tobacco/Smoking Status: Tobacco use Status Tobacco use date assessed 08/31/24 08/31/24 10:22 Patient Tobacco Use Status Never used Tobacco 08/31/24 10:22 e-Cigarette/Vaping Use Never Used 08/31/24 10:22 PHQ-9: PHQ-9 Score PHQ-9: Total score 0 08/31/24 10:33 Depression Screening Interpretation: Negative Thrive Assessment: Date of Thrive Assessment Date Thrive assessed 08/31/24 08/31/24 10:22 Currently or been in a relationship where the following occur: No concerns reported Const General: cooperative, healthy appearing, comfortable and no acute distress Orientation/consciousness: patient oriented x3 HENMT Head: Yes normocephalic Ears: hearing grossly normal bilaterally General nose exam: Normal external nose present Eyes General: appearance normal, both eyes and all related structures Conjunctivae: conjunctivae normal Neck Neck: Yes full ROM and Yes no lymphadenopathy Resp Effort & Inspection: normal respiratory effort Auscultation: clear to auscultation bilaterally, no crackles, no rales, no rhonchi and no wheezes Cardio Rate: regular rate Rhythm: regular rhythm Skin General skin exam: no rashes or lesions noted Neuro Other: No neurological deficits noted or observed General: patient oriented x3 Cranial nerves: Yes Facial sensation intact/muscles of mastication intact, Yes Bilaterally intact EOM present, Yes Normal facial strength present, Yes Ability to bilaterally rotate head present and Yes Ability to bilaterally elevate shoulders present Gait exam (Neuro): Normal gait present Extrem General: Yes normal to inspection, Yes full ROM and No edema Psych Affect: normal affect Attitude: cooperative Insight: Good insight present (Psych) Judgement: Good judgement present (Psych) Coding Level of Care Code Est Pt Level 3 (25603) Diagnoses Headache R51.9 HTN (hypertension) I10 Sleep apnea G47.30 Assessment & Plan Assessment & Plan (1) Headache: Code(s): R51.9 - Headache, unspecified Category: Medical Plan: Despite extensive workup with other specialties patient continues to have headache behind the right eye that is intermittent in nature. Workup thus far has been negative. A neurology referral has been made for further assessment of the patient's persistent headache, following normal findings from ENT and dental investigations. (2) HTN (hypertension): Code(s): I10 - Essential (primary) hypertension Category: Medical Plan: Due to communication errors related to medication records, efforts were made to correct the discrepancies found in the pharmacy dispensation of lisinopril and amlodipine, ensuring proper alignment with the intended prescription strength. Plan to continue on lisinopril 20 mg and amlodipine 5 mg monitor blood pressure at home and follow up in 3 months. Blood pressure today under good control. (3) Sleep apnea: Comment: uses cpap Code(s): G47.30 - Sleep apnea, unspecified Category: Medical Plan: Uses CPAP faithfully at least 4 hours a night and benefits from this therapy. Plan Blood tests, including a thyroid panel, are scheduled to investigate the potential underlying causes of symptoms like hair loss. The patient is educated on monitoring her blood pressure at home and advised to start and maintain a log of her readings to track consistency and seek care if required. Further annual check-ups are scheduled for continued comprehensive care. This note was constructed using voice recognition software. While every effort has been made to ensure accuracy and sour bleaching pleater, still areas may have been included sometimes these areas may affect the content or meeting of the given symptoms. Total time spent caring for the patient today was 20 minutes. This includes time spent before the visit reviewing the chart, time spent during the visit, and time spent after the visit and documentation. Orders: Orders Lipid Panel Today I10 - Essential (primary) hypertension, Z00.00 - Encounter for general adult medical examination without abnormal findings Vitamin D 25-OH Total Today I10 - Essential (primary) hypertension, Z00.00 - Encounter for general adult medical examination without abnormal findings UA CC w/rflx Micro + Cult Today I10 - Essential (primary) hypertension Comprehensive Met. Panel Today I10 - Essential (primary) hypertension, Z00.00 - Encounter for general adult medical examination without abnormal findings Complete Blood Count Auto Diff Today I10 - Essential (primary) hypertension, Z00.00 - Encounter for general adult medical examination without abnormal findings TSH reflex Free T4 Today I10 - Essential (primary) hypertension, Z00.00 - Encounter for general adult medical examination without abnormal findings Free T4 (Free Thyroxine) Today I10 - Essential (primary) hypertension, Z00.00 - Encounter for general adult medical examination without abnormal findings Vitamin B12 and Folate Today I10 - Essential (primary) hypertension, Z00.00 - Encounter for general adult medical examination without abnormal findings IRON PROFILE Today I10 - Essential (primary) hypertension Hemoglobin A1c Today E11.65 - Type 2 diabetes mellitus with hyperglycemia, I10 - Essential (primary) hypertension Referrals Neurology Referral R51.9 - Headache, unspecified Medications: New amlodipine 5 mg PO DAILY 90 tabs 2RF lisinopril 20 mg PO DAILY 90 tabs 2RF Discontinued lisinopril Discontinued Reason: Patient no longer taking 10 mg PO DAILY 90 tabs 3RF
[2024-08-31 10:26] VITALS: BP 136/82; PULSE 70; O2SAT 97; BMI 40.1
== END 2024-08-31 10:57 | disposition home or self-care (01) ==
PROVIDERS: PCP Internal Medicine
DX: R51.9 Headache, unspecified (principal); I10 Essential (primary) hypertension; G47.30 Sleep apnea, unspecified

== ENCOUNTER → 2024-08-31 10:10 | Outpatient (BNVA) | payer MEDICARE, OTHER, SELFPAY | PROVIDERS: PCP Internal Medicine | DX: R51.9 Headache, unspecified (principal); I10 Essential (primary) hypertension; G47.30 Sleep apnea, unspecified | CPT/HCPCS: 99212 ==

== ENCOUNTER 2024-09-09 09:13 | Outpatient (AMB) | payer MEDICARE, OTHER, SELFPAY ==
[2024-09-09 09:14] VITALS: BP 132/88; PULSE 71; O2SAT 97; BMI 40.7
--- NOTE | 2024-09-09 09:14 | A.OFFVIS_ITS ---
Vital Signs 09/09/24 09:14 Height 5 ft 3.5 in Weight 233 lb 4 oz BMI 40.7 BP 132/88 Blood Pressure Location Lt brachial Position Sitting Pulse 71 Pulse Source Pulse Oximeter Pulse Oximetry (%) 97 Oxygen Delivery Method Room Air Intake Visit Reasons: 09/07 LVM+Let INP-Headaches Intake Note: Patient presents to the office today referred in-house by Alva Whiting for headaches. Allergies No Known Allergies Allergy (Verified 09/09/24 09:17) Medication List - Last Reconciled 09/09/24 by Trini Deras MD amlodipine 5 mg PO DAILY carbamazepine ER (Tegretol XR) 100 mg PO BID cholecalciferol (vitamin D3) (Vitamin D3) 50 mcg PO DAILY estradiol 0.01%(0.1mg/gram) vaginal lisinopril 20 mg PO DAILY multivitamin 1 tab PO DAILY pregabalin 150 mg PO BID sulfasalazine 1 tab PO BID HPI Comments Details: 69y/o female comes for evaluation of pain in her right eye, cheek , gums and ears. she had a root canal done in October 2023, had right cataract surgery November 14 . left cataract in October 2023. The pain started few weeks after that. she was seen sales and customer relations rep - everything was normal and she was on antibiotic drop for over 1 month.she saw the cardiac catheterization technician - who said the pain was not from her teeth or gums. The pain is persistent with intermittent worsening.The pain is 5-7/10 . sometimes she takes tylenol.she describes the pain as a bad headache and like a tooth pain. she denies numbness or tingling. she is sensitive when she touche she right cheek. She denies double vision, vertigo, speech or swallowing issues. she is unable to describe any triggers. FOR[facility]LY [facility] Medical History (Updated 09/09/24 @ 10:03 by Trini Deras MD) Trigeminal neuralgia of right side of face Right foot pain Sleep apnea Rheumatoid arthritis HTN (hypertension) Surgical History Hx of bilateral cataract extraction History of tonsillectomy H/O colonoscopy History of cataract surgery History of eye surgery History of carpal tunnel release of both wrists History of pelvic surgery History of appendectomy History of bunionectomy Total knee replacement status Status post total hip replacement, bilateral Family History Father History of partial gastrectomy Mother Heart disease Social History Household Members: Spouse Housing: House Do you presently have visiting nurse or other home services: No Alcohol intake: never Patient Tobacco Use Status: Never used Tobacco e-Cigarette/Vaping Use: Never Used Second Hand Smoke Exposure: No service: No Current occupational status: employed Cognitive needs: No Hearing needs: No Vision needs: No Physical Exam Vital Signs: Last Vital Signs Pulse 71 09/09/24 09:14 BP 132/88 09/09/24 09:14 Pulse Ox 97 09/09/24 09:14 Oxygen Delivery Method Room Air 09/09/24 09:14 BMI result Body Mass Index 40.7 Const General: cooperative, healthy appearing and comfortable Nutritional Appearance: obese Orientation/consciousness: patient oriented x3 HEENT Head: Yes normal to inspection Eyes Pupils: Equal, round and reactive pupils present Neuro General: patient oriented x3, gait normal, tone normal, moves all extremities and no focal motor deficits Cranial nerves: Yes Facial sensation intact/muscles of mastication intact, Yes Equal, round and reactive pupils present, Yes Bilaterally intact EOM present, Yes Nystagmus not present, Yes Normal facial strength present, Yes Midline tongue present, Yes Symmetric palate elevation present and Yes Ability to bilaterally elevate shoulders present Cognition (Neuro): normal cognition Gait exam (Neuro): Normal gait present Motor exam (neuro): 5/5 motor strength present throughout and Normal motor muscle tone present throughout Deep tendon reflexes (DTR's): Right triceps reflex intensity grade: 1+, Left triceps reflex intensity grade: 1+, Rt Biceps (C5, C6): 1+, Left biceps reflex intensity grade: 1+, Right brachioradialis reflex intensity grade: 1+, Left brachioradialis reflex intensity grade: 1+, Right patellar reflex intensity grade: 1+ and Left patellar reflex intensity grade: 1+ Coordination: [id number] test normal Assessment & Plan Assessment & Plan (1) Trigeminal neuralgia of right side of face: Code(s): G50.0 - Trigeminal neuralgia Category: Medical Plan Atypical trigeminal neuralgia MRI brain with jonathon to evaluate she is already on pregabalin 150mg bid for her back which is helping I will trial her on tegretol XR 1oomg bid , monitor CBC Sodium levels Orders: Orders MR head/brain wo/w con Today S04.30XA - Injury of trigeminal nerve, unspecified side, initial encounter Medications: New carbamazepine ER (Tegretol XR) 100 mg PO BID 60 tabs 0RF Coding Level of Care Code New Pt Level 4 (31347) Complex EM visit Add On G2211 Diagnoses Trigeminal neuralgia of right side of face G50.0
--- OUTSIDE RECORDS SUMMARY | 2024-09-09 10:14 | XMS_ITS ---
Author Organization [facility] Address [address] [place] [address] Care Team Providers Care Elementary Assistant Principal Name Role Phone Tray Baugh MD Primary Care Provider Ubaldo Castelan [phone] REASON FOR VISIT Claustrophobic MEDICATIONS Medication SIG [...] Encounters Encounter Location Date Provider Diagnosis [facility] [address] [place] [address] [address] [place] [address] 03/27/2024 Ubaldo Alcantara PLAN OF TREATMENT Medication [...] Provider Name:Ubaldo Alcantara , 04/23/2025 01:20:00 PM, [address] [place] [address], [address], [place], [address],
--- OUTSIDE RECORDS SUMMARY | 2024-09-09 10:14 | XMS_ITS ---
Author Organization [facility] Address [address] [place] [address] Care Team Providers Care Automotive Electrical Helper Name Role Phone Tray Buagh MD Primary Care Provider Ubaldo Castelan [phone] REASON FOR VISIT screening,hx polyps PROBLEMS Problem Type ICD Code Onset Dates Problem Status W/U Status Risk SNOMED Code Notes Problem Diverticulosis of large intestine without perforation or abscess without bleeding (K57.30) Active confirmed Diverticul ar disease of colon ([id number]) Encounters Encounter Location Date Provider Diagnosis [facility] [address] [place] [id number] 07/27/2024 Ubaldo Alcantara Colon cancer scree ivana [...] 01:20:00 PM, [address], [address], [place], [address],
--- OUTSIDE RECORDS SUMMARY | 2024-09-09 10:14 | XMS_ITS ---
Author Organization [facility] Address [address] [place] [address] Care Team Providers Care Diagnostics Sales Developer Name Role Phone Tray Baugh MD Primary Care Provider Ubaldo Castelan [phone] ALLERGIES Allergen (clinical drug ingredient) Drug/Non Drug [...] day for 30 day(s) Active VITAL SIGNS Temperature 98.7 degrees Fahrenheit 03/27/20 24 Blood pressure systolic 000 mm Hg 03/27/20 24 Blood pressure diastolic 00 mm Hg 024 Height 63.5 in 03/27/2024 Weight 219 lb 2 oz lbs 03/27/2024 BMI 38.20 kg/m2 03/27/2024 Encounters Encounter Location Date Provider Diagnosis [facility] [address] [place] [address] 03/27/2024 Ubaldo Alcantara History of adenomato us [...] Name:Ubaldo Alcantara , 04/23/2025 01:20:00 PM, [address], [address], [place], [address], Progress Notes * Examination Category Sub-Category Detail [...]
--- OUTSIDE RECORDS SUMMARY | 2024-09-09 10:14 | XMS_ITS | Patient Health Record ---
Author Organization [facility] Address [address] [place] [address] Care Team Providers Care Quarantine Inspector Name Role Phone Tray Baugh MD Primary Care Provider Ubaldo Castelan [phone] ALLERGIES Allergen (clinical drug ingredient) Drug/Non Drug Allergy documented on EMR Reaction Allergy Type Onset Date Status surgical tape (uncoded) rash Allergy Active RESULTS Component Value Reference Range Notes Complete Blood Count Auto Di ff Reviewed date:04/06/2024 11:26:27 PM Interpretation: Performing Lab:[facility], [address] [place] [phone] Notes/Report: White Blood Count 5.8 4.8-10.8 X10*3/uL [...] NRBC Abs Auto 0.000 0.0-0.012 X10*3/uL Comprehensive [place]. Panel Fa Reviewed date:04/06/2024 11:19:37 PM Interpretation: Performing Lab:[facility], [address] [place] [phone] Notes/Report: Sodium 144 135-145 mmol/L Potassium 4.2 3.3-5.1 mmol/L Chloride 109 96-108 mmol/L Carbon Dioxide 27 22-29 mmol/L Anion Gap 12 12-20 Blood Urea Nitrogen 13 9-16 mg/dL Creatinine 0.79 0.5-1.4 mg/dL Estimated Glomerular Filt Rate > 60 NOTE: For -Citizen Of [place] individuals, multiply the result by 1.210. Chronic [...] Reviewed date:04/06/2024 11:19:50 PM Interpretation: Performing Lab:[facility], [address] [place] [phone] Notes/Report: Triglycerides 48 <150 mg/dL Desirable Triglyceride: [...] Reviewed date:04/06/2024 11:19:59 PM Interpretation: Performing Lab:[facility], [address] [place] [phone] Notes/Report: Vitamin D 25-OH Total 72.5 >30 [...] Reviewed date:04/11/2024 08:17:41 PM Interpretation: Performing Lab:[facility], [address] [place] [phone] Notes/Report: Carbohydrate Antigen 19-9 21 <34 U/mL This test was performed using the Siemens chemiluminescent method. Values obtained from different assay methods cannot be used interchangeably. CA 19-9 levels, regardless of value, should not be interpreted as absolute evidence of the presence or absence of disease. THIS TEST WAS PERFORMED AT: [facility] [address] [place] [phone] DHARA COATS MD REASON FOR REFERRAL No [...] malignant neoplasm of colon (Z12.11) Active confirmed 753246882 Problem History of adenomatous polyp of colon (Z86.010) Active confirmed 593888281 Problem Diverticulosis of large intestine without perforation or abscess without bleeding (K57.30) Active confirmed Diverticul ar disease of colon (551745424) Problem Preprocedural examination (Z01.818) Active confirmed 950945395617934 Problem IPMN (intraductal papillary mucinous neoplasm) (D49.0) Active confirmed Neoplasm o f digestive system (485410224) VITAL SIGNS Temperature 98.7 degrees Fahrenheit 03/27/2024 Blood pressure diastolic 00 mm Hg 03/27/2024 Height 63.5 in 03/27/2024 Blood pressure systolic 000 mm Hg 03/27/2024 Weight 219 lb 2 oz lbs 03/27/2024 BMI 38.20 kg/m2 03/27/2024 Encounters Encounter Location Date Provider Diagnosis [facility] Outpatient [address] [place] [id number] 07/27/2024 Ubaldo Alcantara Colon cancer screeni ng Z12.11 ; Family history of colon cancer Z80.0 ; Diverticulosis of large intestine without perforation or abscess without bleeding K57.30 and Other hemorrhoids K64.8 [facility] [address] [place] [address] 03/27/2024 Ubaldo Alcantara History of adenomato us polyp of colon Z86.010 ; IPMN (intraductal papillary mucinous neoplasm) D49.0 and Encounter for screening for malignant neoplasm of colon Z12.11 [facility] [address] [place] [address] 03/27/2024 Ubaldo Alcantara ASSESSMENTS Encounter Date Diagnosis [...] Name:Ubaldo Alcantara , 04/23/2025 01:20:00 PM, [address], [address], [place], [address], Insurance Providers Payer Name Payer Address Payer Phone Subscriber Number Group Number Insured Name Patient Relationship to Insured Coverage Start Date Coverage End Date MEDICARE OF [employer] [address] [place] [address] [id number] JANE CATHERINE Self - patient is the insured [facility] [address] [facility] [phone] [id number] CATHERINE LARA Self - patient is the insured MEDICAL (GENERAL) HISTORY Medical History History ICD Code Colonoscopy 06-21-2008 smal l tubular adenoma removed--diverticulosis, internal hemorrhoids; F/U colonoscopy 11/2013 with a small tubular adenoma HTN Rheumatoid arthritis Sleep apnea--uses a CPAP Denies [place],DM,CVA,Lung disease,renal dise ase Nerve pain in right [...]
== END 2024-09-09 09:53 | disposition home or self-care (01) ==
PROVIDERS: Absent Provider Psychiatry & Neurology Neurology; Visit Provider Psychiatry & Neurology Neurology
DX: G50.0 Trigeminal neuralgia (principal)
CPT/HCPCS: 99204; G2211

== ENCOUNTER → 2024-09-09 09:13 | Outpatient (BNVA) | payer MEDICARE, OTHER, SELFPAY | PROVIDERS: Absent Provider Psychiatry & Neurology Neurology; Visit Provider Psychiatry & Neurology Neurology | DX: G50.0 Trigeminal neuralgia (principal) | CPT/HCPCS: 99202 ==

== ENCOUNTER 2024-10-19 09:41 | Outpatient (REF) | payer MEDICARE, OTHER, SELFPAY ==
[2024-10-19 10:00] LABS: MANUAL DIFF FLAG NO
[2024-10-19 10:34] LABS: Basophils Percent Auto 0.7 % (0-2); Eosinophils Absolute Auto 0.1 X10*3/uL (0.0-0.4); Eosinophils Percent Auto 1.7 % (0-4); Hematocrit 41.6 % (37.0-47.0); Hemoglobin 13.6 g/dl (12.0-16.0); Imm Gran Abs Auto 0.05 X10*3/uL (0.00-0.03); Imm Gran Pct Auto 0.9 % (0.0-0.4); Lymphocytes Percent Auto 34.8 % (20-40); Mean Corpuscular HGB Conc 32.7 g/dl (31.0-35.0); Mean Corpuscular Hemoglobin 28.6 pg (27.0-33.0); Mean Corpuscular Volume 87.4 fL (80.0-98.0); Mean Platelet Volume 10.4 fL (9.4-12.3); Monocytes Absolute Auto 0.4 X10*3/uL (0.1-1.2); Monocytes Percent Auto 7.5 % (2-11); Neutrophils Absolute Auto 3.1 x10*3/uL (2.0-8.3); Neutrophils Percent Auto 54.4 % (45-73); Platelet Count 264 X10*3/uL (160-400); Red Blood Count 4.76 X10*6/uL (4.20-5.50); Red Cell Distribution Width 13.9 % (11.0-16.0); White Blood Count 5.8 X10*3/uL (4.8-10.8)
[2024-10-19 10:41] LABS: Estimated Average Glucose 108 mg/dL; Hemoglobin A1c % 5.4 % (<6.0); Total Hemoglobin (HGBA1C) 3567.6038 umol/L
--- OUTSIDE RECORDS SUMMARY | 2024-10-19 11:05 | XMS_ITS | Patient Health Record ---
Author Organization [facility] Address [address] [place] [address] Care Team Providers Care Water Sponger Name Role Phone Tray Baugh MD Primary Care Provider Ubaldo Castelan [phone] Allergies Allergen (clinical drug ingredient) Drug/Non Drug Allergy documented on EMR Reaction Allergy Type Onset Date Status surgical tape (uncoded) rash Allergy Active Results Component Value Reference Range Notes Complete Blood Count Auto Di ff Reviewed date:04/06/2024 11:26:27 PM Interpretation: Performing Lab:[facility], [address] [place] [phone] Notes/Report: White Blood Count 5.8 4.8-10.8 X10*3/uL [...] NRBC Abs Auto 0.000 0.0-0.012 X10*3/uL Comprehensive [place]. Panel Fa Reviewed date:04/06/2024 11:19:37 PM Interpretation: Performing Lab:[facility], [address] [place] [phone] Notes/Report: Sodium 144 135-145 mmol/L Potassium 4.2 3.3-5.1 mmol/L Chloride 109 96-108 mmol/L Carbon Dioxide 27 22-29 mmol/L Anion Gap 12 12-20 Blood Urea Nitrogen 13 9-16 mg/dL Creatinine 0.79 0.5-1.4 mg/dL Estimated Glomerular Filt Rate > 60 NOTE: For -[place] individuals, multiply the result by 1.210. Chronic [...] Panel Reviewed date:04/06/2024 11:19:50 PM Interpretation: Performing Lab:[facility], [address] [place] [phone] Notes/Report: Triglycerides 48 <150 mg/dL Desirable Triglyceride: [...] Total Reviewed date:04/06/2024 11:19:59 PM Interpretation: Performing Lab:[facility], [address] [place] [phone] Notes/Report: Vitamin D 25-OH Total 72.5 >30 [...] 19-9 Reviewed date:04/11/2024 08:17:41 PM Interpretation: Performing Lab:[facility], [address] [place] [phone] Notes/Report: Carbohydrate Antigen 19-9 21 <34 U/mL This test was performed using the Siemens chemiluminescent method. Values obtained from different assay methods cannot be used interchangeably. CA 19-9 levels, regardless of value, should not be interpreted as absolute evidence of the presence or absence of disease. THIS TEST WAS PERFORMED AT: [facility] [address] [place] [phone] DHARA COATS MD Reason For Referral No Information Medications Medication SIG (Take, Route, Frequency, Duration) Notes [...] capsule Orally O nce a day Active Immunizations Vaccine Route Administration Date Status Comme nts Influenza Unknown 03/19/2018 Administered Influenza Unknown 06/06/2021 Administered Influenza Unknown 05/01/2022 Administered Influenza Unknown 06/04/2023 Administered Problems Problem Type SNOMED Code ICD Code Onset Dates Problem Status W/U Status Risk Notes Problem [id number] Encounter for screening for malignant neoplasm of colon (Z12.11) Active confirmed Problem 032932944 History of adenomatous polyp of colon (Z86.010) Active confirmed Problem Diverticular disease of colon (229499844) Diverticulosis of large intestine without perforation or abscess without bleeding (K57.30) Active confirmed Problem [id number] Preprocedural examination (Z01.818) Active confirmed Problem Neoplasm of digestive system (634708102) IPMN (intraductal papillary mucinous neoplasm) (D49.0) Active confirmed Vital Signs Temperature 98.7 degrees Fahrenheit 03/27/2024 Blood pressure diastolic 00 mm Hg 03/27/2024 Height 63.5 in 03/27/2024 Blood pressure systolic 000 mm Hg 03/27/2024 Weight 219 lb 2 oz lbs 03/27/2024 BMI 38.20 kg/m2 03/27/2024 Encounters Encounter Location Date Provider Diagnosis [facility] Outpatient [address] [place], [place] [id number] 07/27/2024 Ubaldo Alcantara Colon cancer screeni ng Z12.11 ; Family history of colon cancer Z80.0 ; Diverticulosis of large intestine without perforation or abscess without bleeding K57.30 and Other hemorrhoids K64.8 [facility] [address] [place] [address] 03/27/2024 Ubaldo Alcantara History of adenomato us polyp of colon Z86.010 ; IPMN (intraductal papillary mucinous neoplasm) D49.0 and Encounter for screening for malignant neoplasm of colon Z12.11 [facility] [address] [place] [address] 03/27/2024 Ubaldo Alcantara Assessments Encounter Date Diagnosis (ICD Code) Assessment Notes Treatment Notes Treatment Clinical Notes Section Notes 07/27/2024 Colon cancer screening (ICD-10 - Z12.11) 07/27/2024 Family history of colon cancer (ICD-10 - Z80.0) 03/27/2024 History of adenomatous polyp of colon (ICD-10 - Z86.010) Overall, Arin appears quite well. She is not having any new or worrisome GI complaints. Her imaging studies in regard to the pancreas all been quite stable and reassuring in regard to the underlying IPMN. I shall schedule her for a followup MRI of the pancreas and a CA 19-9 level given that her last study was just about one year ago. I did recommend a followup colonoscopy for screening given her history of tubular adenomas and her last colonoscopy being just about 5 years ago. We did review the rationale for that in regard to colon cancer prevention. Full consent is obtained for this, including risks of bleeding and perforation. The procedure will be done with monitored anesthesia care. Arin was comfortable with this plan. Thank you again for allowing me to participate in Arin's care. I shall continue to keep you advised of her progress. 03/27/2024 IPMN (intraductal papillary mucinous neoplasm) (ICD-10 - D49.0) Overall, Arin appears quite well. She is not having any new or worrisome GI complaints. Her imaging studies in regard to the pancreas all been quite stable and reassuring in regard to the underlying IPMN. I shall schedule her for a followup MRI of the pancreas and a CA 19-9 level given that her last study was just about one year ago. I did recommend a followup colonoscopy for screening given her history of tubular adenomas and her last colonoscopy being just about 5 years ago. We did review the rationale for that in regard to colon cancer prevention. Full consent is obtained for this, including risks of bleeding and perforation. The procedure will be done with monitored anesthesia care. Arin was comfortable with this plan. Thank you again for allowing me to participate in Arin's care. I shall continue to keep you advised of her progress. 07/27/2024 Diverticulosis of large intestine without perforation or abscess without bleeding (ICD-10 - K57.30) 03/27/2024 Encounter for screening for malignant neoplasm of colon (ICD-10 - Z12.11) Overall, Arin appears quite well. She is not having any new or worrisome GI complaints. Her imaging studies in regard to the pancreas all been quite stable and reassuring in regard to the underlying IPMN. I shall schedule her for a followup MRI of the pancreas and a CA 19-9 level given that her last study was just about one year ago. I did recommend a followup colonoscopy for screening given her history of tubular adenomas and her last colonoscopy being just about 5 years ago. We did review the rationale for that in regard to colon cancer prevention. Full consent is obtained for this, including risks of bleeding and perforation. The procedure will be done with monitored anesthesia care. Arin was comfortable with this plan. Thank you again for allowing me to participate in Arin's care. I shall continue to keep you advised of her progress. 07/27/2024 Other hemorrhoids (ICD-10 - K64.8) Plan Of Treatment Pending Test Test Name Order Date BUN 03/15/2022 BUN 03/22/2023 BUN 03/27/2024 CREATININE 03/15/2022 LIVER PROFILE 03/15/2022 AMYLASE 03/15/2022 LIPASE 03/15/2022 CA 19-9 03/22/2023 CA 19-9 03/27/2024 CA 19-9 03/15/2022 MRI ABD NO CONTRAST (MRCP) 03/22/2023 MRI ABD W&WO CONTRAST 03/27/2024 MRI ABD W&WO CONTRAST 03/22/2023 MRI ABD W&WO CONTRAST 03/15/2022 Creatinine 03/27/2024 Creatinine 03/22/2023 Future Test Test Name Order Date COLONOSCOPY 09/16/2013 COLONOSCOPY 03/05/2019 COLONOSCOPY 03/27/2024 Next Appt Details Provider Name:Ubaldo Alcantara , 04/23/2025 01:20:00 PM, [address] [place] [address], [address], [place], [address], Insurance Providers Payer Name Payer Address Payer Phone Subscriber Number Group Number Insured Name Patient Relationship to Insured Coverage Start Date Coverage End Date MEDICARE OF [employer] [address] [place] [address] [phone] [id number] JANE CATHERINE Self - patient is the insured [facility] [address] [facility] [phone] [id number] JANE CATHERINE Self - patient is the insured Medical (General) History Medical History History ICD Code Colonoscopy 06-21-2008 smal l tubular adenoma removed--diverticulosis, internal hemorrhoids; F/U colonoscopy 11/2013 with a small tubular adenoma HTN Rheumatoid arthritis Sleep apnea--uses a CPAP Denies [place],DM,CVA,Lung disease,renal dise ase Nerve pain in right foor from surgery--t akes Gabapentin Negative colonoscopy in 05/2019 IPMN seen on 12/2020 CT and 07/2021 MRI--M RI in 03/2022 was unchanged Surgical History Surgery Date(Month/Year) Right hip replacement in 2006 x 2 Appendectomy Tonsillectomy Carpal tunnel on right Left knee replacement 2008 Right knee replacement in 2010 Foot surgery Left hip replacement 2014 [facility] 12/2020 Dr. Florentino Cataract surgery bilaterally
--- OUTSIDE RECORDS SUMMARY | 2024-10-19 11:05 | XMS_ITS ---
Author Organization [facility] Address [address] [place] [address] Care Team Providers Care Dispensing And Measuring Optician Name Role Phone Tray Baugh MD Primary Care Provider Ubaldo Castelan [phone] REASON FOR VISIT screening,hx polyps Problems Problem Type SNOMED Code ICD Code Onset Dates Problem Status W/U Status Risk Notes Problem Diverticular disease of colon (128775780) Diverticulosis of large intestine without perforation or abscess without bleeding (K57.30) Active confirmed Encounters Encounter Location Date Provider Diagnosis [facility] [place] [address] [place] [phone] 07/27/2024 Ubaldo Alcantara Colon cancer scree ivana [...] 01:20:00 PM, [address], [address], [place], [address], Progress Notes * CATHERINE LARADOB:1955 (69 yo F)Acc No.[id number]:07/27/2024 COLON WITH MAC Patient:CATHERINE HERRERA Provider:?Ubaldo Alcantara MD :1955???Age:69 Y???Sex:Female D ate:07/27/2024 Address:[address] [place] [address] , [facility] Pcp:Tray Baugh MD Subjective: * Chief Complaints: * ???1. Screening,hx polyps. * Medical History:? Objective: * Vitals:? Assessment: * Assessment: 1.?Colon cancer screening - Z12.11 (Primary)???2.?Family history of colon cancer - Z80.0???3.?Diverticulosis of large intestine without perforation or abscess without bleeding - K57.30???4.?Other hemorrhoids - K64.8??? Plan: * Treatment: * Procedure Codes:?G0105 COLOR EC CANCR SCR; COLNSCPY HI RISK, 0529F INTRVL 3+YRS PTS CLNSCP DOCD, 0528F RCMND FLW-UP 10 YRS DOCD, Modifiers: 1P * * The named appointment provid er may or may not be the originator of this progress note, and it is not deemed complete until electronically signed by the appointment provider. Sign off status: Pending * Provider:?Ubaldo Alcantara MD Date:? 025 Generated for Jamie perez/Iglesia/Fordsmitting on:?10/19/2024 11:05 AM EDT
--- OUTSIDE RECORDS SUMMARY | 2024-10-19 11:06 | XMS_ITS ---
Author Organization [facility] Address [address] [place] [address] Care Team Providers Care Auto Body Estimator Name Role Phone Tray Baugh MD Primary Care Provider Ubaldo Castelan [phone] REASON FOR VISIT Claustrophobic Medications Medication SIG (Take, Route, Frequency, Duration) Notes Start Date End Date Status Ativan 0.5 MG Take 1 tablet 30 to 60 minutes before the MRI as needed for anxiety, and then repeat the one tablet right before the MRI as needed for anxiety Orally Once a day for 1 days 03/31/2024 Act ann-marie Encounters Encounter Location Date Provider Diagnosis [facility] [address] [place] [address] 03/27/2024 Ubaldo Alcantara Plan Of Treatment Medication Medication Name Sig Start Date Stop Date Notes Ativan 0.5 MG Take 1 tablet 30 to 60 minutes before the MRI as needed for anxiety, and then repeat the one tablet right before the MRI as needed for anxiety Orally Once a day for 1 days 03/31/2024 Next Appt Details Provider Name:Ubaldo Alcantara , 04/23/2025 01:20:00 PM, [address], [address], [place], [address], Progress Notes * CATHERINE LARADOB:1955 (69 yo F)Acc No.[id number]:03/27/2024 Patient:?CATHERINE LARA :1955???Age:69 Y???Sex:Female Address: [address], [place] [address] * Refills? Refill Ativan Tablet, 0.5 MG, Orally, 2, Take 1 tablet 30 to 60 minutes before the MRI as needed for anxiety, and then repeat the one tablet right before the MRI as needed for anxiety, Once a day, 1 days, Refills=0 * true * Date:? Generated for Jamie perez/Iglesia/Florinaitting on:?10/19/2024 11:05 AM EDT
[2024-10-19 11:16] LABS: Appearance Urine Clear; Color Urine Yellow; Glucose Urine UA Negative (Negative); Leukocyte Esterase Urine Negative (Negative); Nitrite Urine Negative (Negative); PH 6.5 (5.0-9.0); Urine Blood Negative (Negative); Urine Ketones Negative (Negative); Urine Protein Negative (Neg-Trace)
[2024-10-19 11:50] LABS: Folate 13.1 ng/mL (> or = 4.0); Vitamin B12 959 pg/mL (200-900)
[2024-10-19 12:58] LABS: Alanine Aminotransferase 23 U/L (0-31); Albumin Level 4.2 g/dL (3.5-5.0); Anion Gap 13 (12-20); Aspartate Amino Transferase 30 U/L (5-31); Bilirubin Total 0.4 mg/dL (0.0-1.0); Blood Urea Nitrogen 13 mg/dL (9-16); Calcium 9.6 mg/dL (8.4-10.2); Carbon Dioxide 27 mmol/L (22-29); Chloride 108 mmol/L (96-108); Estimated Glomerular Filt Rate > 60; Glucose Random 100 mg/dL (60-115); Iron 85 mcg/dL (30-160); Percent Iron Saturation 33 % (15-50); Potassium 4.3 mmol/L (3.3-5.1); Sodium 144 mmol/L (135-145); Total Iron Binding Capacity 256 mcg/dL (228-428); Total Protein 7.2 g/dL (6.5-8.0); Unsaturated Iron Binding 171 ug/dL
[2024-10-19 12:59] LABS: Cholesterol 218 mg/dL (<200); Free T4 (Free Thyroxine) 1.14 ng/dL (0.71-1.85); HDL Cholesterol 71 mg/dL (>40); LDL Cholesterol Calculated 123 mg/dL (<100); Triglycerides 122 mg/dL (<150); Vitamin D 25-OH Total 70.5 ng/mL (>30)
[2024-10-19 13:09] LABS: Alkaline Phosphatase 104 U/L (39-117)
== END 2024-10-19 09:42 | disposition home or self-care (01) ==
LOC: HO.LAB 09:41
DX: Z00.00 Encounter for general adult medical examination without abnormal findings (principal); E11.65 Type 2 diabetes mellitus with hyperglycemia; I10 Essential (primary) hypertension
CPT/HCPCS: 36415; 80053; 80061; 81003; 82306; 82607; 82746; 83036; 83540; 84439; 84443; 85025

== ENCOUNTER 2024-12-04 10:50 | Outpatient (AMB) | payer MEDICARE, OTHER, SELFPAY ==
--- NOTE | 2024-12-04 10:55 | A.OFFVIS_ITS ---
Vital Signs 3 12/04/24 10:57 Height 5 ft 3.5 in Weight 240 lb BMI 41.8 BP 140/90 H Blood Pressure Location Lt brachial Position Sitting Pulse 62 Pulse Source Pulse Oximeter Pulse Oximetry (%) 99 Oxygen Delivery Method Room Air Intake Visit Reasons: Follow up Intake Note: Patient presents follow up for Trigeminal Neuralgia. Accompanied by: Self / Same As Patient Allergies No Known Allergies Allergy (Verified 12/04/24 11:02) Medication List - Last Reconciled 12/04/24 by CECIL Braxton amlodipine 5 mg PO DAILY cholecalciferol (vitamin D3) (Vitamin D3) 50 mcg PO DAILY estradiol 0.01%(0.1mg/gram) vaginal lisinopril 20 mg PO DAILY multivitamin 1 tab PO DAILY pregabalin 150 mg PO BID sulfasalazine 1 tab PO BID HPI Comments Details: 69-year-old female presents for follow-up of right-sided facial pain. Patient denies any significant interval medical history changes. Since last visit, patient underwent brain MRI with and without contrast, which showed a loop of the right superior cerebellar artery contacts and possibly indents the superior aspect of the right trigeminal nerve root entry zone. Thus, patient was referred to neurosurgery Dr. Hyatt, who did not feel that patient's facial pain would be amendable to a trigeminal nerve surgical intervention. However, she was advised to see an oral facial surgeon, however her insurance does not cover this so she was not able to pursue this. Patient, also tried carbamazepine, however did not tolerate it even at low dose. She continues to have right facial pain, which starts in her right trochlear notch region, and moves laterally through her right cheek, upper gums and Ear. Pain continues to be persistent with intermittent exacerbations. When the pain is more severe, it is sensitive to palpation. She does sleep with the CPAP, but does not use any mouth guard as she denies bruxism. 09/09/2024, previous HPI by Dr. Deras: 69y/o female comes for evaluation of pain in her right eye, cheek , gums and ears. she had a root canal done in October 2023, had right cataract surgery November 14 . left cataract in October 2023. The pain started few weeks after that. she was seen busgirl - everything was normal and she was on antibiotic drop for over 1 month.she saw the clinical application specialist - who said the pain was not from her teeth or gums. The pain is persistent with intermittent worsening.The pain is 5-7/10 . sometimes she takes tylenol.she describes the pain as a bad headache and like a tooth pain. she denies numbness or tingling. she is sensitive when she touche she right cheek. She denies double vision, vertigo, speech or swallowing issues. she is unable to describe any triggers. [facility] Medical History (Updated 12/04/24 @ 16:57 by CECIL Braxton) Trigeminal neuralgia of right side of face Right foot pain Sleep apnea Rheumatoid arthritis HTN (hypertension) Surgical History Hx of bilateral cataract extraction History of tonsillectomy H/O colonoscopy History of cataract surgery History of eye surgery History of carpal tunnel release of both wrists History of pelvic surgery History of appendectomy History of bunionectomy Total knee replacement status Status post total hip replacement, bilateral Family History Father History of partial gastrectomy Mother Heart disease Social History Household Members: Spouse Housing: House Do you presently have visiting nurse or other home services: No Alcohol intake: never Patient Tobacco Use Status: Never used Tobacco e-Cigarette/Vaping Use: Never Used Second Hand Smoke Exposure: No service: No Current occupational status: employed Cognitive needs: No Hearing needs: No Vision needs: No Physical Exam Vital Signs: Last Vital Signs Pulse 62 12/04/24 10:57 BP 140/90 H 12/04/24 10:57 Pulse Ox 99 12/04/24 10:57 Oxygen Delivery Method Room Air 12/04/24 10:57 BMI result Body Mass Index 41.8 Const General: cooperative and no acute distress Orientation/consciousness: patient oriented x3 Resp Effort & Inspection: normal respiratory effort and able to speak in complete sentences Neuro Other: Palpable right trochlear notch and supraorbital tenderness, more so in the trochlear notch. No palpable tenderness along right maxillary, upper mandibular, ear distribution. Mild palpable tenderness at right temporal tendon insertion site at the coronoid process of the right mandible. Bilateral TMJ crepitus and tightness. Very mild signs of lower teeth wearing. 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 In the meantime, trial home Sphenopalatine Ganglion Block with Intranasal Lidocaine??2% viscous solution. Trial using an OT low profile mouth guard to prevent bruxism. Future considerations: Referral to pain management for possible trochlear nerve block therapy. Home Instructions for Intranasal Lidocaine/Sphenopalatine Ganglion Block * Do not take this by mouth. * This is for intranasal administration only * Draw up 1 ml of 2% viscous lidocaine into a thin 1ml dosing syringe (the syringe should be thin enough to be inserted deep into the nose).Self administer 1 mL of 2% viscous lidocaine solution into nasal passage on the same side as the head pain.?? * Lidocaine??may be administered into bilateral nasal passages if the headache/??facial pain is on both sides of the head. * Dose may be repeated x1 in 15 minutes. Max of 4 mL per nasal passage per day. Technique: * Lie down on your side curled up like a baby sleeping on its side, with your shoulder on the back of a firm pillow, and your head tilted back and rotated so you are looking up ~30 degrees. * Put the syringe into the lower nostril on the same side as your headache/facial pain, as far as it will comfortably go, with the tip pointing towards the outer (lateral) wall of the nostril. * Inject the contents of the syringe, and then sniff the medicine so that you feel it goes to the back of the nostril, but not into the throat. * If you feel burning or numbness into the eye, or if the eye tears, you know you have gotten the medicine where it needs to be. * Stay lying down with your head turned for 2 ? 3 minutes. * If your headache/facial pain is on both sides, roll over and repeat the procedure on the other side. Stay lying down for 2-3 minutes on this side. After sitting up: * When you sit up, whatever medicine has not been absorbed into your nose will roll back into your throat. * It will taste bitter and may make your throat numb. * Don?t eat or drink until the numbness has gone away ? otherwise you might swallow food or liquid into your windpipe. For further information, please review the following: Please note that some of the information below comes from [employer], which is an organization specific cluster headache. However, their explanation and video is applicable to migraine, trigeminal neuralgia and other facial pain??disorders. * [employer] at home instruction link * https://[employer].org/resource/cyff-hipjzxnbwfrx-nqd-intranasal-lidoca ccn-jugyklwejkodal-rrbkaunz-block/ * instructional video * https://www.youtube.com/watch?v=q0O8e8c4B3V * alternate home instruction * chrome-extension://efaidnbmnnnibpcajpcglclefindmkaj/https://www.[facility].org/assets/[place]/headache-center/documents/nasal-lidocaine.pdf If your pharmacy can not provide you the syringe, you can buy this flve-qfb-kcayjfa at a medical supply store or online. ?Specifically, you would need a sterile, individually wrapped, 1 mL syringe without needle or luer lock. 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 Max 4ml per nasal passage per day. 1 mL mucous membrane QID 30 days PRN 100 mL 1RF pain oral dosing syringes 1 mL syringes without needle. To be used as directed with viscous lidocaine intranasal order. 100 ea 6RF Coding Level of Care Code Est Pt Level 4 (16390) Diagnoses Disorder of right trochlear nerve H49.11 Trigeminal neuralgia of right side of face G50.0 Bruxism F45.8
--- OUTSIDE RECORDS SUMMARY | 2024-12-04 10:56 | XMS_ITS | Patient Health Record ---
Author Organization [facility] [place] Address [address] [place] [address] Care Team Providers Care Financial Planner Name Role Phone Tray Baugh MD Primary Care Provider Ubaldo Castelan [phone] Allergies Allergen (clinical drug ingredient) Drug/Non Drug Allergy documented on EMR Reaction Allergy Type Onset Date Status surgical tape (uncoded) rash Allergy Active Results Component Value Reference Range Notes Complete Blood Count Auto Di ff Reviewed date:04/06/2024 11:26:27 PM Interpretation: Performing Lab:[facility], [address] [place] [phone] Notes/Report: White Blood Count 5.8 4.8-10.8 X10*3/uL [...] NRBC Abs Auto 0.000 0.0-0.012 X10*3/uL Comprehensive [place]. Panel Fa Reviewed date:04/06/2024 11:19:37 PM Interpretation: Performing Lab:[facility], [address] [place] [phone] Notes/Report: Sodium 144 135-145 mmol/L Potassium 4.2 3.3-5.1 mmol/L Chloride 109 96-108 mmol/L Carbon Dioxide 27 22-29 mmol/L Anion Gap 12 12-20 Blood Urea Nitrogen 13 9-16 mg/dL Creatinine 0.79 0.5-1.4 mg/dL Estimated Glomerular Filt Rate > 60 NOTE: For -[place] individuals, multiply the result by 1.210. Chronic [...] Panel Reviewed date:04/06/2024 11:19:50 PM Interpretation: Performing Lab:[facility], [address] [place] [phone] Notes/Report: Triglycerides 48 <150 mg/dL Desirable Triglyceride: [...] Total Reviewed date:04/06/2024 11:19:59 PM Interpretation: Performing Lab:[facility], [address] [place] [phone] Notes/Report: Vitamin D 25-OH Total 72.5 >30 [...] 19-9 Reviewed date:04/11/2024 08:17:41 PM Interpretation: Performing Lab:[facility], [address] [place] [phone] Notes/Report: Carbohydrate Antigen 19-9 21 <34 U/mL This test was performed using the Siemens chemiluminescent method. Values obtained from different assay methods cannot be used interchangeably. CA 19-9 levels, regardless of value, should not be interpreted as absolute evidence of the presence or absence of disease. THIS TEST WAS PERFORMED AT: [facility] [address] [place] [phone] DHARA COATS MD Reason For Referral No [...] Problem Status W/U Status Risk Notes Problem 777985089 Encounter for screening for malignant neoplasm of colon (Z12.11) Active confirmed Problem 240973262 History of adenomatous polyp of colon (Z86.010) Active confirmed Problem Diverticulosis o f large intestine without perforation or abscess without bleeding (K57.30) Active confirmed Problem 850731631401424 Preprocedural examination (Z01.818) Active confirmed Problem Neoplasm of digestive system (006819140) IPMN (intraductal papillary mucinous neoplasm) (D49.0) Active confirmed Vital Signs Temperature 98.7 degrees Fahrenheit 03/27/2024 Blood pressure diastolic 00 mm Hg 03/27/2024 Height 63.5 in 03/27/2024 Blood pressure systolic 000 mm Hg 03/27/2024 Weight 219 lb 2 oz lbs 03/27/2024 BMI 38.20 kg/m2 03/27/2024 Encounters Encounter Location Date Provider Diagnosis [facility] [address] [place], [place] [id number] 07/27/2024 Ubaldo Alcantara Colon cancer screeni ng Z12.11 ; Family history of colon cancer Z80.0 ; Diverticulosis of large intestine without perforation or abscess without bleeding K57.30 and Other hemorrhoids K64.8 [facility] [address] [place] [address] 03/27/2024 Ubaldo Alcantara History of adenomato us polyp of colon Z86.010 ; IPMN (intraductal papillary mucinous neoplasm) D49.0 and Encounter for screening for malignant neoplasm of colon Z12.11 [facility] [address] [place] [address] 03/27/2024 Ubaldo Alcantara Assessments Encounter Date Diagnosis [...] COLONOSCOPY 03/27/2024 Next Appt Details Provider Name:Ubaldo Tami Alcantara , 04/23/2025 01:20:00 PM, [address] [place] [address], [address], [place], [address], Insurance Providers Payer Name Payer Address Payer Phone Subscriber Number Group Number Insured Name Patient Relationship to Insured Coverage Start Date Coverage End Date [employer] [address] [place] [address] [phone] [id number] JANE CATHERINE Self - patient is the insured [facility] [address] [facility] [phone] [id number] CATHERINE LARA Self - patient is the insured Medical (General) History Medical History History ICD Code Colonoscopy 06-21-2008 smal l tubular adenoma removed--diverticulosis, internal hemorrhoids; F/U colonoscopy 11/2013 with a small tubular adenoma HTN Rheumatoid arthritis Sleep apnea--uses a CPAP Denies [place],DM,CVA,Lung disease,renal dise ase Nerve pain in right [...]
[2024-12-04 10:57] VITALS: BP 140/90; PULSE 62; O2SAT 99; BMI 41.8
== END 2024-12-04 11:47 | disposition home or self-care (01) ==
LOC: HO.HSMS 10:51
PROVIDERS: Visit Provider Nurse Practitioner Family
DX: H49.11 Fourth [trochlear] nerve palsy, right eye (principal); G50.0 Trigeminal neuralgia; F45.8 Other somatoform disorders
CPT/HCPCS: 99214

== ENCOUNTER → 2024-12-04 10:50 | Outpatient (BNVA) | payer MEDICARE, OTHER, SELFPAY | PROVIDERS: Visit Provider Nurse Practitioner Family | DX: H49.11 Fourth [trochlear] nerve palsy, right eye (principal); G50.0 Trigeminal neuralgia; F45.8 Other somatoform disorders | CPT/HCPCS: 99212 ==

== ENCOUNTER → 2024-12-21 14:53 | Outpatient (BNV) | payer MEDICARE, OTHER, SELFPAY | PROVIDERS: Visit Provider Radiology Diagnostic Radiology | DX: H49.11 Fourth [trochlear] nerve palsy, right eye (principal) | CPT/HCPCS: 70543 ==

== ENCOUNTER 2024-12-21 14:57 | Outpatient (REF) | payer MEDICARE, OTHER, SELFPAY ==
--- NOTE | ~2024-12-21 | MR_ITS ---
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 No acute infarction, hemorrhage, mass-effect or herniation. No abnormal enhancement. No hydrocephalus. Signal intensity is within normal limits for patient's age. No extra-axial fluid collection or mass. Upper limit of normal sized pituitary gland for the patient's gender and age, measuring 7.5 mm in craniocaudal dimension. No focal decreased enhancement. Midline infundibulum. Intact flow voids. Normal orbits. Clear paranasal sinuses and mastoid air cells. Unremarkable osseous structures. Impression: No findings to explain the patient's presentation. This document has been electronically signed by: Ana Montejo MD on 12/22/2024 17:03:07
[2024-12-21] MEDS: gadobutroL 10 ML VIAL IVPUSH (15:39)
--- OUTSIDE RECORDS SUMMARY | 2024-12-21 16:45 | XMS_ITS | Patient Health Record ---
Author Organization [facility] Address [address] [place] [address] Care Team Providers Care Jingle Writer Name Role Phone Tray Baugh MD Primary Care Provider Ubaldo Castelan [phone] Allergies Allergen (clinical drug ingredient) Drug/Non Drug Allergy documented on EMR Reaction Allergy Type Onset Date Status surgical tape (uncoded) rash Allergy Active Results Component Value Reference Range Notes Complete Blood Count Auto Di ff Reviewed date:04/06/2024 11:26:27 PM Interpretation: Performing Lab:[facility], [address] [place] [phone] Notes/Report: White Blood Count 5.8 4.8-10.8 X10*3/uL [...] NRBC Abs Auto 0.000 0.0-0.012 X10*3/uL Comprehensive [place]. Panel Fa Reviewed date:04/06/2024 11:19:37 PM Interpretation: Performing Lab:[facility], [address] [place] [phone] Notes/Report: Sodium 144 135-145 mmol/L Potassium 4.2 3.3-5.1 mmol/L Chloride 109 96-108 mmol/L Carbon Dioxide 27 22-29 mmol/L Anion Gap 12 12-20 Blood Urea Nitrogen 13 9-16 mg/dL Creatinine 0.79 0.5-1.4 mg/dL Estimated Glomerular Filt Rate > 60 NOTE: For -[place] individuals, multiply the result by 1.210. Chronic [...] Reviewed date:04/06/2024 11:19:50 PM Interpretation: Performing Lab:[facility], [address] [place] [phone] Notes/Report: Triglycerides 48 <150 mg/dL Desirable Triglyceride: [...] Reviewed date:04/06/2024 11:19:59 PM Interpretation: Performing Lab:[facility], [address] [place] [phone] Notes/Report: Vitamin D 25-OH Total 72.5 >30 [...] Reviewed date:04/11/2024 08:17:41 PM Interpretation: Performing Lab:[facility], [address] [place] [phone] Notes/Report: Carbohydrate Antigen 19-9 21 <34 U/mL This test was performed using the Siemens chemiluminescent method. Values obtained from different assay methods cannot be used interchangeably. CA 19-9 levels, regardless of value, should not be interpreted as absolute evidence of the presence or absence of disease. THIS TEST WAS PERFORMED AT: [facility] [address] [place] [phone] DHARA COATS MD Reason For Referral No [...] Problem Status W/U Status Risk Notes Problem 843112874 Encounter for screening for malignant neoplasm of colon (Z12.11) Active confirmed Problem 470472709 History of adenomatous polyp of colon (Z86.010) Active confirmed Problem Diverticular disease of colon (537079536) Diverticulosis of large intestine without perforation or abscess without bleeding (K57.30) Active confirmed Problem 999805235429172 Preprocedural examination (Z01.818) Active confirmed Problem Neoplasm of digestive system (630288184) IPMN (intraductal papillary mucinous neoplasm) (D49.0) Active confirmed Vital Signs Temperature 98.7 degrees Fahrenheit 03/27/2024 Blood pressure diastolic 00 mm Hg 03/27/2024 Height 63.5 in 03/27/2024 Blood pressure systolic 000 mm Hg 03/27/2024 Weight 219 lb 2 oz lbs 03/27/2024 BMI 38.20 kg/m2 03/27/2024 Encounters Encounter Location Date Provider Diagnosis [facility] [address] [place], [place] [phone] 07/27/2024 Ubaldo Alcantara Colon cancer screeni ng Z12.11 ; Family history of colon cancer Z80.0 ; Diverticulosis of large intestine without perforation or abscess without bleeding K57.30 and Other hemorrhoids K64.8 [facility] [address] [place] [address] 03/27/2024 Ubaldo Alcantara History of adenomato us polyp of colon Z86.010 ; IPMN (intraductal papillary mucinous neoplasm) D49.0 and Encounter for screening for malignant neoplasm of colon Z12.11 [facility] [address] [place] [address] 03/27/2024 Ubaldo Alcantara Assessments Encounter Date Diagnosis [...] Name:Ubaldo Alcantara , 04/23/2025 01:20:00 PM, [address] [place] [address], [address], [place], [address], Insurance Providers Payer Name Payer Address Payer Phone Subscriber Number Group Number Insured Name Patient Relationship to Insured Coverage Start Date Coverage End Date [employer] [address] [place] [address] [id number] JANE CATHERINE Self - patient is the insured [facility] [address] [facility] [phone] [id number] JANE CATHERINE Self - patient is the insured Medical (General) History Medical History History ICD Code Colonoscopy 06-21-2008 smal l tubular adenoma removed--diverticulosis, internal hemorrhoids; F/U colonoscopy 11/2013 with a small tubular adenoma HTN Rheumatoid arthritis Sleep apnea--uses a CPAP Denies [place],DM,CVA,Lung disease,renal dise ase Nerve pain in right [...]
== END 2024-12-21 14:58 | disposition home or self-care (01) ==
LOC: HO.MRI 14:57
PROVIDERS: Visit Provider Nurse Practitioner Family
DX: H49.11 Fourth [trochlear] nerve palsy, right eye (principal)
CPT/HCPCS: 70543; A9585

== ENCOUNTER 2025-01-14 08:10 | Outpatient (AMB) | payer MEDICARE, OTHER, SELFPAY ==
--- NOTE | 2025-01-14 08:05 | MHC.OFFVIS ---
Intake Visit Reasons: 6WK follow up Intake Note: Patient presents follow up for Trigeminal Neuralgia. Accompanied by: Self / Same As Patient Allergies No Known Allergies Allergy (Verified 12/04/24 11:02) HPI Comments Details: 69-year-old female presents for follow-up of right-sided facial pain via televideo. Patient denies any significant interval medical history changes. 12/22/2024, MRI of the orbits, face, neck with and without contrast: Unremarkable, with clear paranasal sinuses and mastoid air cells, unremarkable osseous structures, and normal orbits. Patient reports since the last visit, she has tried the home administration of intranasal Sphenopalatine Ganglion Block with Intranasal Lidocaine??2% viscous solution, which does help to decrease her right-sided facial pain some. She notes the pain continues to start in the right trochlear notch region and moves laterally through the right eye cheek gums and ear region. She does ask if she needs to use the intranasal lidocaine treatment when she does not have the facial pain. She is curious about the etiology of her right facial pain, as well as what the long-term treatment and trajectory we will be. 12/04/2024, previous HPI: Since last visit, patient underwent brain MRI with and without contrast, which showed a loop of the right superior cerebellar artery contacts and possibly indents the superior aspect of the right trigeminal nerve root entry zone. Thus, patient was referred to neurosurgery Dr. Hyatt, who did not feel that patient's facial pain would be amendable to a trigeminal nerve surgical intervention. However, she was advised to see an oral facial surgeon, however her insurance does not cover this so she was not able to pursue this. Patient, also tried carbamazepine, however did not tolerate it even at low dose. She continues to have right facial pain, which starts in her right trochlear notch region, and moves laterally through her right cheek, upper gums and Ear. Pain continues to be persistent with intermittent exacerbations. When the pain is more severe, it is sensitive to palpation. She does sleep with the CPAP, but does not use any mouth guard as she denies bruxism. 09/09/2024, previous HPI by Dr. Deras: 69y/o female comes for evaluation of pain in her right eye, cheek , gums and ears. she had a root canal done in October 2023, had right cataract surgery November 14 . left cataract in October 2023. The pain started few weeks after that. she was seen particle board supervisor - everything was normal and she was on antibiotic drop for over 1 month.she saw the shopper insights manager - who said the pain was not from her teeth or gums. The pain is persistent with intermittent worsening.The pain is 5-7/10 . sometimes she takes tylenol.she describes the pain as a bad headache and like a tooth pain. she denies numbness or tingling. she is sensitive when she touche she right cheek. She denies double vision, vertigo, speech or swallowing issues. she is unable to describe any triggers. [facility] Medical History (Updated 12/04/24 @ 16:57 by CECIL Braxton) Trigeminal neuralgia of right side of face Right foot pain Sleep apnea Rheumatoid arthritis HTN (hypertension) Surgical History Hx of bilateral cataract extraction History of tonsillectomy H/O colonoscopy History of cataract surgery History of eye surgery History of carpal tunnel release of both wrists History of pelvic surgery History of appendectomy History of bunionectomy Total knee replacement status Status post total hip replacement, bilateral Family History Father History of partial gastrectomy Mother Heart disease Social History Household Members: Spouse Housing: House Do you presently have visiting nurse or other home services: No Alcohol intake: never Patient Tobacco Use Status: Never used Tobacco e-Cigarette/Vaping Use: Never Used Second Hand Smoke Exposure: No service: No Current occupational status: employed Cognitive needs: No Hearing needs: No Vision needs: No Physical Exam Const General: cooperative and no acute distress Orientation/consciousness: patient oriented x3 Resp Effort & Inspection: normal respiratory effort and able to speak in complete sentences Neuro General: patient oriented x3 Cognition (Neuro): normal cognition Psych Appearance: grossly normal Mental Status: mental status grossly normal Speech and movement: Normal speech and movement present Affect: normal affect Attitude: cooperative Telehealth Telehealth Telehealth Platform: [facility] Location of provider rendering services: practice address Location of patient: address on file Patient Identification confirmed using: Name, : Yes Telehealth method: video Patient verbally consented to treatment: Yes Patient verbally consented to billing insurance company: Yes Patient informed of any privacy concerns related to visit: Yes Minutes spent on Phone/Video with Pt.: 30 Results Reviewed Results Reviewed: Assessment & Plan Assessment & Plan (1) Disorder of right trochlear nerve: Code(s): 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 10/19/2024, labs showed TSH 2, mildly elevated cholesterol levels with total cholesterol 218 and LDL 123 with normal HDL 71, CBC and CMP within normal limits. Discussed that trochlear and facial pain/neuralgia symptoms, can often be triggered by trauma ie dental work, secondary to an underlying systemic disorder, but may also be idiopathic. Thus, patient is advised to undergo additional lab work to elicit for underlying inflammatory process in setting of known rheumatoid arthritis. We will also request pain management consult for possible trochlear nerve block injection, which may help with clarifying diagnosis. Continue Sphenopalatine Ganglion Block with Intranasal Lidocaine??2% viscous solution. If she has not, trial OTC low profile mouth guard to prevent bruxism. Discussed additional treatment options: Such as increasing pregabalin, trying a TCA such as amitriptyline, and/or trial of headache neuromodulation device, such as external trigeminal nerve stimulator or a RENs device. Home Instructions for Intranasal Lidocaine/Sphenopalatine Ganglion Block Do not take this by mouth. This is for intranasal administration only Draw up 1 ml of 2% viscous lidocaine into a thin 1ml dosing syringe (the syringe should be thin enough to be inserted deep into the nose).Self administer 1 mL of 2% viscous lidocaine solution into nasal passage on the same side as the head pain.?? Lidocaine??may be administered into bilateral nasal passages if the headache/??facial pain is on both sides of the head. Dose may be repeated x1 in 15 minutes. Max of 4 mL per nasal passage per day. Technique: Lie down on your side curled up like a baby sleeping on its side, with your shoulder on the back of a firm pillow, and your head tilted back and rotated so you are looking up ~30 degrees. Put the syringe into the lower nostril on the same side as your headache/facial pain, as far as it will comfortably go, with the tip pointing towards the outer (lateral) wall of the nostril. Inject the contents of the syringe, and then sniff the medicine so that you feel it goes to the back of the nostril, but not into the throat. If you feel burning or numbness into the eye, or if the eye tears, you know you have gotten the medicine where it needs to be. Stay lying down with your head turned for 2 ? 3 minutes. If your headache/facial pain is on both sides, roll over and repeat the procedure on the other side. Stay lying down for 2-3 minutes on this side. After sitting up: When you sit up, whatever medicine has not been absorbed into your nose will roll back into your throat. It will taste bitter and may make your throat numb. Don?t eat or drink until the numbness has gone away ? otherwise you might swallow food or liquid into your windpipe. For further information, please review the following: Please note that some of the information below comes from [employer], which is an organization specific cluster headache. However, their explanation and video is applicable to migraine, trigeminal neuralgia and other facial pain??disorders. cluster busters at home instruction link https://[employer].org/resource/zbpc-zixftkfijqcs-qgr-nmybdktalu-qtttyzuuv-odrxjujcrctqtn-ganglion-block/ instructional video https://www.[employer].comube.com/watch?v=y4Y3h7o2E2O alternate home instruction chrome-extension://efaidnbmnnnibpcajpcglclefindmkaj/https://www.[facility]-mindedsfahealth[facility] riverer.org/assets/[place]/headache-center/documents/nasal-lidocaine.pdf If your pharmacy can not provide you the syringe, you can buy this slmf-jtr-omgesug at a medical supply store or online. ?Specifically, you would need a sterile, individually wrapped, 1 mL syringe without needle or luer lock. 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, right eye, M06.9 - Rheumatoid arthritis, unspecified, R51.9 - Headache, unspecified, I10 - Essential (primary) hypertension Erythrocyte Sedimentation Rate 01/18/25 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, right eye, M06.9 - Rheumatoid arthritis, unspecified, R51.9 - Headache, unspecified, I10 - Essential (primary) hypertension ECG 12 lead EKG 01/18/25 R51.9 - Headache, unspecified, 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, right eye, M06.9 - Rheumatoid arthritis, unspecified, I10 - Essential (primary) hypertension Sjogren's Antibodies 01/18/25 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, right eye, M06.9 - Rheumatoid arthritis, unspecified, R51.9 - Headache, unspecified, I10 - Essential (primary) hypertension Complement C3 01/18/25 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, right eye, M06.9 - Rheumatoid arthritis, unspecified, R51.9 - Headache, unspecified, I10 - Essential (primary) hypertension ANCA Vasculitides 01/18/25 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, right eye, M06.9 - Rheumatoid arthritis, unspecified, R51.9 - Headache, unspecified, I10 - Essential (primary) hypertension C Reactive Protein 01/18/25 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, right eye, M06.9 - Rheumatoid arthritis, unspecified, R51.9 - Headache, unspecified, I10 - Essential (primary) hypertension Lupus Anticoagulant Panel 01/18/25 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, right eye, M06.9 - Rheumatoid arthritis, unspecified, R51.9 - Headache, unspecified, I10 - Essential (primary) hypertension Angiotensin Converting Enzyme 01/18/25 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, right eye, M06.9 - Rheumatoid arthritis, unspecified, R51.9 - Headache, unspecified, I10 - Essential (primary) hypertension Thyroid Peroxidase Antibodies 01/18/25 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
--- OUTSIDE RECORDS SUMMARY | 2025-01-14 08:14 | XMS_ITS | Patient Health Record ---
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 Role Phone Tray Baugh MD Primary Care Provider Ubaldo Castelan [phone] Allergies Allergen (clinical drug ingredient) Drug/Non Drug Allergy documented on EMR Reaction Allergy Type Onset Date Status surgical tape (uncoded) rash Allergy Active Results Component Value Reference Range Notes Complete Blood Count Auto Di ff Reviewed date:04/06/2024 11:26:27 PM Interpretation: Performing Lab:[facility], [address] [place] [phone] Notes/Report: White Blood Count 5.8 4.8-10.8 X10*3/uL [...] NRBC Abs Auto 0.000 0.0-0.012 X10*3/uL Comprehensive Oran. Panel Fa Reviewed date:04/06/2024 11:19:37 PM Interpretation: Performing Lab:[facility], [address] [place] [phone] Notes/Report: Sodium 144 135-145 mmol/L Potassium 4.2 3.3-5.1 mmol/L Chloride 109 96-108 mmol/L Carbon Dioxide 27 22-29 mmol/L Anion Gap 12 12-20 Blood Urea Nitrogen 13 9-16 mg/dL Creatinine 0.79 0.5-1.4 mg/dL Estimated Glomerular Filt Rate > 60 NOTE: For -Surinamese individuals, multiply the result by 1.210. Chronic [...] Panel Reviewed date:04/06/2024 11:19:50 PM Interpretation: Performing Lab:[facility], [address] [place] [phone] Notes/Report: Triglycerides 48 <150 mg/dL Desirable Triglyceride: [...] Total Reviewed date:04/06/2024 11:19:59 PM Interpretation: Performing Lab:[facility], [address] [place] [phone] Notes/Report: Vitamin D 25-OH Total 72.5 >30 [...] 19-9 Reviewed date:04/11/2024 08:17:41 PM Interpretation: Performing Lab:[facility], [address] [place] [phone] Notes/Report: Carbohydrate Antigen 19-9 21 <34 U/mL This test was performed using the Siemens chemiluminescent method. Values obtained from different assay methods cannot be used interchangeably. CA 19-9 levels, regardless of value, should not be interpreted as absolute evidence of the presence or absence of disease. THIS TEST WAS PERFORMED AT: [facility] [address] [place] [phone] DHARA COATS MD Reason For Referral No [...] Problem Status W/U Status Risk Notes Problem 201245030 Encounter for screening for malignant neoplasm of colon (Z12.11) Active confirmed Problem 432153486 History of adenomatous polyp of colon (Z86.010) Active confirmed Problem Diverticular disease of colon (770867349) Diverticulosis of large intestine without perforation or abscess without bleeding (K57.30) Active confirmed Problem [id number] Preprocedural examination (Z01.818) Active confirmed Problem Neoplasm of digestive system (511109077) IPMN (intraductal papillary mucinous neoplasm) (D49.0) Active confirmed Vital Signs Temperature 98.7 degrees Fahrenheit 03/27/2024 Blood pressure diastolic 00 mm Hg 03/27/2024 Height 63.5 in 03/27/2024 Blood pressure systolic 000 mm Hg 03/27/2024 Weight 219 lb 2 oz lbs 03/27/2024 BMI 38.20 kg/m2 03/27/2024 Encounters Encounter Location Date Provider Diagnosis [facility] [place] [facility] [address] [place], [place] [id number] 07/27/2024 Ubaldo Alcantara Colon cancer screeni ng Z12.11 ; Family history of colon cancer Z80.0 ; Diverticulosis of large intestine without perforation or abscess without bleeding K57.30 and Other hemorrhoids K64.8 [facility] [address] [place] [address] 03/27/2024 Ubaldo Alcantara History of adenomato us polyp of colon Z86.010 ; IPMN (intraductal papillary mucinous neoplasm) D49.0 and Encounter for screening for malignant neoplasm of colon Z12.11 [facility] [address] [place] [address] 03/27/2024 Ubaldo Alcantara Assessments Encounter Date Diagnosis [...] Pending Test Test Name Order Date BUN 03/22/2023 BUN 03/27/2024 BUN 03/15/2022 CREATININE 03/15/2022 LIVER PROFILE 03/15/2022 AMYLASE 03/15/2022 LIPASE 03/15/2022 CA 19-9 03/22/2023 CA 19-9 03/27/2024 CA 19-9 03/15/2022 MRI ABD NO CONTRAST (MRCP) 03/22/2023 MRI ABD W&WO CONTRAST 03/22/2023 MRI ABD W&WO CONTRAST 03/15/2022 MRI ABD W&WO CONTRAST 03/27/2024 Creatinine 03/27/2024 Creatinine 03/22/2023 Future Test Test Name Order Date COLONOSCOPY 09/16/2013 COLONOSCOPY 03/05/2019 COLONOSCOPY 03/27/2024 Next Appt Details Provider Name:Ubaldo Alcantara , 04/23/2025 01:20:00 PM, [address] [place] [address], [address], [place], [address], Insurance Providers Payer Name Payer Address Payer Phone Subscriber Number Group Number Insured Name Patient Relationship to Insured Coverage Start Date Coverage End Date [employer] [address] [place] [address] [phone] [id number] JANE CATHERINE Self - patient is the insured [facility] [address] [facility] [id number] JANE CATHERINE Self - patient is the [...]
--- OUTSIDE RECORDS SUMMARY | 2025-01-14 08:14 | XMS_ITS | Data Portability ---
Author Organization [facility], [facility] Address [address] [place] [address] Care Team Providers Care Power Mule Operator Name Role Phone BRANDON JALLOH Primary Care Provider [phone] Assessment No assessment recorded. Plan of Treatment Reminders Order Date Submit Date Provider Last Modified By Organization Details Last Modified Time Details Appointments None record ed. Lab None record ed. Referral physic al therap ist referr al - Evalua te & Rx Lumbar Stabil izatio n Progra m 2024 025 [facility] (Juan Sarah), [address], [place], [address], 5 09:49:44 pain manage ment referr al 2023 024 [email or web address], [address] [place] [address], [address], 4 08:56:54 Procedures None record ed. Surgeries None record ed. Imaging XR, lumbar spine, 2 view - room 1 lumbar spine 2024 025 [facility], [address], [facility] [address], [place], [address], 5 09:49:44 XR, hip, unilat eral, 2 or 3 view - [address] alvarez annual f/u 2023 024 [facility], [address], [address], [place], [address], 4 08:06:12 XR, humeru s, 2 or more view - rm 110 r humeru s 2v 2023 024 [facility], [address], [address], [place], [address], 4 18:12:45 XR, elbow, 3 or more view - rm 3 r elbow little high up 3v new proble m 2023 024 [email or web address] [facility], [address], [address], [place], [address], 4 16:04:52 Medication Orders Medrol (Chepe) 4 mg tablet s in a dose pack 2024 025 [place] [address] [id number], [address] [place], [address], 5 09:42:46 Patient TargetsNo targets recorded. Patient Instructions Encounter Date Encounter Id Patient Instructions Last Modified By Organization Details Last Modified Time 10/07/2023 [id number] I independently reviewed an MRI of the lumbar spine from September 25, 2023 and note multilevel degenerative changes. L4-5 spondylolisthesis with moderate central stenosis. Left-sided L5-S1 foraminal stenosis. Varying other levels of mild to moderate degenerative changes and stenosis. Not available 10/07/2023 13:44:26 Reason for Referral Pain Management Referral for Lumbar spondylolisthesis Referring Physician: Chandu Henao, Orthopedic Surgery, [id number] Encounter Date: 10/07/2023 Physical Therapist Referral for Pain in lumbar spine Evaluate & RxLumbar Stabilization Program Referring Physician: Gigi Muñiz, Orthopedic Surgery, Encounter Date: 08/24/2024 Results Created Date Observation Date Name Description Value Unit Range Abnormal Flag Note LastModifiedBy Organization Detail LastModifiedTime 03/13/20 24 08/08/2020 imagi ng/di agnos tic resul t No observ ation record ed. [email or web address] Not Available 02/14 20:12:00 03/13/20 24 08/08/2020 imagi ng/di agnos tic resul t No observ ation record ed. [email or web address] Not Available 02/14 20:12:01 03/13/20 24 07/25/2020 imagi ng/di agnos tic resul t No observ ation record ed. [email or web address] Not Available 02/14 20:12:08 03/13/20 24 01/09/2020 imagi ng/di agnos tic resul t No observ ation record ed. [email or web address] Not Available 02/14 20:12:16 03/13/20 24 01/09/2020 imagi ng/di agnos tic resul t No observ ation record ed. [email or web address] Not Available 02/14 20:12:17 08/24/19 25 08/24/2024 XR, lumba r spine , 2 view http:/ [email or web address] ?Encry pted=s hAaTro YD8dLq bEUv6g %2BXZw aYqtaq 0bqfl% 2Fg9IQ a4ajBk vP9nXo QUaueC m3YtLR FvZlgJ JJ8mAn HZtai3 9z5655 AC0Kqb HuAVqa jKiQtr MwF INTERFACE [facility] [address] [facility] [address], [place], [address], 08/24/2024 10:58:37 08/24/19 25 08/24/2024 XR, lumba r spine , 2 view http:/ [email or web address] ?Encry pted=s hAaTro YD8dLq bEUv6g %2BXZw aYqtaq 0bqfl% 2Fg9IQ a4ajBk vP9nXo QUaueC m3YtLR FvZlgJ JJ8mAn HZtai3 2r5486 AC0Kqb HuAVqa jKiQtr MwF INTERFACE [facility] [address], [place], [address], 08/24/2024 10:58:39 Result Notes Documentation Provider Name and Address Organization Details Recorded Time Xr, Lumbar Spine, 2 View : [email or web address]? Encrypted=pgFaKmgAL0bUsnU Uv6g%3LINrqEqsge1xnng%2Fg 5EWs8abWtzL8uOlNDxbgEv2Po MANcYlpPYK9nKqLHatx75o945 2KU0XmkKpISfxrYgYzyXsN Not Available [facility] 08/24/2024 10:58: 38 Xr, Lumbar Spine, 2 View : [email or web address] Encrypted=bbBrHnnDY4rQczN Uv6g%5PYEkgEygfu2bjjw%2Fg 1PEx5mfBemL7zJeOGocyQp6Ao ALAfJvfQDG1dGeWAdkz44u234 4IM1MpvTvXEeldDoZqlRtU Not Available [facility] 08/24/2024 10:58: 40 Problems Name Problem SNOMED Code Status Onset Date Resolution Date Notes Provider Name and Address Organization Details Recorded Time Pain in lumbar spine 482658112 Active 2024 Gigi Muñiz PA-C [address], [place], [address] , [facility] 5 10:50:39 Lumbar spondylos is 078100550 Active 2024 Chandu Henao MD [address], [place], [address] , [facility] 5 10:55:52 Spinal stenosis of lumbar region 77862642 Active 2024 Chandu Henao MD [address], [place], [address] , [facility] 5 10:56:08 Trigger thumb of left hand 530130254723 107 Active 2018 Problem Code: M65.312; Problem Code Type: ICD-10; Status: 'A'; Not Available [facility] 4 10:58:15 Carpal tunnel syndrome of left wrist 610611195998 102 Active 2018 Problem Code: G56.02; Problem Code Type: ICD-10; Status: 'A'; Not Available [facility] 4 10:58:15 Hip joint prosthesi s present 374607836 Active 2014 Problem Code: Z96.642; Problem Code Type: ICD-10; Status: 'A'; Not Available [facility] 4 10:58:15 Lumbar spondylol isthesis 473692402552 102 Active 2023 Chandu Henao MD [address], [place], [address] , [facility] 4 13:44:40 Low back pain 487890982 Active 2023 Chandu Henao MD [address], [place], [address] , [facility] 4 13:45:08 Problem Notes None recorded. Medical Equipment None Reported. Allergies Allergen ID Allergen Name Allergen Category Reaction Reaction Severity Criticality Documentation Date Start Date Code Code System Note Provider Name and Address Organization Details Recorded Time 27600 adhesive tape environme nt,medica tion Not available Not available Not available 09/16/20232010 15349 UNK Not Available [facility] 4 11:24:31 Medications Name Sig Start Date Stop Date Status Note LastModified by Organization Details LastModified Time celecoxib 200 mg capsule active Not Available Not Available Not Available cyclobenzap rine 10 mg tablet PLEASE SEE ATTACHED FOR DETAILED DIRECTION S active Not Available Not Available No t Available amoxicillin 500 mg capsule TAKE FOUR CAPSULES BY MOUTH ONE HOUR PRIOR TO THE PROCEDURE 09/10 completed Not Available Not Available Not Available neomycin-po lymyxin-hyd rocort 3.5 mg/mL-10,00 0 unit/mL-1 % ear solution TAKE 2 DROPS (OTIC (EAR)) 3 TIMES PER DAY FOR 10 DAYS 09/10 completed Not Available Not Available Not Available sulfasalazi ne 500 mg tablet TAKE TWO TABLETS BY MOUTH TWICE A DAY WITH FOOD 09/10 completed Not Available Not Available Not Available clindamycin HCl 300 mg capsule TAKE ONE CAPSULE BY MOUTH EVERY 12 HOURS UNTIL FINISHED 12/07 completed Not Available Not Available Not Available azithromyci n 250 mg tablet TAKE 2 TABLETS BY MOUTH ON THE FIRST DAY , THEN TAKE 1 TABLET DAILY FOR 4 DAYS 12/07 completed Not Available Not Available Not Available valacyclovi r 1 gram tablet TAKE ONE TABLET BY MOUTH THREE TIMES A DAY FOR 7 DAYS 09/10 completed Not Available Not Available Not Available hydrocodone 5 mg-acetamin ophen 325 mg tablet TAKE ONE TO TWO TABLETS BY MOUTH EVERY 4 TO 6 HOURS NEEDED FOR PAIN 12/07 completed Not Available Not Available Not Available carbamazepi ne ER 100 mg tablet,exte nded release,12 hr TAKE ONE TABLET BY MOUTH TWICE A DAY active Not Available Not Available No t Available lisinopril 20 mg tablet TAKE ONE TABLET BY MOUTH EVERY DAY active Not Available Not Available No t Available betamethaso ne, augmented 0.05 % topical cream APPLY ONE APPLICATI ON EXTERNAL TWICE A DAY TO SPOTS OF PSORIASIS ON THICK SKIN FOR UP TO 2 WEEKS ON, THEN 1 WEEK OFF 12/07 completed Not Available Not Available Not Available amlodipine 2.5 mg tablet TAKE ONE TABLET BY MOUTH EVERY DAY 09/10 completed Not Available Not Available Not Available amlodipine 5 mg tablet TAKE ONE TABLET BY MOUTH EVERY DAY active Not Available Not Available No t Available tramadol 50 mg tablet TAKE ONE TABLET BY MOUTH EVERY 8 HOURS FOR MODERATE PAIN IF NEEDED active Not Available Not Available No t Available butalbital- acetaminoph en-caffeine 50 mg-325 mg-40 mg tablet TAKE ONE TABLET BY MOUTH TWO TIMES A DAY NEEDED FOR PAIN 09/10 completed Not Available Not Available Not Available amoxicillin 500 mg tablet TAKE ONE TABLET BY MOUTH EVERY 8 HOURS UNTIL GONE 12/07 completed Not Available Not Available Not Available ketorolac 0.5 % eye drops INSTILL ONE DROP IN THE RIGHT EYE FOUR TIMES A DAY 09/10 completed Not Available Not Available Not Available amoxicillin 875 mg tablet TAKE 1 TABLET BY MOUTH TWICE A DAY FOR 7 DAYS 09/10 completed Not Available Not Available Not Available prednisolon e acetate 1 % eye drops,suspe nsion INSTILL ONE DROP IN THE RIGHT EYE FOUR TIMES A DAY; SHAKE WELL BEFORE USING 09/10 completed Not Available Not Available Not Available lorazepam 0.5 mg tablet TAKE 1 TABLET BY MOUTH 30 TO 60 MINUTES BEFORE THE MRI NEEDED FOR ANXIETY, AND THEN REPEAT THE ONE TABLET RIGHT BEFORE THE MRI NEEDED 09/10 completed Not Available Not Available Not Available doxycycline monohydrate 50 mg tablet Doxycycli ne Monohydra te 100MG Capsule twice a day 12/07 completed Statu s: 'Curr ent'; Not Available Not Available Not Available IBU 600 mg tablet TAKE ONE TABLET BY MOUTH EVERY 8 HOURS NEEDED FOR PAIN 12/07 completed Not Available Not Available Not Available gabapentin 800 mg tablet active Not Available Not Available Not Available trazodone 100 mg tablet TAKE ONE-HALF TO ONE TABLET BY MOUTH AT BEDTIME 12/07 completed Not Available Not Available Not Available lorazepam 2 mg tablet TAKE 1 TABLET HALF HOUR PRIOR TO EXAM, MUST HAVE RIDE . DO NOT DRIVE WHILE TAKING THIS MEDICATIO N. 11/24 completed Not Available Not Available Not Available erythromyci n 5 mg/gram (0.5 %) eye ointment APPLY A SMALL AMOUNT TO INCISION SITE ON EYELID FOUR TIMES A DAY FOR 7 DAYS 09/10 completed Not Available Not Available Not Available trazodone 150 mg tablet TAKE ONE TABLET BY MOUTH EVERY EVENING AT BEDTIME 09/10 completed Not Available Not Available Not Available pseudoephed rine-guaife nesin ER 80-700 mg tablet,exte nded release twice a day 12/07 completed Statu s: 'Curr ent'; Not Available Not Available Not Available lisinopril 10 mg tablet TAKE 1 TABLET BY MOUTH DAILY 09/10 completed Not Available Not Available Not Available gabapentin 300 mg capsule TAKE 1-3 CAPSULES BY MOUTH DAILY AT BEDTIME 12/07 completed Not Available Not Available Not Available lorazepam 1 mg tablet TAKE 1 TABLET BY MOUTH AT BEDTIME NEEDED. 11/24 completed Not Available Not Available Not Available estradiol 0.01% (0.1 mg/gram) vaginal cream INSERT 1 GRAM VAGINALLY ONCE A WEEK AT BEDTIME active Not Available Not Available No t Available methylpredn isolone 4 mg tablets in a dose pack TAKE SIX TABLETS FOR 1 DAY, THEN FIVE TABLETS FOR 1 DAY, THEN FOUR TABLETS FOR 1 DAY,THEN THREE TABLETS FOR 1 DAY, THEN TWO TABLETS FOR 1 DA 09/10 completed Not Available Not Available Not Available amoxicillin 875 mg-potassiu m clavulanate 125 mg tablet TAKE ONE TABLET BY MOUTH TWICE A DAY 12/07 completed Not Available Not Available Not Available tobramycin 0.3 %-dexametha sone 0.1 % eye drops,suspe nsion INSTILL ONE DROP IN THE RIGHT EYE FOUR TIMES A DAY 09/10 completed Not Available Not Available Not Available cyclobenzap rine 5 mg tablet TAKE ONE TABLET BY MOUTH THREE TIMES A DAY IF NEEDED FOR MUSCLE SPASM 12/07 completed Not Available Not Available Not Available moxifloxaci n 0.5 % eye drops INSTILL ONE DROP IN EACH EYE FOUR TIMES A DAY FOR 7 DAYS STARTING AFTER SURGERY 09/10 completed Not Available Not Available Not Available pregabalin 75 mg capsule TAKE TWO CAPSULES BY MOUTH EVERY MORNING AND TAKE ONE CAPSULE BY MOUTH DAILY AT BEDTIME 09/10 completed Not Available Not Available Not Available pregabalin 150 mg capsule TAKE ONE CAPSULE BY MOUTH TWICE A DAY active Not Available Not Available No t Available sulfasalazi ne sulfaSALA zine 500MG Tablet 09/10 completed Statu s: 'Curr ent'; Not Available Not Available Not Available Ativan Take 1 tablet half hour prior to exam. Must have ride.DO NOT DRIVE WHILE TAKING THIS MEDICATIO N 09/10 completed Statu s: 'Curr ent'; Not Available Not Available Not Available diclofenac 1 % topical gel APPLY 2 GRAMS TOPICALLY 4 TIMES A DAY FOR 10 DAYS active Not Available Not Available No t Available oxycodone HCl-oxycodo ne-ASA as directed 1 TABLET Q 4 HOURS PRN PAIN DO NOT DIRVE WHILE ON THIS MED 12/07 completed Statu s: 'Curr ent'; Not Available Not Available Not Available Vitals Date Recorded Body height Body mass index (BMI) Body weight Provider Name and Address Organization Details Last Updated DateTime 08/24/2024 162.56 cm 39.5 kg/m2 779185.25 g Gigi Muñiz PA-C [address], [place], [address], [facility] 08/24/2024 10:49:14 Date Recorded Body height Body mass index (BMI) Body weight Provider Name and Address Organization Details Last Updated DateTime 09/10/2024 162.56 cm 39.5 kg/m2 448802.25 g Adelaida baez [facility] 09/10/2024 09:41:56 Date Recorded Body height Body mass index (BMI) Body weight Provider Name and Address Organization Details Last Updated DateTime 10/07/2023 162.56 cm 34.3 kg/m2 78934.47 g RAN RAGLAND [facility] 10/07/2023 13:10:03 Date Recorded Body height Body mass index (BMI) Body weight Provider Name and Address Organization Details Last Updated DateTime 11/25/2023 162.56 cm 37.1 kg/m2 36248.95 g ASHA GOULD [facility] 11/25/2023 09:36:59 Date Recorded Body height Provider Name an d Address Organization Details Last Updated DateTime 12/13/2023 162.56 cm Angelic Rogers CNP [address], [place], [address], [facility] 12/13/2023 12:27:19 Social History Question Answer Notes LastModified by Organizat ion Details LastModified Time Tobacco Smoking Status [facility] 09/10/2024 09:41:46 What Is Your Relationship Status? Information not available 09/10/2024 How Many Years Have You Smoked Tobacco? 0 Information not available 09/10/2024 Sex: Unknown Functional Status Question Answer Note LastModified by Organizat ion Details LastModified Time How many times per week do you consume alcohol? Less than 1 time per week Information not available 09/10/2024 Do you use any illicit or recreational drugs? No Information not available 09/10/2024 Do you or have you ever used any other forms of tobacco or nicotine? No Information not available 09/10/2024 Do you or have you ever used e-cigarettes or vape? Never used electronic cigarettes Information not available 09/10/2024 Mental Status None recorded. Family History Nothing Reported. Medical History Condition Response Allergies/Hayfever N Coronary Artery Disease N Anxiety/Depression N Emphysema N Thyroid Problems N COPD N Pacemaker N Anemia N Kidney/Bladder Problems N Vascular Disease N Heart Attack ([place]) N Gastrointestinal Disease N Diabetes N Autoimmune [...] SNOMED-CT Code Diagnosis ICD10 Code Diagnosis Note [id number] Chandu Henao MD [place] [address] [place] [address] 10/07/2023 12:57:56 10/21/2023 11:25:27 Lumbar spondylolisthesis 9996428111 42079 M43.16 68-year-ol d female with lumbar spondyloli sthesis and back pain. I reviewed her MRI and she does have moderate central stenosis at L4-5 and left-sided L5-S1 foraminal stenosis however seems to be asymptomat ic. She complains mostly of lower back and buttock pain that increases with extension based activities . We discussed targeted injection therapy. I will refer her to [facility] and she will follow-up with me after her treatment. Spinal kenneth nosis of lumbar region 33659858 M48.061 Low back pain 103543168 M54.50 [id number] Angelic Rogers C[place] [address] 11/25/2023 09:10:28 12/05/2023 16:04:52 Pain of right elbow joint 2403781740 5170620 M25.521 Injury of humerus 827215 009 S49.91XD [id number] [facility] [place] [address] [place] [address] 12/13/2023 09:28:36 12/24/2023 08:06:12 Pain of right shoulder joint 6936621866 1314457 M25.511 History of total hip arthroplasty 4671382693 06 Z96.756 [id number] Gigi Muñiz PA-C [facility] [place] [address] [place] [address] 08/24/2024 10:16:05 09/10/2024 09:49:44 Pain in lumbar spine 979487691 M54.50 [id number] Chandu Henao MD [facility] [place] [address] [place] [address] 09/10/2024 09:10:30 09/29/2024 12:20:47 Lumbar spondylolisthesis 5997531068 94114 M43.16 Assessment and Plan:1. Chronic Low Back Pain with Spinal Stenosis and Spondyloli sthesis:- Patient has failed multiple conservati ve treatments including PT and various spinal injections - I recommend proceeding with planned L4-5 and L5-S1 facet injections as scheduled- Patient to follow up at least after procedure 2 weeks if no improvemen t with injections - Need to obtain new flexion/ex tension X-rays at next visit to assess stability of spondyloli sthesis 2. Treatment Considerat ions:- Surgical interventi on may be considered if conservati ve measures fail, particular ly for stenosis and spondyloli sthesis if diagnostic ally determined to be pain generator- Response to injections will help determine if stenosis is primary pain generator- Will reassess treatment plan based on response to upcoming facet injections Billing Informatio n:ICD-10: M48.06 - Spinal stenosis, lumbar regionICD- 10: M43.16 - Spondyloli sthesis, lumbar regionICD- 10: M54.5 - Low back pain Lumbar spondylosis 11641 0009 M47.816 Spinal kenneth nosis of lumbar region 25482522 M48.061 Assessment and Plan:1. Chronic Low Back Pain with Spinal Stenosis and Spondyloli sthesis:- Patient has failed multiple conservati ve treatments including PT and various spinal injections - I recommend proceeding with planned L4-5 and L5-S1 facet injections as scheduled- Patient to follow up at least after procedure 2 weeks if no improvemen t with injections - Need to obtain new flexion/ex tension X-rays at next visit to assess stability of spondyloli sthesis 2. Treatment Considerat ions:- Surgical interventi on may be considered if conservati ve measures fail, particular ly for stenosis and spondyloli sthesis- Response to injections will help determine if stenosis is primary pain generator- Will reassess treatment plan based on response to upcoming facet injections Billing Informatio n:ICD-10: M48.06 - Spinal stenosis, lumbar regionICD- 10: M43.16 - Spondyloli sthesis, lumbar regionICD- 10: M54.5 - Low back pain Health Concerns Section Related Observation LastModified by Organization Detai ls LastModified Time None Recorded Concern Status LastModified by Organization Details LastModified Time None Recorded Advance Directives Directive None Recorded Payers Insurance Date Sequence Insurance Name Policy Number Policy Schmidt Covered Member ID Schmidt Member ID Guarantor Name 09/10/2024 1 [place]: [employer] Olivia Whipple [id number] Olivia Whipple 09/29/2024 2 [facility] - PLAN 1 (MEDICARE SUPPLEMENT) [id number] Olivia Whipple [id number] Olivia Whipple 11/14/2023 2 UNSPECIFIED REMIT PAYOR Olivia Whipple Notes Date Note Type Note Provider Name and Address Organization Details Recorded Time 10/07/2023 text/html 68-year-old fema le with lumbar spondylolisthesis and back and buttock pain follows up for reevaluation. She has been to physical therapy and taking medications without improvement. She has had a new lumbar MRI since her last encounter. She describes her pain as increasing with lying on her back and extension type activities. Chandu Henao MD [address], [place], [address], [facility] 10/07/2023 13:47:05 11/25/2023 text/html Arin is a 68-year-old female who is known to myself here today for evaluation of her right distal humerus. She reports she fell week and a half ago landing on her right side. She has had ongoing discomfort since then. She is seen today in urgent care. She describes the pain as an aching pain. No significant pain with range of motion of the shoulder or elbow. No neurovascular changes. Angelic Sue, DIRECTIONAL BORE OPERATOR [address], [place], [address], [facility] 11/25/2023 10:26:17 12/13/2023 text/html Arin is a 68-year-old female who is known to myself here today for evaluation of her right distal humerus. She she fell About a month ago landing on her right side. She has had ongoing discomfort since then. She was seen in urgent care. She continues to complain of aching pain over the distal humerus. She is also having some right hip pain. She had previous total hip arthroplasty done by Dr. Alvarez. Angelic Sue, DIRECTIONAL BORE OPERATOR [address], [place], [address], [facility] 12/13/2023 12:32:53 08/24/2024 text/html I am seeing the patient [...] by me and is located in the patient s chart. PHYSICAL EXAMINATION: The patient is well [...] ordered, obtained and independently reviewed today at [facility] 2 views of the lumbar spine show [...] follow-up with Dr. Henao. Gigi Muñiz PA-C [address] [place] [address] [address], [place], [address], [facility] 08/24/2024 11:08:52 09/10/2024 text/html Follow-up Visit for Chronic Low Back Pain Subjective:69-year-old female presents for follow-up evaluation of chronic low back pain, previously seen October 07, 2023. Patient reports persistent low back pain rated 8-9/10, which is exacerbated by both sitting and standing. Pain is localized to the lower back with some radiation around the hips, but denies radicular symptoms down the legs. Pain is affecting sleep quality. Patient has undergone extensive conservative treatment with minimal relief.Treatment history includes:- Multiple epidural steroid injections (Left transforaminal epidural on 12/25/23, interlaminar epidural on 11/28/23)- Medial branch blocks bilaterally on 11/05/23- Two courses of physical therapy- Oral steroids (6-7 day course)- Muscle relaxants for suspected muscle spasmsPatient is scheduled for L4-5 and L5-S1 facet injections next week and seeks second opinion regarding treatment plan. Objective:MRI of lumbar spine from 09/25/2023 demonstrates:- Multilevel degenerative changes- L4-5 spondylolisthesis- Moderate central stenosis- Left-sided L5-S1 foraminal stenosis- Significant disc degeneration at L5-S1 with motor changes- Multiple levels showing disc bulging I independently reviewed outside medical records from [facility] noting:- Multiple epidural steroid injections (Left transforaminal epidural on 12/25/23, interlaminar epidural on 11/28/23)- Medial branch blocks bilaterally on 11/05/23 Assessment and Plan:1. Chronic Low Back Pain with Spinal Stenosis and Spondylolisthesis:- Patient has failed multiple conservative treatments including PT and various spinal injections- I recommend proceeding with planned L4-5 and L5-S1 facet injections as scheduled- Patient to follow up at least after procedure 2 weeks if no improvement with injections- Need to obtain new flexion/extension X-rays at next visit to assess stability of spondylolisthesis 2. Treatment Considerations:- Surgical intervention may be considered if conservative measures fail, particularly for stenosis and spondylolisthesis- Response to injections will help determine if stenosis is primary pain generator- Will reassess treatment plan based on response to upcoming facet injections Billing Information:ICD-10: M48.06 - Spinal stenosis, lumbar regionICD-10: M43.16 - Spondylolisthesis, lumbar regionICD-10: M54.5 - Low back pain Chandu Henao MD [address] [place] [address] [address], [place], [address], [facility] 09/10/2024 10:56:47 OBGyn Episode No OBEpisode recorded.
== END 2025-01-14 09:14 | disposition home or self-care (01) ==
LOC: HO.HSMS 08:11
PROVIDERS: Visit Provider Nurse Practitioner Family
DX: H49.11 Fourth [trochlear] nerve palsy, right eye (principal); G50.0 Trigeminal neuralgia; F45.8 Other somatoform disorders
CPT/HCPCS: 99214

== ENCOUNTER 2025-01-18 08:27 | Outpatient (REF) | payer MEDICARE, OTHER, SELFPAY ==
--- NOTE | ~2025-01-18 | XR_ITS ---
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 Comparison: None Findings: No consolidation. Heart size normal. Mediastinal contour is normal. No acute fracture. There is moderate scoliosis. Impression: Lungs are clear. This document has been electronically signed by: Alan Kaur MD on 01/18/2025 22:04:20
--- NOTE | 2025-01-18 08:34 | ECG_ITS ---
Test Reason : r51.9 Blood Pressure : */* mmHG Vent. Rate : 61 BPM Atrial Rate : 61 BPM P-R Int : 202 ms QRS Dur : 82 ms QT Int : 440 ms P-R-T Axes : 57 20 47 degrees QTcB Int : 442 ms Sinus rhythm with occasional Premature ventricular complexes Otherwise normal ECG When compared with ECG of 13-May-2024 14:53, Premature ventricular complexes are now Present Referred By: Elissa Duron Electronically Signed By: Tono Polanco
--- OUTSIDE RECORDS SUMMARY | 2025-01-18 08:38 | XMS_ITS | Patient Health Record ---
Author Organization [facility] Address [address] [place] [address] Care Team Providers Care Special Events Coordinator Name Role Phone Tray Baugh MD Primary Care Provider Ubaldo Castelan [phone] Allergies Allergen (clinical drug ingredient) Drug/Non Drug Allergy documented on EMR Reaction Allergy Type Onset Date Status surgical tape (uncoded) rash Allergy Active Results Component Value Reference Range Notes Complete Blood Count Auto Di ff Reviewed date:04/06/2024 11:26:27 PM Interpretation: Performing Lab:[facility], [address] [place] [address] Notes/Report: White Blood Count 5.8 4.8-10.8 X10*3/uL [...] NRBC Abs Auto 0.000 0.0-0.012 X10*3/uL Comprehensive [place]. Panel Fa Reviewed date:04/06/2024 11:19:37 PM Interpretation: Performing Lab:[facility], [address] [place] [address] Notes/Report: Sodium 144 135-145 mmol/L Potassium 4.2 3.3-5.1 mmol/L Chloride 109 96-108 mmol/L Carbon Dioxide 27 22-29 mmol/L Anion Gap 12 12-20 Blood Urea Nitrogen 13 9-16 mg/dL Creatinine 0.79 0.5-1.4 mg/dL Estimated Glomerular Filt Rate > 60 NOTE: For -[place]i individuals, multiply the result by 1.210. Chronic [...] Panel Reviewed date:04/06/2024 11:19:50 PM Interpretation: Performing Lab:[facility], [address] [place] [address] Notes/Report: Triglycerides 48 <150 mg/dL Desirable Triglyceride: [...] Total Reviewed date:04/06/2024 11:19:59 PM Interpretation: Performing Lab:[facility], [address] [place] [address] Notes/Report: Vitamin D 25-OH Total 72.5 >30 [...] 19-9 Reviewed date:04/11/2024 08:17:41 PM Interpretation: Performing Lab:[facility], [address] [place] [address] Notes/Report: Carbohydrate Antigen 19-9 21 <34 U/mL This test was performed using the Siemens chemiluminescent method. Values obtained from different assay methods cannot be used interchangeably. CA 19-9 levels, regardless of value, should not be interpreted as absolute evidence of the presence or absence of disease. THIS TEST WAS PERFORMED AT: [facility] [address] [place] [phone] DHARA COATS MD Reason For Referral No [...] Problem Status W/U Status Risk Notes Problem 426545797 Encounter for screening for malignant neoplasm of colon (Z12.11) Active confirmed Problem 666191035 History of adenomatous polyp of colon (Z86.010) Active confirmed Problem Diverticular disease of colon (046905774) Diverticulosis of large intestine without perforation or abscess without bleeding (K57.30) Active confirmed Problem 003155963563210 Preprocedural examination (Z01.818) Active confirmed Problem Neoplasm of digestive system (485918669) IPMN (intraductal papillary mucinous neoplasm) (D49.0) Active confirmed Vital Signs Temperature 98.7 degrees Fahrenheit 03/27/2024 Blood pressure diastolic 00 mm Hg 03/27/2024 Height 63.5 in 03/27/2024 Blood pressure systolic 000 mm Hg 03/27/2024 Weight 219 lb 2 oz lbs 03/27/2024 BMI 38.20 kg/m2 03/27/2024 Encounters Encounter Location Date Provider Diagnosis [facility] Outpatient [address] [place], [place] [id number] 07/27/2024 Ubaldo Alcantara Colon cancer screeni ng Z12.11 ; Family history of colon cancer Z80.0 ; Diverticulosis of large intestine without perforation or abscess without bleeding K57.30 and Other hemorrhoids K64.8 [facility] [address] [place] [address] 03/27/2024 Ubaldo Alcantara History of adenomato us polyp of colon Z86.010 ; IPMN (intraductal papillary mucinous neoplasm) D49.0 and Encounter for screening for malignant neoplasm of colon Z12.11 [facility] [address] [place] [address] 03/27/2024 Ubaldo Alcantara Assessments Encounter Date Diagnosis [...] Provider Name:Ubaldo Alcantara , 04/23/2025 01:20:00 PM, [address] [place] [address], [address], [place], [address], Insurance Providers Payer Name Payer Address Payer Phone Subscriber Number Group Number Insured Name Patient Relationship to Insured Coverage Start Date Coverage End Date MEDICARE OF [place]ET [address] [place] [address] [id number] JANE CATHERINE Self - patient is the insured [facility] [address] [facility] [phone] [id number] JANE CATHERINE Self - patient is the insured Medical (General) History Medical History History ICD Code Colonoscopy 06-21-2008 smal l tubular adenoma removed--diverticulosis, internal hemorrhoids; F/U colonoscopy 11/2013 with a small tubular adenoma HTN Rheumatoid arthritis Sleep apnea--uses a CPAP Denies [place],DM,CVA,Lung disease,renal dise ase Nerve pain in right [...]
--- OUTSIDE RECORDS SUMMARY | 2025-01-18 08:39 | XMS_ITS | Data Portability ---
Author Organization [facility], [facility] Address [address] [place] [address] Care Team Providers Care Soil Analyst Name Role Phone BRANDON JALLOH Primary Care Provider Assessment No assessment recorded. Plan of Treatment Reminders Order Date Submit Date Provider Last Modified By Organization Details Last Modified Time Details Appointments None record ed. Lab None record ed. Referral physic al therap ist referr al - Evalua te & Rx Lumbar Stabil izatio n Progra m 2024 025 [facility] (Juan Sarah), [address], [place], [address], 5 09:49:44 pain manage ment referr al 2023 024 [email or web address] [facility], [address] [place] [address], [address], 4 08:56:54 Procedures None record ed. Surgeries None record ed. Imaging XR, lumbar spine, 2 view - room 1 lumbar spine 2024 025 [facility], [address], [facility] [address], [place], [address], 5 09:49:44 XR, hip, unilat eral, 2 or 3 view - [address] alvarez annual f/u 2023 024 [facility], [address], [address], [place], [address], 4 08:06:12 XR, humeru s, 2 or more view - rm 110 r humeru s 2v 2023 024 [email or web address] [facility], [address], [address], [place], [address], 4 18:12:45 XR, elbow, 3 or more view - rm 3 r elbow little high up 3v new proble m 2023 024 [email or web address] [facility], [address], [address], [place], [address], 4 16:04:52 Medication Orders Medrol (Chepe) 4 mg tablet s in a dose pack 2024 025 [place] [address] [facility], [address] [place], [address], 5 09:42:46 Patient TargetsNo targets recorded. Patient Instructions Encounter Date Encounter Id Patient Instructions Last Modified By Organization Details Last Modified Time 10/07/2023 [id number] I independently reviewed an MRI of the lumbar spine from September 25, 2023 and note multilevel degenerative changes. L4-5 spondylolisthesis with moderate central stenosis. Left-sided L5-S1 foraminal stenosis. Varying other levels of mild to moderate degenerative changes and stenosis. [email or web address] Not available 10/07/2023 13:44:26 Reason for Referral Pain Management Referral for Lumbar spondylolisthesis Referring Physician: Chandu Henao, Orthopedic Surgery, [id number] Encounter Date: 10/07/2023 Physical Therapist Referral for [...] a4ajBk vP9nXo QUaueC m3YtLR FvZlgJ JJ8mAn HZtai3 [id number] AC0Kqb HuAVqa jKiQtr MwF INTERFACE [facility] [address] [facility] [address], [place], [address], 08/24/2024 10:58:37 08/24/19 25 08/24/2024 XR, lumba r spine , 2 view http:/ [email or web address] ?Encry pted=s hAaTro YD8dLq bEUv6g %2BXZw aYqtaq 0bqfl% 2Fg9IQ a4ajBk vP9nXo QUaueC m3YtLR FvZlgJ JJ8mAn HZtai3 5w6827 AC0Kqb HuAVqa jKiQtr MwF INTERFACE [facility] [address], [place], [address], 08/24/2024 10:58:39 Result Notes Documentation Provider Name and Address Organization Details Recorded Time Xr, Lumbar Spine, 2 View : [email or web address]? Encrypted=xxDiGybYL9rCijT Uv6g%3IOZcrSkcpf6fvif%2Fg 7AWa1kjQokX7cHeAYodaYa7Ae OZIxNhwOQR8oHgAVidl74a384 5HH6YoxOaRGikbAsZqyHqF Not Available [facility] 08/24/2024 10:58: 38 Xr, Lumbar Spine, 2 View : [email or web address] Encrypted=beFwAxaDF4jKicF Uv6g%2ODObcSfjgf8owav%2Fg 4UNt1kqJrhM5bNaMKkdlZx3Zx TNDeOtsQTA7rEqLOwqt57d420 4XB4UmtHzGDjelNwAxdNdY Not Available [facility] 08/24/2024 10:58: 40 Problems Name Problem SNOMED Code Status Onset Date Resolution Date Notes Provider Name and Address Organization Details Recorded Time Pain in lumbar spine 389339128 Active 2024 Gigi Muñiz PA-C [address], [place], [address] , [facility] 5 10:50:39 Lumbar spondylos is 283237226 Active 2024 Chandu Henao MD [address], [place], [address] , [facility] 5 10:55:52 Spinal stenosis of lumbar region 51406077 Active 2024 Chandu Henao MD [address], [place], [address] , [facility] 5 10:56:08 Trigger thumb of left hand 129471720394 107 Active 2018 Problem Code: M65.312; Problem Code Type: ICD-10; Status: 'A'; Not Available [facility] 4 10:58:15 Carpal tunnel syndrome of left wrist 727567846686 102 Active 2018 Problem Code: G56.02; Problem Code Type: ICD-10; Status: 'A'; Not Available [facility] 4 10:58:15 Hip joint prosthesi s present 420881070 Active 2014 Problem Code: Z96.642; Problem Code Type: ICD-10; Status: 'A'; Not Available [facility] 4 10:58:15 Lumbar spondylol isthesis 150750199607 102 Active 2023 Chandu Henao MD [address], [place], [address] , [facility] 4 13:44:40 Low back pain 950992452 Active 2023 Chandu Henao MD [address], [place], [address] , [facility] 4 13:45:08 Problem Notes None recorded. Medical Equipment None Reported. Allergies Allergen ID Allergen Name Allergen Category Reaction Reaction Severity Criticality Documentation Date Start Date Code Code System Note Provider Name and Address Organization Details Recorded Time 69787 adhesive tape environme nt,medica tion Not available Not available Not available 09/16/20232010 52365 UNK Not Available [facility] 4 11:24:31 Medications Name Sig Start Date [...] Updated DateTime 08/24/2024 162.56 cm 39.5 kg/m2 756636.25 g Gigi Muñiz PA-C [address], [place], [address], [facility] 08/24/2024 10:49:14 Date Recorded Body height Body mass index (BMI) Body weight Provider Name and Address Organization Details Last Updated DateTime 09/10/2024 162.56 cm 39.5 kg/m2 604365.25 g Adelaida baez [facility] 09/10/2024 09:41:56 Date Recorded Body height Body mass index (BMI) Body weight Provider Name and Address Organization Details Last Updated DateTime 10/07/2023 162.56 cm 34.3 kg/m2 25562.47 g RAN RAGLAND [facility] 10/07/2023 13:10:03 Date Recorded Body height Body mass index (BMI) Body weight Provider Name and Address Organization Details Last Updated DateTime 11/25/2023 162.56 cm 37.1 kg/m2 80819.95 g ASHA GOULD [facility] 11/25/2023 09:36:59 Date Recorded Body height Provider Name an d Address Organization Details Last Updated DateTime 12/13/2023 162.56 cm Angelic Rogers CNP [address], [place], [address], [facility] 12/13/2023 12:27:19 Social History Question Answer Notes LastModified by Organizat ion Details LastModified Time Tobacco Smoking Status Never Smoker [facility] 09/10/2024 09:41:46 What Is Your Relationship [...] Problems N Vascular Disease N Heart Attack (HI) N Gastrointestinal Disease N Diabetes N Autoimmune [...] SNOMED-CT Code Diagnosis ICD10 Code Diagnosis Note [id number] Chandu Henao MD [facility] [address] [place] [address] 10/07/2023 12:57:56 10/21/2023 11:25:27 Lumbar spondylolisthesis 6244257612 20564 M43.16 68-year-ol d female with lumbar spondyloli sthesis and back pain. I reviewed her MRI and she does have moderate central stenosis at L4-5 and left-sided L5-S1 foraminal stenosis however seems to be asymptomat ic. She complains mostly of lower back and buttock pain that increases with extension based activities . We discussed targeted injection therapy. I will refer her to [facility] and she will follow-up with me after her treatment. Spinal kenneth nosis of lumbar region 22642985 M48.061 Low back pain 979123000 M54.50 [id number] Angelic Rogers C[place] [address] 11/25/2023 09:10:28 12/05/2023 16:04:52 Pain of right elbow joint 4338641155 1310114 M25.521 Injury of humerus 229814 009 S49.91XD [id number] [facility] [address] [place] [address] 12/13/2023 09:28:36 12/24/2023 08:06:12 Pain of right shoulder joint 5161175733 7989653 M25.511 History of total hip arthroplasty 1338751682 06 Z96.450 0514245 Gigi Muñiz PA-C [facility] [address] [place] [address] 08/24/2024 10:16:05 09/10/2024 09:49:44 Pain in lumbar spine 580734998 M54.50 [id number] Chandu Henao MD [facility] [address] [place] [address] 09/10/2024 09:10:30 09/29/2024 12:20:47 Lumbar spondylolisthesis 5235331198 70770 M43.16 Assessment and Plan:1. Chronic Low Back [...] M54.5 - Low back pain Lumbar spondylosis 74562 0009 M47.816 Spinal kenneth nosis of lumbar region 62990791 M48.061 Assessment and Plan:1. Chronic Low Back [...] ID Guarantor Name 09/10/2024 1 MEDICARE B-[place]: [employer] Olivia Whipple [id number] Olivia Whipple 09/29/2024 2 [facility] - PLAN 1 (MEDICARE SUPPLEMENT) [id number] Olivia Whipple [id number] Olivia Whipple 11/14/2023 2 UNSPECIFIED REMIT PAYOR [...] Henao MD [address], [place], [address], [facility] 10/07/2023 13:47:05 11/25/2023 text/html [...] or elbow. No neurovascular changes. Angelic Sue, SOUNDING DEVICE OPERATOR [address], [place], [address], [facility] 11/25/2023 10:26:17 12/13/2023 text/html Arin is a [...] arthroplasty done by Dr. Alvarez. Angelic Sue, SOUNDING DEVICE OPERATOR [address], [place], [address], [facility] 12/13/2023 12:32:53 08/24/2024 text/html I am seeing [...] ordered, obtained and independently reviewed today at [facility] 2 views of the lumbar spine [...] follow-up with Dr. Henao. Gigi Muñiz PA-C [address] [place] [address] [address], [place], [address], [facility] 08/24/2024 11:08:52 09/10/2024 text/html Follow-up Visit for [...] I independently reviewed outside medical records from [facility] noting:- Multiple epidural steroid [...] regionICD-10: M54.5 - Low back pain Chandu Heano MD [address] [place] [address] [address], [place], [address], [facility] 09/10/2024 10:56:47 OBGyn Episode No OBEpisode recorded.
[2025-01-18 09:42] LABS: INTERNATIONAL NORM RATIO 0.9 (0.9-1.1); Prothrombin Time 10.7 SEC (10.9-12.4)
[2025-01-19 20:18] LABS: Antibody to SS-A Antigen <1.0 NEG AI (<1.0 NEG); Antibody to SS-B Antigen <1.0 NEG AI (<1.0 NEG); Proteinase 3 PR3 Antibodies <1.0 AI
[2025-01-20 11:53] LABS: Anti Nuclear Antibody Screen NEGATIVE (NEGATIVE)
== END 2025-01-18 08:28 | disposition home or self-care (01) ==
LOC: HO.XRAY 08:27
PROVIDERS: Visit Provider Nurse Practitioner Family
DX: R51.9 Headache, unspecified (principal); H49.11 Fourth [trochlear] nerve palsy, right eye; M06.9 Rheumatoid arthritis, unspecified; I10 Essential (primary) hypertension
CPT/HCPCS: 36415; 71046; 82164; 85597; 85598; 85610; 85613; 85652; 85730; 86021; 86038; 86140; 86160; 86225; 86235; 86376; 93005

== ENCOUNTER → 2025-01-18 08:34 | Outpatient (BNV) | payer MEDICARE, OTHER, SELFPAY | PROVIDERS: Visit Provider Internal Medicine Cardiovascular Disease | DX: I49.3 Ventricular premature depolarization (principal) | CPT/HCPCS: 93010 ==

== ENCOUNTER → 2025-01-18 09:04 | Outpatient (BNV) | payer MEDICARE, OTHER, SELFPAY | PROVIDERS: Visit Provider Radiology Diagnostic Radiology | DX: R52 Pain, unspecified (principal); H49.11 Fourth [trochlear] nerve palsy, right eye | CPT/HCPCS: 71046 ==

== ENCOUNTER 2025-02-12 09:49 | Outpatient (AMB) | payer MEDICARE, OTHER, SELFPAY ==
--- OUTSIDE RECORDS SUMMARY | 2025-02-12 10:01 | XMS_ITS | Patient Health Record ---
Author Organization [facility] Address [address] [place] [address] Care Team Providers Care Endless Track Vehicle Supervisor Name Role Phone Lupis (RETIRED) Tray ANTON Primary Care Provide r Ubaldo Lim [phone] Allergies Allergen (clinical drug ingredient) Drug/Non Drug Allergy documented on EMR Reaction Allergy Type Onset Date Status surgical tape (uncoded) rash Allergy Active Results Component Value Reference Range Notes Complete Blood Count Auto Di ff Reviewed date:04/06/2024 11:26:27 PM Interpretation: Performing Lab:[facility], [address] [place] [address] Notes/Report: White Blood Count 5.8 4.8-10.8 X10*3/uL [...] NRBC Abs Auto 0.000 0.0-0.012 X10*3/uL Comprehensive [place]. Panel Fa Reviewed date:04/06/2024 11:19:37 PM Interpretation: Performing Lab:[address] [address] Notes/Report: Sodium 144 135-145 mmol/L Potassium 4.2 3.3-5.1 mmol/L Chloride 109 96-108 mmol/L Carbon Dioxide 27 22-29 mmol/L Anion Gap 12 12-20 Blood Urea Nitrogen 13 9-16 mg/dL Creatinine 0.79 0.5-1.4 mg/dL Estimated Glomerular Filt Rate > 60 NOTE: For -[place]az[place] individuals, multiply the result by 1.210. Chronic [...] Panel Reviewed date:04/06/2024 11:19:50 PM Interpretation: Performing Lab:[facility], [address] [place] [address] Notes/Report: Triglycerides 48 <150 mg/dL Desirable Triglyceride: [...] Total Reviewed date:04/06/2024 11:19:59 PM Interpretation: Performing Lab:[facility], [address] [place] [address] Notes/Report: Vitamin D 25-OH Total 72.5 >30 [...] 19-9 Reviewed date:04/11/2024 08:17:41 PM Interpretation: Performing Lab:[facility], [address] [place] [address] Notes/Report: Carbohydrate Antigen 19-9 21 <34 U/mL This test was performed using the Siemens chemiluminescent method. Values obtained from different assay methods cannot be used interchangeably. CA 19-9 levels, regardless of value, should not be interpreted as absolute evidence of the presence or absence of disease. THIS TEST WAS PERFORMED AT: [facility] [address] [place] [address] DHARA COATS MD Reason For Referral No [...] Problem Status W/U Status Risk Notes Problem 000996765 Encounter for screening for malignant neoplasm of colon (Z12.11) Active confirmed Problem 585465871 History of adenomatous polyp of colon (Z86.010) Active confirmed Problem Diverticulosis o f large intestine without perforation or abscess without bleeding (K57.30) Active confirmed Problem 459813656276319 Preprocedural examination (Z01.818) Active confirmed Problem Neoplasm of digestive system (952077237) IPMN (intraductal papillary mucinous neoplasm) (D49.0) Active confirmed Vital Signs Temperature 98.7 degrees Fahrenheit 03/27/2024 Blood pressure diastolic 00 mm Hg 03/27/2024 Height 63.5 in 03/27/2024 Blood pressure systolic 000 mm Hg 03/27/2024 Weight 219 lb 2 oz lbs 03/27/2024 BMI 38.20 kg/m2 03/27/2024 Encounters Encounter Location Date Provider Diagnosis [facility] [address] [place] [id number] 07/27/2024 Ubaldo Alcantara Colon cancer screeni ng Z12.11 ; Family history of colon cancer Z80.0 ; Diverticulosis of large intestine without perforation or abscess without bleeding K57.30 and Other hemorrhoids K64.8 [facility] [address] [place] [address] 03/27/2024 Ubaldo Alcantara History of adenomato us polyp of colon Z86.010 ; IPMN (intraductal papillary mucinous neoplasm) D49.0 and Encounter for screening for malignant neoplasm of colon Z12.11 [facility] [address] [place] [address] 03/27/2024 Ubaldo Alcantara Assessments Encounter Date Diagnosis [...] LIPASE 03/15/2022 CA 19-9 03/27/2024 CA 19-9 03/15/2022 CA 19-9 03/22/2023 MRI ABD NO CONTRAST (MRCP) 03/22/2023 MRI ABD W&WO CONTRAST 03/27/2024 MRI ABD W&WO CONTRAST 03/22/2023 MRI ABD W&WO CONTRAST 03/15/2022 Creatinine 03/27/2024 Creatinine 03/22/2023 Future Test Test Name Order Date COLONOSCOPY 09/16/2013 COLONOSCOPY 03/05/2019 COLONOSCOPY 03/27/2024 Next Appt Details Provider Name:Ubaldo Garrett Maricruz , 04/23/2025 01:20:00 PM, [address] [place] [address], [address], [place], [address], Insurance Providers Payer Name Payer Address Payer Phone Subscriber Number Group Number Insured Name Patient Relationship to Insured Coverage Start Date Coverage End Date MEDICARE OF [place]ET [address] [place] [address] [id number] JANE CATHERINE Self - patient is the insured [facility] [address] [place] [phone] [id number] JANE CATHERINE Self - patient is the insured Medical (General) History Medical History History ICD Code Colonoscopy 06-21-2008 smal l tubular adenoma removed--diverticulosis, internal hemorrhoids; F/U colonoscopy 11/2013 with a small tubular adenoma HTN Rheumatoid arthritis Sleep apnea--uses a CPAP Denies [place],DM,CVA,Lung disease,renal dise ase Nerve pain in right [...]
[2025-02-12 10:02] VITALS: BP 177/84; PULSE 70; RESP 18; O2SAT 97; BMI 41.3
--- NOTE | 2025-02-12 10:02 | MHC.OFFVIS ---
Vital Signs 02/12/25 10:02 Height 5 ft 5 in Weight 248 lb BMI 41.3 BP 177/84 H Blood Pressure Location Lt brachial Position Sitting Respiration 18 Pulse 70 Pulse Source Pulse Oximeter Pulse Oximetry (%) 97 Oxygen Delivery Method Room Air Intake Visit Reasons: evaluation for possible right trochlear nb Division Operations Specialist Required: No Allergies No Known Allergies Allergy (Verified 02/12/25 10:02) HPI HPI evaluation for possible right trochlear nb: Details: History of Present Illness The patient is a 70-year-old female presenting with right facial pain. The pain began one year ago, characterized as a pulsing, throbbing sensation with tingling, rated at 7/10 in intensity. It originates behind the eye, extends across the cheek, and into the ear. The patient has not been taking medications due to adverse effects experienced previously. An MRI indicated the trigeminal nerve leaning on a blood vessel, but surgery was not recommended. She has been referred for a trochlear nerve block to manage the pain. The patient also reports hypertension, which has been consistently high for a few weeks. She is considering adjusting her medication dosage and has been advised to consult her primary care provider. Pain Description - Onset: 1 year ago - Quality: Pulsing, throbbing, tingling - Intensity: 7/10 - Location: Behind the right eye, across the cheek, into the ear - Exacerbating factors: Not specified - Relieving factors: Not specified Physical Exam - Appears afebrile. - Alert and oriented. - Mood and affect appropriate. - Follows and participates in conversation appropriately. - Respiratory effort is unlabored. - Able to transition from sit to stand unassisted. - Ambulates with bilaterally normal heel strike and toe off. - Able to stand and walk on toes and heels. Results - MRI: Trigeminal nerve leaning on a blood vessel, no surgical intervention required Pain Management - Affect: Not discussed - Analgesia: No current medications due to side effects - Adverse Effects: Previous medications caused adverse effects - Activities of Daily Living: Not discussed - Aberrant Drug Related Behaviors: Not discussed Procedure - right Facial/Cranial nerve blocks: Informed consent obtained, right side of the face prepped with chloroprep, 27-gauge needle used to inject 0.5% bupivacaine 0.5 to 1mL at superorbital, infraobital, supratrochlear and articulotemporal nerves. Patient tolerated the procedure well with no blood loss. PFSH Medical History (Updated 12/04/24 @ 16:57 by CECIL Braxton) Trigeminal neuralgia of right side of face Right foot pain Sleep apnea Rheumatoid arthritis HTN (hypertension) Surgical History Hx of bilateral cataract extraction History of tonsillectomy H/O colonoscopy History of cataract surgery History of eye surgery History of carpal tunnel release of both wrists History of pelvic surgery History of appendectomy History of bunionectomy Total knee replacement status Status post total hip replacement, bilateral Family History Father History of partial gastrectomy Mother Heart disease Social History Household Members: Spouse Housing: House Do you presently have visiting nurse or other home services: No Alcohol intake: never Patient Tobacco Use Status: Never used Tobacco e-Cigarette/Vaping Use: Never Used Second Hand Smoke Exposure: No service: No Current occupational status: employed Cognitive needs: No Hearing needs: No Vision needs: No Physical Exam Vital Signs: Last Vital Signs Pulse 70 02/12/25 10:02 Resp 18 02/12/25 10:02 BP 177/84 H 02/12/25 10:02 Pulse Ox 97 02/12/25 10:02 Oxygen Delivery Method Room Air 02/12/25 10:02 BMI result Body Mass Index 41.3 Assessment & Plan Assessment & Plan (1) Trigeminal neuralgia of right side of face: Code(s): G50.0 - Trigeminal neuralgia Category: Medical Plan Plan - Performed nerve blocks to manage right facial pain. - Consider referral to Dr. Goodwin, trigeminal neuralgia specialist, for further evaluation for surgical options. - Monitor blood pressure and consult primary care provider for potential medication adjustment. Patient was informed and verbally consented to the use of an ambient scribe for clinic note documentation during this visit. Discussion Notes I discussed the option of pericranial nerve blocks with the patient, explaining that it involves infiltration of local anesthetic to manage the pain. The procedure is minimally invasive, and the patient was informed about the potential for temporary numbness and the need for repeated treatments if effective. We also discussed the possibility of referring the patient to Dr. Goodwin for further evaluation of her condition. Patient Instructions - Follow up with primary care provider regarding blood pressure management. - Monitor for any changes in pain or side effects from the procedure. - Consider scheduling a consultation with Dr. Goodwin for further evaluation. Orders: Referrals Neurosurgery Referral G50.0 - Trigeminal neuralgia Coding Level of Care Code New Pt Level 4 (20667) Diagnoses Trigeminal neuralgia of right side of face G50.0
== END 2025-02-12 11:06 | disposition home or self-care (01) ==
LOC: HO.PMC 09:50
PROVIDERS: Visit Provider Internal Medicine
DX: G50.0 Trigeminal neuralgia (principal)
CPT/HCPCS: 64400; 99204

== ENCOUNTER → 2025-02-12 09:49 | Outpatient (BNVA) | payer MEDICARE, OTHER, SELFPAY | PROVIDERS: Visit Provider Internal Medicine | DX: G50.0 Trigeminal neuralgia (principal) | CPT/HCPCS: 64400; 99202 ==

== ENCOUNTER 2025-02-21 18:28 | Emergency (ER) | payer MEDICARE, OTHER, SELFPAY ==
--- NOTE | ~2025-02-21 | CT_ITS ---
CLINICAL HISTORY: elevated blood pressure, dizziness, headache CT head without contrast Comparison: MR - MR BRAIN WO/W CON - 12/21/24 15:10 EDT Findings: No intra-axial mass, midline shift, hydrocephalus, or acute hemorrhage. No significant atrophy-like change or white matter disease. There is no sinus or mastoid fluid. The orbits are unremarkable. No skull fracture. IMPRESSION: 1. No acute intracranial findings. This document has been electronically signed by: Alondra Welch MD on 02/21/2025 20:55:44
--- NOTE | ~2025-02-21 | XR_ITS ---
CLINICAL HISTORY: hypertension, dizziness 2 view chest x-ray. Comparison: 01/18/2025 Findings: No consolidations. Heart size normal No acute fracture. Impression: The lungs are clear. This document has been electronically signed by: Alan Kaur MD on 02/21/2025 19:09:45
[2025-02-21 18:31] VITALS: BP 212/102; PULSE 70; RESP 16; TEMP 36.9; O2SAT 100; BMI 40.7
--- NOTE | 2025-02-21 18:31 | ED.GENADULT ---
HPI - General Adult General Chief complaint: Dizziness Stated complaint: UC sent over for high blood pressure Time Seen by Provider: 02/21/25 22:21 Source: patient and family ( ) Mode of arrival: ambulatory Limitations: no limitations History of Present Illness ED Provider: Dr. Rio Sprague HPI narrative: 70-year-old female with a past medical history of hypertension, trigeminal neuralgia, rheumatoid arthritis, bruxism who presents emergency department for evaluation of dizziness, fatigue, palpitations, elevated blood pressure. Patient states she has been having elevated blood pressures times weeks. 5 days prior to coming emergency department, she did talk to her PCP regarding her elevated blood pressures and was advised to increase her lisinopril from 20 mg a day to 30 mg a day. She states that despite this increase, she still had elevated blood pressures. She states that yesterday she was feeling dizzy and lightheaded. She states when she was having these symptoms, she took blood pressures and had elevated systolic blood pressures in the 180s range. She states today she continued to have symptoms , thereforeshe went to an urgent care clinic. When she got to the urgent care clinic her blood pressure was 213/112 and she was advised her to go to the emergency department for evaluation. At the time my evaluation the patient states that she is feeling better. She has no headache. She denied chest pain, palpitations, shortness of breath. Related Data Home Medications ?Medication ?Instructions ?Recorded ?Confirmed multivitamin 1 tab PO DAILY 12/23/20 12/04/24 sulfasalazine 500 mg 1 tab PO BID 12/23/20 12/04/24 tablet,delayed release estradiol 0.01% (0.1 mg/gram) vaginal 04/23/24 12/04/24 vaginal cream cholecalciferol (vitamin D3) 50 50 mcg PO DAILY 07/23/24 12/04/24 mcg (2,000 unit) capsule (Vitamin D3) pregabalin 150 mg capsule 150 mg PO BID 08/31/24 12/04/24 Previous Rx's ?Medication ?Instructions ?Recorded amlodipine 5 mg tablet 5 mg PO DAILY #90 tabs 08/31/24 lisinopril 20 mg tablet 20 mg PO DAILY #90 tabs 08/31/24 lidocaine HCl 2 % mucosal solution 1 ml mucous membrane QID PRN pain 12/04/24 (Lidocaine Viscous) 30 days #100 mL oral dosing syringes #100 ea 12/04/24 alprazolam 0.25 mg tablet (Xanax) 0.25 mg PO ONCE pre MRI #2 tabs 12/18/24 lisinopril 40 mg tablet (Zestril) 40 mg PO DAILY 90 days #90 tabs 02/21/25 Allergies Allergy/AdvReac Type Severity Reaction Status Date / Time No Known Allergies Allergy Verified 02/21/25 18:33 [facility] Past Medical History Medical History (Updated 02/22/25 @ 00:01 by Steven Joy) Trigeminal neuralgia of right side of face Right foot pain Sleep apnea Rheumatoid arthritis HTN (hypertension) Surgical History Hx of bilateral cataract extraction History of tonsillectomy H/O colonoscopy History of cataract surgery History of eye surgery History of carpal tunnel release of both wrists History of pelvic surgery History of appendectomy History of bunionectomy Total knee replacement status Status post total hip replacement, bilateral Family History Family History Father History of partial gastrectomy Mother Heart disease Social History Social History Household Members: Spouse Housing: House Do you presently have visiting nurse or other home services: No Alcohol intake: never Patient Tobacco Use Status: Never used Tobacco Smoked in Last 30 Days: No e-Cigarette/Vaping Use: Never Used Second Hand Smoke Exposure: No Use of substances other than those prescribed or required for medical reasons: No Advance Directives: No Advance Directives Information Provided: No service: No Current occupational status: employed Cognitive needs: No Hearing needs: No Vision needs: No Physical Exam ED Vital Signs: Vital Signs - 24 hr 02/21/25 18:31 02/21/25 19:43 02/21/25 20:49 Temperature 98.5 F 97.8 F 98.4 F Pulse Rate 70 67 62 Respiratory Rate 16 16 13 Blood Pressure 212/102 H 177/87 H 179/93 H Pulse Oximetry 100 97 97 Oxygen Delivery Method Room Air Room Air Room Air 02/21/25 21:57 02/21/25 23:14 02/21/25 23:15 Temperature 97.9 F 97.9 F Pulse Rate 69 71 71 Respiratory Rate 12 16 16 Blood Pressure 150/75 H 154/79 H 154/79 H Pulse Oximetry 97 98 98 Oxygen Delivery Method Room Air Room Air Room Air BMI result Body Mass Index 40.7 Course Course Course Narrative: Rapid medical examination performed in triage by Michelle Beltran PA-C. Patient is a 70 year old assigned female at presenting to the emergency department with an elevated blood pressure with dizziness. Detailed physical exam and review of systems are deferred to the wall cleaner. EKG, labs, imaging ordered. Patient placed back in the waiting room pending room availability and results. Medical Decision Making Medical Decision Making MDM Narrative: 70-year-old female witha past medical history of hypertension, trigeminal neuralgia, rheumatoid arthritis, bruxism who presents emergency department for evaluation of dizziness, fatigue, palpitations, elevated blood pressure. Patient states she has been having elevated blood pressures times weeks. 5 days prior to coming emergency department, she did talk to her PCP regarding her elevated blood pressures and was advised to increase her lisinopril from 20 mg a day to 30 mg a day. She states that despite this increase, she still had elevated blood pressures. She states that yesterday she was feeling dizzy and lightheaded. She states when she was having these symptoms, she took blood pressures and had elevated systolic blood pressures in the 180s range. She states today she continued to have symptoms , thereforeshe went to an urgent care clinic. When she got to the urgent care clinic her blood pressure was 213/112 and she was advised her to go to the emergency department for evaluation. At the time my evaluation the patient states that she is feeling better. She has no headache. She denied chest pain, palpitations, shortness of breath. her initial blood pressure was 212/102 vital signs were otherwise unremarkable. physical examination was unremarkable. Differential diagnosis: Includes but is not limited to Intracranial hemorrhage, stroke, myocardial infarction, myocardial ischemia, kidney failure, liver failure, anemia, electrolyte abnormalities Course: My independent interpretation of the patient's laboratory evaluation is as follows: CBC was normal. CMP was normal. COVID-19, influenza, RSV tests were negative. Patient's CT scan of the brain was unremarkable. Chest x-ray revealed no acute findings. EKG was unremarkable. Patient's presentation is consistent with primary hypertension with no acute complications. I did discuss the management and treatmentof primary hypertension with the patient and the patient's . given her elevated blood pressures recently, I advised the patient to increase her lisinopril from 30 mg once a day to 40 mg once a day. She was advised to check her blood pressures 3 times a week (Mondays, Wednesdays and Fridays) in the morning and to record any for pressures and not act on you for pressures. I advised her to follow up with her PCP in 2 weeks to discuss the blood pressure reading. I told her that increasing her blood pressure medication will sometimes take 2-6 weeks before it becomes effective and that it is okay to have high blood pressure is during this time. I told her that if her doctor is still concerned about her elevated blood pressures, then they may increase her amlodipine or consider starting her on other medications. Admission/Observation Consideration of admission/observation: Escalation of care including admission/observation considered ( yes) Lab Data MDM Lab Attestation statement: I reviewed the patient's lab results. 02/21/25 19:00 02/21/25 19:00 Labs: Lab Results 02/21/25 Range/Units 19:00 WBC 9.3 (4.8-10.8) X10*3/uL RBC 5.04 (4.20-5.50) X10*6/uL Hgb 14.3 (12.0-16.0) g/dl Hct 42.8 (37.0-47.0) % MCV 84.9 (80.0-98.0) fL MCH 28.4 (27.0-33.0) pg MCHC 33.4 (31.0-35.0) g/dl RDW 13.4 (11.0-16.0) % Plt Count 276 (160-400) X10*3/uL MPV 9.8 (9.4-12.3) fL Immature Gran % (Auto) 0.3 (0.0-0.4) % Neut % (Auto) 66.3 (45-73) % Lymph % (Auto) 22.6 (20-40) % Love % (Auto) 9.8 (2-11) % Eos % (Auto) 0.5 (0-4) % Baso % (Auto) 0.5 (0-2) % Lymph # (Auto) 2.1 (1.2-4.9) X10*3/uL Love # (Auto) 0.9 (0.1-1.2) X10*3/uL Eos # (Auto) 0.1 (0.0-0.4) X10*3/uL Baso # (Auto) 0.1 (0.0-0.2) X10*3/uL Abs Immat Gran (auto) 0.03 (0.00-0.03) X10*3/uL Absolute Neuts (auto) 6.1 (2.0-8.3) x10*3/uL Absolute Nucleated RBC 0.000 (0.0-0.012) X10*3/uL Nucleated RBC % (auto) 0.0 (0.0-0.2) /100WBC Sodium 142 (135-145) mmol/L Potassium 4.3 (3.3-5.1) mmol/L Chloride 106 (96-108) mmol/L Carbon Dioxide 26 (22-29) mmol/L Anion Gap 14 (12-20) BUN 12 (9-16) mg/dL Creatinine 0.77 (0.5-1.4) mg/dL Estim Creat Clear Calc 80.8 Estimated GFR > 60 Random Glucose 100 (60-115) mg/dL Calcium 9.8 (8.4-10.2) mg/dL Magnesium 2.1 (1.6-2.6) mg/dL Total Bilirubin 0.4 (0.0-1.0) mg/dL AST 35 H (5-31) U/L ALT 24 (0-31) U/L Alkaline Phosphatase 117 (39-117) U/L Troponin I High Sens 5.7 (<3.5-17.0) ng/L Total Protein 7.6 (6.5-8.0) g/dL Albumin 4.9 (3.5-5.0) g/dL Influenza Type A (PCR) NEGATIVE (Negative) Influenza Type B (PCR) NEGATIVE (Negative) RSV RNA Qual (PCR) NEGATIVE (Negative) SARS-CoV-2 RNA (RT-PCR) NEGATIVE (Negative) Independent Interpretation I performed an independent interpretation of an: EKG Interpretation: My independent interpretation patient's 12 EKG done on 02/21/2025 at 18:51 hours is as follows: Normal sinus rhythm rate of 63, normal [place] interval, QRS duration QTC interval, no ST segment elevation, no ST segment depression, inverted T-wave in lead 3 and V1, no PACs, no PVCs. Compared to an EKG dated 01/18/2025 at 08:42 hours, previous EKG had PVCs which were not present on today's EKG. Radiology Impression Discussion of test interpretation with radiology: I have reviewed the radiologist's reading. Radiologist Impression: 2 view chest x-ray. Comparison: 01/18/2025 Findings: No consolidations. Heart size normal No acute fracture. Impression: The lungs are clear. This document has been electronically signed by: Alan Kaur MD on 02/21/2025 19:09:45 CT head without contrast Comparison: MR - MR BRAIN WO/W CON - 12/21/24 15:10 EDT Findings: No intra-axial mass, midline shift, hydrocephalus, or acute hemorrhage. No significant atrophy-like change or white matter disease. There is no sinus or mastoid fluid. The orbits are unremarkable. No skull fracture. IMPRESSION: 1. No acute intracranial findings. This document has been electronically signed by: Alondra Welch MD on 02/21/2025 20:55:44 Independent Historian Clinical information obtained from an independent historian. History obtained from or confirmed by: Spouse Prescription Management I considered prescription management with: Other ( antihypertensive medication: Lisinopril 40 mg q.day) Discharge Plan Discharge Clinical Impression: Essential (primary) hypertension Patient Disposition: Home, Self-Care Additional Instructions: Your blood work today was unremarkable. The CT scan of brain was normal. Your EKG was normal. Your elevated blood pressure is most likely consistent with primary hypertension and the treatment is to increase your blood pressure medications to see if this improves your blood pressure. High blood pressure instructions: The reason to check your blood pressure at home is to give your doctor an idea of what your blood pressure does when you are not in the doctor's office. Take your blood pressure in the mornings, Mondays , Wednesdays and Fridays and then write down these readings to discuss them with your doctor at your next visit. Do this for 2 weeks. If your doctor thinks that your blood pressures are too high then they will either wait another 2 weeks to see if the higher dose of medication improves your blood pressure or increase your 2nd blood pressure medication to a higher dose. If your doctor changes your blood pressure medications it will take anywhere from 2-6 week before these medications work to reduce your blood pressure. Follow-up with your doctor to discuss your blood pressure readings in 2 weeks Please return to the emergency department if your symptoms get worse or if you develop any new symptoms that are concerning to you. Prescriptions: New lisinopril [Zestril] 40 mg tablet 40 mg PO DAILY 90 Days Qty: 90 0RF No Action alprazolam [Xanax] 0.25 mg tablet 0.25 mg PO ONCE Qty: 2 0RF Rx Instructions: take 1 tab 30 minutes before MRI multivitamin Tablet 1 tab PO DAILY sulfasalazine 500 mg tablet,delayed release (DR/EC) 1 tab PO BID cholecalciferol (vitamin D3) [Vitamin D3] 50 mcg (2,000 unit) Capsule 50 mcg PO DAILY (DME) oral dosing syringes Syringe See Rx Instructions .MEDSUPPLY Qty: 100 6RF Rx Instructions: 1 mL syringes without needle. To be used as directed with viscous lidocaine intranasal order. lidocaine HCl [Lidocaine Viscous] 2 % solution 1 ml mucous membrane QID PRN (Reason: pain) 30 Days Qty: 100 1RF Rx Instructions: 1ml applied to left and right intranasal passage, MR x's 1 in 15 minutes. Max 4ml per nasal passage per day. estradiol 0.01 % (0.1 mg/gram) cream vaginal pregabalin 150 mg capsule 150 mg PO BID amlodipine 5 mg tablet 5 mg PO DAILY Qty: 90 2RF lisinopril 20 mg tablet 20 mg PO DAILY Qty: 90 2RF Interventions: ED Discharge Assessment Last Done: 02/21/25 23:15 Discharge Date/Time: 02/21/25 23:15 Print Language: German
--- NOTE | 2025-02-21 18:32 | ECG_ITS ---
Test Reason : ELEVATED BP Blood Pressure : */* mmHG Vent. Rate : 63 BPM Atrial Rate : 63 BPM P-R Int : 184 ms QRS Dur : 82 ms QT Int : 422 ms P-R-T Axes : 36 -2 29 degrees QTcB Int : 431 ms Normal sinus rhythm Nonspecific ST abnormality Abnormal ECG When compared with ECG of 18-Jan-2025 08:42, Premature ventricular complexes are no longer Present Referred By: Michelle Beltran Electronically Signed By: Tono Polanco
[2025-02-21 19:08] LABS: MANUAL DIFF FLAG NO
[2025-02-21 19:09] LABS: Hematocrit 42.8 % (37.0-47.0); Hemoglobin 14.3 g/dl (12.0-16.0); Imm Gran Abs Auto 0.03 X10*3/uL (0.00-0.03); Imm Gran Pct Auto 0.3 % (0.0-0.4); Lymphocytes Absolute Auto 2.1 X10*3/uL (1.2-4.9); Mean Corpuscular HGB Conc 33.4 g/dl (31.0-35.0); Mean Corpuscular Hemoglobin 28.4 pg (27.0-33.0); Mean Corpuscular Volume 84.9 fL (80.0-98.0); NRBC Abs Auto 0.000 X10*3/uL (0.0-0.012); NRBC Pct Auto 0.0 /100WBC (0.0-0.2); Platelet Count 276 X10*3/uL (160-400); Red Blood Count 5.04 X10*6/uL (4.20-5.50); White Blood Count 9.3 X10*3/uL (4.8-10.8)
[2025-02-21 19:26] LABS: Alanine Aminotransferase 24 U/L (0-31); Albumin Level 4.9 g/dL (3.5-5.0); Alkaline Phosphatase 117 U/L (39-117); Anion Gap 14 (12-20); Aspartate Amino Transferase 35 U/L (5-31); Blood Urea Nitrogen 12 mg/dL (9-16); Calcium 9.8 mg/dL (8.4-10.2); Carbon Dioxide 26 mmol/L (22-29); Chloride 106 mmol/L (96-108); Creatinine Clr Calc Pharmacy 80.8; Estimated Glomerular Filt Rate > 60; Magnesium 2.1 mg/dL (1.6-2.6); Potassium 4.3 mmol/L (3.3-5.1); Sodium 142 mmol/L (135-145); Total Protein 7.6 g/dL (6.5-8.0)
[2025-02-21 19:33] LABS: Troponin-I High Sensitivity 5.7 ng/L (<3.5-17.0)
[2025-02-21 19:43] VITALS: BP 177/87; PULSE 67; RESP 16; TEMP 36.6; O2SAT 97
[2025-02-21 19:46] LABS: Resp Syncy Virus RNA Qual PCR NEGATIVE (Negative); SARS COV2 PCR INHOUSE NEGATIVE (Negative)
[2025-02-21 20:49] VITALS: BP 179/93; PULSE 62; RESP 13; TEMP 36.9; O2SAT 97
[2025-02-21 21:57] VITALS: BP 150/75; PULSE 69; RESP 12; O2SAT 97
--- NOTE | 2025-02-21 22:26 | ED.GENADULT ---
HPI - General Adult General Chief complaint: Dizziness Stated complaint: UC sent over for high blood pressure Time Seen by Provider: 02/21/25 22:21 Source: patient Mode of arrival: ambulatory Limitations: no limitations History of Present Illness ED Provider: Dr. Rio Sprague HPI narrative: Duplicate chart please see Acct:[id number] Related Data Home Medications ?Medication ?Instructions ?Recorded ?Confirmed multivitamin 1 tab PO DAILY 12/23/20 12/04/24 sulfasalazine 500 mg 1 tab PO BID 12/23/20 12/04/24 tablet,delayed release estradiol 0.01% (0.1 mg/gram) vaginal 04/23/24 12/04/24 vaginal cream cholecalciferol (vitamin D3) 50 50 mcg PO DAILY 07/23/24 12/04/24 mcg (2,000 unit) capsule (Vitamin D3) pregabalin 150 mg capsule 150 mg PO BID 08/31/24 12/04/24 Previous Rx's ?Medication ?Instructions ?Recorded amlodipine 5 mg tablet 5 mg PO DAILY #90 tabs 08/31/24 lisinopril 20 mg tablet 20 mg PO DAILY #90 tabs 08/31/24 lidocaine HCl 2 % mucosal solution 1 ml mucous membrane QID PRN pain 12/04/24 (Lidocaine Viscous) 30 days #100 mL oral dosing syringes #100 ea 12/04/24 alprazolam 0.25 mg tablet (Xanax) 0.25 mg PO ONCE pre MRI #2 tabs 12/18/24 lisinopril 40 mg tablet (Zestril) 40 mg PO DAILY 90 days #90 tabs 02/21/25 Allergies Allergy/AdvReac Type Severity Reaction Status Date / Time No Known Allergies Allergy Verified 02/21/25 18:33 [facility] Past Medical History Medical History (Updated 02/22/25 @ 00:01 by Steven Joy) Trigeminal neuralgia of right side of face Right foot pain Sleep apnea Rheumatoid arthritis HTN (hypertension) Surgical History Hx of bilateral cataract extraction History of tonsillectomy H/O colonoscopy History of cataract surgery History of eye surgery History of carpal tunnel release of both wrists History of pelvic surgery History of appendectomy History of bunionectomy Total knee replacement status Status post total hip replacement, bilateral Family History Family History Father History of partial gastrectomy Mother Heart disease Social History Social History Household Members: Spouse Housing: House Do you presently have visiting nurse or other home services: No Alcohol intake: never Patient Tobacco Use Status: Never used Tobacco Smoked in Last 30 Days: No e-Cigarette/Vaping Use: Never Used Second Hand Smoke Exposure: No Use of substances other than those prescribed or required for medical reasons: No Advance Directives: No Advance Directives Information Provided: No service: No Current occupational status: employed Cognitive needs: No Hearing needs: No Vision needs: No Physical Exam ED Vital Signs: Vital Signs - 24 hr 02/21/25 18:31 02/21/25 19:43 02/21/25 20:49 Temperature 98.5 F 97.8 F 98.4 F Pulse Rate 70 67 62 Respiratory Rate 16 16 13 Blood Pressure 212/102 H 177/87 H 179/93 H Pulse Oximetry 100 97 97 Oxygen Delivery Method Room Air Room Air Room Air 02/21/25 21:57 02/21/25 23:14 02/21/25 23:15 Temperature 97.9 F 97.9 F Pulse Rate 69 71 71 Respiratory Rate 12 16 16 Blood Pressure 150/75 H 154/79 H 154/79 H Pulse Oximetry 97 98 98 Oxygen Delivery Method Room Air Room Air Room Air BMI result Body Mass Index 40.7 Medical Decision Making Lab Data 02/21/25 19:00 02/21/25 19:00 Labs: Lab Results 02/21/25 Range/Units 19:00 WBC 9.3 (4.8-10.8) X10*3/uL RBC 5.04 (4.20-5.50) X10*6/uL Hgb 14.3 (12.0-16.0) g/dl Hct 42.8 (37.0-47.0) % MCV 84.9 (80.0-98.0) fL MCH 28.4 (27.0-33.0) pg MCHC 33.4 (31.0-35.0) g/dl RDW 13.4 (11.0-16.0) % Plt Count 276 (160-400) X10*3/uL MPV 9.8 (9.4-12.3) fL Immature Gran % (Auto) 0.3 (0.0-0.4) % Neut % (Auto) 66.3 (45-73) % Lymph % (Auto) 22.6 (20-40) % [place] % (Auto) 9.8 (2-11) % Eos % (Auto) 0.5 (0-4) % Baso % (Auto) 0.5 (0-2) % Lymph # (Auto) 2.1 (1.2-4.9) X10*3/uL [place] # (Auto) 0.9 (0.1-1.2) X10*3/uL Eos # (Auto) 0.1 (0.0-0.4) X10*3/uL Baso # (Auto) 0.1 (0.0-0.2) X10*3/uL Abs Immat Gran (auto) 0.03 (0.00-0.03) X10*3/uL Absolute Neuts (auto) 6.1 (2.0-8.3) x10*3/uL Absolute Nucleated RBC 0.000 (0.0-0.012) X10*3/uL Nucleated RBC % (auto) 0.0 (0.0-0.2) /100WBC Sodium 142 (135-145) mmol/L Potassium 4.3 (3.3-5.1) mmol/L Chloride 106 (96-108) mmol/L Carbon Dioxide 26 (22-29) mmol/L Anion Gap 14 (12-20) BUN 12 (9-16) mg/dL Creatinine 0.77 (0.5-1.4) mg/dL Estim Creat Clear Calc 80.8 Estimated GFR > 60 Random Glucose 100 (60-115) mg/dL Calcium 9.8 (8.4-10.2) mg/dL Magnesium 2.1 (1.6-2.6) mg/dL Total Bilirubin 0.4 (0.0-1.0) mg/dL AST 35 H (5-31) U/L ALT 24 (0-31) U/L Alkaline Phosphatase 117 (39-117) U/L Troponin I High Sens 5.7 (<3.5-17.0) ng/L Total Protein 7.6 (6.5-8.0) g/dL Albumin 4.9 (3.5-5.0) g/dL Influenza Type A (PCR) NEGATIVE (Negative) Influenza Type B (PCR) NEGATIVE (Negative) RSV RNA Qual (PCR) NEGATIVE (Negative) SARS-CoV-2 RNA (RT-PCR) NEGATIVE (Negative) Radiology Impression Discussion of test interpretation with radiology: I have reviewed the radiologist's reading. Radiologist Impression: CT head without contrast Comparison: MR - MR BRAIN WO/W CON - 12/21/24 15:10 EDT Findings: No intra-axial mass, midline shift, hydrocephalus, or acute hemorrhage. No significant atrophy-like change or white matter disease. There is no sinus or mastoid fluid. The orbits are unremarkable. No skull fracture. IMPRESSION: 1. No acute intracranial findings. This document has been electronically signed by: Alondra Welch MD on 02/21/2025 20:55:44 Discharge Plan Discharge Clinical Impression: Essential (primary) hypertension Patient Disposition: Home, Self-Care Additional Instructions: Your blood work today was unremarkable. The CT scan of brain was normal. Your EKG was normal. Your elevated blood pressure is most likely consistent with primary hypertension and the treatment is to increase your blood pressure medications to see if this improves your blood pressure. High blood pressure instructions: The reason to check your blood pressure at home is to give your doctor an idea of what your blood pressure does when you are not in the doctor's office. Take your blood pressure in the mornings, Mondays , Wednesdays and Fridays and then write down these readings to discuss them with your doctor at your next visit. Do this for 2 weeks. If your doctor thinks that your blood pressures are too high then they will either wait another 2 weeks to see if the higher dose of medication improves your blood pressure or increase your 2nd blood pressure medication to a higher dose. If your doctor changes your blood pressure medications it will take anywhere from 2-6 week before these medications work to reduce your blood pressure. Follow-up with your doctor to discuss your blood pressure readings in 2 weeks Please return to the emergency department if your symptoms get worse or if you develop any new symptoms that are concerning to you. Prescriptions: New lisinopril [Zestril] 40 mg tablet 40 mg PO DAILY 90 Days Qty: 90 0RF No Action alprazolam [Xanax] 0.25 mg tablet 0.25 mg PO ONCE Qty: 2 0RF Rx Instructions: take 1 tab 30 minutes before MRI multivitamin Tablet 1 tab PO DAILY sulfasalazine 500 mg tablet,delayed release (DR/EC) 1 tab PO BID cholecalciferol (vitamin D3) [Vitamin D3] 50 mcg (2,000 unit) Capsule 50 mcg PO DAILY (DME) oral dosing syringes Syringe See Rx Instructions .MEDSUPPLY Qty: 100 6RF Rx Instructions: 1 mL syringes without needle. To be used as directed with viscous lidocaine intranasal order. lidocaine HCl [Lidocaine Viscous] 2 % solution 1 ml mucous membrane QID PRN (Reason: pain) 30 Days Qty: 100 1RF Rx Instructions: 1ml applied to left and right intranasal passage, MR x's 1 in 15 minutes. Max 4ml per nasal passage per day. estradiol 0.01 % (0.1 mg/gram) cream vaginal pregabalin 150 mg capsule 150 mg PO BID amlodipine 5 mg tablet 5 mg PO DAILY Qty: 90 2RF lisinopril 20 mg tablet 20 mg PO DAILY Qty: 90 2RF Interventions: ED Discharge Assessment Last Done: 02/21/25 23:15 Discharge Date/Time: 02/21/25 23:15 Print Language: Chilean
[2025-02-21 23:14] VITALS: BP 154/79; PULSE 71; RESP 16; TEMP 36.6; O2SAT 98
[2025-02-21 23:15] VITALS: BP 154/79; PULSE 71; RESP 16; TEMP 36.6; O2SAT 98
== END 2025-02-21 23:15 | disposition home or self-care (01) ==
PROVIDERS: Physician Assistant Medical; Emergency Provider Emergency Medicine Emergency Medical Services
DX: R42 Dizziness and giddiness (principal); I10 Essential (primary) hypertension; R51.9 Headache, unspecified; R94.31 Abnormal electrocardiogram [ECG] [EKG]; Z03.818 Encounter for observation for suspected exposure to other biological agents ruled out; Z79.899 Other long term (current) drug therapy
CPT/HCPCS: 70450; 71046; 80053; 83735; 84484; 85025; 87637; 93005; 99284

== ENCOUNTER → 2025-02-21 18:32 | Outpatient (BNV) | payer MEDICARE, OTHER, SELFPAY | PROVIDERS: Visit Provider Radiology Diagnostic Radiology | DX: R42 Dizziness and giddiness (principal); I10 Essential (primary) hypertension | CPT/HCPCS: 70450; 71046 ==

== ENCOUNTER → 2025-02-21 18:32 | Outpatient (BNV) | payer MEDICARE, OTHER, SELFPAY | PROVIDERS: Emergency Provider Emergency Medicine Emergency Medical Services; Visit Provider Internal Medicine Cardiovascular Disease | DX: R94.31 Abnormal electrocardiogram [ECG] [EKG] (principal); R03.0 Elevated blood-pressure reading, without diagnosis of hypertension | CPT/HCPCS: 93010 ==

== ENCOUNTER 2025-02-26 09:16 | Outpatient (AMB) | payer MEDICARE, OTHER, SELFPAY ==
--- NOTE | 2025-02-26 09:18 | MHC.PC.OV ---
Vital Signs 02/26/25 09:20 02/26/25 10:02 Height 5 ft 3.5 in Weight 227 lb 6 oz BMI 39.6 BP 110/70 118/78 Blood Pressure Location Lt brachial Lt brachial Position Sitting Sitting Pulse 67 Pulse Source Pulse Oximeter Pulse Oximetry (%) 97 Oxygen Delivery Method Room Air Intake Visit Reasons: annual exam [employer] Consultant Required: No Accompanied by: Self / Same As Patient Allergies No Known Allergies Allergy (Verified 02/26/25 09:35) Medication List - Last Reconciled 02/26/25 by Alva Whiting PA-C alprazolam (Xanax) 0.25 mg PO ONCE amlodipine 5 mg PO DAILY cholecalciferol (vitamin D3) (Vitamin D3) 50 mcg PO DAILY estradiol 0.01%(0.1mg/gram) vaginal lidocaine HCl 2% (Lidocaine Viscous) 1 mL mucous membrane QID PRN 30 days lisinopril (Zestril) 40 mg PO DAILY 90 days lisinopril 20 mg PO DAILY multivitamin 1 tab PO DAILY oral dosing syringes 1 mL syringes without needle. To be used as directed with viscous lidocaine intranasal order. sulfasalazine 1 tab PO BID Tobacco use date assessed: 02/26/25 Fall risk assessment: No Falls in past year Last assessed Fall Risk: 02/26/25 Dental Screening Dental Screen Date: 02/26/25 Did you have a dental visit in the last 12 months?: No Did you have a dental problem in the last 6 months where you did not have access to dental care?: No Was dental information given to patient?: No HPI annual exam HPI Details 70 year old female with past medical history of sleep apnea, RA, hypertension, trigeminal neuralgia last seen 08/2024 coming in for annual exam. In review of the notes, patient was seen in [facility] 02/2025 for hypertension her Lisinopril was increased to 40mg and workup was otherwise negative. Seen by pain management 02/2025 nerve block was performed for trigeminal neuralgia. Seen by neurology 01/2025 who recommended pain management and blood work. Presenting with elevated blood pressure. The patient reports high blood pressure readings, with a recent emergency department visit where her blood pressure was 157 mmHg after treatment. She was prescribed an increased dose of lisinopril to 40 mg, with instructions to monitor her blood pressure three times a week. The patient experienced palpitations and was found to have PVCs on an EKG, which resolved in a subsequent test. She does experience intermittent palpitations without any other symptoms. The patient uses a CPAP machine regularly at night. mammogram: 01/2025 repeat imaging in Sept pap smears: [place] [facility] [place] 07/2024 repeat in 5 years [facility] Medical History Trigeminal neuralgia of right side of face Right foot pain Sleep apnea Rheumatoid arthritis HTN (hypertension) Surgical History Hx of bilateral cataract extraction History of tonsillectomy H/O colonoscopy History of cataract surgery History of eye surgery History of carpal tunnel release of both wrists History of pelvic surgery History of appendectomy History of bunionectomy Total knee replacement status Status post total hip replacement, bilateral Family History Father History of partial gastrectomy Mother Heart disease Social History Household Members: Spouse Housing: House Do you presently have visiting nurse or other home services: No Alcohol intake: never Patient Tobacco Use Status: Never used Tobacco e-Cigarette/Vaping Use: Never Used Second Hand Smoke Exposure: No service: No Current occupational status: employed Cognitive needs: No Hearing needs: No Vision needs: No Questionnaire PHQ-9 Over the last 2 weeks, how often have you been bothered by any of the following problems? 1. Little interest or pleasure in doing things: not at all 2. Feeling down, depressed, or hopeless: not at all 3. Trouble falling or staying asleep, or sleeping too much: not at all 4. Feeling tired or having little energy: not at all 5. Poor appetite or overeating: not at all 6. Feeling bad about yourself - or that you are a failure or have let yourself or your family down: not at all 7. Trouble concentrating on things, such as reading the newspaper or watching television: not at all 8. Moving or speaking so slowly that other people could have noticed. Or the opposite - being so fidgety or restless that you have been moving around a lot more than usual: not at all 9. Thoughts that you would be better off or of hurting yourself in some way: not at all Total score: 0 Depression Screening Interpretation: Negative Depression Screening Done: Yes 32714 - PHQ-9 Billing: Yes Source: Developed by Drs. Ubaldo Goldstein, David Smith and colleagues, with an educational karen from [employer]. Thrive Questionnaire Date Thrive assessed: 02/26/25 I am a: Patient What is your living situation today?: I have a steady place to live Within the past 12 months, did the food you bought not last and you didn't have the money to get more?: Never true Within the past 12 months, did you worry whether your food would run out before you got money to buy more?: Never true Do you have trouble paying for medicines?: No Do you have trouble getting transportation to medical appointments?: No Do you have trouble paying your heating and electricity bill?: No Do you have trouble taking care of your child, family member or friend?: No Do you have trouble with day-to-day activities such as bathing, preparing meals, shopping, managing finances, etc.?: No Are you currently unemployed and looking for a job?: No Are you interested in more education?: No Please select the resources that you would like help with: None Currently or been in a relationship where the following occur: No concerns reported THRIVE Score: 0 NAYAN-7 AMB Questionnaire NAYAN-7 Date NAYAN - 7 assessed: 02/26/25 Feeling nervous, anxious, or on edge: 0 = Not at all Not being able to stop or control worryin = Not at all Worrying too much about different things: 0 = Not at all Trouble relaxin = Not at all Being so restless that it is hard to sit still: 0 = Not at all Becoming easily annoyed or irritable: 0 = Not at all Feeling afraid as if something awful might happen: 0 = Not at all Total NAYAN-7 score (0-4 normal; 5-9 mild; 10-14 moderate; 15-21 severe): 0 Source: Developed by Tami Kinsey Kurt Kroenke and colleagues, with an educational karen from [employer]. NAYAN-7 Assessment Billing NAYAN-7 Assessment Tool: NAYAN-7 Assessment 10538 Review of Systems Const Denies body aches, Denies fatigue, Denies fever(s), Denies frequent falls, Denies headache(s) and Denies weakness Eyes Reports no additional complaints and Denies change in vision ENT Denies dysphagia, Denies dizziness, Denies facial pain, Denies headache(s), Denies nasal congestion and Denies odynophagia Card Denies chest pain, Denies syncope, Reports irregular heart rhythm, Denies leg edema, Denies lightheadedness and Denies dyspnea Resp Denies cough and Denies dyspnea GI Denies constipation, Denies dysphagia, Denies dyspepsia, Denies diarrhea, Denies nausea, Denies odynophagia and Denies vomiting Denies urinary frequency, Denies dysuria, Denies urinary hesitancy and Denies urinary urgency Musc Denies back pain and Denies myalgias Skin/Breast Reports system reviewed and no additional complaints, except as documented Neuro Denies dizziness, Denies syncope, Denies frequent falls, Denies headache(s) and Denies weakness Psych Reports no additional complaints Endo Denies fatigue Physical exam (Primary Care) Vital Signs: Last Vital Signs Pulse 67 02/26/25 09:20 BP 118/78 02/26/25 10:02 Pulse Ox 97 02/26/25 09:20 Oxygen Delivery Method Room Air 02/26/25 09:20 BMI result Body Mass Index 39.6 Tobacco/Smoking Status: Tobacco use Status Tobacco use date assessed 02/26/25 02/26/25 09:26 Patient Tobacco Use Status Never used Tobacco 02/26/25 09:26 e-Cigarette/Vaping Use Never Used 02/26/25 09:26 PHQ-9: PHQ-9 Score PHQ-9: Total score 0 02/26/25 09:38 Depression Screening Interpretation: Negative Thrive Assessment: Date of Thrive Assessment Date Thrive assessed 02/26/25 02/26/25 09:26 Currently or been in a relationship where the following occur: No concerns reported Const General: cooperative, healthy appearing, comfortable and no acute distress Orientation/consciousness: patient oriented x3 HENMT Head: Yes normocephalic Ears: hearing grossly normal bilaterally, external ears normal, TM's normal bilaterally and EAC's normal General nose exam: Normal external nose present Face and sinus: Yes normal facial exam and Yes sinuses nontender Mouth: Normal oral and palatal mucosa present and tongue normal Throat: Yes posterior oropharynx normal Eyes General: appearance normal, both eyes and all related structures Conjunctivae: conjunctivae normal Pupils: Equal, round and reactive pupils present EOM: EOMs intact bilaterally and No Nystagmus present Neck Neck: Yes normal visual inspection, Yes full ROM and Yes no lymphadenopathy Chest Chest palpation & inspection: normal inspection of the chest Resp Effort & Inspection: normal respiratory effort Auscultation: clear to auscultation bilaterally, no crackles, no rales, no rhonchi, no wheezes and breath sounds present Cardio Rate: regular rate Rhythm: regular rhythm Peripheral pulses: radial pulses present and dorsalis pedis present GI Inspection: Yes normal to inspection and No Abdominal wall edema Palpation (GI): Soft to palpation, not firm and nontender Auscultation: normal bowel sounds Rectal Exam - Female: deferred General: Yes no CVA tenderness Back/Spine/Pelvis Back: no CVA tenderness Skin General skin exam: no rashes or lesions noted Neuro General: patient oriented x3 Cranial nerves: Yes Equal, round and reactive pupils present, Yes Midline tongue present, Yes Ability to bilaterally elevate shoulders present and No Nystagmus present Gait exam (Neuro): Normal gait present Extrem General: Yes normal to inspection, Yes full ROM, No no pedal edema and No edema Psych Speech and movement: Normal speech and movement present Affect: normal affect Insight: Good insight present (Psych) Judgement: Good judgement present (Psych) Coding Level of Care Code Est Pt Prev Care >65y(58680) Diagnoses Annual physical exam Z00.00 Sleep apnea G47.30 Palpitations R00.2 HTN (hypertension) I10 Rheumatoid arthritis M06.9 Trigeminal neuralgia of right side of face G50.0 Obesity (BMI 30-39.9) E66.9 Additional Codes NAYAN-7 Assessment Billing - NAYAN-7 Assessment Tool: NAYAN-7 Assessment 63998 ([id number]) PHQ-9 - 35630 - PHQ-9 Billing: Yes ([id number]) Assessment & Plan Assessment & Plan (1) Annual physical exam: Code(s): Z00.00 - Encounter for general adult medical examination without abnormal findings Category: Medical Plan: Patient is up-to-date on all recommended routine screenings and vaccinations for her age. Healthy diet and regular exercise is encouraged. Blood work is up-to-date and has been reviewed with the patient today. (2) Sleep apnea: Comment: uses cpap Code(s): G47.30 - Sleep apnea, unspecified Category: Medical Plan: Uses CPAP faithfully at least 4 hours a night and benefits from this therapy. (3) Palpitations: Code(s): R00.2 - Palpitations Category: Medical Plan: Plan to obtain Holter monitor for further evaluation of palpitations. (4) HTN (hypertension): Code(s): I10 - Essential (primary) hypertension Category: Medical Plan: Continue on current blood pressure medication. Avoid salt intake and encourage healthy diet and regular exercise. Advised patient to continue monitor blood pressure at home reach out if exceeds 140/90 or below 110/60. (5) Rheumatoid arthritis: Comment: Dr. Gamble [place] Rheum Code(s): M06.9 - Rheumatoid arthritis, unspecified Category: Medical Plan: Patient to follow up with Rheumatology (6) Trigeminal neuralgia of right side of face: Code(s): G50.0 - Trigeminal neuralgia Category: Medical Plan: Continue to follow with Neurology and pain management. She does not feel a nerve block was helpful for her pain. (7) Obesity (BMI 30-39.9): Code(s): E66.9 - Obesity, unspecified Category: Medical Plan: Healthy diet and regular exercise is encouraged. Plan The patient will continue with the increased lisinopril dosage of 40 mg, monitoring blood pressure three times a week. If blood pressure readings become too low, she is advised to reduce the dosage to 30 mg. A Holter monitor will be arranged to evaluate heart rhythm abnormalities further. The patient will follow up with her consultant education for eczema management and continue using her CPAP machine for obstructive sleep apnea. The patient is advised to maintain her current health maintenance schedule, including a follow-up mammogram on March 26 and a colonoscopy in five years. She is encouraged to continue her weight loss efforts and monitor any changes in her symptoms. This note was constructed using voice recognition software. While every effort has been made to ensure accuracy and field specialist, still areas may have been included sometimes these areas may affect the content or meeting of the given symptoms. Total time spent caring for the patient today was 30 minutes. This includes time spent before the visit reviewing the chart, time spent during the visit, and time spent after the visit and documentation. Patient was informed and verbally consented to the use of an ambient scribe for clinic note documentation during this visit. Orders: Orders ECG 3 day holter monitor Today R00.2 - Palpitations Medications: Discontinued lisinopril Discontinued Reason: Patient no longer taking 20 mg PO DAILY 90 tabs 2RF alprazolam (Xanax) take 1 tab 30 minutes before MRI Discontinued Reason: Patient no longer taking 0.25 mg PO ONCE 2 tabs 0RF pre MRI
[2025-02-26 09:20] VITALS: BP 110/70; PULSE 67; O2SAT 97; BMI 39.6
--- OUTSIDE RECORDS SUMMARY | 2025-02-26 09:30 | XMS_ITS | Patient Health Record ---
Author Organization [facility] Address [address] [place] [address] Care Team Providers Care Airframe Technical Officer Name Role Phone Lupis (RETIRED) Tray ANTON Primary Care Provide r Ubaldo Lim [phone] Allergies Allergen (clinical drug ingredient) Drug/Non Drug Allergy documented on EMR Reaction Allergy Type Onset Date Status surgical tape (uncoded) rash Allergy Active Results Component Value Reference Range Notes Complete Blood Count Auto Di ff Reviewed date:04/06/2024 11:26:27 PM Interpretation: Performing Lab:[facility], [address] [place] [phone] Notes/Report: White Blood Count 5.8 4.8-10.8 X10*3/uL [...] NRBC Abs Auto 0.000 0.0-0.012 X10*3/uL Comprehensive [place]. Panel Fa Reviewed date:04/06/2024 11:19:37 PM Interpretation: Performing Lab:[address] [phone] Notes/Report: Sodium 144 135-145 mmol/L Potassium 4.2 3.3-5.1 mmol/L Chloride 109 96-108 mmol/L Carbon Dioxide 27 22-29 mmol/L Anion Gap 12 12-20 Blood Urea Nitrogen 13 9-16 mg/dL Creatinine 0.79 0.5-1.4 mg/dL Estimated Glomerular Filt Rate > 60 NOTE: For -[place] individuals, multiply the result by 1.210. Chronic [...] Panel Reviewed date:04/06/2024 11:19:50 PM Interpretation: Performing Lab:[facility], [address] [place] [phone] Notes/Report: Triglycerides 48 <150 mg/dL Desirable Triglyceride: [...] Total Reviewed date:04/06/2024 11:19:59 PM Interpretation: Performing Lab:[facility], [address] [place] [phone] Notes/Report: Vitamin D 25-OH Total 72.5 >30 [...] 19-9 Reviewed date:04/11/2024 08:17:41 PM Interpretation: Performing Lab:[facility], [address] [place] [phone] Notes/Report: Carbohydrate Antigen 19-9 21 <34 U/mL This test was performed using the Siemens chemiluminescent method. Values obtained from different assay methods cannot be used interchangeably. CA 19-9 levels, regardless of value, should not be interpreted as absolute evidence of the presence or absence of disease. THIS TEST WAS PERFORMED AT: [facility] [employer] [facility] [address] [place] [phone] DHARA COATS MD Reason For Referral No [...] Problem Status W/U Status Risk Notes Problem 979812134 Encounter for screening for malignant neoplasm of colon (Z12.11) Active confirmed Problem 193300787 History of adenomatous polyp of colon (Z86.010) Active confirmed Problem Diverticulosis o f large intestine without perforation or abscess without bleeding (K57.30) Active confirmed Problem 806582042000123 Preprocedural examination (Z01.818) Active confirmed Problem Neoplasm of digestive system (863001773) IPMN (intraductal papillary mucinous neoplasm) (D49.0) Active confirmed Vital Signs Temperature 98.7 degrees Fahrenheit 03/27/2024 Blood pressure diastolic 00 mm Hg 03/27/2024 Height 63.5 in 03/27/2024 Blood pressure systolic 000 mm Hg 03/27/2024 Weight 219 lb 2 oz lbs 03/27/2024 BMI 38.20 kg/m2 03/27/2024 Encounters Encounter Location Date Provider [place] [facility] [place] [address] [place] [id number] 07/27/2024 Ubaldo Alcantara Colon cancer screeni ng Z12.11 ; Family history of colon cancer Z80.0 ; Diverticulosis of large intestine without perforation or abscess without bleeding K57.30 and Other hemorrhoids K64.8 [facility] [address] [place] [address] 03/27/2024 Ubaldo Alcantara History of adenomato us polyp of colon Z86.010 ; IPMN (intraductal papillary mucinous neoplasm) D49.0 and Encounter for screening for malignant neoplasm of colon Z12.11 [facility] [address] [place] [address] 03/27/2024 Ubaldo Alcantara Assessments Encounter Date Diagnosis [...] Name:Ubaldo Garrett Maricruz , 04/23/2025 01:20:00 PM, [address] [place] [address], [address], [place], [address], Insurance Providers Payer Name Payer Address Payer Phone Subscriber Number Group Number Insured Name Patient Relationship to Insured Coverage Start Date Coverage End Date MEDICARE OF [place] [address] [place] [address] [id number] JANE CATHERINE Self - patient is the insured [facility] [address] [place] [phone] [id number] JANE CATHERINE Self - patient is the insured Medical (General) History Medical History History ICD Code Colonoscopy 06-21-2008 smal l tubular adenoma removed--diverticulosis, internal hemorrhoids; F/U colonoscopy 11/2013 with a small tubular adenoma HTN Rheumatoid arthritis Sleep apnea--uses a CPAP Denies [place],DM,CVA,Lung disease,renal dise ase Nerve pain in right [...]
[2025-02-26 10:02] VITALS: BP 118/78
== END 2025-02-26 10:17 | disposition home or self-care (01) ==
LOC: HO.HMCH 09:17
DX: Z00.00 Encounter for general adult medical examination without abnormal findings (principal); M06.9 Rheumatoid arthritis, unspecified; E66.9 Obesity, unspecified; Z68.39 Body mass index [BMI] 39.0-39.9, adult; G47.30 Sleep apnea, unspecified; R00.2 Palpitations; I10 Essential (primary) hypertension; G50.0 Trigeminal neuralgia

== ENCOUNTER → 2025-02-26 09:16 | Outpatient (BNVA) | payer MEDICARE, OTHER, SELFPAY | DX: Z00.00 Encounter for general adult medical examination without abnormal findings (principal); G47.30 Sleep apnea, unspecified; R00.2 Palpitations; I10 Essential (primary) hypertension; M06.9 Rheumatoid arthritis, unspecified; G50.0 Trigeminal neuralgia; E66.9 Obesity, unspecified; Z68.39 Body mass index [BMI] 39.0-39.9, adult; Z71.3 Dietary counseling and surveillance | CPT/HCPCS: 96127; 99397 ==

== ENCOUNTER → 2025-04-09 08:13 | Outpatient (REF) | payer MEDICARE, OTHER, SELFPAY ==
--- OUTSIDE RECORDS SUMMARY | 2024-07-27 04:30 | XMS_ITS ---
Author Organization [facility] Address [address] [place] [address] Care Team Providers Care Cafe Server Name Role Phone Lupis (RETIRED) Tray ANTON Primary Care Provide r Unavailable Ubaldo Alcantara [phone] REASON FOR VISIT screening,hx polyps Problems Problem Type SNOMED Code ICD Code Onset Dates Problem Status W/U Status Risk Notes Problem Diverticular disease of colon (678720934) Diverticulosis of large intestine without perforation or abscess without bleeding (K57.30) Active confirmed Encounters Encounter Location Date Provider Diagnosis [facility] [place] [address] [place] [phone] 07/27/2024 Ubaldo Alcantara Colon cancer scree ivana [...] hemorrhoids (ICD-10 - K64.8) Plan Of Treatment Next Appt Details Provider Name:Ubaldo Alcantara , 04/23/2025 01:20:00 PM, [address], [address], [place], [address], Progress Notes * CATHERINE LARADOB:1955 (70 yo F)Acc No.[id number]:07/27/2024 COLON WITH MAC Patient: CATHERINE SHANKS Provider: Vikram Alcantara MD :1955 A ge:69 Y S ex:Female Date:07/27/2024 Address:[address] [place] [address] , [id number] Pcp:Tray Baugh (RETIRED )MD Subjective: * Chief Complaints: * 1 . [...] 0 07/27/2024 Generated for Jamie perez/Iglesia/Florinaitting on: 0 04/09/2025 08:23 AM EDT
--- NOTE | 2025-04-09 08:15 | HM_ITS ---
Conclusion: 1. Patient was monitored for total period of 2 days and 22 hours 2. Baseline was normal sinus rhythm with average heart of 69 beats per minute 3. Occasional PACs noted which 4 runs of SVE, irregular could represent atrial fibrillation, longest lasting 53 beats per minute. No episodes of sustained atrial fibrillation noted 4. No significant pauses noted 5. No patient reported events MTDD
--- OUTSIDE RECORDS SUMMARY | 2025-04-09 08:23 | XMS_ITS | Patient Health Record ---
Author Organization [facility] Address [address] [place] [address] Care Team Providers Care Investment Counselor Name Role Phone Lupis (RETIRED) Tray ANTON Primary Care Provide Ubaldo Santos [phone] Allergies Allergen (clinical drug ingredient) Drug/Non Drug Allergy documented on EMR Reaction Allergy Type Onset Date Status surgical tape (uncoded) rash Allergy Active Reason For Referral No Information Medications Medication [...] Problem Status W/U Status Risk Notes Problem 238705102 Encounter for screening for malignant neoplasm of colon (Z12.11) Active confirmed Problem 115617417 History of adenomatous polyp of colon (Z86.010) Active confirmed Problem Diverticular disease of colon (604105251) Diverticulosis of large intestine without perforation or abscess without bleeding (K57.30) Active confirmed Problem 716380535855849 Preprocedural examination (Z01.818) Active confirmed Problem Neoplasm of digestive system (528350287) IPMN (intraductal papillary mucinous neoplasm) (D49.0) Active confirmed Encounters Encounter Location Date Provider Diagnosis [facility] [place] [address] [place], [place] [id number] 07/27/2024 Ubaldo Alcantara Colon cancer scree ivana [...] Provider Name:Ubaldo Alcantara , 04/23/2025 01:20:00 PM, [address] [place] [address], [address], [place], [address], Insurance Providers Payer Name Payer Address Payer Phone Subscriber Number Group Number Insured Name Patient Relationship to Insured Coverage Start Date Coverage End Date [place] OF [place] [address] [place] [address] [id number] JANE CATHERINE Self - patient is the insured [facility] [address] [facility] [place] [phone] [id number] CATHERINE LARA Self - patient is the insured Medical (General) History Medical History History ICD Code Colonoscopy 06-21-2007- smal l tubular adenoma removed--diverticulosis, internal hemorrhoids; F/U colonoscopy 11/2013 with a small tubular adenoma HTN Rheumatoid arthritis Sleep apnea--uses a CPAP Denies [place],DM,CVA,Lung disease,renal dise ase Nerve pain in right [...]
== END ==
LOC: HO.CARD 08:13
DX: R00.2 Palpitations (principal)
CPT/HCPCS: 93242

== ENCOUNTER → 2025-04-09 08:15 | Outpatient (BNV) | payer MEDICARE, OTHER, SELFPAY | PROVIDERS: Visit Provider Internal Medicine Cardiovascular Disease | DX: I49.1 Atrial premature depolarization (principal) | CPT/HCPCS: 93244 ==

== ENCOUNTER 2025-05-07 09:19 | Outpatient (REF) | payer MEDICARE, OTHER, SELFPAY ==
--- OUTSIDE RECORDS SUMMARY | 2024-07-27 04:30 | XMS_ITS ---
Author Organization [facility] Address [address] [place] [address] Care Team Providers Care Case Management Specialist Name Role Phone Alva Cutler Primary Care Provider UnaUbaldo Carpio Unavailable [phone] REASON FOR VISIT screening,hx polyps Problems Problem Type SNOMED Code ICD Code Onset Dates Problem Status W/U Status Risk Notes Problem Information temporarily unavailable Diverticulosis of large intestine without perforation or abscess without bleeding (K57.30) Active confirmed Encounters Encounter Location Date Provider Diagnosis [facility] [place] [address] [place] [phone] 07/27/2024 Ubaldo Alcantara Colon cancer scree ivana [...] Notes * CATHERINE LARADOB:1955 (70 yo F)Acc No.[id number]:07/27/2024 COLON WITH MAC Patient: Luz LUCAS CATHERINE Barker Provider: Vikram Alcantara MD :1955 A ge:69 Y S ex:Female Date:07/27/2024 Address:[address] [place] [address] , [facility] [id number] Pcp:ROBERTA Diaz Subjective: * Chief Complaints: * [...] MD Date: 0 07/27/2024 Generated for Jamie perez/Iglesia/Fordsmitting on: 1 10:11 AM EDT
--- OUTSIDE RECORDS SUMMARY | 2025-05-07 10:11 | XMS_ITS | Patient Health Record ---
Author Organization [facility] Address [address] [place] [address] Care Team Providers Care Rehabilitation Case Coordinator Name Role Phone Alva Cutler Primary Care Provider Ubaldo Sevilla Unavailable [phone] Allergies Allergen (clinical drug ingredient) Drug/Non Drug Allergy documented on EMR Reaction Allergy Type Onset Date Status Information temporarily unavailable surgical tape (uncoded) rash Allergy Active Reason For Referral No Information Medications Medication SIG (Take, Route, Frequency, Duration) Notes Start Date End Date Status amLODIPine Besy-Benazepril HCl 2.5-10 MG as directed Orally Active Lisinopril 10 MG 1 tablet Orally Once a day Active sulfaSALAzine 500 MG as directed Orally BID Active Vitamin D-3 2000units 1 capsule Orally O nce a day Active Ativan 0.5 MG Take 1 tablet 30 to 60 minutes before the MRI if needed for anxiety, and then repeat the one tablet right before the MRI if needed for anxiety Orally Once a day; Duration: 1 days 04/23/2025 Active Multivitamin - 1 tablet Orally Once a day; Duration: 30 day(s) Active Immunizations Vaccine Route Administration Date Status Comme nts Influenza Unknown 03/19/2018 Administered Influenza Unknown 06/06/2021 Administered Influenza Unknown 05/01/2022 Administered Influenza Unknown 06/04/2023 Administered Influenza Unknown 04/23/2025 Refused Problems Problem Type SNOMED Code ICD Code Onset Dates Problem Status W/U Status Risk Notes Problem Information temporarily unavailable Encounter for screening for malignant neoplasm of colon (Z12.11) Active confirmed Problem Information temporarily unavailable History of adenomatous polyp of colon (Z86.010) Active confirmed Problem Information temporarily unavailable Diverticulosis of large intestine without perforation or abscess without bleeding (K57.30) Active confirmed Problem Information temporarily unavailable Preprocedural examination (Z01.818) Active confirmed Problem Information temporarily unavailable IPMN (intraductal papillary mucinous neoplasm) (D49.0) Active confirmed Vital Signs Temperature 90.4 degrees Fahrenheit 04/23/2025 Blood pressure diastolic 01 mm Hg 04/23/2025 Height 63.5 in 04/23/2025 Blood pressure systolic 001 mm Hg 04/23/2025 Weight 228 lbs 04/23/2025 BMI 39.75 kg/m2 04/23/2025 Encounters Encounter Location Date Provider Diagnosis [facility] [place] [address] [place], [place] [phone] 07/27/2024 Ubaldo Alcantara Colon cancer screeni ng Z12.11 ; Family history of colon cancer Z80.0 ; Diverticulosis of large intestine without perforation or abscess without bleeding K57.30 and Other hemorrhoids K64.8 [facility] [address] [place] [address] 04/23/2025 Ubaldo Alcantara History of adenomato us polyp of colon Z86.010 ; IPMN (intraductal papillary mucinous neoplasm) D49.0 ; Encounter for screening for malignant neoplasm of colon Z12.11 and Preprocedural examination Z01.818 [facility] [address] [place] [address] 04/23/2025 Ubaldo Alcantara Assessments Encounter Date Diagnosis (ICD Code) Assessment Notes Treatment Notes Treatment Clinical Notes Section Notes 07/27/2024 Colon cancer screening (ICD-10 - Z12.11) 07/27/2024 Family history of colon cancer (ICD-10 - Z80.0) 04/23/2025 History of adenomatous polyp of colon (ICD-10 - Z86.010) Repeat colonoscopy in 2029 Overall, Arin appears quite well. We did review her negative colonoscopy from back in July and I advised her of the need for a follow-up colonoscopy for further screening in 2029. I advised her that her pancreatic cysts seem to be very stable based on the MRI from a year ago and the fact that they have not changed in several years is quite reassuring. I shall schedule her for a follow-up MRI for further follow-up of the pancreatic cysts. I advised her that if the MRI is again unchanged then we could start doing them every couple of years rather than yearly. I shall also check a CA 19-9 level. If things otherwise remain stable I will see her in 2 years for a follow-up visit at which time we could schedule her for a follow-up MRI of the pancreatic cyst again. I did advise her to certainly contact me prior to that if she has any problems or questions I can be of assistance with. Arin was very comfortable with this plan. Thank you again for allowing me to participate in Arin's care. I shall continue to keep you advised of her progress. 04/23/2025 IPMN (intraductal papillary mucinous neoplasm) (ICD-10 - D49.0) Overall, Arin appears quite well. We did review her negative colonoscopy from back in July and I advised her of the need for a follow-up colonoscopy for further screening in 2029. I advised her that her pancreatic cysts seem to be very stable based on the MRI from a year ago and the fact that they have not changed in several years is quite reassuring. I shall schedule her for a follow-up MRI for further follow-up of the pancreatic cysts. I advised her that if the MRI is again unchanged then we could start doing them every couple of years rather than yearly. I shall also check a CA 19-9 level. If things otherwise remain stable I will see her in 2 years for a follow-up visit at which time we could schedule her for a follow-up MRI of the pancreatic cyst again. I did advise her to certainly contact me prior to that if she has any problems or questions I can be of assistance with. Arin was very comfortable with this plan. Thank you again for allowing me to participate in Emiles care. I shall continue to keep you advised of her progress. 07/27/2024 Diverticulosis of large intestine without perforation or abscess without bleeding (ICD-10 - K57.30) 04/23/2025 Encounter for screening for malignant neoplasm of colon (ICD-10 - Z12.11) Overall, Arin appears quite well. We did review her negative colonoscopy from back in July and I advised her of the need for a follow-up colonoscopy for further screening in 2029. I advised her that her pancreatic cysts seem to be very stable based on the MRI from a year ago and the fact that they have not changed in several years is quite reassuring. I shall schedule her for a follow-up MRI for further follow-up of the pancreatic cysts. I advised her that if the MRI is again unchanged then we could start doing them every couple of years rather than yearly. I shall also check a CA 19-9 level. If things otherwise remain stable I will see her in 2 years for a follow-up visit at which time we could schedule her for a follow-up MRI of the pancreatic cyst again. I did advise her to certainly contact me prior to that if she has any problems or questions I can be of assistance with. Arin was very comfortable with this plan. Thank you again for allowing me to participate in Arin's care. I shall continue to keep you advised of her progress. 07/27/2024 Other hemorrhoids (ICD-10 - K64.8) 04/23/2025 Preprocedural examination (ICD-10 - Z01.818) Overall, Arin appears quite well. We did review her negative colonoscopy from back in July and I advised her of the need for a follow-up colonoscopy for further screening in 2029. I advised her that her pancreatic cysts seem to be very stable based on the MRI from a year ago and the fact that they have not changed in several years is quite reassuring. I shall schedule her for a follow-up MRI for further follow-up of the pancreatic cysts. I advised her that if the MRI is again unchanged then we could start doing them every couple of years rather than yearly. I shall also check a CA 19-9 level. If things otherwise remain stable I will see her in 2 years for a follow-up visit at which time we could schedule her for a follow-up MRI of the pancreatic cyst again. I did advise her to certainly contact me prior to that if she has any problems or questions I can be of assistance with. Arin was very comfortable with this plan. Thank you again for allowing me to participate in Arin's care. I shall continue to keep you advised of her progress. Plan Of Treatment Pending Test Test Name Order Date BUN 03/15/2022 BUN 04/23/2025 BUN 03/22/2023 BUN 03/27/2024 CREATININE 03/15/2022 LIVER PROFILE 03/15/2022 AMYLASE 03/15/2022 LIPASE 03/15/2022 CA 19-9 03/27/2024 CA 19-9 03/15/2022 CA 19-9 04/23/2025 CA 19-9 03/22/2023 MRI ABD NO CONTRAST (MRCP) 03/22/2023 MRI ABD W&WO CONTRAST 04/23/2025 MRI ABD W&WO CONTRAST 03/27/2024 MRI ABD W&WO CONTRAST 03/22/2023 MRI ABD W&WO CONTRAST 03/15/2022 Creatinine 04/23/2025 Creatinine 03/27/2024 Creatinine 03/22/2023 Future Test Test Name Order Date COLONOSCOPY 09/16/2013 COLONOSCOPY 03/05/2019 COLONOSCOPY 03/27/2024 Insurance Providers Payer Name Payer Address Payer Phone Subscriber Number Group Number Insured Name Patient Relationship to Insured Coverage Start Date Coverage End Date [place]ARE OF [place] [address] [place] [address] [id number] CATHERINE LARA Self - patient is the insured [facility] [address] [place] [address] [id number] CATHERINE LARA Self - patient is the insured Medical (General) History Medical History History ICD Code Colonoscopy 12-8-2007-1 smal l tubular adenoma removed- diverticulosis, internal hemorrhoids; F/U colonoscopy 11/2013 with a small tubular adenoma HTN Rheumatoid arthritis Sleep apnea- uses a CPAP Denies [place],DM,CVA,Lung disease,renal dise ase Nerve pain in right foor from surgery- t akes Gabapentin Negative colonoscopy in 05/2019 IPMN seen on 12/2020 CT and MRI- MRI's in 03/2022, 2022, and 2023 were unchanged Trigeminal neuralgia Negative colonoscopy in 07/2024 Surgical History Surgery Date(Month/Year) Cataract surgery bilaterally [facility] 12/2020 Dr. Florentino Left hip replacement 2015 Foot surgery Right knee replacement in 2010 Left knee replacement 2009 Carpal tunnel on right Appendectomy Tonsillectomy x 2 Right hip replacement in 2006
[2025-05-07 12:28] LABS: Blood Urea Nitrogen 13 mg/dL (9-16); Estimated Glomerular Filt Rate > 60
== END 2025-05-07 09:20 | disposition home or self-care (01) ==
LOC: HO.10HDL 09:19
PROVIDERS: Visit Provider Internal Medicine
DX: D49.0 Neoplasm of unspecified behavior of digestive system (principal)
CPT/HCPCS: 36415; 82565; 84520; 86301

== ENCOUNTER 2025-05-14 13:03 | Outpatient (REF) | payer MEDICARE, OTHER, SELFPAY ==
--- OUTSIDE RECORDS SUMMARY | 2024-07-27 04:30 | XMS_ITS ---
Author Organization [facility] Address [address] [place] [address] Care Team Providers Care Concrete Stone Finishing Supervisor Name Role Phone Alva Cutler Primary Care Provider Unava Ubaldo Soto Unavailable [phone] REASON FOR VISIT screening,hx polyps Problems Problem Type SNOMED Code ICD Code Onset Dates Problem Status W/U Status Risk Notes Problem Diverticular disease of colon (412008323) Diverticulosis of large intestine without perforation or abscess without bleeding (K57.30) Active confirmed Encounters Encounter Location Date Provider [place] [facility] [place] [address] [place] [phone] 07/27/2024 Ubaldo Alcantara Colon cancer scree ivana [...] Notes * CATHERINE LARADOB:1955 (70 yo F)Acc No.[id number]:07/27/2024 COLON WITH MAC Patient: Luz LUCASCATHERINE Provider: Vikram Alcantara MD :1955 A ge:69 Y S ex:Female Date:07/27/2024 [facility] [id number] Pcp:ROBERTA Diaz Subjective: * Chief Complaints: * 1 . Screening,hx polyps. * Medical History: Objective: * Vitals: Assessment: * Assessment: 1. C olon cancer screening - Z12.11 (Primary) 2 . F amily history of colon cancer - Z80.0 3 . D iverticulosis of large intestine without perforation or abscess without bleeding - K57.30 4 . O ther hemorrhoids - K64.8 Plan: * Treatment: * Procedure Codes: G 0105 COLOREC CANCR SCR; COLNSCPY HI RISK, 0529F INTRVL 3+YRS PTS CLNSCP DOCD, 0528F RCMND FLW-UP 10 YRS DOCD, Modifiers: 1P * * The named appointment provid er may or may not be the originator of this progress note, and it is not deemed complete until electronically signed by the appointment provider. Sign off status: Pending * Provider: Vikram Alcantara MD Date: 0 07/27/2024 Generated for Jamie perez/Iglesia/Florinaitting on: 1 02:08 PM EDT
--- NOTE | ~2025-05-14 | MR_ITS ---
EXAMINATION: MR ABDOMEN WITHOUT AND WITH CONTRAST CLINICAL INFORMATION: Pancreatic cyst. COMPARISON: Correlated to CT dated December 23, 2020 reporting an 8 mm exophytic cyst in the tail of pancreas. TECHNIQUE: MR abdomen was performed without and with use of 10.0 mL intravenous [(Gadavist) gadolinium contrast. Postcontrast images are performed in multiphase dynamic sequences. Imaging was performed in 3 planes. No reported immediate complications. FINDINGS: LUNG BASES: No enhancing mass. LIVER, GALLBLADDER, AND BILIARY TREE: Liver measures 15 cm. No focal enhancing mass. 3 mm nonenhancing fluid signal characteristic lesion in the periphery of the right hepatic lobe. The main portal veins and hepatic veins and intrahepatic portion of the IVC are patent. Gallbladder is absent. Common bile duct measures 3 mm. PANCREAS: 8 mm nonenhancing or restricted diffusion fluid signal characteristic lesion in the body tail junction. There are few scattered less than 3 mm nonenhancing fluid signal characteristic lesions in the body of the pancreas. The main pancreatic duct measures 1.5 mm. There is fatty signal in the head of the pancreas. No peripancreatic fluid collection. SPLEEN: 9 cm. No solid or cystic lesion. ADRENAL GLANDS: No nodular lesions. KIDNEYS AND URETERS: There is a 7 mm intrinsic hyperintense T1 nonenhancing or restricted diffusion lesion at the corticomedullary junction midportion right kidney. There are multiple, less than 2 cm nonenhancing fluid signal characteristic lesions in the parapelvic region. Normal enhancement pattern of the renal parenchyma. No hydronephrosis. No gross volume loss. GASTROINTESTINAL TRACT: No intestinal obstruction pattern. Small hiatal hernia. No ascites. ABDOMINAL WALL: Small tiny fat-containing umbilical hernia. LYMPH NODES: No gross retroperitoneal or mesenteric lymphadenopathy. VASCULAR: Tortuosity of the abdominal aorta without aneurysm or dissection. OSSEOUS STRUCTURES: Multilevel thoracolumbar spondylosis. Grade 1 retrolisthesis L3-4. Grade 1 anterolisthesis L4-5. MR/MR abdomen wo/w con IMPRESSION: Stable morphology/size nonenhancing pancreatic cysts. Parapelvic renal cysts and small 7 mm proteinaceous/hemorrhagic cyst, right kidney. Electronically signed by: Sam Ovalle MD 05/14/2025 02:23 PM EDT
--- OUTSIDE RECORDS SUMMARY | 2025-05-14 14:09 | XMS_ITS | Patient Health Record ---
Author Organization [facility] Address [address] [place] [address] Care Team Providers Care Application Packager Name Role Phone Alva Cutler Primary Care Provider Ubaldo Sevilla [phone] Allergies Allergen (clinical drug ingredient) Drug/Non Drug Allergy documented on EMR Reaction Allergy Type Onset Date Status surgical tape (uncoded) rash Allergy Active Results Component Value Reference Range Notes Blood Urea Nitrogen Reviewed date:05/07/2025 10:44:36 PM Interpretation: Performing Lab:[facility], [address] [place] [phone] Notes/Report: Blood Urea Nitrogen 13 9-16 mg/dL Creatinine Reviewed date:05/07/2025 10:44:54 PM Interpretation: Performing Lab:[facility], [address] [place] [phone] Notes/Report: Creatinine 0.83 0.5-1.4 mg/dL Estimated Glomerular Filt Rate > 60 Chronic Kidney Disease: Estimated GFR < 60 mL/min/1.73m2 Severe Kidney Disease: Estimated GFR < 15 mL/min/1.73m2 Carbohydrate Antigen 19-9 Reviewed date:05/11/2025 01:02:48 PM Interpretation: Performing Lab:[facility], [address] [place] [phone] Notes/Report: Carbohydrate Antigen 19-9 17 <34 U/mL This test was performed using the Siemens chemiluminescent method. Values obtained from different assay methods cannot be used interchangeably. CA 19-9 levels, regardless of value, should not be interpreted as absolute evidence of the presence or absence of disease. THIS TEST WAS PERFORMED AT: [facility] [address] [place] [phone] DHARA COATS MD Reason For Referral No [...] Problem Status W/U Status Risk Notes Problem Screening for malignant neoplasm of colon (653000622) Encounter for screening for malignant neoplasm of colon (Z12.11) Active confirmed Problem History of adenomatous polyp of colon (651248248) History of adenomatous polyp of colon (Z86.010) Active confirmed Problem Diverticular disease of colon (475591047) Diverticulosis of large intestine without perforation or abscess without bleeding (K57.30) Active confirmed Problem Preprocedural examination (676366032514224) Preprocedural examination (Z01.818) Active confirmed Problem Neoplasm of digestive system (685603709) IPMN (intraductal papillary mucinous neoplasm) (D49.0) Active confirmed Vital Signs Temperature 90.4 degrees Fahrenheit 04/23/2025 Blood pressure diastolic 01 mm Hg 04/23/2025 Height 63.5 in 04/23/2025 Blood pressure systolic 001 mm Hg 04/23/2025 Weight 228 lbs 04/23/2025 BMI 39.75 kg/m2 04/23/2025 Encounters Encounter Location Date Provider Diagnosis [facility] [place] [address] [place] [id number] 07/27/2024 Ubaldo Alcantara Colon cancer screeni ng Z12.11 ; Family history of colon cancer Z80.0 ; Diverticulosis of large intestine without perforation or abscess without bleeding K57.30 and Other hemorrhoids K64.8 [facility] [address] [place] [address] 04/23/2025 Ubaldo Alcantara History of adenomato us polyp of colon Z86.010 ; IPMN (intraductal papillary mucinous neoplasm) D49.0 ; Encounter for screening for malignant neoplasm of colon Z12.11 and Preprocedural examination Z01.818 [facility] [address] [place] [address] 04/23/2025 Ubaldo Alcantara Assessments Encounter Date Diagnosis [...] Date MEDICARE OF [place] [address] [place] [address] [phone] [id number] CATHERINE LARA Self - patient is the insured [facility] [address] [facility] [place] [phone] [id number] CATHERINE LARA Self - patient is the insured Medical (General) History Medical History History ICD Code Colonoscopy 06-21-2008 smal l tubular adenoma removed- diverticulosis, internal hemorrhoids; F/U colonoscopy 11/2013 with a small tubular adenoma HTN Rheumatoid arthritis Sleep apnea- uses a CPAP Denies [place],DM,CVA,Lung disease,renal dise ase [...]
== END 2025-05-14 13:04 | disposition home or self-care (01) ==
LOC: HO.MRI 13:03
PROVIDERS: Visit Provider Internal Medicine
DX: D49.0 Neoplasm of unspecified behavior of digestive system (principal)
CPT/HCPCS: 74183; A9585

== ENCOUNTER → 2025-05-14 13:07 | Outpatient (BNV) | payer MEDICARE, OTHER, SELFPAY | PROVIDERS: Visit Provider Radiology Diagnostic Radiology | DX: D49.0 Neoplasm of unspecified behavior of digestive system (principal) | CPT/HCPCS: 74183 ==

== ENCOUNTER 2025-06-04 08:15 | Outpatient (AMB) | payer MEDICARE, OTHER, SELFPAY ==
--- OUTSIDE RECORDS SUMMARY | 2024-07-27 03:30 | XMS_ITS ---
Author Organization [facility] Address [address] [place] [address] Care Team Providers Care Fork Lift Truck Operator Name Role Phone Alva Cutler Primary Care Provider Unava Ubaldo Soto Unavailable [phone] REASON FOR VISIT screening,hx polyps Problems Problem Type SNOMED Code ICD Code Onset Dates Problem Status W/U Status Risk Notes Problem Diverticular disease of colon (159772905) Diverticulosis of large intestine without perforation or abscess without bleeding (K57.30) Active confirmed Encounters Encounter Location Date Provider Diagnosis [facility] [place] [address] [place] [phone] 07/27/2024 Ubaldo Alcantara Colon cancer scree ivana [...] Notes * CATHERINE LARADOB:1955 (70 yo F)Acc No.[id number]:07/27/2024 COLON WITH MAC Patient: Luz CATHERINE LUCAS Provider: Vikram Alcantara MD :1955 A ge:69 Y S ex:Female Date:07/27/2024 Address: [address], [facility] [place], [id number] Pcp:ROBERTA Diaz Subjective: * Chief Complaints: * [...] G 0105 COLOREC CANCR SCR; COLNSCPY HI [id number] INTRVL 3+YRS PTS CLNSCP [id number] RCMND FLW-UP 10 YRS DOCD, Modifiers: 1P [...] 0 07/27/2024 Generated for Jamie perez/Iglesia/Florinaitting on: 08/04/2024 08:19 AM EST
--- OUTSIDE RECORDS SUMMARY | 2025-06-04 08:19 | XMS_ITS | Patient Health Record ---
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 Name Role Phone Alva Cutler Primary Care Provider Ubaldo Sevilla [phone] Allergies Allergen (clinical drug ingredient) Drug/Non Drug Allergy documented on EMR Reaction Allergy Type Onset Date Status surgical tape (uncoded) rash Allergy Active Results Component Value Reference Range Flag Notes Blood Urea Nitrogen Reviewed date:05/07/2025 10:44:36 PM Interpretation: Performing Lab:[facility], [address] [place] [phone] Notes/Report: Blood Urea Nitrogen 13 9-16 mg/dL N Creatinine Reviewed date:05/07/2025 10:44:54 PM Interpretation: Performing Lab:[facility], [address] [place] [phone] Notes/Report: Creatinine 0.83 0.5-1.4 mg/dL N Estimated Glomerular Filt Rate > 60 Chronic Kidney Disease: Estimated GFR < 60 mL/min/1.73m2 Severe Kidney Disease: Estimated GFR < 15 mL/min/1.73m2 Carbohydrate Antigen 19-9 Reviewed date:05/11/2025 01:02:48 PM Interpretation: Performing Lab:[facility], [address] [place] [phone] Notes/Report: Carbohydrate Antigen 19-9 17 <34 U/mL N This test was performed using the Siemens chemiluminescent method. Values obtained from different assay methods cannot be used interchangeably. CA 19-9 levels, regardless of value, should not be interpreted as absolute evidence of the presence or absence of disease. THIS TEST WAS PERFORMED AT: [facility] [address] [place] [phone] DHARA COATS MD MR abdomen wo/w con (Not yet reviewed by provider) Interpretation: Performing Lab: Notes/Report: [address] [address] Magnetic Resonance Report Signed Patient: Catherine Whipple MR#: [id number] : 1955 Acct:[id number] Age/Sex: 70 / F ADM Date: 05/14/25 Loc: HO.MRI Attending Dr: Ubaldo Alcantara MD Ordering Physician: Ubaldo Alcantara MD Date of Service: 05/14/25 Procedure(s): MR abdomen wo/w con Accession Number(s): [id number] cc: Physician,Unknown ; Ubaldo Alcantara MD Reason for Exam: INTRADUCTAL PAPILLARY MUCINOUS NEOPLASM EXAMINATION: MR ABDOMEN WITHOUT AND WITH CONTRAST CLINICAL INFORMATION: Pancreatic cyst. COMPARISON: Correlated to CT dated December 23, 2020 reporting an 8 mm exophytic cyst in the tail of pancreas. TECHNIQUE: MR abdomen was performed without and with use of 10.0 mL intravenous [(Gadavist) gadolinium contrast. Postcontrast images are performed in multiphase dynamic sequences. Imaging was performed in 3 planes. No reported immediate complications. FINDINGS: LUNG BASES: No enhancing mass. LIVER, GALLBLADDER, AND BILIARY TREE: Liver measures 15 cm. No focal enhancing mass. 3 mm nonenhancing fluid signal characteristic lesion in the periphery of the right hepatic lobe. The main portal veins and hepatic veins and intrahepatic portion of the IVC are patent. Gallbladder is absent. Common bile duct measures 3 mm. PANCREAS: 8 mm nonenhancing or restricted diffusion fluid signal characteristic lesion in the body tail junction. There are few scattered less than 3 mm nonenhancing fluid signal characteristic lesions in the body of the pancreas. The main pancreatic duct measures 1.5 mm. There is fatty signal in the head of the pancreas. No peripancreatic fluid collection. SPLEEN: 9 cm. No solid or cystic lesion. ADRENAL GLANDS: No nodular lesions. KIDNEYS AND URETERS: There is a 7 mm intrinsic hyperintense T1 nonenhancing or restricted diffusion lesion at the corticomedullary junction midportion right kidney. There are multiple, less than 2 cm nonenhancing fluid signal characteristic lesions in the parapelvic region. Normal enhancement pattern of the renal parenchyma. No hydronephrosis. No gross volume loss. GASTROINTESTINAL TRACT: No intestinal obstruction pattern. Small hiatal hernia. No ascites. ABDOMINAL WALL: Small tiny fat-containing umbilical hernia. LYMPH NODES: No gross retroperitoneal or mesenteric lymphadenopathy. VASCULAR: Tortuosity of the abdominal aorta without aneurysm or dissection. OSSEOUS STRUCTURES: Multilevel thoracolumbar spondylosis. Grade 1 retrolisthesis L3-4. Grade 1 anterolisthesis L4-5. MR/MR abdomen wo/w con IMPRESSION: Stable morphology/size nonenhancing pancreatic cysts. Parapelvic renal cysts and small 7 mm proteinaceous/hemorrhagic cyst, right kidney. Electronically signed by: Sam Ovalle MD 05/14/2025 02:23 PM EDT Dictated By: Sam Chun MD Signed By: <Electronically signed by Sam Benson MD in OV> 05/14/25 1423 DD/ 1307 TD/TT: 05/14/25 1400 Academy Director: Reason For Referral No Information Medications Medication SIG (Take, Route, Frequency, Duration) Notes Start Date End Date Status amLODIPine Besy-Benazepril HCl 2.5-10 MG Capsule as directed Orally Active Lisinopril 10 MG Tablet 1 tablet Orally Once a day Active sulfaSALAzine 500 MG Tablet as directed Orally BID Active Vitamin D-3 2000units 1 capsule Orally O nce a day Active Ativan 0.5 MG Tablet Take 1 tablet 30 to 60 minutes before the MRI if needed for anxiety, and then repeat the one tablet right before the MRI if needed for anxiety Orally Once a day; Duration: 1 days 04/23/2025 Active Multivitamin - Tablet 1 tablet Orally On ce a day; Duration: 30 day(s) Active Immunizations Vaccine Route Administration Date Status Comme nts Influenza Unknown 03/19/2018 Administered Influenza Unknown 06/06/2021 Administered Influenza Unknown 05/01/2022 Administered Influenza Unknown 06/04/2023 Administered Influenza Unknown 04/23/2025 Refused Social History Social History Additional Details Category Social Info Options Details Miscellaneous: Marital status: 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 [employer] Notes: Nonsmoker; no sig alcohol Nonsmoker; no sig alcohol Nonsmoker; no sig alcohol Nonsmoker; no sig alcohol Nonsmoker; no sig alcohol Nonsmoker; no sig alcohol Nonsmoker; no sig alcohol Problems Problem Type SNOMED Code ICD Code Onset Dates Problem Status W/U Status Risk Notes Problem Screening for malignant neoplasm of colon (376549538) Encounter for screening for malignant neoplasm of colon (Z12.11) Active confirmed Problem History of adenomatous polyp of colon (878905468) History of adenomatous polyp of colon (Z86.010) Active confirmed Problem Diverticular disease of colon (746574990) Diverticulosis of large intestine without perforation or abscess without bleeding (K57.30) Active confirmed Problem Preprocedural examination (789743272517190) Preprocedural examination (Z01.818) Active confirmed Problem Neoplasm of digestive system (770652581) IPMN (intraductal papillary mucinous neoplasm) (D49.0) Active confirmed Vital Signs Temperature 90.4 degrees Fahrenheit 04/23/2025 Blood pressure diastolic 01 mm Hg 04/23/2025 Height 63.5 in 04/23/2025 Blood pressure systolic 001 mm Hg 04/23/2025 Weight 228 lbs 04/23/2025 BMI 39.75 kg/m2 04/23/2025 Encounters Encounter Location Date Provider Diagnosis [facility] Out[facility] [address] [place] [id number] 07/27/2024 Ubaldo Alcantara Colon cancer screeni ng Z12.11 ; Family history of colon cancer Z80.0 ; Diverticulosis of large intestine without perforation or abscess without bleeding K57.30 and Other hemorrhoids K64.8 [facility] [address] [place] [phone] 04/23/2025 Ubaldo Alcantara History of adenomato us polyp of colon Z86.010 ; IPMN (intraductal papillary mucinous neoplasm) D49.0 ; Encounter for screening for malignant neoplasm of colon Z12.11 and Preprocedural examination Z01.818 [facility] [address] [place] [phone] 04/23/2025 Ubaldo Alcantara Assessments Encounter Date Diagnosis [...] keep you advised of her progress. 04/23/2025 Encounter for screening for malignant neoplasm [...] K57.30) 07/27/2024 Other hemorrhoids (ICD-10 - K64.8) 04/23/2025 [...] Order Date BUN 03/15/2022 BUN 03/22/2023 BUN 04/23/2025 BUN 03/27/2024 CREATININE 03/15/2022 LIVER PROFILE 03/15/2022 AMYLASE 03/15/2022 LIPASE 03/15/2022 CA 19-9 03/15/2022 CA 19-9 03/22/2023 CA 19-9 03/27/2024 CA 19-9 04/23/2025 MRI ABD NO CONTRAST (MRCP) 03/22/2023 MRI ABD W&WO CONTRAST 04/23/2025 MRI ABD W&WO CONTRAST 03/15/2022 MRI ABD W&WO CONTRAST 03/22/2023 MRI ABD W&WO CONTRAST 03/27/2024 Creatinine 04/23/2025 Creatinine 03/22/2023 Creatinine 03/27/2024 MR abdomen wo/w con 05/14/2025 Future Test Test Name Order Date COLONOSCOPY 09/16/2013 COLONOSCOPY 03/05/2019 COLONOSCOPY 03/27/2024 Insurance Providers Payer Name Payer Address Payer Phone Subscriber Number Group Number Insured Name Patient Relationship to Insured Coverage Start Date Coverage End Date MEDICARE OF [place] [address] [place] [address] [id number] CATHERINE WHIPPLE Self - patient is the insured [facility] [address] [place] [address] [id number] CATHERINE WHIPPLE Self - patient is the insured Medical (General) History Medical History History ICD Code Colonoscopy 06-21-2007- smal l tubular adenoma removed- diverticulosis, internal hemorrhoids; F/U colonoscopy 11/2013 with a small tubular adenoma HTN Rheumatoid arthritis Sleep apnea- uses a CPAP Denies AL,DM,CVA,Lung disease,renal dise ase Nerve pain in right foor from surgery- t akes Gabapentin Negative colonoscopy in 05/2019 IPMN seen on 12/2020 CT and MRI- MRI's in 03/2022, 2022, and 2023 were unchanged Trigeminal neuralgia Negative colonoscopy in 07/2024 Surgical History Surgery Date(Month/Year) Right hip replacement in 2006 x 2 Tonsillectomy Appendectomy Carpal tunnel on right Left knee replacement 2008 Right knee replacement in 2010 Foot surgery Left hip replacement 2014 [facility] 12/2020 Dr. Florentino Cataract surgery bilaterally
[2025-06-04 08:25] VITALS: BP 160/102; PULSE 77; TEMP 36.4; O2SAT 97; BMI 39.0
--- NOTE | 2025-06-04 08:25 | MHC.PC.OV ---
Vital Signs 06/04/25 08:25 Height 5 ft 3.5 in Weight 223 lb 8 oz BMI 39.0 BP 160/102 H Blood Pressure Location Lt brachial Position Sitting Pulse 77 Pulse Source Pulse Oximeter Temp 97.6 F Temp Source Temporal Artery Scan Pulse Oximetry (%) 97 Oxygen Delivery Method Room Air Intake Visit Reasons: f/u palpitations Party Supply Specialist Required: No Accompanied by: Self / Same As Patient Allergies No Known Allergies Allergy (Verified 06/04/25 08:51) Medication List - Last Reconciled 06/04/25 by Alva Whiting PA-C amlodipine 5 mg PO DAILY cholecalciferol (vitamin D3) (Vitamin D3) 50 mcg PO DAILY estradiol 0.01%(0.1mg/gram) vaginal lidocaine HCl 2% (Lidocaine Viscous) 1 mL mucous membrane QID PRN 30 days lisinopril (Zestril) 40 mg PO DAILY 90 days multivitamin 1 tab PO DAILY oral dosing syringes 1 mL syringes without needle. To be used as directed with viscous lidocaine intranasal order. sulfasalazine 1 tab PO BID Tobacco use date assessed: 02/26/25 Fall risk assessment: No Falls in past year Last assessed Fall Risk: 02/26/25 Dental Screening Dental Screen Date: 02/26/25 Did you have a dental visit in the last 12 months?: Yes Did you have a dental problem in the last 6 months where you did not have access to dental care?: No Was dental information given to patient?: Patient has dentist HPI f/u palpitations HPI Details 70 year old female with past medical history of sleep apnea, RA, hypertension, trigeminal neuralgia last seen 02/2025 coming in for follow up. In review of the notes, patient had Holter monitor completed 04/2025 baseline was normal sinus rhythm occasional PACs potential for atrial fibrillation however no episodes of atrial fibrillation were noted. Presenting for follow-up on several chronic conditions, including palpitations, and to discuss weight management. Regarding palpitations, a prior heart monitor study showed some irregular beats, but atrial fibrillation was not present, and a recommended cardiology referral was not placed. The patient reports feeling extra beats every day or every other day, which are not consistent. Regarding weight, the patient reports difficulty losing weight, though there has been a 10-pound weight loss over the past year. The patient's weight has been stable around 230-232 lbs, with today's weight being 223 lbs. [facility] Medical History Trigeminal neuralgia of right side of face Right foot pain Sleep apnea Rheumatoid arthritis HTN (hypertension) Surgical History Hx of bilateral cataract extraction History of tonsillectomy H/O colonoscopy History of cataract surgery History of eye surgery History of carpal tunnel release of both wrists History of pelvic surgery History of appendectomy History of bunionectomy Total knee replacement status Status post total hip replacement, bilateral Family History Father History of partial gastrectomy Mother Heart disease Social History Household Members: Spouse Housing: House Do you presently have visiting nurse or other home services: No Alcohol intake: never Patient Tobacco Use Status: Never used Tobacco e-Cigarette/Vaping Use: Never Used Second Hand Smoke Exposure: No service: No Current occupational status: employed Cognitive needs: No Hearing needs: No Vision needs: No Questionnaire PHQ-9 Over the last 2 weeks, how often have you been bothered by any of the following problems? 1. Little interest or pleasure in doing things: not at all 2. Feeling down, depressed, or hopeless: not at all 3. Trouble falling or staying asleep, or sleeping too much: not at all 4. Feeling tired or having little energy: not at all 5. Poor appetite or overeating: not at all 6. Feeling bad about yourself - or that you are a failure or have let yourself or your family down: not at all 7. Trouble concentrating on things, such as reading the newspaper or watching television: not at all 8. Moving or speaking so slowly that other people could have noticed. Or the opposite - being so fidgety or restless that you have been moving around a lot more than usual: not at all 9. Thoughts that you would be better off or of hurting yourself in some way: not at all Total score: 0 Depression Screening Interpretation: Negative Depression Screening Done: Yes 64742 - PHQ-9 Billing: Yes Source: Developed by Drs. Ubaldo Goldstein, Tami Monae, David Bradshaw and colleagues, with an educational karen from [employer]. Thrive Questionnaire Date Thrive assessed: 02/26/25 I am a: Patient What is your living situation today?: I have a steady place to live Within the past 12 months, did the food you bought not last and you didn't have the money to get more?: Never true Within the past 12 months, did you worry whether your food would run out before you got money to buy more?: Never true Do you have trouble paying for medicines?: No Do you have trouble getting transportation to medical appointments?: No Do you have trouble paying your heating and electricity bill?: No Do you have trouble taking care of your child, family member or friend?: No Do you have trouble with day-to-day activities such as bathing, preparing meals, shopping, managing finances, etc.?: No Are you currently unemployed and looking for a job?: No Are you interested in more education?: No Please select the resources that you would like help with: None Currently or been in a relationship where the following occur: No concerns reported THRIVE Score: 0 AUDIT C Alcohol Use Questionnaire (AUDIT-C) 1. How often do you have a drink containing alcohol?: Never Total Score: 0 NAYAN-7 AMB Questionnaire NAYAN-7 Date NAYAN - 7 assessed: 02/26/25 Feeling nervous, anxious, or on edge: 0 = Not at all Not being able to stop or control worryin = Not at all Worrying too much about different things: 0 = Not at all Trouble relaxin = Not at all Being so restless that it is hard to sit still: 0 = Not at all Becoming easily annoyed or irritable: 0 = Not at all Feeling afraid as if something awful might happen: 0 = Not at all Total NAYAN-7 score (0-4 normal; 5-9 mild; 10-14 moderate; 15-21 severe): 0 Source: Developed by Drs. Ubaldo Goldstein, David Smith and colleagues, with an educational karen from [employer]. Review of Systems Const Denies body aches, Denies chills, Denies fever(s), Denies headache(s) and Denies poor appetite Eyes Reports no additional complaints ENT Denies dizziness and Denies headache(s) Card Denies chest pain, Denies edema, Denies irregular heart rhythm, Denies lightheadedness, Reports palpitations and Denies dyspnea Resp Denies dyspnea GI Denies abdominal pain, Denies nausea and Denies vomiting Reports no additional complaints Musc Reports no additional complaints and Denies abnormal gait Skin/Breast Reports system reviewed and no additional complaints, except as documented Neuro Denies abnormal gait, Denies dizziness and Denies headache(s) Psych Reports no additional complaints Endo Reports palpitations Physical exam (Primary Care) Vital Signs: Last Vital Signs Temp 97.6 F 06/04/25 08:25 Pulse 77 06/04/25 08:25 BP 160/102 H 06/04/25 08:25 Pulse Ox 97 06/04/25 08:25 Oxygen Delivery Method Room Air 06/04/25 08:25 BMI result Body Mass Index 39.0 Tobacco/Smoking Status: Tobacco use Status Tobacco use date assessed 02/26/25 06/04/25 08:32 Patient Tobacco Use Status Never used Tobacco 06/04/25 08:32 e-Cigarette/Vaping Use Never Used 06/04/25 08:32 PHQ-9: PHQ-9 Score PHQ-9: Total score 0 06/04/25 08:32 Depression Screening Interpretation: Negative Thrive Assessment: Date of Thrive Assessment Date Thrive assessed 02/26/25 06/04/25 08:32 Currently or been in a relationship where the following occur: No concerns reported Const General: cooperative, healthy appearing, comfortable and no acute distress Orientation/consciousness: patient oriented x3 HENMT Head: Yes normocephalic Ears: hearing grossly normal bilaterally General nose exam: Normal external nose present Eyes General: appearance normal, both eyes and all related structures Conjunctivae: conjunctivae normal Neck Neck: Yes full ROM and Yes no lymphadenopathy Resp Effort & Inspection: normal respiratory effort Auscultation: clear to auscultation bilaterally, no crackles, no rales, no rhonchi and no wheezes Cardio Rate: regular rate Rhythm: regular rhythm Skin General skin exam: no rashes or lesions noted Neuro General: patient oriented x3 Gait exam (Neuro): Normal gait present Extrem General: Yes normal to inspection, Yes full ROM and No edema Psych Affect: normal affect Attitude: cooperative Insight: Good insight present (Psych) Judgement: Good judgement present (Psych) Coding Level of Care Code Est Pt Level 4 (23281) Diagnoses HTN (hypertension) I10 Palpitations R00.2 Obesity (BMI 30-39.9) E66.9 Pancreatic cyst K86.2 Sleep apnea G47.30 Additional Codes PHQ-9 - 18914 - PHQ-9 Billing: Yes ([id number]) Assessment & Plan Assessment & Plan (1) HTN (hypertension): Code(s): I10 - Essential (primary) hypertension Category: Medical Plan: Continue on current blood pressure medication. Avoid salt intake and encourage healthy diet and regular exercise. Blood pressure elevated in the office today however patient believes her medication may not have kicked in yet. PLan to have patient monitor blood pressure at home and call on Saturday/Saturday with results. If still elevated plan to increase amlodipine. (2) Palpitations: Code(s): R00.2 - Palpitations Category: Medical Plan: Referral was placed to cardiology today. (3) Obesity (BMI 30-39.9): Code(s): E66.9 - Obesity, unspecified Category: Medical Plan: Healthy diet and regular exercise is encouraged. Patient would benefit from weight loss due to her sleep apnea and blood pressure. Patient was counseled today on the risks and benefits of GLP-1 injections as well as the dosing schedule. She has no family history or personal history of thyroid disease and no gallbladder disease. Discussed with the patient the potential GI side effects of this medication. Plan to have repeat blood work after one month of therapy to monitor kidney and liver function before increasing the dose of this medication. Follow up in 3 months for a weight check. (4) Pancreatic cyst: Code(s): K86.2 - Cyst of pancreas Category: Medical Plan: Recently seen by GI and cysts were stable. She will follow up with yearly MRI. (5) Sleep apnea: Comment: uses cpap Code(s): G47.30 - Sleep apnea, unspecified Category: Medical Plan: Uses CPAP faithfully at least 4 hours a night and benefits from this therapy. Plan This note was constructed using voice recognition software. While every effort has been made to ensure accuracy and client manager large law, still areas may have been included sometimes these areas may affect the content or meeting of the given symptoms. Total time spent caring for the patient today was 20 minutes. This includes time spent before the visit reviewing the chart, time spent during the visit, and time spent after the visit and documentation. Patient was informed and verbally consented to the use of an ambient scribe for clinic note documentation during this visit. Orders: Orders Comprehensive Met. Panel Today Z00.00 - Encounter for general adult medical examination without abnormal findings Hemoglobin A1c Today Z13.1 - Encounter for screening for diabetes mellitus Referrals Cardiology Referral R00.2 - Palpitations Medications: New semaglutide (weight loss) (Wegovbean) administer weeks 1 through 4 of therapy 0.25 mg (0.5 mL) subcut QWEEK 2 mL 0RF E66.9 - Obesity, unspecified, G47.30 - Sleep apnea, unspecified
== END 2025-06-04 09:16 | disposition home or self-care (01) ==
LOC: HO.HMCH 08:16
DX: I10 Essential (primary) hypertension (principal); R00.2 Palpitations; E66.9 Obesity, unspecified; K86.2 Cyst of pancreas; G47.30 Sleep apnea, unspecified; Z68.39 Body mass index [BMI] 39.0-39.9, adult

== ENCOUNTER → 2025-06-04 08:15 | Outpatient (BNVA) | payer MEDICARE, OTHER, SELFPAY | DX: R00.2 Palpitations (principal); I10 Essential (primary) hypertension; K86.2 Cyst of pancreas; G47.30 Sleep apnea, unspecified; E66.9 Obesity, unspecified; Z68.39 Body mass index [BMI] 39.0-39.9, adult; Z71.3 Dietary counseling and surveillance | CPT/HCPCS: 96127; 99212 ==

== ENCOUNTER 2025-06-07 11:16 | Outpatient (AMB) | payer MEDICARE, OTHER, SELFPAY ==
--- OUTSIDE RECORDS SUMMARY | 2024-07-27 03:30 | XMS_ITS ---
Author Organization [facility] Address [address] [place] [address] Care Team Providers Care Hospitalist Medical Director Name Role Phone Alva Cutler Primary Care Provider Unava Ubaldo Soto Unavailable [phone] REASON FOR VISIT screening,hx polyps Problems Problem Type SNOMED Code ICD Code Onset Dates Problem Status W/U Status Risk Notes Problem Diverticular disease of colon (925101283) Diverticulosis of large intestine without perforation or abscess without bleeding (K57.30) Active confirmed Encounters Encounter Location Date Provider Diagnosis [facility] [place] [address] [place] [phone] 07/27/2024 Ubaldo Alcantara Colon cancer scree ivana Z12.11 ; Family history of colon cancer Z80.0 ; Diverticulosis of large intestine without perforation or abscess without bleeding K57.30 and Other hemorrhoids K64.8 Assessments Encounter Date Diagnosis (ICD Code) Assessment Notes Treatment Notes Treatment Clinical Notes Section Notes 07/27/2024 Colon cancer screening (ICD-10 - Z12.11) 07/27/2024 Family history of colon cancer (ICD-10 - Z80.0) 07/27/2024 Diverticulosis of large intestine without perforation or abscess without bleeding (ICD-10 - K57.30) 07/27/2024 Other hemorrhoids (ICD-10 - K64.8) Plan Of Treatment No Information Progress Notes * CATHERINE LARADOB:1955 (70 yo F)Acc No.[id number]:07/27/2024 COLON WITH MAC Patient: Luz CATHERINE LUCAS Provider: Vikram Alcantara MD :1955 A ge:69 Y S ex:Female Date:07/27/2024 Address: [address], [facility] [place] [id number] Pcp:ROBERTA Diaz Subjective: * Chief Complaints: * S creening,hx polyps Assessment: * Assessment: 1. C olon cancer screening - Z12.11 (Primary) 2 . F amily history of colon cancer - Z80.0 3 . D iverticulosis of large intestine without perforation or abscess without bleeding - K57.30 4 . O ther hemorrhoids - K64.8 Plan: * Procedure Codes: G 0105 COLOREC CANCR SCR; COLNSCPY HI [id number] INTRVL 3+YRS PTS CLNSCP [id number] RCMND FLW-UP 10 YRS DOCD, Modifiers: 1P Billing Information: * Procedure Codes: G0105 COLOREC CANCR SCR; COLNSCPY HI RISK. 0529F INTRVL 3+YRS PTS CLNSCP DOCD. 0528F RCMND FLW-UP 10 YRS DOCD. Modifiers: 1P * The named appointment provid er may or may not be the originator of this progress note, and it is not deemed complete until electronically signed by the appointment provider. Sign off status: Pending * Provider: Vikram Alcantara MD Date: 0 07/27/2024 Generated for Jamie perez/Iglesia/Florinaitting on: 08/07/2024 02:39 PM EST
[2025-06-07 11:23] VITALS: BP 130/78; PULSE 61; O2SAT 98; BMI 39.9
--- NOTE | 2025-06-07 11:23 | A.OFFVIS_ITS ---
Vital Signs 3 06/07/25 11:23 Height 5 ft 3 in Weight 225 lb BMI 39.9 BP 130/78 Blood Pressure Location Rt brachial Position Sitting Pulse 61 Pulse Source Pulse Oximeter Pulse Oximetry (%) 98 Oxygen Delivery Method Room Air Intake Visit Reasons: 6m follow up Intake Note: Patient presents follow up for Trigeminal Neuralgia. 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 To be used as directed with viscous lidocaine intranasal order. semaglutide (weight loss) (Wegovy) 0.25 mg (0.5 mL) subcut QWEEK sulfasalazine 1 tab PO BID HPI Comments Details: 70-year-old female presents for follow-up of right-sided facial pain. She denies any significant interval medical history changes. She is curious if the facial pain could be coming from her ears, however we re- reviewed her previous brain MRI and facial imaging, which did not show any secondary inner ear dysfunction or processes. After last visit, she was evaluated weighted by [facility] pain management, and underwent right facial nerve block as follows: 0.5% bupivacaine 0.5 to 1mL at superorbital, infraobital, supratrochlear and articulotemporal nerves. Unfortunately, she did not notice any benefit from this injection. She was told that she could return for a 2nd round of right facial nerve blocks, however she decided to hold on this for now. She reports the right facial pain is intense when it occurs, but it is brief. And otherwise, denies any facial pain or headache between these attacks. She states that the intranasal lidocaine gel is helpful and well tolerated, and she uses this at times. She had considered seen a oral facial surgeon, recommended to her by Dr. Hyatt, however this provider does not take insurance, even the initial consultation fee was expensive. 01/14/2025, HPI: 12/22/2024, MRI of the orbits, face, neck with and without contrast: Unremarkable, with clear paranasal sinuses and mastoid air cells, unremarkable osseous structures, and normal orbits. Patient reports since the last visit, she has tried the home administration of intranasal Sphenopalatine Ganglion Block with Intranasal Lidocaine??2% viscous solution, which does help to decrease her right-sided facial pain some. She notes the pain continues to start in the right trochlear notch region and moves laterally through the right eye cheek gums and ear region. She does ask if she needs to use the intranasal lidocaine treatment when she does not have the facial pain. She is curious about the etiology of her right facial pain, as well as what the long-term treatment and trajectory we will be. 12/04/2024, previous HPI: Since last visit, patient underwent brain MRI with and without contrast, which showed a loop of the right superior cerebellar artery contacts and possibly indents the superior aspect of the right trigeminal nerve root entry zone. Thus, patient was referred to neurosurgery Dr. Hyatt, who did not feel that patient's facial pain would be amendable to a trigeminal nerve surgical intervention. However, she was advised to see an oral facial surgeon, however her insurance does not cover this so she was not able to pursue this. Patient, also tried carbamazepine, however did not tolerate it even at low dose. She continues to have right facial pain, which starts in her right trochlear notch region, and moves laterally through her right cheek, upper gums and Ear. Pain continues to be persistent with intermittent exacerbations. When the pain is more severe, it is sensitive to palpation. She does sleep with the CPAP, but does not use any mouth guard as she denies bruxism. 09/09/2024, previous HPI by Dr. Deras: 69y/o female comes for evaluation of pain in her right eye, cheek , gums and ears. she had a root canal done in October 2023, had right cataract surgery November 14 . left cataract in October 2023. The pain started few weeks after that. 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 The pain is persistent with intermittent worsening.The pain is 5-7/10 . sometimes she takes tylenol.she describes the pain as a bad headache and like a tooth pain. she denies numbness or tingling. she is sensitive when she touche she right cheek. She denies double vision, vertigo, speech or swallowing issues. she is unable to describe any triggers. [facility] Medical History Trigeminal neuralgia of right side of face Right foot pain Sleep apnea Rheumatoid arthritis HTN (hypertension) Surgical History Hx of bilateral cataract extraction History of tonsillectomy H/O colonoscopy History of cataract surgery History of eye surgery History of carpal tunnel release of both wrists History of pelvic surgery History of appendectomy History of bunionectomy Total knee replacement status Status post total hip replacement, bilateral Family History Father History of partial gastrectomy Mother Heart disease Social History Household Members: Spouse Housing: House Do you presently have visiting nurse or other home services: No Alcohol intake: never Patient Tobacco Use Status: Never used Tobacco e-Cigarette/Vaping Use: Never Used Second Hand Smoke Exposure: No service: No Current occupational status: employed Cognitive needs: No Hearing needs: No Vision needs: No Physical Exam Vital Signs: Last Vital Signs Pulse 61 06/07/25 11:23 BP 130/78 06/07/25 11:23 Pulse Ox 98 06/07/25 11:23 Oxygen Delivery Method Room Air 06/07/25 11:23 BMI result Body Mass Index 39.9 Const General: cooperative and no acute distress Orientation/consciousness: patient oriented x3 Resp Effort & Inspection: normal respiratory effort and able to speak in complete sentences Neuro General: patient oriented x3 Cranial nerves: Yes CN's II-XII intact bilaterally Cognition (Neuro): normal cognition Psych Appearance: grossly normal Mental Status: mental status grossly normal Speech and movement: Normal speech and movement present Affect: normal affect Attitude: cooperative Telehealth Telehealth Telehealth Platform: [facility] Location of provider rendering services: practice address Location of patient: address on file Patient Identification confirmed using: Name, : Yes Telehealth method: video Patient verbally consented to treatment: Yes Patient verbally consented to billing insurance company: Yes Patient informed of any privacy concerns related to visit: Yes Minutes spent on Phone/Video with Pt.: 30 Results Reviewed Results Reviewed: Assessment & Plan Assessment & Plan (1) Disorder of right trochlear nerve: Code(s): 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, right eye Category: Medical (2) Trigeminal neuralgia of right side of face: Code(s): G50.0 - Trigeminal neuralgia Category: Medical (3) Bruxism: Code(s): F45.8 - Other somatoform disorders Category: Medical Plan Previous workup: MRI face/orbits with and without contrast-unremarkable exam, no findings to account for trochlear or cranial nerve neuralgia symptoms. 10/19/2024, labs showed TSH 2, mildly elevated cholesterol levels with total cholesterol 218 and LDL 123 with normal HDL 71, CBC and CMP within normal limits. Discussed that trochlear and facial pain/neuralgia symptoms, can often be triggered by trauma ie dental work, secondary to an underlying systemic disorder, but may also be idiopathic. Thus, patient is advised to undergo additional lab work to elicit for underlying inflammatory process in setting of known rheumatoid arthritis. We will also request pain management consult for possible trochlear nerve block injection, which may help with clarifying diagnosis. Continue Sphenopalatine Ganglion Block with Intranasal Lidocaine??2% viscous solution. Follow-up with pain management as needed If symptoms worsen, consider referral to [facility] facial pain Clinic or a orofacial pain specialist If she has not, trial OTC low profile mouth guard to prevent bruxism. Future considerations: increasing pregabalin, trying a TCA such as amitriptyline, and/or trial of headache neuromodulation device, such as external trigeminal nerve stimulator or a RENs device. Home Instructions for Intranasal Lidocaine/Sphenopalatine Ganglion Block * Do not take this by mouth. * This is for intranasal administration only * Draw up 1 ml of 2% viscous lidocaine into a thin 1ml dosing syringe (the syringe should be thin enough to be inserted deep into the nose).Self administer 1 mL of 2% viscous lidocaine solution into nasal passage on the same side as the head pain.?? * Lidocaine??may be administered into bilateral nasal passages if the headache/??facial pain is on both sides of the head. * Dose may be repeated x1 in 15 minutes. Max of 4 mL per nasal passage per day. Technique: * Lie down on your side curled up like a baby sleeping on its side, with your shoulder on the back of a firm pillow, and your head tilted back and rotated so you are looking up ~30 degrees. * Put the syringe into the lower nostril on the same side as your headache/facial pain, as far as it will comfortably go, with the tip pointing towards the outer (lateral) wall of the nostril. * Inject the contents of the syringe, and then sniff the medicine so that you feel it goes to the back of the nostril, but not into the throat. * If you feel burning or numbness into the eye, or if the eye tears, you know you have gotten the medicine where it needs to be. * Stay lying down with your head turned for 2 ? 3 minutes. * If your headache/facial pain is on both sides, roll over and repeat the procedure on the other side. Stay lying down for 2-3 minutes on this side. After sitting up: * When you sit up, whatever medicine has not been absorbed into your nose will roll back into your throat. * It will taste bitter and may make your throat numb. * Don?t eat or drink until the numbness has gone away ? otherwise you might swallow food or liquid into your windpipe. For further information, please review the following: Please note that some of the information below comes from [employer], which is an organization specific cluster headache. However, their explanation and video is applicable to migraine, trigeminal neuralgia and other facial pain??disorders. * cluster busters at home instruction link * https://[employer].org/resource/wqnh-oqepoornnzcl-skk-intranasal-lidoca yvt-lojolgzhccvtxj-nmlweyum-block/ * instructional video * https://www.youtube.com/watch?v=y9M6r9x1R8N * alternate home instruction * chrome-extension://efaidnbmnnnibpcajpcglclefindmkaj/https://www.[facility].org/assets/[facility]/headache-center/documents/nasal-lidocaine.pdf If your pharmacy can not provide you the syringe, you can buy this nmnx-uao-kllcoyr at a medical supply store or online. ?Specifically, you would need a sterile, individually wrapped, 1 mL syringe without needle or luer lock. Pt to follow-up in 12 months or sooner prn. Medications: Discontinued 2 amlodipine Discontinued Reason: Patient no longer taking 5 mg PO DAILY 90 tabs 2RF Coding Level of Care Code Tele Est Pt Level 3 (45261) Diagnoses Disorder of right trochlear nerve H49.11 Trigeminal neuralgia of right side of face G50.0 Bruxism F45.8
--- OUTSIDE RECORDS SUMMARY | 2025-06-07 14:40 | XMS_ITS | Patient Health Record ---
Author Organization [facility] Address [address] [place] [address] Care Team Providers Care Risk Management Professional Name Role Phone Alva Cutler Primary Care Provider Ubaldo Sevilla [phone] Allergies Allergen (clinical drug ingredient) Drug/Non Drug Allergy documented on EMR Reaction Allergy Type Onset Date Status surgical tape (uncoded) rash Allergy Active Results Component Value Reference Range Flag Notes Blood Urea Nitrogen Reviewed date:05/07/2025 10:44:36 PM Interpretation: Performing Lab:[facility], [address] [place] [phone] Notes/Report: Blood Urea Nitrogen 13 9-16 mg/dL N Creatinine Reviewed date:05/07/2025 10:44:54 PM Interpretation: Performing Lab:[facility], [address] [place] [phone] Notes/Report: Creatinine 0.83 0.5-1.4 mg/dL N Estimated Glomerular Filt Rate > 60 Chronic Kidney Disease: Estimated GFR < 60 mL/min/1.73m2 Severe Kidney Disease: Estimated GFR < 15 mL/min/1.73m2 Carbohydrate Antigen 19-9 Reviewed date:05/11/2025 01:02:48 PM Interpretation: Performing Lab:[facility], [address] [place] [phone] Notes/Report: Carbohydrate Antigen 19-9 17 <34 U/mL N This test was performed using the Siemens chemiluminescent method. Values obtained from different assay methods cannot be used interchangeably. CA 19-9 levels, regardless of value, should not be interpreted as absolute evidence of the presence or absence of disease. THIS TEST WAS PERFORMED AT: [email or web address] [address] [place] [phone] DHARA COATS MD MR abdomen wo/w con (Not yet reviewed by provider) Interpretation: Performing Lab: Notes/Report: [address] [address] Magnetic Resonance Report Signed Patient: Catherine Whipple MR#: [id number] : 1955 Acct:[id number] Age/Sex: 70 / F ADM Date: 05/14/25 Loc: HO.MRI Attending Dr: Ubaldo Alcantara MD Ordering Physician: Ubaldo Alcantara MD Date of Service: 05/14/25 Procedure(s): MR abdomen wo/w con Accession Number(s): [id number] cc: Physician,Unknown ; Ubaldo Alcantara MD Reason [...] 05/14/25 1423 DD/ 1307 TD/TT: 05/14/25 1400 Supervisor Purification: Reason For Referral No Information Medications Medication [...] status: 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 [employer] Section Notes: Nonsmoker; no sig alcohol Nonsmoker; no sig alcohol Nonsmoker; no sig alcohol Nonsmoker; no sig alcohol Nonsmoker; no sig alcohol Nonsmoker; no sig alcohol Nonsmoker; no sig alcohol Problems Problem Type SNOMED Code ICD Code Onset Dates Problem Status W/U Status Risk Notes Problem Screening for malignant neoplasm of colon (113887151) Encounter for screening for malignant neoplasm of colon (Z12.11) Active confirmed Problem History of adenomatous polyp of colon (154412186) History of adenomatous polyp of colon (Z86.010) Active confirmed Problem Diverticular disease of colon (212512346) Diverticulosis of large intestine without perforation or abscess without bleeding (K57.30) Active confirmed Problem Preprocedural examination (466796235017400) Preprocedural examination (Z01.818) Active confirmed Problem Neoplasm of digestive system (169386004) IPMN (intraductal papillary mucinous neoplasm) (D49.0) Active confirmed Vital Signs Temperature 90.4 degrees Fahrenheit 04/23/2025 Blood pressure diastolic 01 mm Hg 04/23/2025 Height 63.5 in 04/23/2025 Blood pressure systolic 001 mm Hg 04/23/2025 Weight 228 lbs 04/23/2025 BMI 39.75 kg/m2 04/23/2025 Encounters Encounter Location Date Provider Diagnosis [facility] Outpatient [address] [place] [id number] 07/27/2024 Ubaldo Alcantara Colon cancer screeni ng Z12.11 ; Family history of colon cancer Z80.0 ; Diverticulosis of large intestine without perforation or abscess without bleeding K57.30 and Other hemorrhoids K64.8 [facility] [address] [place] [phone] 04/23/2025 Ubaldo Alcantara History of adenomato us polyp of colon Z86.010 ; IPMN (intraductal papillary mucinous neoplasm) D49.0 ; Encounter for screening for malignant neoplasm of colon Z12.11 and Preprocedural examination Z01.818 [facility] [address] [place] [phone] 04/23/2025 Ubaldo Alcantara Assessments Encounter Date Diagnosis [...] Date MEDICARE OF [place] [address] [place] [address] [phone] [id number] CATHERINE WHIPPLE Self - patient is the insured [facility] [address] [place] [address] [phone] [id number] CATHERINE WHIPPLE Self - patient is the insured Medical (General) History Medical History History ICD Code Colonoscopy 06-21-2007- smal l tubular adenoma removed- diverticulosis, internal hemorrhoids; F/U colonoscopy 11/2013 with a small tubular adenoma HTN Rheumatoid arthritis Sleep apnea- uses a CPAP Denies ND,DM,CVA,Lung disease,renal dise ase Nerve pain in right [...]
== END 2025-06-07 12:27 | disposition home or self-care (01) ==
LOC: HO.HSMS 11:16
PROVIDERS: Visit Provider Nurse Practitioner Family
DX: H49.11 Fourth [trochlear] nerve palsy, right eye (principal); G50.0 Trigeminal neuralgia; F45.8 Other somatoform disorders
CPT/HCPCS: 99213